=== PATIENT | female | born 1945 | race Caucasian/White ===

== ENCOUNTER 2018-01-17 10:52 | Emergency (ER) | payer MEDICARE, BC ==
[2018-01-17 11:10] VITALS: BP 123/76
--- NOTE | 2018-01-17 11:30 | UC ---
Dizzy HPI HPI Summary: Patient urgent care today with chief complaint of back pain. Patient reports that she fallen last night. Patient fact his fall 3 times in last week after starting Avelox. Once the patient's INR was 4.0 she has not had her INR rechecked patient does not have any chest pain but she does have a sensation that her heart is beating slower than usual. I now patient denies nausea vomiting chest pain shortness of breath pain in her legs does complain of some low back pain - History Of Current Complaint Chief Complaint: UCGeneralIllness Stated Complaint: BACK INJURY Time Seen by Provider: 01/17/18 11:16 Hx Obtained From: Patient ?: No Onset/Duration: Sudden Onset, Lasting Weeks - 1, Other - has had 3 falls in the past week Timing: Constant Pain Intensity: 9 Pain Scale Used: 0-10 Numeric Character: Lightheaded, Weak Aggravating Factor(s): Nothing Alleviating Factor(s): Nothing Associated Signs And Symptoms: Positive: Unsteady Gait - Allergies/Home Medications Allergies/Adverse Reactions: Allergies Allergy/AdvReac Type Severity Reaction Status Date / Time cephalexin [From Keflex] Allergy Rash Verified 01/17/18 12:18 ibuprofen Allergy upset Verified 01/17/18 12:18 stomach,nausea Penicillins Allergy Rash Verified 01/17/18 12:18 Sulfa (Sulfonamide Allergy Rash Verified 01/17/18 12:18 Antibiotics) tetracycline Allergy unk Verified 01/17/18 12:18 Home Medications: Home Medications Moxifloxacin HCl 400 mg PO DAILY 01/17/18 [History Confirmed 01/17/18] PMH/Surg Hx/FS Hx/Imm Hx Previously Healthy: No Endocrine History: Hypothyroidism Cardiovascular History: Cardiac Disease, Hypertension GI/ History: Diverticulitis Other History Of: Anticoagulant Therapy - COUMADIN - Surgical History Surgical History: Yes Surgery Procedure, Year, and Place: LEFT LUMPECTOMY 2007 - Family History Known Family History: Positive: None - Social History Occupation: Retired Lives: Alone Alcohol Use: None Substance Use Type: None Smoking Status (MU): Never Smoked Tobacco - Immunization History Most Recent Influenza Vaccination: fall 2012 Most Recent Tetanus Shot: UNSURE Most Recent Pneumonia Vaccination: 2011 Review of Systems Constitutional: Negative Skin: Negative Eyes: Negative ENT: Negative Respiratory: Negative Cardiovascular: Negative Gastrointestinal: Negative Genitourinary: Negative Motor: Negative Neurovascular: Negative Musculoskeletal: Negative Neurological: Negative Psychological: Negative Is Patient Immunocompromised?: No All Other Systems Reviewed And Are Negative: Yes Physical Exam Triage Information Reviewed: Yes Appearance: Well-Appearing, No Pain Distress, Well-Nourished Vital Signs: Initial Vital Signs Temp 97.7 F 01/17/18 11:04 Pulse 100 01/17/18 11:04 Resp 20 01/17/18 11:04 BP 123/76 01/17/18 11:04 Pulse Ox 100 01/17/18 11:04 Vital Signs Reviewed: Yes Eye Exam: Normal Eyes: Positive: Conjunctiva Clear ENT Exam: Normal ENT: Positive: Normal ENT inspection, Hearing grossly normal. Negative: Trismus , Muffled voice, Hoarse voice Neck exam: Normal Neck: Positive: Supple, Nontender Respiratory Exam: Normal Respiratory: Positive: Chest non-tender, Lungs clear, Normal breath sounds, No respiratory distress, No accessory muscle use Cardiovascular Exam: Normal Cardiovascular: Positive: RRR, No Murmur, Pulses Normal, Brisk Capillary Refill Musculoskeletal Exam: Normal Musculoskeletal: Positive: Strength Intact, ROM Intact, No Edema Neurological Exam: Normal Neurological: Positive: Alert, Muscle Tone Normal Psychological Exam: Normal Skin Exam: Normal Diagnostics - EKG Cardiac Rate: NL Cardiac Rhythm: Sinus: Normal - qt borderline prolong-- Ectopy: None Dizzy Course/Dx - Course [place] Of Treatment[place] [facility] [place] vs cardiac event and alteration in INR - Differential Dx/Diagnosis Provider Diagnoses: falling at home/ syncope/nearsyncope - Physician Notifications Discussed Patient Care With: Victor Manuel Redmond Time Discussed With Above Provider: 11:30 Discharge - Sign-Out/Discharge Documenting (check all that apply): Discharge/Admit/Transfer - Discharge Plan Condition: Stable Disposition: HOME Discharge Disposition Comment[place] [facility] [place]patient refused EMS) for further evaluation Patient Education Materials: Near Syncope (ED), Lightheadedness (ED) Referrals: Angeline Delarosa MD [Primary Care Provider] - Additional Instructions: We are discharging her from the urgent care to go directly to the emergency department for further evaluation of your recent falls - Billing Disposition and Condition Condition: STABLE Disposition: Home
== END 2018-01-17 11:45 | disposition home or self-care (01) ==
LOC: UCEAST 10:52
DX: R55 Syncope and collapse (principal); M54.9 Dorsalgia, unspecified; I48.91 Unspecified atrial fibrillation; I10 Essential (primary) hypertension; Z88.1 Allergy status to other antibiotic agents; Z88.0 Allergy status to penicillin; Z88.2 Allergy status to sulfonamides; Z88.6 Allergy status to analgesic agent; Z79.01 Long term (current) use of anticoagulants; W19.XXXA Unspecified fall, initial encounter; Y92.009 Unspecified place in unspecified non-institutional (private) residence as the place of occurrence of the external cause
CPT/HCPCS: 93005; 99212; G0463

== ENCOUNTER 2018-01-17 12:09 | Emergency (ER) | payer MEDICARE, BC ==
[2018-01-17 14:01] LABS: Hematocrit 45 % (35-47); Hemoglobin 15.3 g/dl (12.0-16.0); Mean Corpuscular HGB Conc 34 g/dl (31-36); Mean Corpuscular Hemoglobin 30 pg (27-31); Mean Corpuscular Volume 88 fL (80-97); Mean Platelet Volume 8.5 um3 (7.4-10.4); Platelet Count 596 10^3/ul (150-450); Red Blood Count 5.12 10^6/ul (4.00-5.40); Red Cell Distribution Width 15 % (10.5-15); White Blood Count 12.7 10^3/ul (3.5-10.8)
--- NOTE | 2018-01-17 14:04 | ED ---
Adult Trauma - HPI Summary HPI Summary: Patient presents with right flank/side pain status post fall 2 nights ago. She reports she gets up frequently to urinate in the night over the past 2-3 years and upon doing this, she was wearing socks which slipped on the hardwood floor. She fell directly backwards onto her bottom and admits it took her a few minutes to get up. Denies numbness, tingling, weakness, change in bowel or bladder habits, hematuria. Additionally, she does admit her balance has been off since she's been taking Avelox for diverticulitis. Denies dizziness or balance issues prior to Avelox and down since she started before she fell. She denies active dizziness at this point in time. She started this one week ago through her PCP, Eddie Gary. She admits the diverticulitis is improving however still has some symptoms such as gas. She is tolerating liquids and cooked vegetables at this point which is an improvement from where she was last week. Denies fever, chills, weakness. Back to her fall, she denies striking her head and denies headache, neck pain, upper back and shoulder pain, stiffness , chest pain, shortness of breath. Her pain has gotten slightly better when she 's taken half of an extra strength Tylenol and applied ice. Furthermore, she reports she takes Coumadin for her A. fib and is followed by Dr. Piper she is a history of ITP. Her Coumadin level 1 week ago was 4.7 and she was told to hold 2 days doses of warfarin then to restart. She has not had her INR rechecked since last checked 7 days ago. Denies visible bruising or bleeding. - History of Current Complaint Chief Complaint: EDBackInjuryPain Stated Complaint: RT SIDE BACK PAIN Time Seen by Provider: 01/17/18 12:40 Hx Obtained From: Patient, Family/Phlebotomy Lab Assistant - female partner Pain Intensity: 4 - Allergy/Home Medications Allergies/Adverse Reactions: Allergies Allergy/AdvReac Type Severity Reaction Status Date / Time cephalexin [From Keflex] Allergy Rash Verified 01/17/18 12:18 ibuprofen Allergy upset Verified 01/17/18 12:18 stomach,nausea Penicillins Allergy Rash Verified 01/17/18 12:18 Sulfa (Sulfonamide Allergy Rash Verified 01/17/18 12:18 Antibiotics) tetracycline Allergy unk Verified 01/17/18 12:18 Home Medications: Home Medications Acetaminophen [Tylenol Extra Strength] 250 mg PO BID PRN 01/17/18 [History Confirmed 01/17/18] Ascorbic Acid TAB* [Vitamin C TAB*] 1,000 mg PO BID 01/17/18 [History Confirmed 01/17/18] Carvedilol TAB* [Coreg TAB*] 12.5 mg PO BID 01/17/18 [History Confirmed 01/17/18 ] Cholecalciferol TAB* [Vitamin D TAB*] 1,000 unit PO QAM 01/17/18 [History Confirmed 01/17/18] Levothyroxine TAB* [Synthroid TAB*] 75 mcg PO EVERY OTHER DAY 01/17/18 [History Confirmed 01/17/18] Levothyroxine TAB* [Synthroid TAB*] 88 mcg PO EVERY OTHER DAY 01/17/18 [History Confirmed 01/17/18] Losartan TAB* [Cozaar TAB*] 25 mg PO DAILY@12 01/17/18 [History Confirmed ] Moxifloxacin TAB(NF) [Avelox TAB (NF)] 400 mg DAILY 01/17/18 [History Confirmed 01/17/18] Warfarin TAB(*) [Coumadin TAB(*)] 4 mg PO DAILY 01/17/18 [History Confirmed 12/30] PMH/Surg Hx/FS Hx/Imm Hx Previously Healthy: Yes Endocrine/Hematology History: Reports: Hx Anticoagulant Therapy - COUMADIN for a. 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 diverticulitis Hx Chemotherapy: No Hx Radiation Therapy: Yes - BREAST - Surgical History Surgery Procedure, Year, and Place: LEFT LUMPECTOMY 2007 Infectious Disease History: No Infectious Disease History: Denies: History Other Infectious Disease, Traveled Outside the [place] in Last 30 Days - Family History Known Family History: Positive: None - Social History Occupation: Retired Lives: With Family - partner Alcohol Use: None Hx Substance Use: No Substance Use Type: Reports: None Hx Tobacco Use: No Smoking Status (MU): Never Smoked Tobacco Review of Systems Constitutional: Negative Negative: Fever, Chills, Fatigue Eyes: Negative Negative: Photophobia, Blurred Vision, Diplopia ENT: Negative Cardiovascular: Negative Negative: Palpitations, Chest Pain Respiratory: Negative Negative: Shortness Of Breath, Cough Gastrointestinal: Other - divertivulitis - reports "I still have a bit of gas but improving" Negative: Vomiting, Diarrhea, Nausea Genitourinary: Negative Negative: burning, dysuria, discharge, frequency, flank pain, hematuria, incontinence, pain, urgency Positive: Arthralgia, Myalgia Skin: Negative Neurological: Other - intermittent balance issues Negative: Headache, Weakness, Paresthesia, Numbness, Syncope, Slurred Speech Psychological: Normal All Other Systems Reviewed And Are Negative: Yes Physical Exam Triage Information Reviewed: Yes Vital Signs On Initial Exam: Initial Vitals Temp Pulse Resp BP Pulse Ox 98.5 F 69 16 142/78 100 01/17/18 12:13 01/17/18 12:13 01/17/18 12:13 01/17/18 12:13 01/17/18 12:13 Vital Signs Reviewed: Yes Appearance: Positive: Well-Appearing, No Pain Distress, Well-Nourished Skin: Positive: Warm, Skin Color Reflects Adequate Perfusion, Dry - no erythema , no ecchymosis over Rt flank or as observed generally over her body Head/Face: Positive: Normal Head/Face Inspection - atraumatic Eyes: Positive: Normal, EOMI, ROSEMARY - no photophobia, Conjunctiva Clear ENT: Positive: Normal ENT inspection, Hearing grossly normal, Pharynx normal, TMs normal - no hemotympanum, no cerumen impaction. Negative: Nasal drainage Neck: Positive: Supple, Nontender, No Lymphadenopathy Respiratory/Lung Sounds: Positive: Clear to Auscultation, Breath Sounds Present Cardiovascular: Positive: Normal, RRR, Pulses are Symmetrical in both Upper and Lower Extremities, S1, S2 Abdomen Description: Positive: Nontender, No Organomegaly, Soft, Distended - mild Bowel Sounds: Positive: Present Musculoskeletal: Positive: Limited @ - Back pain w/ flexion and extension beyond general sitting and standing, Pain @ - Rt flank area and lower as well as lumbar spinous pp TTP Neurological: Positive: Normal, Sensory/Motor Intact, Alert, Oriented to Person Place, Time, CN Intact II-III, Reflexes Intact, Facial Symmetry, Speech Normal. Negative: Pronator Drift Present Psychiatric: Positive: Normal Diagnostics - Vital Signs Vital Signs Temp Pulse Resp BP Pulse Ox 01/17/18 12:41 98.7 F 63 16 127/70 98 01/17/18 12:13 98.5 F 69 16 142/78 100 - Laboratory Result Diagrams: 01/17/18 13:49 01/17/18 13:49 Lab Statement: Any lab studies that have been ordered have been reviewed, and results considered in the medical decision making process. Adult Trauma Course/Dx - Course Course Of Treatment: Pt presents w/ fall and Rt sided back pain since. She admits she's had intermittent balance issues since taking avelox for her diverticulitis and this seems to be the culprit. She is unfortnately allergic to many other anbx and so this is what was chosen to tx her condition. Additionally, she reports her INR was >4 almost 1 week ago and she was told to hold her coumadin for a couple of days. She denies any other potential causes of her balance issues (ie. no fever, chills, weakness, head injury, chest pain, cough, SOB, palpitations, etc). She treats her BP which has been well controlled however was elevated while here so she took her home med (losartan 25mg @ 16:05 w/ a sip of water as BP was 163/106 - improved to 160's/70's). Her scans were neg for hemorrhage, hematoma, organ injury however she was found to have a stable compression fx of L3. Since she was not having any radicular sx and is able to ambulate, toilet etc and has a partner at home, she will be d/ c'd w/ education about care for L3 fx and close f/u w/ neurosurgery. She was also told to contact Dr. Piper as soon as she returns (no contact was attempted today as she is on vacation). INR 3.16 and pt had dropped her dosage of coumadin from 5mg to 4mg. Tyler need recheck in a few days to see if she's staying in a therapeutic range (2-3). No s/sx of bleeding today or leading up to this visit. It was also observed that her platelets are continuing to increase and she may discuss this in further detail with Dr. Piper. As for her elevated WBC, this could be from her diverticulitis. She has no previous for baseline upon initial illness so this could be improving as pt admits she's feeling better re: ab pain and digestion (able to eat more foods than at onset) and she denies fever, weakness, etc. Her lactic acid and CRP are also WNL. She had some mild electrolyte deficiencies and so received IV fluids. She does not have any balance or dizziness isses while here in ED and neuro exam is normal. Discussed w/ Dr. Redmond and pt will f/u outpt as her d/c instructions state. Reviewed danger s/sx of when to return with both pt and her partner who agree w / plan. NOTE: U/A was requested from pt and nursing - both were aware of this request prior to d/c so UTI could be ruled out. This was not provided however prior to d/c. If pt's sx continue, would recommend U/A for further evaluation. - Diagnoses Provider Diagnoses: Lumbar compression fracture, Fall from standing, Elevated INR, Thrombocytosis Discharge - Sign-Out/Discharge Documenting (check all that apply): Discharge/Admit/Transfer - Discharge Plan Condition: Stable Disposition: HOME Patient Education Materials: Vertebral Compression Fracture (ED), Fall Prevention for Older Adults (ED) Referrals: Angeline Delarosa MD [Primary Care Provider] - Hebert Benz MD [Medical Doctor] - Sami Khalil MD [Medical Doctor] - Additional Instructions: The cause of your recent balance issues suspected to be from starting Avelox. You report you did not have balance issues prior to using this and you feel like your diverticulitis is improving. Also, your EKG looks normal as do your vital signs here today and you have not had any dizziness or balance issues while here - these seem to be worse at night when you are getting up abruptly to urinate. It is important that you follow-up with your PCP regarding the need to continue this medication as you may feel better with stopping it, however with a an elevated white blood cell count and still having some diverticular symptoms, it was decided that you should not stop this just yet. Your diverticular disease sounds like it is improving - continue fluids and easily digestible foods. Please call your PCP tomorrow or Saturday to verify when he can stop this medication. If balance issues or worsen persist, return to the ED. To aid in fall reductions, it is important that you transition slowly from lying and sitting to standing in an effort to reduce dizziness. It is also important that you stay hydrated. Remove all rugs from the floors and wear supportive foot wear with good refrigerator car icer while walking on potentially slippery surfaces. For night time urination, consider a bed side commode to reduce risk of slipping in the middle of the night with urinary needs. For your lumbar compression fracture, avoid bending, twisting, lifting, etc. It is important that you follow-up with Dr. Scott this week - call Saturday to schedule an appointment. At home you may continue acetaminophen and ice alternating with heat for pain relief. Also, your platelets are continuing to slowly increase. Please follow-up with Dr. Piper for close evaluation. If you have chest pain, headache, dizziness, numbness, tingling or weakness, return to the ED. NOTE: you have also mentioned chronic urinary issues at night. You have requested a urology consult - contact information included here (Yovani Benz). Additionally, a urine was collected today and will be sent for culture. If you have a resistant UTI, another antibiotic will be added as appropriate. - Billing Disposition and Condition Condition: STABLE Disposition: Home
[2018-01-17 14:06] LABS: INR 3.13 (0.77-1.02)
[2018-01-17 14:21] LABS: EGFR Non-African American 75.7 (>60)
[2018-01-17] MEDS ORDERED: Iohexol 300* (CONTRAST) 10 ML SDV IV ONE (14:24)
[2018-01-17 14:31] LABS: ABS Basophils 0.1 10^3/ul (0-0.2); ABS Eosinophils 0.3 10^3/ul (0-0.6); ABS Lymphocytes 2.2 10^3/ul (1.0-4.8); ABS Neutrophils 9.2 10^3/ul (1.5-7.7); ABS Nucleated RBC 0 10^3/ul; Eosinophil % 2.1 % (0-6); Lymphocyte % 17.1 % (25-47); Nucleated Red Blood Cells % 0.1
[2018-01-17] MEDS ORDERED: NS 0.9% 500 ML* 500 ML IV ONE (16:05)
--- NOTE | 2018-01-17 17:10 | RAD ---
INDICATION: Fall 2 days earlier COMPARISON: CT of the brain November 30, 2014 TECHNIQUE: Contiguous axial sections of the brain were obtained from the skull base to the vertex without contrast. FINDINGS: The ventricles, cisterns and sulci are within normal limits. There is a mild degree of periventricular and subcortical white matter hypoattenuation not significantly changed from the previous CT of the brain. The morgan-white matter differentiation is adequately maintained and there is no sulcal effacement. No significant focal abnormality or mass effect is present. There is no evidence for intracranial hemorrhage. Incidentally noted is the appearance of hyperostosis frontalis interna. No significant focal osseous abnormality is present. The visualized portion of the paranasal sinuses appear clear. The mastoid air cells are well aerated bilaterally. IMPRESSION: No CT evidence of acute intracranial abnormality.
--- NOTE | 2018-01-17 17:33 | RAD ---
INDICATION: Right flank and back pain since a fall 2 days earlier. INR is 4.7. COMPARISON: CT of the abdomen and pelvis November 16, 2016 TECHNIQUE: Multidetector CT images of the chest, abdomen and pelvis were obtained from the lung apices to the ischial tuberosities following the injection of 87 mL Omnipaque 300. CHEST: The lungs are clear. There are no large pleural effusions. There is no mediastinal or hilar lymphadenopathy. The heart and major vascular structures are grossly normal in appearance. There is coarse calcification at the arch of the aorta. ABDOMEN & PELVIS: There is a small hiatal hernia. The liver, spleen, pancreas and adrenal glands are grossly normal in appearance. The gallbladder is normal. Large fluid density cyst is in the right kidney. Otherwise the kidneys are normal in appearance without focal mass, calcification or signs of hydronephrosis. On the delayed phase images contrast is symmetrically and promptly excreted. Evaluation the gastrointestinal tract is limited without oral contrast.. The small and large bowel are not distended. The appendix appears normal with a small focus of gas in the lumen (sagittal image 46). There is no gross retroperitoneal or mesenteric lymphadenopathy. The pelvic viscera is normal in appearance. The abdominal aorta and iliac arteries are normal in course and diameter. Again seen is levoconvex curvature of the spine with the apex at L2/L3 similar in appearance to the previous CT examination. There is interval appearance of lucency at the L3 vertebral body (axial image 30 of [address] of the abdomen and pelvis). The fracture is depicted on the lumbar spine CT (coronal image 25 and axial image 34). There is no retropulsion of fragments. IMPRESSION: 1. There appears to be interval appearance of a nondisplaced compression fracture involving the anterior portion of the L3 vertebral body. There is no retropulsion of fragments into the thecal canal. 2. There is no retroperitoneal hematoma. 3. Additional chronic and degenerative changes as described in body the report.
[2018-01-17 19:36] VITALS: BP 158/84
== END 2018-01-17 19:34 | disposition home or self-care (01) ==
LOC: ED 12:09
DX: S32.039A Unspecified fracture of third lumbar vertebra, initial encounter for closed fracture (principal); W19.XXXA Unspecified fall, initial encounter; Y92.9 Unspecified place or not applicable; R79.1 Abnormal coagulation profile; D47.3 Essential (hemorrhagic) thrombocythemia; K57.92 Diverticulitis of intestine, part unspecified, without perforation or abscess without bleeding; I48.91 Unspecified atrial fibrillation; I10 Essential (primary) hypertension; Z79.01 Long term (current) use of anticoagulants; Z79.899 Other long term (current) drug therapy; Z85.3 Personal history of malignant neoplasm of breast; Z88.0 Allergy status to penicillin; Z88.5 Allergy status to narcotic agent; Z88.3 Allergy status to other anti-infective agents; R55 Syncope and collapse; M54.9 Dorsalgia, unspecified; Z88.1 Allergy status to other antibiotic agents; Z88.2 Allergy status to sulfonamides; Z88.6 Allergy status to analgesic agent; Y92.009 Unspecified place in unspecified non-institutional (private) residence as the place of occurrence of the external cause
CPT/HCPCS: 36415; 70450; 71260; 72131; 74177; 80053; 82550; 83605; 84443; 85025; 85610; 86850; 86900; 86901; 93005; 99283; Q9967

== ENCOUNTER 2018-12-04 21:50 | Emergency (ER) | payer MEDICARE, BC ==
[2018-12-04] MEDS ORDERED: Losartan TAB* 25 MG PO ONE (22:39)
--- NOTE | 2018-12-04 22:56 | ED ---
Hypertension - HPI Summary HPI Summary: Pt is a 73 y/o F presenting to the ED with a chief complaint of hypertension. 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 Her teacher called EMS who stated she should follow up with her PCP because her BP was low, but when she went to her PCP the same day it was normal. She was on losartan, so her doctor recommended stopping that medication. Now, her BP has gone back up, and she reports some arm numbness and mouth numbness on the L side. She denies headaches, weakness, and CP. - History of Current Complaint Chief Complaint: EDHypertension Stated Complaint: DR TOOK ME OFF MEDICATION, LEFT ARM NUMBNESS PER P Time Seen by Provider: 12/04/18 22:27 Hx Obtained From: Patient Onset/Duration: Started Days Ago, Still Present Timing: Constant, Lasting Days Aggravating Factor(s): Nothing Alleviating Factor(s): Nothing Associated Signs & Symptoms: Numbness, Weakness, Dizziness - Allergies/Home Medications Allergies/Adverse Reactions: Allergies Allergy/AdvReac Type Severity Reaction Status Date / Time cephalexin [From Keflex] Allergy Rash Verified 01/17/18 12:18 ibuprofen Allergy upset Verified 01/17/18 12:18 stomach,nausea Penicillins Allergy Rash Verified 01/17/18 12:18 Sulfa (Sulfonamide Allergy Rash Verified 01/17/18 12:18 Antibiotics) tetracycline Allergy unk Verified 01/17/18 12:18 PMH/Surg Hx/FS Hx/Imm Hx Previously Healthy: Yes Endocrine/Hematology History: Reports: Hx Anticoagulant Therapy - COUMADIN for a. 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 Negative: Headache, Weakness All Other Systems Reviewed And Are Negative: Yes Physical Exam - Summary Physical Exam Summary: Appearance: Well-appearing, Well-nourished, lying in bed comfortably, BP somewhat high Skin: Warm, dry, no obvious rash Eyes: sclera anicteric, no conjunctival pallor ENT: mucous membranes moist, pharynx appears normal Neck: Supple, nontender Respiratory: Clear to auscultation, no signs of respiratory distress Cardiovascular: Normal S1, S2. No murmurs. Normal distal pulses in tibial and radial bilaterally. Abdomen: Soft, nontender, normal active bowel sounds present Musculoskeletal: Normal, Strength/ROM Intact Neurological: A&Ox3, awake and alert, mentation is normal, speech is fluent and appropriate Psychiatric: affect is normal, does not appear anxious or depressed Triage Information Reviewed: Yes Vital Signs On Initial Exam: Initial Vitals Temp Pulse Resp BP Pulse Ox 97.6 F 75 16 203/100 97 12/04/18 21:53 12/04/18 21:53 12/04/18 21:53 12/04/18 21:53 12/04/18 21:53 Vital Signs Reviewed: Yes - Clotilde Coma Scale Best Eye Response: 4 - Spontaneous Best Motor Response: 6 - Obeys Commands Best Verbal Response: 5 - Oriented Coma Scale Total: 15 Diagnostics - Vital Signs Vital Signs Temp Pulse Resp BP Pulse Ox 12/04/18 21:53 97.6 F 75 16 203/100 97 - Laboratory Result Diagrams: 12/04/18 22:52 12/04/18 22:52 Lab Statement: Any lab studies that have been ordered have been reviewed, and results considered in the medical decision making process. - Radiology CXR Radiology Interpretation Completed By: ED Physician Summary of Radiographic Findings: No acute process. Pending official radiology report. - CT Brain CT CT Interpretation Completed By: Radiologist Summary of CT Findings: No acute intracranial findings, with age-related atrophy and chronic white matter ischemic change. ED physician has reviewed this report. - EKG 2324 Cardiac Rate: NL - 69bpm EKG Rhythm: Sinus Rhythm ST Segment: Normal Ectopy: None Summary of EKG Findings: EKG at 2324 shows NSR at 69bpm with no STEMI and no acute changes. Hypertension Course/Dx - Course Course Of Treatment: Pt is a 73 y/o F presenting to the ED with a chief complaint of hypertension. 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 Her BP was too low, and her PCP recommended coming off of the Losartan. She stopped taking it, and now her BP is elevated. She denies PICKARD, weakness, or CP. CXR shows no acute process, pending official radiology report. Brain CT shows no acute intracranial findings, with age-related atrophy and chronic white matter ischemic change. EKG at 4 shows NSR at 69bpm with no STEMI. The pt's physical exam is normal aside from noted high blood pressure. In the ED course, the pt received losartan to bring her BP down. Hematology shows RBC of 5.43, plt count of 506. Coagulation shows INR of 2.05. Chemistry shows Chloride of 99. UA is normal. The pt will be discharged with a dx of hypertension. She is stable and agreeable with this plan. - Diagnoses Provider Diagnoses: Hypertension Discharge - Sign-Out/Discharge Documenting (check all that apply): Patient Departure Patient Received Moderate/Deep Sedation with Procedure: No - Discharge Plan Condition: Good Disposition: HOME Patient Education Materials: Chronic Hypertension (ED) Referrals: Angeline Delarosa MD [Primary Care Provider] - Additional Instructions: I would recommend resuming your losartan for the time being. Our tests tonight did not show any signs that the elevated BP you had today was causing any major problems for you. - Billing Disposition and Condition Condition: GOOD Disposition: Home - Attestation Statements Document Initiated by Scribe: Yes Documenting Scribe: Nelly Nicolas Provider For Whom Rubén is Documenting (Include Credential): Jose Hill MD. Scribe Attestation: Nelly Mendoza scribed for Jose Hill MD. on 12/09/18 at 1829. Scribe Documentation Reviewed: Yes Provider Attestation: The documentation as recorded by the Nelly maharaj accurately reflects the service I personally performed and the decisions made by me, Jose Hill MD. Status of Scribe Document: Viewed
[2018-12-04 23:04] LABS: Hematocrit 47 % (35-47); Hemoglobin 15.8 g/dL (12.0-16.0); Mean Corpuscular HGB Conc 33 g/dL (31-36); Mean Corpuscular Hemoglobin 29 pg (27-31); Mean Corpuscular Volume 87 fL (80-97); Mean Platelet Volume 8.8 fL (7.4-10.4); Platelet Count 506 10^3/uL (150-450); Red Blood Count 5.43 10^6 /uL (3.70-4.87); Red Cell Distribution Width 14 % (10.5-15); White Blood Count 10.5 10^3/uL (3.5-10.8)
[2018-12-04 23:08] LABS: INR 2.05 (0.82-1.09)
[2018-12-04 23:15] LABS: Albumin 4.2 g/dL (3.2-5.2); Albumin/Globulin Ratio 1.4 (1-3); BUN/Creatinine Ratio 17.9 (8-20); Calcium 9.5 mg/dL (8.6-10.3); EGFR African American 69.6 (>60); EGFR Non-African American 57.5 (>60); Potassium 4.1 mmol/L (3.5-5.0); Total Bilirubin 0.4 mg/dL (0.2-1.0); Total Protein 7.2 g/dL (6.4-8.9)
[2018-12-04 23:30] LABS: Urine Appearance Clear; Urine Bilirubin Negative (Negative); Urine Blood Negative (Negative); Urine Color Colorless; Urine Glucose Negative (Negative); Urine Ketones Negative (Negative); Urine Nitrite Negative (Negative); Urine Protein Negative (Negative); Urine Specific Gravity 1.002 (1.010-1.030); Urine Urobilinogen Negative (Negative)
[2018-12-04 23:49] LABS: ABS Basophils 0.1 10^3/ul (0-0.2); ABS Eosinophils 0.5 10^3/ul (0-0.6); ABS Lymphocytes 2.1 10^3/ul (1.0-4.8); ABS Monocytes 0.8 10^3/ul (0-0.8); Eosinophil % 4.7 %; Lymphocyte % 19.8 %
[2018-12-05 01:48] VITALS: BP 150/88
== END 2018-12-05 01:52 | disposition home or self-care (01) ==
LOC: ED 21:50
DX: I10 Essential (primary) hypertension (principal); I48.91 Unspecified atrial fibrillation; M81.0 Age-related osteoporosis without current pathological fracture; R94.31 Abnormal electrocardiogram [ECG] [EKG]; Z88.3 Allergy status to other anti-infective agents; Z88.0 Allergy status to penicillin; Z88.2 Allergy status to sulfonamides; Z88.6 Allergy status to analgesic agent; Z79.01 Long term (current) use of anticoagulants
CPT/HCPCS: 36415; 70450; 71046; 80053; 81003; 84484; 85025; 85610; 93005; 99283; A9270-GY

== ENCOUNTER 2018-12-18 21:59 | Emergency (ER) | payer MEDICARE, BC ==
[2018-12-19] MEDS ORDERED: cloNIDine TAB* 0.1 MG PO ONE (00:10)
--- NOTE | 2018-12-19 00:24 | ED ---
Hypertension - HPI Summary HPI Summary: 73-year-old female presents with high blood pressure today. States she has been having intermittent numbness and tingling in her left arm over the past 2 weeks. It started when she stopped her blood pressure medication as advised by her primary. States that since then she's had issues her blood pressure. Denies any chest pain shortness breath. No headache. no difficulties with speech or word finding. She states she's been having numbness and tingling across body for the past month. No weakness. sometimes she has difficulty ambulate. no difficulty ambulating currently. No urinary symptoms. No vomiting or nausea. Denies any neck pain. No fevers. She took her blood pressure today and it was over 180. She took her normal dose of blood pressure medications. was seen here a week ago for same symptoms. - History of Current Complaint Chief Complaint: EDHypertension Stated Complaint: HIGH BP 186/106 PER PT Time Seen by Provider: 12/18/18 23:42 - Allergies/Home Medications Allergies/Adverse Reactions: Allergies Allergy/AdvReac Type Severity Reaction Status Date / Time cephalexin [From Keflex] Allergy Rash Verified 12/18/18 22:13 ibuprofen Allergy upset Verified 12/18/18 22:13 stomach,nausea Penicillins Allergy Rash Verified 12/18/18 22:13 Sulfa (Sulfonamide Allergy Rash Verified 12/18/18 22:13 Antibiotics) tetracycline Allergy unk Verified 12/18/18 22:13 PMH/Surg Hx/FS Hx/Imm Hx Endocrine/Hematology History: Reports: Hx Anticoagulant Therapy - COUMADIN for a. 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 Negative: Chest Pain Negative: Shortness Of Breath Positive: Paresthesia All Other Systems Reviewed And Are Negative: Yes Physical Exam Triage Information Reviewed: Yes Vital Signs On Initial Exam: Initial Vitals Temp Pulse Resp BP Pulse Ox 96.8 F 76 16 190/106 99 12/18/18 22:05 12/18/18 22:05 12/18/18 22:05 12/18/18 22:05 12/18/18 22:05 Vital Signs Reviewed: Yes Appearance: Positive: Well-Appearing Skin: Positive: Warm, Dry Head/Face: Positive: Normal Head/Face Inspection Eyes: Positive: Normal, Conjunctiva Clear ENT: Positive: Pharynx normal Neck: Positive: Other: - nontender neck, full ROM neck Respiratory/Lung Sounds: Positive: Clear to Auscultation, Breath Sounds Present Cardiovascular: Positive: Normal, RRR Abdomen Description: Positive: Nontender, Soft Bowel Sounds: Positive: Present Musculoskeletal: Positive: Normal, Strength/ROM Intact - left arm, Other - good principal scientist strength, sensation grossly intact Neurological: Positive: Sensory/Motor Intact, Alert, Oriented to Person Place, Time, CN Intact II-III Psychiatric: Positive: Normal Diagnostics - Vital Signs Vital Signs Temp Pulse Resp BP Pulse Ox 12/19/18 00:13 65 19 171/96 95 12/19/18 00:00 68 15 96 12/18/18 23:42 69 179/99 95 12/18/18 22:05 96.8 F 76 16 190/106 99 - Laboratory Result Diagrams: 12/19/18 00:36 12/19/18 00:36 Lab Statement: Any lab studies that have been ordered have been reviewed, and results considered in the medical decision making process. - Radiology chest Radiology Interpretation Completed By: ED Physician Summary of Radiographic Findings: no active disease - EKG No standard instances Cardiac Rate: NL EKG Rhythm: Sinus Rhythm EKG Comparison: No Significant Change Summary of EKG Findings: sinus rhythm, PAC, anterior infaract old Re-Evaluation - Re-Evaluation First Eval Re-Evaluation Time: 01:38 Change: Improved Comment: numbness and tingling resolved Second Eval Re-Evaluation Time: 01:54 Comment: discussed results Hypertension Course/Dx - Course Course Of Treatment: 73-year-old female presents with high blood pressure today. States she has been having intermittent numbness and tingling in her left arm over the past 2 weeks. It started when she stopped her blood pressure medication as advised by her primary. States that since then she's had issues her blood pressure. Denies any chest pain shortness breath. No headache. no difficulties with speech or word finding. She states she's been having numbness and tingling across body for the past month. No weakness. sometimes she has difficulty ambulate. no difficulty ambulating currently. No urinary symptoms. No vomiting or nausea. Denies any neck pain. No fevers. She took her blood pressure today and it was over 180. She took her normal dose of blood pressure medications. On exam lungs clear auscultation. Heart regular rate and rhythm. EKG shows sinus rhythm. Lab work without significant abnormality except for H&H little bit elevated. States has a family history of polycythemia vera. gave dose of clonidine and blood pressure was 130/80. We will have increased losartan. Told to follow up with Dr castano about blood pressure. Also with paresthesias told to follow-up with neurology. Patient understands agrees with plan. - Diagnoses Differential Diagnosis/HQI PQRI: Cerebral Bleed, Hypertension, Hypertensive Urgency, Myocardial Infarction Provider Diagnoses: Hypertension, Left arm numbness Discharge - Sign-Out/Discharge Documenting (check all that apply): Patient Departure Patient Received Moderate/Deep Sedation with Procedure: No - Discharge Plan Condition: Good Disposition: HOME Patient Education Materials: Hypertension (ED) Referrals: Angeline Delarosa MD [Primary Care Provider] - Brenda Castano MD [Medical Doctor] - Mireille Ochoa MD [Medical Doctor] - Additional Instructions: increase losartan to 50mg daily (double dose) keep a blood pressure log daily Follow up with cardiology follow up with neurology Return to ED if develop any new or worsening symptoms - Billing Disposition and Condition Condition: GOOD Disposition: Home
[2018-12-19 00:52] LABS: ABS Basophils 0.1 10^3/ul (0-0.2); ABS Eosinophils 0.4 10^3/ul (0-0.6); ABS Monocytes 0.8 10^3/ul (0-0.8); ABS Neutrophils 9.3 10^3/ul (1.5-7.7); Eosinophil % 3.1 %; Hematocrit 50 % (35-47); Hemoglobin 16.7 g/dL (12.0-16.0); Lymphocyte % 16.2 %; Mean Corpuscular HGB Conc 34 g/dL (31-36); Mean Corpuscular Hemoglobin 29 pg (27-31); Mean Corpuscular Volume 87 fL (80-97); Mean Platelet Volume 8.9 fL (7.4-10.4); Nucleated Red Blood Cells % 0.1; Platelet Count 425 10^3/uL (150-450); Red Blood Count 5.69 10^6 /uL (3.70-4.87); Red Cell Distribution Width 15 % (10-15); White Blood Count 12.6 10^3/uL (3.5-10.8)
[2018-12-19 00:57] LABS: INR 2.25 (0.82-1.09)
[2018-12-19 01:08] LABS: Albumin 4.4 g/dL (3.2-5.2); Albumin/Globulin Ratio 1.5 (1-3); BUN/Creatinine Ratio 17.9 (8-20); Calcium 10.1 mg/dL (8.6-10.3); EGFR African American 87.4 (>60); EGFR Non-African American 72.2 (>60); Potassium 4.1 mmol/L (3.5-5.0); Total Bilirubin 0.8 mg/dL (0.2-1.0); Total Protein 7.4 g/dL (6.4-8.9)
[2018-12-19 01:42] LABS: Urine Appearance Clear; Urine Bilirubin Negative (Negative); Urine Blood Negative (Negative); Urine Color Straw; Urine Glucose Negative (Negative); Urine Ketones Negative (Negative); Urine Nitrite Negative (Negative); Urine Protein Negative (Negative); Urine Specific Gravity 1.004 (1.010-1.030); Urine Urobilinogen Negative (Negative)
[2018-12-19 02:27] VITALS: BP 129/81
== END 2018-12-19 02:27 | disposition home or self-care (01) ==
LOC: ED 21:59
DX: I10 Essential (primary) hypertension (principal); R20.0 Anesthesia of skin; Z85.3 Personal history of malignant neoplasm of breast; Z88.0 Allergy status to penicillin; Z88.2 Allergy status to sulfonamides; Z79.01 Long term (current) use of anticoagulants
CPT/HCPCS: 36415; 70450; 71045; 72125; 80053; 81003; 83605; 84484; 85025; 85610; 93005; 99283; A9270-GY

== ENCOUNTER 2018-12-24 15:19 | Observation (INO) | payer MEDICARE, BC ==
[2018-12-24] MEDS ORDERED: Labetalol IV* 5 MG/ML 20 ML VIAL IV PUSH ONE ×2 (15:48→16:14)
--- NOTE | 2018-12-24 16:06 | ED ---
Neurological HPI - HPI Summary HPI Summary: Patient is a 73 y/o F presenting to ED with concerns of recent strokes. Patient reports that she had been to ED twice in the past two weeks with concerns for her elevated BP. Patient does note that she has been having intermittent left sided hand numbness, left-sided weakness, ataxia, and feeling fatigued and "uncoordinated". Patient was at [facility] today and received Head CTA and brain MRI. MRI revealed multiple recent strokes per patient report. At this time, patient denies any new symptoms. She notes that her patient had previously taken her off her BP medication, Losartan. After first visit to ED in past two weeks, she was restarted on her BP med, after the second visit, she states she had her losartan doubled. Patient has not had her Losartan today. PMHx of HTN, afib, and ITP. She is on Coumadin as well. On triage, pain is denied, nothing is noted to aggravate/alleviate Sx. Home medications and allergies are reviewed. - History of Current Complaint Chief Complaint: EDHypertension Stated Complaint: STORKE LIKE SYMPTOMS Hx Obtained From: Patient Onset/Duration: Started weeks ago - Sx for the past two weeks Timing: Intermittent Episodes Lasting: Current Severity: None Neurological Deficit Location: LUE, LLE Pain Intensity: 0 Pain Scale Used: 0-10 Numeric Character: Numbness/Tingling - left hand, Motor Weakness - left sided, Other: - ataxia, fatigue, "uncoordinated" Aggravating: Nothing Alleviating: Nothing Associated Signs and Symptoms: Positive: Unsteady Gait, Weakness - left-sided, Numbness - left hand - Allergy/Home Medications Allergies/Adverse Reactions: Allergies Allergy/AdvReac Type Severity Reaction Status Date / Time aspirin Allergy Unknown Verified 12/24/18 16:24 Reaction Details cephalexin [From Keflex] Allergy Rash Verified 12/24/18 15:25 ibuprofen Allergy upset Verified 12/24/18 15:25 stomach,nausea Penicillins Allergy Rash Verified 12/24/18 15:25 Sulfa (Sulfonamide Allergy Rash Verified 12/24/18 15:25 Antibiotics) tetracycline Allergy unk Verified 12/24/18 15:25 Home Medications: Home Medications Acetaminophen TAB* [Tylenol TAB*] 650 mg PO Q6H PRN 12/24/18 [History Confirmed 12/24/18] Lactobacillus Acidophilus [Probiotic Acidophilus] 1 tab PO DAILY 12/24/18 [ History Confirmed 12/24/18] Losartan TAB* [Cozaar TAB*] 50 mg PO QPM 12/24/18 [History Confirmed 12/24/18] PMH/Surg Hx/FS Hx/Imm Hx Endocrine/Hematology History: Reports: Hx Anticoagulant Therapy - COUMADIN for a. 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 [facility] Infectious Disease History: No Infectious Disease History: Denies: History Other Infectious Disease, Traveled Outside the [place] in Last 30 Days - Family History Known Family History: Negative: Renal Disease - Social History Alcohol Use: None Hx Substance Use: No Substance Use Type: Reports: None Hx Tobacco Use: No Smoking Status (MU): Never Smoked Tobacco Review of Systems Constitutional: Other - positive - feeling uncoordinated Positive: Fatigue Positive: Weakness - left-sided, ataxia, Numbness - left hand All Other Systems Reviewed And Are Negative: Yes Physical Exam - Summary Physical Exam Summary: VITAL SIGNS: Reviewed. GENERAL: Patient is a well-developed and nourished female who is lying comfortable in the stretcher. Patient is not in any acute respiratory distress. HEAD AND FACE: No signs of trauma. No ecchymosis, hematomas or skull depressions. No sinus tenderness. EYES: PERRLA, EOMI x 2, No injected conjunctiva, no nystagmus. EARS: Hearing grossly intact. Ear canals and tympanic membranes are within normal limits. MOUTH: Oropharynx within normal limits. NECK: Supple, trachea is midline, no adenopathy, no JVD, no carotid bruit, no c- spine tenderness, neck with full ROM. CHEST: Symmetric, no tenderness at palpation LUNGS: Clear to auscultation bilaterally. No wheezing or crackles. CVS: Regular rate and rhythm, S1 and S2 present, no murmurs or gallops appreciated. ABDOMEN: Soft, non-tender. No signs of distention. No rebound no guarding, and no masses palpated. Bowel sounds are normal. EXTREMITIES: FROM in all major joints, no edema, no cyanosis or clubbing. NEURO: Alert and oriented x 3. Speech is normal and follows commands. Left arm and left leg weakness. GCS 15, NIH 2. SKIN: Dry and warm. Triage Information Reviewed: Yes Vital Signs On Initial Exam: Initial Vitals Temp Pulse Resp BP Pulse Ox 99.4 F 81 17 211/110 99 12/24/18 15:21 12/24/18 15:21 12/24/18 15:21 12/24/18 15:21 12/24/18 15:21 Vital Signs Reviewed: Yes - Clotilde Coma Scale Best Eye Response: 4 - Spontaneous Best Motor Response: 6 - Obeys Commands Best Verbal Response: 5 - Oriented Coma Scale Total: 15 Diagnostics - Vital Signs Vital Signs Temp Pulse Resp BP Pulse Ox 12/24/18 15:21 99.4 F 81 17 211/110 99 - Laboratory Result Diagrams: 12/24/18 16:03 12/24/18 16:03 Lab Statement: Any lab studies that have been ordered have been reviewed, and results considered in the medical decision making process. - EKG 1557 Cardiac Rate: NL - rate of 75 BPM EKG Rhythm: Sinus Rhythm EKG Comparison: No Significant Change - compared to 12/19/18 EKG Summary of EKG Findings: EKG showed sinus rhythm with rate of 75 BPM, no ST elevation, similar to EKG done 12/19/18. NIH Scale - NIH Scale Level of Consciousness: Alert/Keenly Responsive Ask Patient the Month and His/Her Age: Both Correct Ask Pt to Open/Close Eyes and Agricultural Engineering Technician/Release Non-Paretic Hand: Both Correctly Best Gaze (Only Horizontal Eye Movement): Normal Visual Field Testing: No Visual Loss Facial Paresis-Pt to Smile & Close Eyes or Grimace Symmetry: Normal/Symmetrical Motor Function - Right Arm: No Drift-Holds 10 Seconds Motor Function - Left Arm: Drifts LT 10 seconds Motor Function - Right Leg: No Drift-Holds 10 Seconds Motor Function - Left Leg: Drifts LT 10 seconds Limb Ataxia-Must be out of Proportion to Weakness Present: Absent Sensory (Use Pinprick to Test Arms/Legs/Trunk/Face): Normal Best Language (Describe Picture, Name Items): No Aphasia Dysarthria (Read Several Words): Normal Extinction and Inattention: No Abnormality Total Score: 2 Course/Dx - Course Assessment/Plan: Patient is a 73 y/o F presenting to ED with concerns of recent strokes. Patient reports that she had been to ED twice in the past two weeks with concerns for her elevated BP. Patient does note that she has been having intermittent left sided hand numbness, left-sided weakness, ataxia, and feeling fatigued and "uncoordinated". Patient was at [facility] today and received Head CTA and brain MRI. MRI revealed multiple recent strokes per patient report. At this time, patient denies any new symptoms. She notes that her patient had previously taken her off her BP medication, Losartan. After first visit to ED in past two weeks, she was restarted on her BP med, after the second visit, she states she had her losartan doubled. Patient has not had her Losartan today. PMHx of HTN, afib, and ITP. She is on Coumadin as well. Past medical history significant for. Atrial fibrillation on Coumadin. Hypertension. Hypothyroidism. Blood work without any significant abnormality except for INR of 3.01, sodium 1:30, chloride 100, glucose 121, and urinalysis is negative for UTI. MRI of the brain impression: Multiple small foci of restricted diffusion consistent with a subacute nonhemorrhagic infarct tenderness or rebound hemispheres bilaterally in multiple vascular territories most consistent with embolic disease. CTA impression: no internal carotid artery stenosis. No aneurysms, vascular malformation, occlusion, or any stenosis of the visualized intracranial circulation. At this point I discussed my physical exam and findings with Dr. Canseco from a neurology who came and consulted for this patient. He recommends for the patient to be admitted to the hospital services for an echocardiogram and further workup for this patient. I discussed my physical exam and findings with Dr. Carrero from the hospital services was accepted the patient for admission. - Diagnoses Provider Diagnoses: CVA (cerebral vascular accident) - Physician Notifications Discussed Care Of Patient With: Bel Canseco Time Discussed With Above Provider: 15:46 Instructed by Provider To: Other - [id number] - Patient's case was discussed wt Dr. Canseco, Dr. Canseco will evaluate the patient, admission is recommended. 1555 - Patient's case was discussed with Dr. Carrero, Dr. Carrero accepts for admission. - Critical Care Time Critical Care Time: 30-74 min Discharge - Sign-Out/Discharge Documenting (check all that apply): Patient Departure - admit All imaging exams completed and their final reports reviewed: Yes - reviewed [facility] imaging Patient Received Moderate/Deep Sedation with Procedure: No - Discharge Plan Condition: Good Disposition: ADMITTED TO [facility] - Billing Disposition and Condition Condition: GOOD Disposition: Admitted to [facility] - Attestation Statements Document Initiated by Enriqueibe: Yes Documenting Scribe: KALEE NASSAR Provider For Whom Rubén is Documenting (Include Credential): SWATI FINCH MD Scribe Attestation: KALEE Mendoza, scribed for SWATI FINCH MD on 12/24/18 at 2151. Scribe Documentation Reviewed: Yes Provider Attestation: The documentation as recorded by the KALEE maharaj accurately reflects the service I personally performed and the decisions made by me, SWATI FINCH MD Status of Scribe Document: Viewed
[2018-12-24 16:13] LABS: ABS Basophils 0.1 10^3/ul (0-0.2); ABS Eosinophils 0.5 10^3/ul (0-0.6); ABS Lymphocytes 1.9 10^3/ul (1.0-4.8); ABS Monocytes 0.8 10^3/ul (0-0.8); ABS Neutrophils 7.2 10^3/ul (1.5-7.7); Eosinophil % 4.6 %; Hematocrit 47 % (35-47); Hemoglobin 15.9 g/dL (12.0-16.0); Mean Corpuscular HGB Conc 34 g/dL (31-36); Mean Corpuscular Hemoglobin 29 pg (27-31); Mean Corpuscular Volume 87 fL (80-97); Mean Platelet Volume 8.6 fL (7.4-10.4); Nucleated Red Blood Cells % 0.2; Platelet Count 485 10^3/uL (150-450); Red Blood Count 5.43 10^6 /uL (3.70-4.87); Red Cell Distribution Width 15 % (10-15); White Blood Count 10.5 10^3/uL (3.5-10.8)
[2018-12-24 16:19] LABS: INR 3.01 (0.82-1.09)
[2018-12-24 16:30] LABS: Albumin/Globulin Ratio 1.5 (1-3); BUN/Creatinine Ratio 22.9 (8-20); Calcium 9.2 mg/dL (8.6-10.3); EGFR Non-African American 81.8 (>60); Globulin 2.6 g/dL (2-4); Potassium 3.9 mmol/L (3.5-5.0); Total Bilirubin 0.4 mg/dL (0.2-1.0); Total Protein 6.6 g/dL (6.4-8.9)
[2018-12-24 17:25] LABS: Urine Appearance Clear; Urine Bilirubin Negative (Negative); Urine Blood Negative (Negative); Urine Color Straw; Urine Glucose Negative (Negative); Urine Ketones Negative (Negative); Urine Nitrite Negative (Negative); Urine Protein Negative (Negative); Urine Specific Gravity 1.019 (1.010-1.030); Urine Urobilinogen Negative (Negative)
[2018-12-24] MEDS ORDERED: Warfarin TAB(*) 4 MG PO SCH (18:00)
[2018-12-24] MEDS: Losartan TAB* 25 MG PO SCH (18:40)
[2018-12-24] MEDS: NS 0.9% 1000 ML** 1,000 ML IV SCH (18:40)
--- NOTE | 2018-12-24 19:02 | HP ---
CC: Dr. Delarosa; Dr. Aguila; Dr. Real; Dr. Canseco * HISTORY AND PHYSICAL: DATE OF ADMISSION: 12/24/18 TIME OF EVALUATION: 4:30 p.m. PRIMARY CARE PROVIDER: Dr. Delarosa. QUALITY TESTER: Dr. Aguila. NEUROLOGIST: Dr. Real. CONSULTING NEUROLOGIST: Dr. Canseco. CHIEF COMPLAINT: "I had a stroke." HISTORY OF PRESENT ILLNESS: Ms. Hooper is a 73-year-old lady with a past medical history of paroxysmal atrial fibrillation, BPPV, ITP, osteoporosis, CVA in 2010, hypothyroidism, autoimmune hepatitis, hypertension, who presents to the emergency room after having an MRI of the brain as an outpatient showing embolic CVA. Her symptoms go back to 11/28/18. 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 EMS was called and their evaluation revealed a blood pressure of 80/56 with a heart rate in the 60s. She declined transportation to the ER and actually went home. She was seen by her primary care provider and the decision at that time was to stop her losartan and to arrange for a Holter as an outpatient. The patient states that she was initially feeling back to her baseline, but on 12/03/18, she had a Holter monitor placed. She states it was very uncomfortable because the leads capped "poking her chest," the blood pressure monitor was also tight and she was not able to sleep well. She states that on 12/04/18, she woke up with left hand numbness that she attributed to "sleeping wrong." Her Holter showed normal sinus rhythm with episodes of SVT at all times of the day, more frequent with sleep with a heart rate of 130 beats per minute. There is no ventricular ectopy. The patient presented to the emergency room on 12/04/18 and at that time her complaint was her blood pressure was elevated and she had numbness on the left arm. She had a workup that included a CT of the brain without contrast that showed no acute intracranial findings and her blood pressure was 203/100. She was advised to resume her losartan and to follow up with her primary care provider. She was seen once again by Dr. Delarosa on 12/09/18 for a followup of this ED visit and the neurological exam was described that the patient had a left publishing editor strength of 4/5, so at that point, she was referred to Physical Therapy and to see Dr. Babcock for evaluation. She was advised to continue her losartan 25 mg. On 12/18/18, she returned to the emergency room once again with complaints of high blood pressure. She was still having numbness of her left hand and she states that around that time her legs were "not working right. " She states that it felt like her legs were not "communicating" and she started to use a cane for ambulation. On that ED visit, the patient had a repeat CT of the brain that showed no acute intracranial hemorrhage, no intracranial mass or obstructive hydrocephalus and a CT of the cervical spine that showed no acute fracture involving the cervical vertebral bodies or posterior elements, straightening of the normal cervical lordosis. She was discharged from the emergency room and referred to see Neurology as an outpatient. She was seen by Dr. Babcock on 12/15/18 and her impression was that the patient had ulnar neuropathy on the left and she had recommended nerve conduction study. She saw Dr. Real on 12/22/18 and he was concerned given her recent history and past medical history that she may have suffered another stroke with some residual symptoms on the left side. He recommended MRI of the brain, CT angiogram of the head and neck, and echocardiogram with bubble study. The patient underwent MRI and the CTA as an outpatient today and her MRI was positive for stroke, reason why she came to the emergency room. She states that her left-sided numbness is unchanged and the left leg weakness is also unchanged. She denies chest pain, palpitations, shortness of breath, nausea, vomiting, diarrhea, or urinary complaints. She did sustain a fall a couple days ago and hit her right foot and complained of some local pain. PAST MEDICAL HISTORY: 1. Hypothyroidism. 2. Hypertension. 3. Left breast CA, DCIS, ER/MN positive, status post lumpectomy and radiation. 4. Autoimmune hepatitis. 5. ITP, followed by Dr. Piper. 6. Embolic CVA in 2011. 7. Atrial fibrillation, anticoagulated with warfarin. 8. Osteoporosis. 9. Diverticulitis. 10. Hyperlipidemia. 11. Anxiety. MEDICATION LIST: 1. Acetaminophen 650 mg p.o. q.6 hours p.r.n. pain or fever. 2. Vitamin C 1000 mg p.o. b.i.d. 3. Coreg 12.5 mg p.o. b.i.d. 4. Cholecalciferol 1000 units p.o. b.i.d. 5. Probiotic 1 tablet p.o. daily. 6. Levothyroxine 75 mcg p.o. every other day alternating with 88 mcg. 7. Losartan 50 mg p.o. at bedtime. 8. Warfarin 4 mg p.o. at bedtime. ALLERGIES: To ASPIRIN, CEPHALEXIN, IBUPROFEN, PENICILLINS, SULFA, and TETRACYCLINE. FAMILY HISTORY: Father had coronary artery disease. Mother had a history of breast cancer and multiple myeloma. SOCIAL HISTORY: The patient denies alcohol, tobacco, or drug use. She is retired, exercises sporadically. Surrogate decision maker is her significant other, Felisa Ag, phone number is [phone]. REVIEW OF SYSTEMS: A 14-point review of systems was performed and all the pertinent negative and positive findings are in the HPI. PHYSICAL EXAMINATION GENERAL: The patient is a pleasant elderly lady, sitting up in the ED stretcher , in no acute distress. VITAL SIGNS: Temperature 98.4, heart rate is 71, respiratory rate is 18, oxygen saturation is 96% on room air, blood pressure is 144/88. HEENT: Pupils are equal. Moist mucous membranes. CHEST: Breath sounds present bilaterally with no added sounds. CVS: Normal S1, S2. Irregularly irregular. ABDOMEN: Soft. Bowel sounds are present. EXTREMITIES: No edema, but the patient has ecchymosis to the inner aspect of her right foot, tender to palpation. NEURO: She is alert, awake, oriented x3. She has no dysarthria. Cranial nerves II through XII are grossly intact. She has about 4/5 on the left upper extremity and left lower extremity with some pronator drift in the left arm and she also describes decreased sensation in the same limb. DIAGNOSTIC STUDIES/LAB DATA: The patient had a CBC showed a WBC of 10.5, hemoglobin 15.9, hematocrit 47, platelets of 485 with 68% neutrophils. INR is 3. Chemistry showed a sodium of 130, potassium of 3.9, chloride of 100, bicarb of 24, BUN of 16, creatinine of 0.7, glucose of 121, lactic acid 1.5, calcium 9.2. LFTs are normal. Troponin is 0. EKG showed sinus rhythm at 75 beats per minute with PACs. MRI of the brain showed multiple small foci of restricted diffusion consistent with subacute nonhemorrhagic infarct within the cerebral hemispheres bilaterally and multiple vascular territories most consistent with embolic disease. CTA head and neck showed no internal carotid artery stenosis by NASCET criteria. No aneurysm, vascular malformation, occlusion, or stenosis of the visualized intracranial circulation. ASSESSMENT AND PLAN: Ms. 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 1. Embolic cerebrovascular accident. The patient was already seen in consultation by Neurology and the plan is to have her admitted for observation and to complete her workup. We are going to check lipid profile, hemoglobin A1c , and an echocardiogram with bubble study. The patient's INR appears to be therapeutic all along and we will discuss with Neurology if there is indication for changing her anticoagulation regimen or adding antiplatelet agent, but at this point, Dr. Canseco does not want to add Plavix as the patient is allergic to ASPIRIN. He would like to have further workup performed. She will be monitored with neurological checks. 2. Hypertension. The patient will be continued on her carvedilol and losartan. She received 10 mg of labetalol IV in the emergency room and her blood pressure is better controlled at this point, so we will continue to monitor. 3. Atrial fibrillation. The patient will be continued on her usual dose of warfarin. She states that she has a cup of broccoli every night with her Coumadin and we will continue this while she is in the hospital. 4. DVT prophylaxis: The patient has a score of 4 on the DVT Prophylaxis Risk Assessment Guide and she is already anticoagulated with warfarin. 5. Code status is full. TIME SPENT: Approximately 60 minutes was spent with the patient's interview, medical records review, physical examination to complete this admission, more than half of this time was spent [id number] with the patient and coordination of care. [id number]/[facility] #: [id number] [facility]
--- NOTE | 2018-12-24 19:18 | CONS ---
NEUROLOGY CONSULTATION NOTE: DATE OF CONSULT: 12/24/18 CONSULTING PROVIDERS: Dr. Toledo and Dr. Gideon Real. REASON FOR CONSULT: Left arm numbness and weakness. HISTORY OF PRESENT ILLNESS: Mrs. Cathy Hooper is a 73-year-old female with history of paroxysmal atrial fibrillation, ITP, and hypertension who has been presenting to the ER multiple times over the last 3 weeks with symptoms of hypertension and intermittent left arm numbness and tingling sensation. 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 She developed an episode of lightheadedness. EMS was contacted. She was found to be hypotensive with systolic blood pressure in the 80s. She refused to go to the hospital at that time. Her PCP recommended to discontinue her antihypertensive agent, losartan. The patient then presented to [facility] ED on 12/04/17 with intermittent left arm numbness and elevated blood pressure. She stated that her numbness on the left arm started when she woke up on 11/29/18. When she discussed it with her primary providers, it was thought that she may have slept wrong on her left arm; however, her symptoms were fluctuating, but nearly consistent. She was discharged from the ED with a diagnosis of hypertensive urgency and was started back on her antihypertensive agents. She presented again on 12/18/18 for continuously elevated blood pressure and again, she was stabilized with antihypertensive medication and was discharged home. The patient was evaluated by Dr. Gideon Real in the outpatient neurology clinic and had an MRI brain and CTA head and neck ordered. The CTA head and neck was completed on 12/24/18. It showed no evidence of stenosis or occlusion of the internal carotid artery or large- vessel intracranial occlusion or aneurysms. However, the MRI of the brain without contrast showed multiple small foci of restricted diffusion consistent with subacute nonhemorrhagic infarct within the cerebral hemisphere bilaterally in multiple vascular territories most consistent with an embolic disease. I personally reviewed these images. The patient stated today that she still has numbness in the left hand and arm and mild weakness of the left upper extremity. She has the same symptoms she woke up with on 11/29/2018. She denied any headache, double vision, swallowing difficulty, or weakness in the lower extremity. She did trip and fall yesterday, but did not lose consciousness. She injured her left foot. She denied any head injury. She also reports compliance to Coumadin.. Please note that the patient and her significant other at bedside stated that she is allergic to ASPIRIN. NIH stroke scale is 0. PAST MEDICAL HISTORY: 1. Paroxysmal atrial fibrillation. 2. ITP who is on prednisone in the past and required possible IVIG infusion in the past. The patient is not entirely sure what infusion she had in the past. 3. Hypertension. 4. She did have a previous stroke 4-5 years ago that manifested in confusion. 5. She has thyroid disease. 6. She had colonoscopy done in the past. 7. She had a DCIS of right breast, stage I, grade 0. 8. D&C. MEDICATIONS: 1. Vitamin D tablets 1000 units p.o. b.i.d. 2. Ascorbic acid 1000 mg p.o. b.i.d. 3. Levothyroxine 75 mcg p.o. every other day. 4. Levothyroxine 88 mcg p.o. every other day. 5. Warfarin 4 mg p.o. at night. 6. Carvedilol 12.5 mg p.o. b.i.d. 7. Acetaminophen 650 mg p.o. every 6 hours p.r.n. 8. Lactobacillus 1 tablet by mouth daily. 9. Losartan 50 mg p.o. q.p.m. ALLERGIES: PENICILLIN, KEFLEX, TETRACYCLINE, SULFA, ASPIRIN, and IBUPROFEN. FAMILY HISTORY: No family history of stroke or seizures. REVIEW OF SYSTEMS: A 14-point review of systems was obtained and otherwise negative, except for what was mentioned in the HPI. PHYSICAL EXAMINATION: Vitals: Temperature of 99.4, pulse of 81, respiratory rate of 17, oxygen saturation of 99%, blood pressure of 211/110. General: Well - nourished, well-developed female, in no acute distress, alert and cooperative. Head: Normocephalic, atraumatic without any obvious abnormality. Eyes: Conjunctivae/cornea are clear. Neck is supple and symmetrical with no carotid bruits. Lungs are clear to auscultation bilaterally. Cardiovascular: Regular rate and rhythm with normal S1, S2. Extremities: Normal range of motion with no cyanosis. There is swelling and tenderness in the dorsum of the left foot due to recent trauma and injury. Skin: No skin lesions or laceration. Psych: Affect is broad and normal mood. Easy to establish rapport. Neurological Examination: Mental Status: Awake, alert, oriented to person; place; time; and general circumstances. Speech and language including expression, naming, repetition, and comprehension were assessed and found to be normal. Cranial Nerves: Normal confrontation testing bilaterally. Pupils are mid range and reactive to light. Normal consensual response. Extraocular muscles are intact. There is no ptosis. No conjugate or asymmetrical nystagmus. Sensation is intact in the forehead, cheeks, and jaw region bilaterally. There is no facial droop. There is normal facial symmetry while smiling and wrinkling of the forehead. She is able to hear throughout the history process. Symmetrical palatal elevation. There is normal strength against shoulder resistance. Tongue is symmetrical and midline with no atrophy or fasciculation. Motor (right/left): No abnormal movements or pronator drift. Normal bulk and tone throughout. No fasciculation. Neck extension is 5. Shoulder range of motion is full. Shoulder abduction is 5/5. Elbow flexion 5/4, extension 5/4. Wrist flexion 5/4, extension 5/4. Finger flexion 5/4, extension 5/4, abduction 5/4. Hip flexion 5/4, abduction 5/4. Knee flexion and extension 5/5 bilaterally. Ankle dorsiflexion 5/5, plantarflexion 5/5. Reflexes (right/left): Brachioradialis 1/2, biceps 1/2, triceps 1/2, patella 1/ 2, ankle 1/2, plantar flexors/mute. Sensation is intact to light touch throughout. There is normal vibration and proprioception at the toes. Coordination: Normal finger- to-nose and rapid alternating movement. Gait and station were not assessed due to the elevation in the patient's blood pressure. LABORATORY DATA: WBC of 10.5, hemoglobin of 15, hematocrit 47, platelet count 485. INR is 3.02. Sodium of 130, potassium 3.9, chloride of 100, carbon dioxide of 24, anion gap of 6, BUN of 16, BUN to creatinine ratio of 22.9, lactic acid 1.5. ASSESSMENT AND RECOMMENDATIONS: Mrs. Cathy Hooper is a 73-year-old female who has history of paroxysmal atrial fibrillation and hypertension who presented with a 2- week history of left arm numbness, which seems to have progressed, and mild left arm weakness over the past few days. The patient had an outpatient MRI of the brain ordered by Dr. Gideon Real that showed acute to subacute bilateral areas of restricted diffusion in the right more than the left frontal lobes consistent with an embolic stroke. 1. Acute multifocal embolic nonhemorrhagic strokes, most likely due to cardiac emboli: The patient is compliant to anticoagulation therapy and has a therapeutic INR. Unfortunately, anticoagulation therapy is not 100% protective for embolic strokes. NIH stroke scale is 0. The patient is not a candidate for IV-tPA or mechanical thrombectomy as she is outside the therapeutic window. 2. Paroxysmal atrial fibrillation, on Coumadin with therapeutic INR. 3. Left foot pain and bruising after mechanical fall. 4. Hypothyroid disease with recently elevated TSH and free T4 level on . 5. Hypertensive urgency - given that the stroke manifested several weeks ago, normotensive blood pressure parameter is recommended. Recommendations: Admit to the hospitalist service for observation. Close blood pressure monitoring with a systolic blood pressure goal between 120 and less than 140. Neuro checks every 4 hours. Please obtain a transthoracic echo with bubble study to further confirm the mechanism of the stroke. The patient has no evidence of infection to suspect septic emboli. Please continue Coumadin with INR goal between 2 and 3. The patient is allergic to ASPIRIN, but the type of allergy is unknown. Her risk of hemorrhagic transformation or extracranial hemorrhage is high if we add an antiplatelet therapy like Plavix. We will closely monitor and wait for the pending workup before adding an antiplatelet agent. Another consideration would be to have cardiology evaluate the patient for a Watchman device given that she is on anticoagulation therapy and still having embolic strokes. She has no evidence of intracranial or carotid disease. Please consult PT/OT/PILLING MACHINE OPERATOR to evaluate and treat. Stroke education was completed with the patient and her significant other at bedside, and we discussed the importance of closely monitoring her blood pressure on a daily basis, which she currently does regularly. No need for DVT prophylaxis since the patient's INR is therapeutic. I discussed these recommendations with Dr. Law and Dr. Toledo. I will continue to follow. TIME SPENT: 75 minutes of which more than 50% were spent obtaining history, examining the patient, education, counseling, and discussing the treatment plan as mentioned above. [id number]/[facility] #: [id number] [facility]
[2018-12-24] MEDS: Cholecalciferol TAB* 1000 UNITS PO SCH (20:33)
[2018-12-24] MEDS: Ascorbic Acid TAB* 500 MG PO SCH (20:33)
[2018-12-24] MEDS: Carvedilol TAB* 6.25 MG PO SCH (20:33)
[2018-12-25] MEDS: NS 0.9% 1000 ML** 1,000 ML IV SCH ×2 (04:20→16:47)
[2018-12-25] MEDS ORDERED: Levothyroxine TAB* 75 MCG TAB PO SCH (06:00)
[2018-12-25 06:01] LABS: INR 3.37 (0.82-1.09)
[2018-12-25 06:18] LABS: Calcium 8.6 mg/dL (8.6-10.3); EGFR African American 113.9 (>60); EGFR Non-African American 94.1 (>60); HDL Cholesterol 40.5 mg/dL; Potassium 3.9 mmol/L (3.5-5.0)
[2018-12-25] MEDS: Lactobacillus Acidophilus* 1 TAB PO SCH (11:17)
[2018-12-25] MEDS: Ascorbic Acid TAB* 500 MG PO SCH ×3 (11:17→20:08)
[2018-12-25] MEDS: Carvedilol TAB* 6.25 MG PO SCH ×2 (11:17→20:07)
[2018-12-25] MEDS: Cholecalciferol TAB* 1000 UNITS PO SCH ×2 (11:18→20:08)
--- NOTE | 2018-12-25 12:02 | PN ---
Subjective Date of Service: 12/25/18 Length of Stay: 1 Days Neurology is following for stroke. Interval History: The patient is resting comfortable. She is in no acute distress. She still has some pain in the right foot. She feels the left arm is still weak. She has numbness in the left hand. BP has been within a good range since admission. Review of Systems: Denied CP, SOB, or palpitations. Objective Active Medications: Acetaminophen (Tylenol Tab*) 650 mg PO Q6H PRN PRN Reason: FEVER/PAIN Ascorbic Acid (Vitamin C Tab*) 1,000 mg PO BID [facility] Last Admin: 12/25/18 11:17 Dose: 1,000 mg Carvedilol (Coreg Tab*) 12.5 mg PO BID [facility] Last Admin: 12/25/18 11:17 Dose: 12.5 mg Cholecalciferol (Vitamin D Tab*) 1,000 units PO BID [facility] Last Admin: 12/25/18 11:18 Dose: 1,000 units Sodium Chloride (Ns 0.9% 1000 Ml) 1,000 mls @ 100 mls/hr IV PER RATE [facility] Last Admin: 12/25/18 04:20 Dose: 100 mls/hr Lactobacillus Rhamnosus (Lactobacillus Acidophilus*) 1 tab PO DAILY [facility] Last Admin: 12/25/18 11:17 Dose: 1 tab Levothyroxine Sodium (Synthroid Tab*) 88 mcg PO EVERY OTHER DAY@0600 [facility] Levothyroxine Sodium (Synthroid Tab*) 75 mcg PO EVERY OTHER DAY@0600 [facility] Last Admin: 12/25/18 05:38 Dose: 75 mcg Losartan Potassium (Cozaar Tab*) 50 mg PO QPM [facility] Last Admin: 12/24/18 18:40 Dose: 50 mg Warfarin Sodium (Coumadin Tab(*)) 4 mg PO QPM [facility]; Protocol Last Admin: 12/24/18 18:40 Dose: 4 mg Vital Signs 12/24/18 12/24/18 12/24/18 15:21 15:46 15:47 Temperature 99.4 F Pulse Rate 81 75 70 Respiratory 17 Rate Blood Pressure 211/110 168/91 (mmHg) O2 Sat by Pulse 99 96 97 Oximetry 12/24/18 12/24/18 12/24/18 16:05 16:12 16:21 Temperature Pulse Rate Respiratory 15 22 24 Rate Blood Pressure 183/87 143/79 (mmHg) O2 Sat by Pulse Oximetry 12/24/18 12/24/18 12/24/18 16:36 16:51 17:14 Temperature 98.4 F Pulse Rate 71 Respiratory 32 22 18 Rate Blood Pressure 144/88 153/117 153/117 (mmHg) O2 Sat by Pulse 96 Oximetry 12/24/18 12/24/18 12/24/18 18:03 19:22 20:00 Temperature 97.2 F 98.2 F Pulse Rate 69 79 Respiratory 20 18 18 Rate Blood Pressure 173/82 153/75 (mmHg) O2 Sat by Pulse 98 96 Oximetry 12/24/18 12/25/18 12/25/18 23:45 03:48 08:03 Temperature 97.5 F 97.9 F 97.8 F Pulse Rate 63 65 67 Respiratory 16 18 20 Rate Blood Pressure 149/79 140/78 151/78 (mmHg) O2 Sat by Pulse 98 97 98 Oximetry Intake and Output Last 24 Hours 12/23/18 12/24/18 12/25/18 12/26/18 06:59 06:59 06:59 06:59 Intake Total 300 Balance 300 Weight 144 lb 9.6 oz Intake: Oral 300 Other: Estimated Void Large # Voids 1 1 Oxygen Devices in Use Now: None Neurology Exam: General: Well nourished, well developed, and in no acute distress HEENT: Normocephelic/atraumatic, sclera anicteric, mucous membranes moist Neck: Supple Chest: Clear to auscultation bilaterally Cardiovascular: Regular rate and rhythm without murmurs, rubs, gallops Abdomen: Soft, non-tender/non-distended Extremities: No clubbing, cyanosis, or edema Neurological Findings: Awake, alert, and oriented to person, place, and time. Speech: fluent without dysarthria, repetition intact Cranial Nerve: PERRL, EOM intact, VFF, no nystagmus Motor: 5/5 on the right and 4+/5 on the left, mostly to shoulder abduction. Sensation: intact to LT/PP bilaterally upper and lower extremities Deep Tendon Reflex: 2+ symmetric in the upper/lower extremities, Babinski - down going Finger to nose, rapid alternating movements intact without tremor, no dysdiadochokinesia Gait: wide gait no ataxia. Result Diagrams: 12/24/18 16:03 12/25/18 05:37 Diagnostic Imaging: - Brain MRI without contrast 12/24/2018: Multiple small foci of restricted diffusion consistent with subacute nonhemorrhagic infarct within the cerebral hemispheres bilaterally. - CTA head and neck 12/24/2018: No evidence of LVO or carotid stenosis. No evidence of intracranial aneurysms. - X-Ray of foot- no fractures Assessment/Plan 1. Acute-subacute multifocal nonhemorrhagic strokes in the setting of atrial fibrillation: - Concerning issue here is that she is therapeutic on coumadin. She has an allergy to aspirin which is unknown. - We will discuss with the patient, Dr. Law, and patient's partner to consider switching to Eliquis, which has been found to be slightly superior to warfarin in preventing stroke. The addition of antiplatelet therapy is known to increase major hemorrhage and the benefit is less well defined. - Pending TTE w/ bubble study to look for atrial or ventricular thrombus (less likely). - Started pravastatin 40 mg nightly. Discussed side effects of statin therapy which include, but are not limited to, mylagia and memory impairment. LDL goal < 70. - BP goal: normotensive 2. Elevated TSH: pending free T4. 3. Paroxysmal atrial fibrillation- on coumadin. INR 3.37
[2018-12-25 12:05] LABS: TSH (Thyroid Stimulating Horm) 14.01 mcIU/mL (0.34-5.60)
--- NOTE | 2018-12-25 14:05 | ECHO ---
*[facility]* [place] [address] Fax #: [phone] Transthoracic Echocardiogram Patient: Rufus, Height: 61 in / 154.9 Cathy yee : 1945 Weight: 139.7 lb / Study Date: 12/25/2018 63.5 kg Age: 73 BP: 140 / 78 Gender: F BMI/BSA: 26.5 kg/m^2 / HR: 72 bpm 1.62 m^2 *[employer] Analyst: * Jami Muniz RDCS RN *Referring Physician: * Sol Esqueda ; Brenda Aguila MD *Reading Physician: * David Thorne MD Indications: CVA. History: Paroxysmal Atrial fibrillation. Cerebrovascular accident. Breast cancer. Chemotherapy. Risk factors: Hypertension. Dyslipidemia. Conclusions Summary: 1. Left ventricle: The cavity size is below normal. Wall thickness is normal. Systolic function is normal. The estimated ejection fraction is 55-60%. Wall motion is normal; there are no regional wall motion abnormalities. 2. Normal cardiac chamber sizes. 3. Tricuspid valve: There is mild-moderate regurgitation. 4. Pulmonary arteries: Systolic pressure is mildly increased, estimated to be 37 mm Hg. 5. Atrial septum: No defect or patent foramen ovale is identified. 6. Since the prior echocardiogram completed 12/02/11, pertinent change is prior normal left ventricular size noted. Study data: Transthoracic echocardiogram. Procedure: Transthoracic echocardiography was performed. Image quality was fair. A bubble study was performed on Images 13 and 14. Complete 2D, spectral Doppler, and color flow Doppler. Patient status: Observation. Patient room number: 449-02. Rhythm: Normal sinus rhythm with PAC's. Findings Left ventricle: The cavity size is below normal. Wall thickness is normal. Systolic function is normal. The estimated ejection fraction is 55-60%. Wall motion is normal; there are no regional wall motion abnormalities. Left ventricular diastolic function parameters are indeterminate. Right ventricle: The cavity size is normal. Systolic function is normal. Left atrium: The atrium is normal in size. Right atrium: The atrium is normal in size. Atrial septum: No defect or patent foramen ovale is identified. Bubble study was negative. Images 13 and 14. Mitral valve: The leaflets are mildly thickened. There is mild regurgitation. Aortic valve: The valve is trileaflet. The leaflets are mildly thickened. There is no evidence of stenosis. There is trace regurgitation. Tricuspid valve: The valve is structurally normal. There is mild-moderate regurgitation. Pulmonic valve: Not well visualized. There is no evidence of stenosis. There is no regurgitation. Aorta: Aortic root: The aortic root is not dilated. Ascending aorta: The ascending aorta is not dilated. Aortic arch: The aortic arch is not dilated. Pericardium: There is no pericardial effusion. Pulmonary arteries: Not well visualized. Systolic pressure is mildly increased, estimated to be 37 mm Hg. Systemic veins: Inferior vena cava: The vessel is normal in size. The respirophasic diameter changes are in the normal range (>= 50%). Measurements Left ventricle Value Ref Aortic valve continued Value Ref SURJA, LAX (L) 3.5 cm 3.8 - 5.2 Kayleen diam/bsa, ED 1.2 cm/m^2 ----- ESD, LAX 2.3 cm 2.2 - 3.5 Peak v, S 1.2 m/sec ----- FS, LAX 35 % 27 - 45 VTI, S 32.5 cm ----- FS 35 % 27 - 45 Mean grad, S 4.0 mm Hg ----- PW, ED 0.9 cm 0.6 - 0.9 Peak grad, S 6.0 mm Hg ----- IVS/PW, ED 0.97 LVOT/AV, VTI ratio 0.67 ----- E', lat kayleen, TDI (L) 7.0 cm/sec >=10.0 E/e', lat kayleen, 15 Mitral valve Value Ref TDI Peak E 1.05 m/sec ----- E', med kayleen, TDI (L) 5.5 cm/sec >=7.0 Peak A 1.12 m/sec ----- E/e', med kayleen, 19 Decel time 190 ms --- -- TDI Peak grad, D 4.4 mm Hg ----- E', avg, TDI 6.3 cm/sec Peak E/A ratio 0.9 --- -- E/e', avg, TDI (H) 17 <=14 Pulmonic valve Value Ref LVOT Value Ref Peak v, S 0.81 m/sec ----- Peak fabi, S 0.91 m/sec Peak grad, S 3.0 mm Hg ----- VTI, S 21.9 cm Mean grad, S 2 mm Hg Tricuspid valve Value Ref TR peak v (H) 2.9 m/sec <=2.8 Ventricular septum Value Ref Peak RV-RA grad, S 34 mm Hg ----- IVS, ED 0.9 cm 0.6 - 0.9 Aortic root Value Ref Right ventricle Value Ref Root diam 2.4 cm <3.9 SURAJ, LAX 2.8 cm Root max diam, ED 2.4 cm <3.9 SURAJ minor ax, A4C 3.0 cm 1.9 - 3.5 mid Ascending aorta Value Ref Pressure, S 37 mm Hg AAo AP diam, S 2.7 cm ----- Left atrium Value Ref Aortic arch Value Ref AP dim, ES 3.30 cm 2.70 - Arch diam 2.0 cm ----- 3.80 ML dim, A4C 3.5 cm Decending aorta Value Ref SI dim, A4C 4.4 cm Miah peak fabi 0.6 m/sec ----- Vol/bsa, ES, 1-p 23 ml/m^2 11 - 40 A4C Pulmonary artery Value Ref Vol/bsa, ES, A/L 23 ml/m^2 16 - 34 Pressure, S 34.0 mm Hg ----- Right atrium Value Ref Inferior vena cava Value Ref SI dim, ES 4.2 cm 3.4 - 5.3 Diam 1.2 cm ----- ML dim, ES, A4C 3.2 cm 2.6 - 4.4 SI dim, ES, A4C 4.2 cm 3.4 - 5.3 Estimated RAP 3 mm Hg Aortic valve Value Ref Kayleen diam, ED 1.9 cm Legend: (L) and (H) jax values outside specified reference range. Prepared and electronically signed by David Thorne MD 12/25/2018 14:04
[2018-12-25 14:16] LABS: Free T4 1.02 ng/dL (0.61-1.12)
--- NOTE | 2018-12-25 15:37 | PN ---
Subjective Date of Service: 12/25/18 Interval History: Patient admitted yesterday with strokes, symptoms developed over almost a month. She has some weakness in LT arm. She walked and she felt fatigued. PT saw patient, advised outpatient PT. 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 Eliquis is a direct thrombin inhibitor and should not have the same effect. Family History: Unchanged from Admission Social History: Unchanged from Admission Past Medical History: Unchanged from Admission Objective Active Medications: Acetaminophen (Tylenol Tab*) 650 mg PO Q6H PRN PRN Reason: FEVER/PAIN Ascorbic Acid (Vitamin C Tab*) 1,000 mg PO BID [facility] Last Admin: 12/25/18 15:06 Dose: Not Given Carvedilol (Coreg Tab*) 12.5 mg PO BID [facility] Last Admin: 12/25/18 11:17 Dose: 12.5 mg Cholecalciferol (Vitamin D Tab*) 1,000 units PO BID [facility] Last Admin: 12/25/18 11:18 Dose: 1,000 units Sodium Chloride (Ns 0.9% 1000 Ml) 1,000 mls @ 100 mls/hr IV PER RATE [facility] Last Admin: 12/25/18 04:20 Dose: 100 mls/hr Lactobacillus Rhamnosus (Lactobacillus Acidophilus*) 1 tab PO DAILY [facility] Last Admin: 12/25/18 11:17 Dose: 1 tab Levothyroxine Sodium (Synthroid Tab*) 88 mcg PO EVERY OTHER DAY@0600 [facility] Levothyroxine Sodium (Synthroid Tab*) 75 mcg PO EVERY OTHER DAY@0600 [facility] Last Admin: 12/25/18 05:38 Dose: 75 mcg Losartan Potassium (Cozaar Tab*) 50 mg PO QPM [facility] Last Admin: 12/24/18 18:40 Dose: 50 mg Pharmacy Profile Note (Coumadin Daily Reminder*) 1 note FOLLOW UP 1700 [facility] Vital Signs - 8 hr 12/25/18 12/25/18 08:03 11:51 Temperature 36.6 C 36.7 C Pulse Rate 67 65 Respiratory 20 21 Rate Blood Pressure 151/78 152/78 (mmHg) O2 Sat by Pulse 98 98 Oximetry Oxygen Devices in Use Now: None Appearance: alert, no distress Eyes: No Scleral Icterus Ears/Nose/Mouth/Throat: NL Teeth, Lips, Gums Neck: NL Appearance and Movements; NL JVP Respiratory: Symmetrical Chest Expansion and Respiratory Effort, Clear to Auscultation Cardiovascular: NL Sounds; No Murmurs; No JVD, RRR Abdominal: NL Sounds; No Tenderness; No Distention Lymphatic: No Cervical Adenopathy Skin: No Rash or Ulcers Neurological: Alert and Oriented x 3 Lines/Tubes/Other Access: Clean, Dry and Intact Peripheral IV Nutrition: Taking PO's Result Diagrams: 12/24/18 16:03 12/25/18 05:37 Additional Lab and Data: Laboratory Tests 12/24/18 12/25/18 12/25/18 16:03 05:37 05:37 INR (Anticoag Therapy) 3.01 H Glucose 92 Hemoglobin A1c 5.7 H LDL Cholesterol 91 Vitamin B12 445 TSH 14.01 H Free T4 1.02 Total T3 72 L 12/25/18 05:37 INR (Anticoag Therapy) 3.37 H Glucose Hemoglobin A1c LDL Cholesterol Vitamin B12 TSH Free T4 Total T3 Diagnostic Imaging: - Brain MRI without contrast 12/24/2018: Multiple small foci of restricted diffusion consistent with subacute nonhemorrhagic infarct within the cerebral hemispheres bilaterally. -Echo: EF 65%, no concerning findings EKG Data: PACs on monitor, no a-fib EKG: NSR, w/ PACs Assess/Plan/Problems-Billing Assessment: 73 year old woman with acute-subacute multifocal nonhemorrhagic strokes, apparently due to a-fib - Patient Problems (1) Embolic stroke Current Visit: Yes Status: Acute Priority: High Code(s): I63.9 - CEREBRAL INFARCTION, UNSPECIFIED SNOMED Code(s): 229220207 Comment: -Long discussion with patient re causes of stroke. -Echo and CTA show no particular sources. Patient known to have PAF -Appears that she had stroke even while therapeutic on warfarin. -Discussed with Dr. Canseco and Dr. Piper. She will be transitioned to Eliquis BID. (2) Hypertension Current Visit: Yes Status: Acute Priority: Medium Code(s): I10 - ESSENTIAL (PRIMARY) HYPERTENSION SNOMED Code(s): 27527464 Comment: -BP not at goal, but will allow to run a little high is setting of stroke. -Would consider increase coreg or losartan as outpatient in 2-4 weeks. (3) Anticoagulant effect Current Visit: Yes Status: Acute Priority: Medium Code(s): PIP8161 - SNOMED Code(s): 92712141 Comment: -INR elevated today, will stop warfarin. -Can start eliquis when INR falls <1.6 (4) Hypothyroidism Current Visit: Yes Status: Acute Priority: Medium Code(s): E03.9 - HYPOTHYROIDISM, UNSPECIFIED SNOMED Code(s): 84947002 Comment: -TSH high, T3 low, will increase dose l-thyroxine Status and Disposition: continued observation
[2018-12-25] MEDS ORDERED: Atorvastatin* 20 MG TAB PO SCH (18:00)
[2018-12-25] MEDS: Losartan TAB* 25 MG PO SCH (18:17)
[2018-12-25] MEDS: Acetaminophen TAB* 325 MG PO PRN (22:14)
[2018-12-26] MEDS: Acetaminophen TAB* 325 MG PO PRN (02:14)
[2018-12-26] MEDS: NS 0.9% 1000 ML** 1,000 ML IV SCH (02:15)
[2018-12-26] MEDS ORDERED: Levothyroxine TAB* 88 MCG TAB PO SCH ×2 (06:00)
[2018-12-26] MEDS: Ascorbic Acid TAB* 500 MG PO SCH (08:01)
[2018-12-26] MEDS: Carvedilol TAB* 6.25 MG PO SCH (08:01)
[2018-12-26] MEDS: Lactobacillus Acidophilus* 1 TAB PO SCH (08:01)
[2018-12-26] MEDS: Cholecalciferol TAB* 1000 UNITS PO SCH (08:01)
[2018-12-26 08:04] VITALS: BP 144/72
[2018-12-26 08:07] LABS: INR 2.28 (0.82-1.09)
--- NOTE | 2018-12-26 13:15 | PN ---
Subjective Date of Service: 12/26/18 Length of Stay: 2 Days Neurology is following for stroke. Interval History: She feels well today. She decided against using Eliquis and would prefer to stick with Coumadin and a higher INR of 2.5-3.5. She denied any headache, visual disturbance, or new weakness. She still has mild left hand weakness. Review of Systems: Denied CP, SOB, or palpitations. Family History: Unchanged from Admission Social History: Unchanged from Admission Past Medical History: Unchanged from Admission Objective Active Medications: Acetaminophen (Tylenol Tab*) 650 mg PO Q6H PRN PRN Reason: FEVER/PAIN Last Admin: 12/26/18 02:14 Dose: 325 mg Ascorbic Acid (Vitamin C Tab*) 1,000 mg PO BID [facility] Last Admin: 12/26/18 08:01 Dose: 1,000 mg Atorvastatin Calcium (Lipitor*) 20 mg PO QPM [facility] Last Admin: 12/25/18 18:16 Dose: 20 mg Carvedilol (Coreg Tab*) 12.5 mg PO BID [facility] Last Admin: 12/26/18 08:01 Dose: 12.5 mg Cholecalciferol (Vitamin D Tab*) 1,000 units PO BID [facility] Last Admin: 12/26/18 08:01 Dose: 1,000 units Lactobacillus Rhamnosus (Lactobacillus Acidophilus*) 1 tab PO DAILY [facility] Last Admin: 12/26/18 08:01 Dose: 1 tab Levothyroxine Sodium (Synthroid Tab*) 88 mcg PO DAILY@0600 [facility] Last Admin: 12/26/18 05:31 Dose: 88 mcg Losartan Potassium (Cozaar Tab*) 50 mg PO QPM [facility] Last Admin: 12/25/18 18:17 Dose: 50 mg Vital Signs 12/25/18 12/25/18 12/25/18 15:34 19:25 20:00 Temperature 97.8 F 97.5 F Pulse Rate 68 76 Respiratory 20 20 20 Rate Blood Pressure 146/74 139/75 (mmHg) O2 Sat by Pulse 96 98 Oximetry 12/25/18 12/26/18 12/26/18 23:02 03:29 08:04 Temperature 97.6 F 97.5 F 97.3 F Pulse Rate 67 66 60 Respiratory 18 16 14 Rate Blood Pressure 143/77 149/74 144/72 (mmHg) O2 Sat by Pulse 96 94 98 Oximetry Intake and Output Last 24 Hours 12/24/18 12/25/18 12/26/18 12/27/18 06:59 06:59 06:59 06:59 Intake Total 300 3491 1987 Balance 300 3491 1988 Weight 144 lb 9.6 oz Intake: IV Fluids 851 1608 NS 851 1608 Oral 300 2640 380 Other: Estimated Void Medium # Bowel Movements 1 Estimated Stool Amount Medium # Voids 1 1 Oxygen Devices in Use Now: None Neurology Exam: General: General: Well nourished, well developed, and in no acute distress HEENT: Normocephelic/atraumatic, sclera anicteric, mucous membranes moist Neck: Supple Chest: Clear to auscultation bilaterally Cardiovascular: Regular rate and rhythm without murmurs, rubs, gallops Abdomen: Soft, non-tender/non-distended Extremities: No clubbing, cyanosis, or edema Neurological Findings: Awake, alert, and oriented to person, place, and time. Speech: fluent without dysarthria, repetition intact Cranial Nerve: PERRL, EOM intact, VFF, no nystagmus Motor: 5/5 on the right and 4+/5 on the left, mostly to shoulder abduction and hand nylon hot wire cutter on the left. Sensation: intact to LT/PP bilaterally upper and lower extremities Deep Tendon Reflex: 2+ symmetric in the upper/lower extremities, Babinski - down going Finger to nose, rapid alternating movements intact without tremor, no dysdiadochokinesia Gait: wide gait no ataxia. Result Diagrams: 12/24/18 16:03 12/25/18 05:37 Additional Lab and Data: Laboratory Tests 12/24/18 12/25/18 12/25/18 16:03 05:37 05:37 INR (Anticoag Therapy) 3.01 H Glucose 92 Hemoglobin A1c 5.7 H LDL Cholesterol 91 Vitamin B12 445 TSH 14.01 H Free T4 1.02 Total T3 72 L 12/25/18 05:37 INR (Anticoag Therapy) 3.37 H Glucose Hemoglobin A1c LDL Cholesterol Vitamin B12 TSH Free T4 Total T3 Diagnostic Imaging: -Echo: EF 65%, no concerning findings - Brain MRI without contrast 12/24/2018: Multiple small foci of restricted diffusion consistent with subacute nonhemorrhagic infarct within the cerebral hemispheres bilaterally. - CTA head and neck 12/24/2018: No evidence of LVO or carotid stenosis. No evidence of intracranial aneurysms. - X-Ray of foot- no fractures EKG Data: PACs on monitor, no a-fib EKG: NSR, w/ PACs Assessment/Plan Assessment/Plan 1. Acute-subacute multifocal nonhemorrhagic strokes in the setting of atrial fibrillation: - Controlling her BP, reducing the LDL, and increasing the INR on coumadin will hopefully prevent another embolic stroke. - Concerning issue here is that she is therapeutic on coumadin. She has an unknown allergy to aspirin - The patient decided to continue with coumadin but with a higher INR of 2.5- 3.5. I informed her that this is an alternative option to Eliquis and agree with the plan. She will followup with Dr. Piper. - Tolerating pravastatin 40 mg nightly. Discussed side effects of statin therapy which include, but are not limited to, mylagia and memory impairment. LDL goal < 70. - BP goal: normotensive Follow-up with me in 3-4 weeks. We will schedule an appointment.
--- NOTE | 2018-12-26 21:49 | DS ---
CC: Dr. Angeline Delarosa; Dr. Gideon Real * DISCHARGE SUMMARY: DATE OF ADMISSION: 12/24/18 DATE OF DISCHARGE: 12/26/18 PRIMARY CARE PROVIDER: Dr. Angeline Delarosa. MY ATTENDING WHILE IN THE HOSPITAL: Dr. Deo Ann.* (DICTATED BY NEMESIO PEDROZA) OUTPATIENT NEUROLOGIST: Dr. Gideon Real. PRIMARY DISCHARGE DIAGNOSIS: Cerebrovascular accident, likely cardioembolic. SECONDARY DISCHARGE DIAGNOSES: 1. Hypothyroidism. 2. Hypertension. 3. Breast cancer, status post lumpectomy and radiation. 4. Autoimmune hepatitis. 5. Immune thrombocytopenic purpura. 6. History of embolic cerebrovascular accident. 7. Atrial fibrillation. 8. Osteoporosis. 9. Diverticulitis. 10. Hyperlipidemia. 11. Anxiety. STUDIES DONE WHILE IN THE HOSPITAL: Transthoracic echocardiogram from 12/24/18 read as left ventricular chamber size below normal. Wall thickness is normal. Systolic function is normal. Estimated ejection fraction is 55% to 60%. Wall motion is normal. There are no regional wall motion abnormalities. Normal cardiac chamber sizes. Tricuspid valve toan-ug-lohanbyc regurgitation. Systolic pressure mildly increased. No PFO. No significant changes since 2011. Electrocardiogram shows normal sinus rhythm with PACs. No ST segment elevation or depression. Normal axis, QTc 408, rate is 75, low amplitude, normal R-wave progression. Compared to previous study, there are no significant changes. Foot x-ray from 12/24/18 read as no fracture of right foot is noted, hallux valgus deformity. MEDICATIONS AT DISCHARGE: 1. Vitamin D 1000 units p.o. b.i.d. 2. Vitamin C 1000 mg p.o. b.i.d. 3. Synthroid 88 mcg p.o. daily. 4. Warfarin 5 mg p.o. daily. 5. Coreg 12.5 mg p.o. b.i.d. 6. Tylenol 650 mg p.o. q.6 hours as needed. 7. Probiotic 1 tab p.o. daily. 8. Losartan 50 mg p.o. daily. 9. Lipitor 20 mg p.o. daily. Medications discontinued at discharge: 1. Synthroid 75 mcg p.o. every other day. 2. Synthroid 88 mcg p.o. every other day. 3. Warfarin 4 mg p.o. daily. HOSPITAL COURSE: This is a brief summary of the patient's presentation. For more details, please see the history and physical from Dr. Sol Law on 07/02. In brief, the patient is a 73-year-old female with past medical history significant for the above, who presented to the emergency department initially on 12/04/18 with numbness in her left arm. CT of the brain showed no acute intracranial pathology. She had an elevated blood pressure and she was treated with outpatient medications with her home losartan and carvedilol. She was evaluated for outpatient PT, but then again on 12/18/18 felt like she was having difficulty ambulating and that her legs were not communicating. The patient was therefore at that time referred to Dr. Real outpatient, who was concerned for a recurrent stroke and had an MRI of the brain, which was positive for a stroke and she was referred to the emergency department. The patient was admitted to the hospital. The patient early on the day had a CTA, which was negative for large vessel occlusion. The patient was seen in consultation by Dr. Bel Canseco, who believes that the MRI pattern was consistent with a cardioembolic source. The patient had had INRs on the low end of the therapeutic range. Around that time, she began having symptoms. In the hospital, it was initially planned for her to be transitioned to Eliquis due to presumed Coumadin failure. The patient had a hemoglobin A1c which was slightly high, elevated cholesterol of 91 and was started on a statin. Given the patient's warfarin and concern for bleeding risk with no added benefit, she was not started on any antiplatelet agents. The patient's case was discussed with her outpatient clam shucker, who recommended transition to Eliquis as this was also recommended by Neurology; however, given that her ITP was believed to be provoked by Pradaxa, refused another DOAC. It was then recommended that a higher therapeutic range for her Coumadin be tried of 2.5 to 3.5. The patient was also found to have a high TSH and her Synthroid was increased as above. The patient was seen in consultation by Physical Therapy and Occupational Therapy, who recommended outpatient PT with a neurological specialist. This was set up through visiting nurse services. The patient was also recommended to have a walker, which was set up. The patient was stable and amenable for discharge on 12/26/18. PHYSICAL EXAM ON THE DAY OF DISCHARGE: General: The patient is a 73-year-old female, who appears stated age and sitting comfortably in bed, in no acute distress. Vital Signs: At the time of evaluation, temperature 97.3, pulse rate 62, respiratory rate 14, oxygen saturation 98% on room air, blood pressure 144/72. HEENT: Head: Normocephalic, atraumatic. Sclerae anicteric. No conjunctival injection. Nasal mucosa moist. Oral mucosa moist. No pharyngeal erythema, discharge, or exudate. Neck: Supple, nontender. No lymphadenopathy. No carotid bruits auscultated. No JVD. Cardiac: Regular rate and rhythm. No clicks, murmurs, gallops, or rubs. Pulses are 2+ in the bilateral dorsalis pedis, posterior tibialis, and radial areas. Respiratory: Clear to auscultation bilaterally. No wheezes, rales, or rhonchi. Good air exchange bilaterally. Abdomen: Soft, nontender, nondistended. Bowel sounds present and normoactive in all four quadrants. No hepatosplenomegaly. No abdominal bruits auscultated. No hepatojugular reflux. Genitourinary: No suprapubic or CVA tenderness. Skin: Clean, dry, and intact. No rash. Neuro: Cranial nerves II through XII intact. Slight left hand weakness. No other focal deficits. Alert and oriented x3. Psychiatric: Pleasant and cooperative. DISCHARGE PLAN: The patient will be discharged to home. The patient will have close followup through her clam shucker who normally handles her INRs. Her goal will now be 2.5 to 3.5. The patient was previously on 4 mg of warfarin daily. This will be increased to 5 and management of this will be taken over by her outpatient clam shucker, Dr. Genesis Piper, with whom the case has been discussed. The patient has been counseled that Eliquis may be a better option; however, the patient is adamant that she would like to initially trial a higher dosage of Coumadin before transitioning to Eliquis if needed. The patient's INR was 2.28 on the day of discharge, this after having been off Coumadin for 2 days. It was not recommended the patient to be bridged with Lovenox. The patient will have close followup with Dr. Piper's office. The patient's LDL cholesterol is 91 and goal is less than 70 and she was started on Lipitor 20 mg p.o. daily. The patient has no PFO. Given the patient's Coumadin failure and relative contraindication to aspirin and DOACs, it was recommended the patient follow up with her outpatient safety council director to discuss the pros and cons of a WATCHMAN procedure, though this was not necessarily recommended at this time. The patient should a heart-healthy diet with no caffeine and engage in activity as tolerated. The patient should have continued management of her blood pressure through outpatient primary care provider. TIME SPENT: Approximately 60 minutes was spent on the discharge of this patient , 30 of which was spent [id number] with the patient obtaining history and physical and discussing treatment plan. NEMESIO PEDROZA [id number]/CPS #: [id number] MTDD
== END 2018-12-26 12:00 | disposition home or self-care (01) ==
LOC: ED 15:19 → MEDTELE 16:38
PROVIDERS: ADMIT Internal Medicine; ATTEND Internal Medicine
DX: I63.9 Cerebral infarction, unspecified (principal); E03.9 Hypothyroidism, unspecified; I10 Essential (primary) hypertension; Z85.3 Personal history of malignant neoplasm of breast; Z90.13 Acquired absence of bilateral breasts and nipples; K75.4 Autoimmune hepatitis; D69.3 Immune thrombocytopenic purpura; Z86.73 Personal history of transient ischemic attack (TIA), and cerebral infarction without residual deficits; I48.91 Unspecified atrial fibrillation; M81.0 Age-related osteoporosis without current pathological fracture; K57.92 Diverticulitis of intestine, part unspecified, without perforation or abscess without bleeding; E78.5 Hyperlipidemia, unspecified; F41.9 Anxiety disorder, unspecified; R94.02 Abnormal brain scan; G93.89 Other specified disorders of brain; Z79.01 Long term (current) use of anticoagulants; Z79.899 Other long term (current) drug therapy; Z88.0 Allergy status to penicillin; Z88.6 Allergy status to analgesic agent
CPT/HCPCS: 36415; 80048; 80053; 80061; 81003; 82607; 83036; 83605; 84439; 84443; 84479; 84484; 85025; 85610; 93005; 93306; 96361; 96365; 99284; A9270-GY; G0378; G8978-GP-CJ; G8979-GP-CI; G8987-GO-CI; G8988-GO-CH

== ENCOUNTER 2018-12-27 17:51 | Emergency (ER) | payer MEDICARE, BC ==
[2018-12-27] MEDS ORDERED: hydrALAZINE IV* 20 MG/ML VIAL IV SLOW PU ONE (18:13)
--- NOTE | 2018-12-27 18:13 | ED ---
Hypertension - HPI Summary HPI Summary: The patient is a 73 y/o F presenting to [facility] with a chief complaint of hypertension with reading of 186/96 starting an hour [employer]. She states that she was at home relaxing when she felt she should take her BP because she thought it was low. However, it was much higher than anticipated, and she had taken her medications already including Coreg, Losarten, and Labetalol. She waited an hour , and her BP increased. She additionally c/o heart palpitations and left flank pain. She denies CP, SOB, and headache. Her symptoms are currently rated 4/10 in severity. Hx of HTN, afib, thyroid disease. She was recently admitted to [facility] [place] and discharged two days ago for CVA. - History of Current Complaint Chief Complaint: EDHypertension Stated Complaint: HIGH BP PER PT Hx Obtained From: Patient Onset/Duration: Started Minutes Ago, Still Present Timing: Lasting Minutes Reported Blood Pressure Prior To Arrival: 186/96 Aggravating Factor(s): Nothing Alleviating Factor(s): Nothing Associated Signs & Symptoms: Other: - POSITIVE: heart palpitations, left flank pain; NEGATIVE: CP, headache, SOB - Allergies/Home Medications Allergies/Adverse Reactions: Allergies Allergy/AdvReac Type Severity Reaction Status Date / Time aspirin Allergy Unknown Verified 12/27/18 17:58 Reaction Details cephalexin [From Keflex] Allergy Rash Verified 12/27/18 17:58 ibuprofen Allergy upset Verified 12/27/18 17:58 stomach,nausea Penicillins Allergy Rash Verified 12/27/18 17:58 Sulfa (Sulfonamide Allergy Rash Verified 12/27/18 17:58 Antibiotics) tetracycline Allergy unk Verified 12/27/18 17:58 PMH/Surg Hx/FS Hx/Imm Hx Endocrine/Hematology History: Reports: Hx Anticoagulant Therapy - COUMADIN for a. fib, Hx Blood Disorders - ITP, Hx Thyroid Disease Denies: Hx Diabetes Cardiovascular History: Reports: Hx Hypertension, Other Cardiovascular Problems/ Disorders - HX AFIB Denies: Hx Congestive Heart Failure, Hx Hypercholesterolemia, Hx Pacemaker/ ICD History: Denies: Hx Dialysis, Hx Renal Disease Musculoskeletal History: Reports: Other Musculoskeletal History - back pain, osteoporsis Denies: Hx Rheumatoid Arthritis, Hx Osteoporosis Sensory History: Reports: Hx Contacts or Glasses Denies: Hx Hearing Aid Opthamlomology History: Reports: Hx Contacts or Glasses Psychiatric History: Denies: Hx Panic Disorder - Cancer History Cancer Type, Location and Year: 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 [facility] Infectious Disease History: No Infectious Disease History: Denies: History Other Infectious Disease, Traveled Outside the [place] in Last 30 Days - Family History Known Family History: Negative: Cardiac Disease, Hypertension, Diabetes, Renal Disease - Social History Alcohol Use: None Hx Substance Use: No Substance Use Type: Reports: None Hx Tobacco Use: No Smoking Status (MU): Never Smoked Tobacco Do You Chew or Dip Tobacco: No Have You Chewed or Dipped Tobacco in the LAST YEAR: No Have You Smoked in the Last Year: No Review of Systems Positive: Palpitations, Other - hypertension. Negative: Chest Pain Negative: Shortness Of Breath Positive: flank pain - left Negative: Headache All Other Systems Reviewed And Are Negative: Yes Physical Exam - Summary Physical Exam Summary: VITAL SIGNS: Reviewed. GENERAL: Patient is a well-developed and nourished female who is lying comfortable in the stretcher. Patient is not in any acute respiratory distress. HEAD AND FACE: No signs of trauma. No ecchymosis, hematomas or skull depressions. No sinus tenderness. EYES: PERRLA, EOMI x 2, No injected conjunctiva, no nystagmus. EARS: Hearing grossly intact. Ear canals and tympanic membranes are within normal limits. MOUTH: Oropharynx within normal limits. NECK: Supple, trachea is midline, no adenopathy, no JVD, no carotid bruit, no c- spine tenderness, neck with full ROM. CHEST: Symmetric, no tenderness at palpation LUNGS: Clear to auscultation bilaterally. No wheezing or crackles. CVS: Regular rate and rhythm, S1 and S2 present, no murmurs or gallops appreciated. ABDOMEN: Soft, non-tender. No signs of distention. No rebound no guarding, and no masses palpated. Bowel sounds are normal. EXTREMITIES: FROM in all major joints, no edema, no cyanosis or clubbing. NEURO: Alert and oriented x 3. No acute neurological deficits. Speech is normal and follows commands. SKIN: Dry and warm. Triage Information Reviewed: Yes Vital Signs On Initial Exam: Initial Vitals Temp Pulse Resp BP Pulse Ox 97.9 F 72 18 211/146 97 12/27/18 17:55 12/27/18 17:55 12/27/18 17:55 12/27/18 17:55 12/27/18 17:55 Vital Signs Reviewed: Yes Diagnostics - Vital Signs Vital Signs Temp Pulse Resp BP Pulse Ox 12/27/18 17:55 97.9 F 72 18 211/146 97 - Laboratory Result Diagrams: 12/27/18 18:23 12/27/18 18:23 Lab Statement: Any lab studies that have been ordered have been reviewed, and results considered in the medical decision making process. - EKG 1816 Cardiac Rate: NL - 64 BPM EKG Rhythm: Sinus Rhythm EKG Comparison: No Significant Change - Similar to previous EKG taken on 2018. Summary of EKG Findings: No ST elevations. Hypertension Course/Dx - Course Assessment/Plan: The patient is a 73 y/o F [place] [facility] [place] a chief complaint of hypertension with reading of 186/96 starting an hour [employer]. She states that she was at home relaxing when she felt she should take her BP because she thought it was low. However, it was much higher than anticipated, and she had taken her medications already including Coreg, Losarten, and Labetalol. She waited an hour, and her BP increased. She additionally c/o heart palpitations and left flank pain. She denies CP, SOB, and headache. Her symptoms are currently rated 4/10 in severity. Hx of HTN, afib, thyroid disease. She was recently admitted to [facility] [place] and discharged two days ago for CVA. Blood work without any significant abnormality except for WBCs of 11.7. In the ED course the patient was given hydralazine for hypertension. EKG shows a normal sinus rhythm without any ST elevation. At this point we are waiting for the rest of the blood work and improvement the blood pressure. The patient continues to be asymptomatic. The patient will be signed out to Dr. Rodríguez at shift change. - Diagnoses Provider Diagnoses: Uncontrolled hypertension Discharge - Sign-Out/Discharge Documenting (check all that apply): Sign-Out Patient Signing out patient TO: Jessenia Rodríguez - The patient is a sign-out to Dr. Jessenia Rodríguez MD, at change of shift at 1900 pending lab results, blood pressure improvement, and disposition. Patient Received Moderate/Deep Sedation with Procedure: No - Discharge Plan Condition: Stable Disposition: HOME Patient Education Materials: Hypertension (ED) Referrals: Angeline Delarosa MD [Primary Care Provider] - 2 Days Additional Instructions: RETURN TO THE EMERGENCY DEPARTMENT FOR CHANGING OR WORSENING SYMPTOMS. - Attestation Statements Document Initiated by Scribe: Yes Documenting Scribe: Lois Downey Provider For Whom Scribe is Documenting (Include Credential): Dr. Jackson Toledo MD Scribe Attestation: Lois Mendoza scribed for Dr. Jackson Toledo MD on 12/28/18 at 1800. Scribe Documentation Reviewed: Yes Provider Attestation: The documentation as recorded by the Lois maharaj accurately reflects the service I personally performed and the decisions made by me, Dr. Jackson Toledo MD Status of Scribe Document: Viewed
[2018-12-27 18:29] LABS: ABS Basophils 0.1 10^3/ul (0-0.2); ABS Eosinophils 0.6 10^3/ul (0-0.6); ABS Lymphocytes 2.4 10^3/ul (1.0-4.8); ABS Monocytes 0.8 10^3/ul (0-0.8); ABS Neutrophils 7.9 10^3/ul (1.5-7.7); Eosinophil % 4.7 %; Hematocrit 46 % (35-47); Hemoglobin 15.2 g/dL (12.0-16.0); Lymphocyte % 20.3 %; Mean Corpuscular HGB Conc 33 g/dL (31-36); Mean Corpuscular Hemoglobin 29 pg (27-31); Mean Corpuscular Volume 86 fL (80-97); Mean Platelet Volume 8.7 fL (7.4-10.4); Nucleated Red Blood Cells % 0.1; Platelet Count 473 10^3/uL (150-450); Red Blood Count 5.33 10^6 /uL (3.70-4.87); Red Cell Distribution Width 15 % (10-15); White Blood Count 11.7 10^3/uL (3.5-10.8)
[2018-12-27 18:46] LABS: Albumin 4.2 g/dL (3.2-5.2); Albumin/Globulin Ratio 1.4 (1-3); BUN/Creatinine Ratio 24.6 (8-20); Calcium 9.5 mg/dL (8.6-10.3); EGFR African American 107.8 (>60); EGFR Non-African American 89.1 (>60); Potassium 3.7 mmol/L (3.5-5.0); Total Bilirubin 0.6 mg/dL (0.2-1.0); Total Protein 7.2 g/dL (6.4-8.9)
--- NOTE | 2018-12-27 19:07 | ED ---
Progress - Progress Note Progress Note: This patient is signed out from Dr. Toledo at 1900 awaiting bloodwork and disposition. Course/Dx - Course Course Of Treatment: Patient is signed out from Dr. Toledo at 1900 awaiting bloodwork and disposition. While in the emergency room blood pressure improved. Patient will be discharged home and is recommended to increase Losartan to 50 to 100mg daily. Patient is instructed to follow up with her primary care physician. Patient is agreeable with this plan. - Diagnoses Provider Diagnoses: Uncontrolled hypertension Discharge - Sign-Out/Discharge Documenting (check all that apply): Receiving Sign-Out Receiving patient FROM: Jackson Toledo - bloodwork/disposition Patient Received Moderate/Deep Sedation with Procedure: No - Discharge Plan Condition: Stable Disposition: HOME Patient Education Materials: Hypertension (ED) Referrals: Angeline Delarosa MD [Primary Care Provider] - 2 Days Additional Instructions: RETURN TO THE EMERGENCY DEPARTMENT FOR CHANGING OR WORSENING SYMPTOMS. - Billing Disposition and Condition Condition: STABLE Disposition: Home - Attestation Statements Document Initiated by Pratimae: Yes Documenting Scribe: Tiarra Elder Provider For Whom Rubén is Documenting (Include Credential): Jessenia Rodríguez MD Scribe Attestation: Tiarra Mendoza, scribed for Jessenia Rodríguez MD on 12/27/18 at 2309. Scribe Documentation Reviewed: Yes Provider Attestation: The documentation as recorded by the Tiarra maharaj accurately reflects the service I personally performed and the decisions made by Denise leonardo MD Status of Scribe Document: Viewed
[2018-12-27 21:34] VITALS: BP 130/76
== END 2018-12-27 21:48 | disposition home or self-care (01) ==
LOC: ED 17:51
DX: I10 Essential (primary) hypertension (principal); R00.2 Palpitations; R10.84 Generalized abdominal pain; Z88.6 Allergy status to analgesic agent; R88.0 Cloudy (hemodialysis) (peritoneal) dialysis effluent; Z88.2 Allergy status to sulfonamides; Z79.01 Long term (current) use of anticoagulants
CPT/HCPCS: 36415; 80053; 83880; 84443; 84484; 85025; 93005; 96374; 99282; J0360

== ENCOUNTER → 2019-03-03 11:23 | Day surgery (SDC) | payer MEDICARE, BC ==
[~2019-03-03 11:23] MED LIST: Acetaminophen TAB* 325 MG PO ONE; Acetaminophen TAB* 325 MG PO PRN; Famotidine IV* 10 MG/ML 2 ML (20 mg) ONE; KETAMINE HCL* 50 MG/ML 10 ML VIAL ONE; Lactated Ringers 1000 ML Bag* 1,000 ML IV SCH; Lidocaine 2% PF * 5 ML VIAL ONE; Mepivacaine 1% (10 MG/ML)* 30 ML SDV ONE; Midazolam* 1 MG/ML 2 ML VIAL (2 MG) ONE; Naloxone* 0.4 MG/ML 1 ML VIAL IV PRN; Ondansetron INJ* 2 MG/ML VIAL IV PRN; Propofol* 10 MG/ML 20 ML BTL ONE; Sodium Bicarbonate 8.4% VIAL* 10 ML VIAL IV ONE; fentaNYL* 50 MCG/ML 2 ML VIAL (100 MCG VIAL) ONE
[2019-03-03 16:15] VITALS: BP 160/78
[2019-03-09 10:29] LABS: FMDS Result Summary Normal; FMDS Source LPIC
[2019-03-10 15:52] LABS: BM Chromosome Source LPIC; BM Result Summary Normal
== END | disposition home or self-care (01) ==
LOC: OR 11:23
PROVIDERS: ATTEND Internal Medicine Hematology & Oncology
DX: D47.3 Essential (hemorrhagic) thrombocythemia (principal); I48.91 Unspecified atrial fibrillation; Z86.73 Personal history of transient ischemic attack (TIA), and cerebral infarction without residual deficits; Z79.01 Long term (current) use of anticoagulants; I10 Essential (primary) hypertension; E03.9 Hypothyroidism, unspecified
CPT/HCPCS: 20225; 36415; 77012; 81206; 81207; 81208; 81479; 85097; 88184; 88185; 88187; 88188; 88189; 88237; 88264; 88271; 88275; 88305; 88311; 88313; 88341; 88342; J0670; J2250; J2704; J3010

== ENCOUNTER 2019-04-11 08:42 | Emergency (ER) | payer MEDICARE, BC ==
--- OUTSIDE RECORDS SUMMARY | 2019-04-11 08:49 | XMS REPORT | Continuity of Care Document ---
:1945 External Reference #:[id number] Author Name Eddie Gary NP (transmitted by agent of provider Kira Story) Address [address], [place] [address] Care Team Providers Name Role Phone Yamile Cabezas MD - Internal Medicine Care Team Information [facility] Genesis Wilks MD - Hematology & Care Team Information [facility] [phone] Oncology Amador Samuels MD - Gastroenterology Care Team Information [facility] Nyla Levy MD - Surgery Care Team Information [place] [facility] [phone] Jesus Cunningham MD - Orthopaedic Care Team Information [facility] Surgery Angeline Delarosa MD - Internal Care Team Information [facility] Medicine Genesis Wilks M.D. - Hematology & Care Team Information [place] [phone] Oncology Luis Lowe MD - Orthopaedic Care Team Information [facility] Surgery Problems Active Problems Provider Date Benign essential hypertension Yamile Cabezas M.D. Onset: 01/11/2012 Chronic hepatitis Yamile Cabezas M.D. Onset: 01/11/2012 Hypothyroidism Yamile Cabezas M.D. Onset: 01/11/2012 Cerebral artery occlusion Yamile Cabezas M.D. Onset: 01/11/2012 Osteoporosis Yamile Cabezas M.D. Onset: 01/11/2012 Atrial fibrillation Brenda Aguila M.D. Onset: 06/11/2012 Immune thrombocytopenic purpura Yamile Cabezas M.D. Onset: 03/17/2012 Insomnia Brenda Aguila M.D. Onset: 11/18/2013 Benign paroxysmal positional vertigo Mireille Ochoa M.D. Onset: 03/09/2015 Paroxysmal atrial fibrillation Brenda Aguila M.D. Onset: 11/22/2015 Skin sensation disturbance Gideon Real M.D. Onset: 12/22/2018 Malaise and fatigue Gideon Real M.D. Onset: 12/22/2018 Thrombocytopenic disorder Gideon Real M.D. Onset: 12/22/2018 Cardioembolic stroke Alexia Conroy M.D. Onset: 12/31/2018 Social History Type Date Description Comments Sex Unknown Tobacco Use Start: Unknown Never Smoked Cigarettes Smoking Status Reviewed: 03/23/19 Never Smoked Cigarettes ETOH Use Denies alcohol use Tobacco Use Start: Unknown Patient has never smoked Recreational Drug Use Denies Drug Use Exercise Type/Frequency Exercises sporadically Allergies, Adverse Reactions, Alerts Active Allergies Reaction Severity Comments Date Penicillins Severe Hives 01/02/2012 Keflex rash Moderate 01/02/2012 Sulfa Anaphylaxis Severe 01/02/2012 Tetracycline 07/22/2013 Fosamax [place] weak and strange 07/11/2014 Doxycycline Nausea and Vomiting, States she will Severe 11/19/2014 NEVER take agn Medications Active Medications SIG Qnty Indications Ordering Date Provider Nitrofurantoin 1 by mouth twice 14caps R35.0 Eddie Gary NP 03/23/2019 Monohyd Macro a day 100mg Capsules Atorvastatin Calcium once a day 90tabs Angeline 01/21/2019 Bharati Delarosa 10mg Tablets Carvedilol 1 tab by mouth 180tabs Angeline 12/31/2018 25mg Tablets twice a day Bharati Delarosa Coumadin 1 tablet on Mon 30tabs Alexiamiriam Conroy, 12/31/2018 5mg Tablets and Fri , 4mg M.D. dasia reynolds sat, sun as directed ( Med change 2 weeks ago 01/16/19) Losartan Potassium take 1 tablet by 90tabs Angeline 12/19/2018 50mg mouth every day Bharati Delarosa Tablets Levothyroxine Sodium take 1 tablet 60tabs Z86.73 Alexiamiriam Conroy, 2011 daily M.DShawn 88mcg Tablets Vitamin D3 1 by mouth bid Unknown 1000Unit Capsules Vitamin C Plus 1 by mouth bid Unknown 1000mg Tablets Acetaminophen 2 tablets by Unknown 325mg mouth every 6 Tablets hours as needed for pain/fever Coumadin take as Unknown 4mg Tablets prescribed Lutein 1 tab once a day Unknown 20mg Capsules History Medications Edgaruvjoselyn Delarosa M.D. 11/28/2018 - 01/28/2019 Tablets Medications Administered in Office Medication SIG Qnty Indications Ordering Provider Date Shingrix pharmacy administered Unknown 12/02/2018 Injection Immunizations CPT Code Status Date Vaccine Lot # [id number] Given 03/31/2015 Fluzone High Dose Vital Signs Date Vital Result Comment 03/23/2019 11:44am Height 61.5 inches 5'1.50" Weight 149.00 lb Heart Rate 76 /min BP Systolic 123 mmHg BP Diastolic 76 mmHg Body Temperature 97.8 F O2 % BldC Oximetry 97 % BMI (Body Mass Index) 27.7 kg/m2 03/10/2019 3:03pm Height 61.5 inches 5'1.50" Weight 138.00 lb with shoes BP Systolic Sitting 110 mmHg Lue BP Diastolic Sitting 70 mmHg Lue BP Systolic Standing 110 mmHg Lue BP Diastolic Standing 72 mmHg Lue BMI (Body Mass Index) 25.6 kg/m2 Ejection Fraction 55-60% Echo 12/25/18 Results Test Date Facility Test Result H/L Range Note Ua Routine 03/23/2019 [facility] Ua Specific [place] 1.020 Ua PH 5 Ua Color orange/yellow Ua Appera cloudy Ua WBC ++ Ua Protein 100 ++ Ua Glucose normal Ua Ketones neg Ua Bilirubin neg Ua Urobilinogen normal Ua Nitrite pos Ua Occult Blood about 250 Inr/Protime 03/18/2019 [facility] Inr 3.35 High 0.82-1.[address] [place] [address] [phone] Inr/Protime 03/12/2019 [facility] Inr 2.85 High 0.82-1.[address] [place] [address] [phone] Inr/Protime 03/09/2019 [facility] Inr 2.23 High 0.82-1.[address] [place] [address] [phone] CBC Auto Diff 03/05/2019 [facility] White Blood 8.9 Normal 3.5 -10.[address] Count 10^3/[place] [address] [phone] Red Blood Count 5.04 10^6/uL High 3.70-4.87 Hemoglobin 14.9 g/dL Normal 12.0-16.0 Hematocrit 44 % Normal 35-47 Mean Corpuscular Volume 87 fL Normal 80-97 Mean Corpuscular Hemoglobin 30 pg Normal 27-31 Mean Corpuscular HGB Conc 34 g/dL Normal 31-36 Red Cell Distribution Width 15 % Normal 10-15 Platelet Count 395 10^3/uL Normal 150-450 Mean Platelet Volume 9.1 fL Normal 7.4-10.4 Abs Neutrophils 6.3 10^3/uL Normal 1.5-7.7 Abs Lymphocytes 1.5 10^3/uL Normal 1.0-4.8 Abs Monocytes 0.6 10^3/uL Normal 0-0.8 Abs Eosinophils 0.5 10^3/uL Normal 0-0.6 Abs Basophils 0.1 10^3/uL Normal 0-0.2 Abs Nucleated RBC 0.0 10^3/uL Granulocyte % 70.3 % Lymphocyte % 16.3 % Monocyte % 7.0 % Eosinophil % 5.4 % Basophil % 1.0 % Nucleated Red Blood Cells % 0.0 Inr/Protime 03/05/2019 [facility] Inr 1.18 High 0.82-1.[address] [place] [address] [phone] Laboratory 03/03/2019 [facility] Miscellaneous See [address] [place] [address] [phone] Leukemia/Lymph 03/03/2019 [facility] Path (SEE [address] Interpretation NOTE) [place] [address] 2-8 Marker [phone] Path Interpret 9-15 Marker TNP Path Interpret > 16 Marker TNP Myelodysplastic 03/03/2019 [facility] FMDS Specimen Bone Marrow Syndrome,Fish [address] [place] [address] [phone] FMDS Disclaimer See Comment 7 FMDS Released By See Comment 8 FMDS Source [facility]IC FMDS Reason for Referral See Comment 9 FMDS Method See Comment 10 FMDS Result See Comment 11 FMDS Result Summary Normal FMDS Result Table See Comment 12 FMDS Interpretation See Comment 13 Bone Marrow 03/03/2019 [facility] BM Result Summary Normal Chromosomes [address] [place] [address] [phone] BM Chromosome Specimen Bone Marrow BM Chromosome Source [facility] BM Referral Reason See Comment 14 BM Chromosome Method See Comment 15 BM Chromo Banding Method See Comment 16 BM Cromosome Results 46,XX[20] BM Chromosome Interpretation See Comment 17 Released By See Comment 18 Inr/Protime 03/02/2019 [facility] Inr 1.27 High 0.82-1.09 19 [address] [place] [address] [phone] Inr/Protime 02/23/2019 [facility] Inr 4.50 High 0.82-1.09 20 [address] [place] [address] [phone] CBC Auto Diff 02/23/2019 [facility] White Blood 8.5 Normal 3.5 -10.8 [address] [facility] Count 10^3/uL [place], [place] [address] [phone] Red Blood Count 5.44 10^6/uL High 3.70-4.87 Hemoglobin 15.9 g/dL Normal 12.0-16.0 Hematocrit 48 % High 35-47 Mean Corpuscular Volume 88 fL Normal 80-97 Mean Corpuscular Hemoglobin 29 pg Normal 27-31 Mean Corpuscular HGB Conc 33 g/dL Normal 31-36 Red Cell Distribution Width 16 % High 10-15 Platelet Count 457 10^3/uL High 150-450 Mean Platelet Volume 8.8 fL Normal 7.4-10.4 Abs Neutrophils 5.5 10^3/uL Normal 1.5-7.7 Abs Lymphocytes 1.8 10^3/uL Normal 1.0-4.8 Abs Monocytes 0.6 10^3/uL Normal 0-0.8 Abs Eosinophils 0.5 10^3/uL Normal 0-0.6 Abs Basophils 0.1 10^3/uL Normal 0-0.2 Abs Nucleated RBC 0.0 10^3/uL Granulocyte % 64.4 % Lymphocyte % 20.8 % Monocyte % 7.6 % Eosinophil % 5.9 % Basophil % 1.3 % Nucleated Red Blood Cells % 0.1 Laboratory 02/23/2019 [facility] TSH (Thyroid 1.47 Normal 0.34 -5.60 test finding [address] Stim Horm) mcIU/[place] [address] [phone] Free T4 (Free Thyroxine) 1.59 ng/dL High 0.61-1.12 Pthi 02/23/2019 [facility] Calcium (PTH 9.4 mg/dL Normal 8.6- 10.[address] Intact) [place] [address] [phone] PTH Intact 41.0 pg/mL Normal 12-88 Laboratory test 02/23/2019 [facility] Vitamin D 42.4 ng/mL Normal 20-[address] Total 25(Oh) [place] [address] [phone] Basic Metabolic 02/23/2019 [facility] Sodium 137 mmol/L Normal 135-[address] [place] [address] [phone] Potassium 4.0 mmol/L Normal 3.5-5.0 Chloride 104 mmol/L Normal 101-111 Co2 Carbon Dioxide 28 mmol/L Normal 22-32 Anion Gap 5 mmol/L Normal 2-11 Glucose 86 mg/dL Normal 70-100 Blood Urea Nitrogen 10 mg/dL Normal 6-24 Creatinine 0.79 mg/dL Normal 0.51-0.95 BUN/Creatinine Ratio 12.7 Normal 8-20 Calcium 9.3 mg/dL Normal 8.6-10.3 Egfr Non- 71.1 >60 Egfr 86.1 >60 22 CBC Auto 02/16/2019 [facility] White Blood 8.7 10^3/uL Normal 3.5-10.[address] [place] [address] [phone] Red Blood Count 5.37 10^6/uL High 3.70-4.87 Hemoglobin 15.9 g/dL Normal 12.0-16.0 Hematocrit 47 % Normal 35-47 Mean Corpuscular Volume 88 fL Normal 80-97 Mean Corpuscular Hemoglobin 30 pg Normal 27-31 Mean Corpuscular HGB Conc 34 g/dL Normal 31-36 Red Cell Distribution Width 15 % Normal 10-15 Platelet Count 454 10^3/uL High 150-450 Mean Platelet Volume 8.9 fL Normal 7.4-10.4 Abs Neutrophils 6.0 10^3/uL Normal 1.5-7.7 Abs Lymphocytes 1.8 10^3/uL Normal 1.0-4.8 Abs Monocytes 0.6 10^3/uL Normal 0-0.8 Abs Eosinophils 0.3 10^3/uL Normal 0-0.6 Abs Basophils 0.1 10^3/uL Normal 0-0.2 Abs Nucleated RBC 0.0 10^3/uL Granulocyte % 68.3 % Lymphocyte % 20.5 % Monocyte % 6.4 % Eosinophil % 3.8 % Basophil % 1.0 % Nucleated Red Blood Cells % 0.1 Inr/Protime 02/16/2019 [facility] Inr 4.22 High 0.82-1.[address] [place], [place] [address] [phone] Ua Routine 02/10/2019 [facility] Ua Specific 1.020 [place] Ua PH 5 Ua Color yellow Ua Appera clear Ua WBC NEG Ua Protein NEG Ua Glucose NEG Ua Ketones NEG Ua Bilirubin NEG Ua Urobilinogen NEG Ua Nitrite NEG Ua Occult Blood NEG Urine Culture And 02/10/2019 [facility] Urine SEE RESULT 24 , [address] Culture BELOW [place], [place] [address] [phone] Inr/Protime 02/05/2019 [facility] Inr 3.44 High 0.[address] -1.0 [place] [address] [phone] CBC Auto Diff 01/29/2019 [facility] White Blood 9.0 Normal 3.5 - [address] Count 10^3/uL 10.8 [place] [address] [phone] Red Blood Count 5.09 10^6/uL High 3.70-4.87 Hemoglobin 15.1 g/dL Normal 12.0-16.0 Hematocrit 45 % Normal 35-47 Mean Corpuscular Volume 88 fL Normal 80-97 Mean Corpuscular Hemoglobin 30 pg Normal 27-31 Mean Corpuscular HGB Conc 34 g/dL Normal 31-36 Red Cell Distribution Width 16 % High 10-15 Platelet Count 454 10^3/uL High 150-450 Mean Platelet Volume 8.8 fL Normal 7.4-10.4 Abs Neutrophils 6.2 10^3/uL Normal 1.5-7.7 Abs Lymphocytes 1.7 10^3/uL Normal 1.0-4.8 Abs Monocytes 0.6 10^3/uL Normal 0-0.8 Abs Eosinophils 0.4 10^3/uL Normal 0-0.6 Abs Basophils 0.1 10^3/uL Normal 0-0.2 Abs Nucleated RBC 0.0 10^3/uL Granulocyte % 68.6 % Lymphocyte % 19.3 % Monocyte % 6.9 % Eosinophil % 4.1 % Basophil % 1.1 % Nucleated Red Blood Cells % 0.1 Inr/Protime 01/29/2019 [facility] Inr 3.71 High 0.82-1.[address] [place] [address] [phone] Inr/Protime 01/16/2019 [facility] Inr 2.09 High 0.82-1.[address] [place] [address] [phone] CBC Auto Diff 01/16/2019 [facility] White Blood 9.9 Normal 3.5 -10.[address] Count 10^3/[place] [address] [phone] Red Blood Count 5.26 10^6/uL High 3.70-4.87 Hemoglobin 15.3 g/dL Normal 12.0-16.0 Hematocrit 46 % Normal 35-47 Mean Corpuscular Volume 88 fL Normal 80-97 Mean Corpuscular Hemoglobin 29 pg Normal 27-31 Mean Corpuscular HGB Conc 33 g/dL Normal 31-36 Red Cell Distribution Width 15 % Normal 10-15 Platelet Count 444 10^3/uL Normal 150-450 Mean Platelet Volume 8.8 fL Normal 7.4-10.4 Abs Neutrophils 7.3 10^3/uL Normal 1.5-7.7 Abs Lymphocytes 1.5 10^3/uL Normal 1.0-4.8 Abs Monocytes 0.7 10^3/uL Normal 0-0.8 Abs Eosinophils 0.4 10^3/uL Normal 0-0.6 Abs Basophils 0.1 10^3/uL Normal 0-0.2 Abs Nucleated RBC 0.0 10^3/uL Granulocyte % 73.3 % Lymphocyte % 15.3 % Monocyte % 6.5 % Eosinophil % 3.7 % Basophil % 1.2 % Nucleated Red Blood Cells % 0.1 Myeloprolif 01/07/2019 [facility] MPNR Result see interpretati 29 Neoplasm With RFX <SEE NOTE> [place] [address] [phone] MPNR Final Diagnosis See Comment 30 Lipid Profile 01/06/2019 [facility] Triglycerides 69 mg/dL 31 (Trig/Chol/HDL) [place] [address] [phone] Cholesterol 111 mg/dL 32 HDL Cholesterol 44.7 mg/dL 33 LDL Cholesterol 53 mg/dL 34 Laboratory 01/06/2019 [facility] TSH (Thyroid 2.93 Normal 0.34 -5.60 test finding Stim Horm) mcIU/mL [place] [address] [phone] T3 Free 2.90 pg/mL Normal 2.5-3.9 Free T4 (Free Thyroxine) 1.66 ng/dL High 0.61-1.12 Glucose 98 mg/dL Normal 70-100 Hemoglobin A1c (Glyco HGB) 5.6 % Normal 4.0-5.6 35 Inr/Protime 01/06/2019 [facility] Inr 4.84 High 0.82-1.09 36 [place] [address] [phone] CBC Auto Diff 01/06/2019 [facility] White Blood 9.2 Normal 3.5 -10.8 Count 10^3/uL [place] [address] [phone] Red Blood Count 5.31 10^6/uL High 3.70-4.87 Hemoglobin 15.5 g/dL Normal 12.0-16.0 Hematocrit 47 % Normal 35-47 Mean Corpuscular Volume 88 fL Normal 80-97 Mean Corpuscular Hemoglobin 29 pg Normal 27-31 Mean Corpuscular HGB Conc 33 g/dL Normal 31-36 Red Cell Distribution Width 15 % Normal 10-15 Platelet Count 501 10^3/uL High 150-450 Mean Platelet Volume 8.5 fL Normal 7.4-10.4 Abs Neutrophils 6.6 10^3/uL Normal 1.5-7.7 Abs Lymphocytes 1.6 10^3/uL Normal 1.0-4.8 Abs Monocytes 0.6 10^3/uL Normal 0-0.8 Abs Eosinophils 0.3 10^3/uL Normal 0-0.6 Abs Basophils 0.1 10^3/uL Normal 0-0.2 Abs Nucleated RBC 0.0 10^3/uL Granulocyte % 71.5 % Lymphocyte % 17.2 % Monocyte % 6.2 % Eosinophil % 3.8 % Basophil % 1.3 % Nucleated Red Blood Cells % 0.1 Inr/Protime 12/29/2018 [facility] Inr 2.55 High 0.82-1.[address] [place] [address] [phone] Laboratory test 12/27/2018 [facility] Troponin- 0.00 ng/mL < 0.04 [address] I (TnI) [place] [address] [phone] TSH (Thyroid Stim Horm) 15.00 mcIU/mL High 0.34-5.60 Comp Metabolic Panel 12/27/2018 [facility] Sodium 131 mmol/L Low 135-[address] [place] [address] [phone] Potassium 3.7 mmol/L Normal 3.5-5.0 Chloride 99 mmol/L Low 101-111 Co2 Carbon Dioxide 23 mmol/L Normal 22-32 Anion Gap 9 mmol/L Normal 2-11 Glucose 96 mg/dL Normal 70-100 Blood Urea Nitrogen 16 mg/dL Normal 6-24 Creatinine 0.65 mg/dL Normal 0.51-0.95 BUN/Creatinine Ratio 24.6 High 8-20 Calcium 9.5 mg/dL Normal 8.6-10.3 Total Protein 7.2 g/dL Normal 6.4-8.9 Albumin 4.2 g/dL Normal 3.2-5.2 Globulin 3.0 g/dL Normal 2-4 Albumin/Globulin Ratio 1.4 Normal 1-3 Total Bilirubin 0.60 mg/dL Normal 0.2-1.0 Alkaline Phosphatase 59 U/L Normal 34-104 Alt 15 U/L Normal 7-52 Ast 24 U/L Normal 13-39 Egfr Non- 89.1 >60 Egfr 107.8 >60 39 Laboratory test 12/27/2018 [facility] B-Type 50 pg/mL <=[address] Natriuretic [place] [address] Peptide BNP [phone] CBC Auto Diff 12/27/2018 [facility] White Blood 11.7 High 3.5- 10.[address] Count 10^3/uL [place] [address] [phone] Red Blood Count 5.33 10^6/uL High 3.70-4.87 Hemoglobin 15.2 g/dL Normal 12.0-16.0 Hematocrit 46 % Normal 35-47 Mean Corpuscular Volume 86 fL Normal 80-97 Mean Corpuscular Hemoglobin 29 pg Normal 27-31 Mean Corpuscular HGB Conc 33 g/dL Normal 31-36 Red Cell Distribution Width 15 % Normal 10-15 Platelet Count 473 10^3/uL High 150-450 Mean Platelet Volume 8.7 fL Normal 7.4-10.4 Abs Neutrophils 7.9 10^3/uL High 1.5-7.7 Abs Lymphocytes 2.4 10^3/uL Normal 1.0-4.8 Abs Monocytes 0.8 10^3/uL Normal 0-0.8 Abs Eosinophils 0.6 10^3/uL Normal 0-0.6 Abs Basophils 0.1 10^3/uL Normal 0-0.2 Abs Nucleated RBC 0.0 10^3/uL Granulocyte % 67.4 % Lymphocyte % 20.3 % Monocyte % 6.5 % Eosinophil % 4.7 % Basophil % 1.1 % Nucleated Red Blood Cells % 0.1 Laboratory 12/26/2018 N2N/CCD Import International Ratio 2.28 High 0.82- 1.09 Studies (Anticoag Ther) Laboratory 12/25/2018 N2N/CCD Import Hemoglobin A1c 5.7 % High 4.0-5.6 Studies Laboratory 12/25/2018 N2N/CCD Import Anion Gap 7 mmol/L 2-11 Studies Hemoglobin A1c 5.7 % High 4.0-5.6 Laboratory Studies 12/25/2018 N2N/CCD Import BUN/Creatinine Ratio 21.0 High 8-20 Anion Gap 7 mmol/L 2-11 Hemoglobin A1c 5.7 % High 4.0-5.6 Laboratory Studies 12/25/2018 N2N/CCD Import Blood Urea Nitrogen 13 mg/dL 6-24 BUN/Creatinine Ratio 21.0 High 8-20 Anion Gap 7 mmol/L 2-11 Hemoglobin A1c 5.7 % High 4.0-5.6 Laboratory Studies 12/25/2018 N2N/Featurespace Import Calcium Level 8.6 mg/dL 8.6 -10.3 Blood Urea Nitrogen 13 mg/dL 6-24 BUN/Creatinine Ratio 21.0 High 8-20 Anion Gap 7 mmol/L 2-11 Hemoglobin A1c 5.7 % High 4.0-5.6 Laboratory Studies 12/25/2018 N2N/[employer] Import Carbon Dioxide Level 23 mmol/ L 22-32 Calcium Level 8.6 mg/dL 8.6-10.3 Blood Urea Nitrogen 13 mg/dL 6-24 BUN/Creatinine Ratio 21.0 High 8-20 Anion Gap 7 mmol/L 2-11 Hemoglobin A1c 5.7 % High 4.0-5.6 Laboratory Studies 12/25/2018 N2N/[employer] Import Chloride Level 108 mmol/L 101-111 Carbon Dioxide Level 23 mmol/L 22-32 Calcium Level 8.6 mg/dL 8.6-10.3 Blood Urea Nitrogen 13 mg/dL 6-24 BUN/Creatinine Ratio 21.0 High 8-20 Anion Gap 7 mmol/L 2-11 Hemoglobin A1c 5.7 % High 4.0-5.6 Laboratory Studies 12/25/2018 N2N/[employer] Import Cholesterol Level 147 mg/dL Chloride Level 108 mmol/L 101-111 Carbon Dioxide Level 23 mmol/L 22-32 Calcium Level 8.6 mg/dL 8.6-10.3 Blood Urea Nitrogen 13 mg/dL 6-24 BUN/Creatinine Ratio 21.0 High 8-20 Anion Gap 7 mmol/L 2-11 Hemoglobin A1c 5.7 % High 4.0-5.6 Laboratory Studies 12/25/2018 N2N/[employer] Import Creatinine 0.62 mg/dL 0.51- 0.95 Cholesterol Level 147 mg/dL Chloride Level 108 mmol/L 101-111 Carbon Dioxide Level 23 mmol/L 22-32 Calcium Level 8.6 mg/dL 8.6-10.3 Blood Urea Nitrogen 13 mg/dL 6-24 BUN/Creatinine Ratio 21.0 High 8-20 Anion Gap 7 mmol/L 2-11 Hemoglobin A1c 5.7 % High 4.0-5.6 Laboratory Studies 12/25/2018 N2N/Featurespace Import Free Thyroxine 1.02 ng/dL 0.61-1.12 Vitamin B12 Level 445 pg/mL 180-914 Triglycerides Level 78 mg/dL Thyroid Stimulating Hormone (TSH) 14.01 mcIU/mL High 0.34-5.60 Sodium Level 138 mmol/L 135-145 Potassium Level 3.9 mmol/L 3.5-5.0 LDL Cholesterol 91 mg/dL HDL Cholesterol 40.5 mg/dL Glucose Level 92 mg/dL 70-100 Estimated GFR (Non- 94.1 Estimated GFR () 113.9 Creatinine 0.62 mg/dL 0.51-0.95 Cholesterol Level 147 mg/dL Chloride Level 108 mmol/L 101-111 Carbon Dioxide Level 23 mmol/L 22-32 Calcium Level 8.6 mg/dL 8.6-10.3 Blood Urea Nitrogen 13 mg/dL 6-24 BUN/Creatinine Ratio 21.0 High 8-20 Anion Gap 7 mmol/L 2-11 Hemoglobin A1c 5.7 % High 4.0-5.6 Laboratory 12/25/2018 N2N/CCD Import Total Triiodothyronine 72 ng/dL Low 87-178 Studies Free Thyroxine 1.02 ng/dL 0.61-1.12 Vitamin B12 Level 445 pg/mL 180-914 Triglycerides Level 78 mg/dL Thyroid Stimulating Hormone (TSH) 14.01 mcIU/mL High 0.34-5.60 Sodium Level 138 mmol/L 135-145 Potassium Level 3.9 mmol/L 3.5-5.0 LDL Cholesterol 91 mg/dL HDL Cholesterol 40.5 mg/dL Glucose Level 92 mg/dL 70-100 Estimated GFR (Non- 94.1 Estimated GFR () 113.9 Creatinine 0.62 mg/dL 0.51-0.95 Cholesterol Level 147 mg/dL Chloride Level 108 mmol/L 101-111 Carbon Dioxide Level 23 mmol/L 22-32 Calcium Level 8.6 mg/dL 8.6-10.3 Blood Urea Nitrogen 13 mg/dL 6-24 BUN/Creatinine Ratio 21.0 High 8-20 Anion Gap 7 mmol/L 2-11 Hemoglobin A1c 5.7 % High 4.0-5.6 Laboratory Studies 12/25/2018 N2N/CCD Import Vitamin B12 Level 445 pg/mL 180-914 Triglycerides Level 78 mg/dL Thyroid Stimulating Hormone (TSH) 14.01 mcIU/mL High 0.34-5.60 Sodium Level 138 mmol/L 135-145 Potassium Level 3.9 mmol/L 3.5-5.0 LDL Cholesterol 91 mg/dL HDL Cholesterol 40.5 mg/dL Glucose Level 92 mg/dL 70-100 Estimated GFR (Non- 94.1 Estimated GFR () 113.9 Creatinine 0.62 mg/dL 0.51-0.95 Cholesterol Level 147 mg/dL Chloride Level 108 mmol/L 101-111 Carbon Dioxide Level 23 mmol/L 22-32 Calcium Level 8.6 mg/dL 8.6-10.3 Blood Urea Nitrogen 13 mg/dL 6-24 BUN/Creatinine Ratio 21.0 High 8-20 Anion Gap 7 mmol/L 2-11 Hemoglobin A1c 5.7 % High 4.0-5.6 Laboratory Studies 12/25/2018 N2N/CCD Import Triglycerides Level 78 mg/dL Thyroid Stimulating Hormone (TSH) 14.01 mcIU/mL High 0.34-5.60 Sodium Level 138 mmol/L 135-145 Potassium Level 3.9 mmol/L 3.5-5.0 LDL Cholesterol 91 mg/dL HDL Cholesterol 40.5 mg/dL Glucose Level 92 mg/dL 70-100 Estimated GFR (Non- 94.1 Estimated GFR () 113.9 Creatinine 0.62 mg/dL 0.51-0.95 Cholesterol Level 147 mg/dL Chloride Level 108 mmol/L 101-111 Carbon Dioxide Level 23 mmol/L 22-32 Calcium Level 8.6 mg/dL 8.6-10.3 Blood Urea Nitrogen 13 mg/dL 6-24 BUN/Creatinine Ratio 21.0 High 8-20 Anion Gap 7 mmol/L 2-11 Hemoglobin A1c 5.7 % High 4.0-5.6 Laboratory 12/25/2018 N2N/CCD Import Thyroid 14.01 High 0.34-5.60 Studies Stimulating mcIU/mL Hormone (TSH) Sodium Level 138 mmol/L 135-145 Potassium Level 3.9 mmol/L 3.5-5.0 LDL Cholesterol 91 mg/dL HDL Cholesterol 40.5 mg/dL Glucose Level 92 mg/dL 70-100 Estimated GFR (Non- 94.1 Estimated GFR () 113.9 Creatinine 0.62 mg/dL 0.51-0.95 Cholesterol Level 147 mg/dL Chloride Level 108 mmol/L 101-111 Carbon Dioxide Level 23 mmol/L 22-32 Calcium Level 8.6 mg/dL 8.6-10.3 Blood Urea Nitrogen 13 mg/dL 6-24 BUN/Creatinine Ratio 21.0 High 8-20 Anion Gap 7 mmol/L 2-11 Hemoglobin A1c 5.7 % High 4.0-5.6 Laboratory Studies 12/25/2018 N2N/CCD Import Sodium Level 138 mmol/L 135 -145 Potassium Level 3.9 mmol/L 3.5-5.0 LDL Cholesterol 91 mg/dL HDL Cholesterol 40.5 mg/dL Glucose Level 92 mg/dL 70-100 Estimated GFR (Non- 94.1 Estimated GFR () 113.9 Creatinine 0.62 mg/dL 0.51-0.95 Cholesterol Level 147 mg/dL Chloride Level 108 mmol/L 101-111 Carbon Dioxide Level 23 mmol/L 22-32 Calcium Level 8.6 mg/dL 8.6-10.3 Blood Urea Nitrogen 13 mg/dL 6-24 BUN/Creatinine Ratio 21.0 High 8-20 Anion Gap 7 mmol/L 2-11 Hemoglobin A1c 5.7 % High 4.0-5.6 Laboratory Studies 12/25/2018 N2N/CCD Import Potassium Level 3.9 mmol/L 3.5-5.0 LDL Cholesterol 91 mg/dL HDL Cholesterol 40.5 mg/dL Glucose Level 92 mg/dL 70-100 Estimated GFR (Non- 94.1 Estimated GFR () 113.9 Creatinine 0.62 mg/dL 0.51-0.95 Cholesterol Level 147 mg/dL Chloride Level 108 mmol/L 101-111 Carbon Dioxide Level 23 mmol/L 22-32 Calcium Level 8.6 mg/dL 8.6-10.3 Blood Urea Nitrogen 13 mg/dL 6-24 BUN/Creatinine Ratio 21.0 High 8-20 Anion Gap 7 mmol/L 2-11 Hemoglobin A1c 5.7 % High 4.0-5.6 Laboratory Studies 12/25/2018 N2N/CCD Import LDL Cholesterol 91 mg/dL HDL Cholesterol 40.5 mg/dL Glucose Level 92 mg/dL 70-100 Estimated GFR (Non- 94.1 Estimated GFR () 113.9 Creatinine 0.62 mg/dL 0.51-0.95 Cholesterol Level 147 mg/dL Chloride Level 108 mmol/L 101-111 Carbon Dioxide Level 23 mmol/L 22-32 Calcium Level 8.6 mg/dL 8.6-10.3 Blood Urea Nitrogen 13 mg/dL 6-24 BUN/Creatinine Ratio 21.0 High 8-20 Anion Gap 7 mmol/L 2-11 Hemoglobin A1c 5.7 % High 4.0-5.6 Laboratory Studies 12/25/2018 N2N/CCD Import HDL Cholesterol 40.5 mg/dL Glucose Level 92 mg/dL 70-100 Estimated GFR (Non- 94.1 Estimated GFR () 113.9 Creatinine 0.62 mg/dL 0.51-0.95 Cholesterol Level 147 mg/dL Chloride Level 108 mmol/L 101-111 Carbon Dioxide Level 23 mmol/L 22-32 Calcium Level 8.6 mg/dL 8.6-10.3 Blood Urea Nitrogen 13 mg/dL 6-24 BUN/Creatinine Ratio 21.0 High 8-20 Anion Gap 7 mmol/L 2-11 Hemoglobin A1c 5.7 % High 4.0-5.6 Laboratory Studies 12/25/2018 N2N/CCD Import Glucose Level 92 mg/dL 70- 100 Estimated GFR (Non- 94.1 Estimated GFR () 113.9 Creatinine 0.62 mg/dL 0.51-0.95 Cholesterol Level 147 mg/dL Chloride Level 108 mmol/L 101-111 Carbon Dioxide Level 23 mmol/L 22-32 Calcium Level 8.6 mg/dL 8.6-10.3 Blood Urea Nitrogen 13 mg/dL 6-24 BUN/Creatinine Ratio 21.0 High 8-20 Anion Gap 7 mmol/L 2-11 Hemoglobin A1c 5.7 % High 4.0-5.6 Laboratory Studies 12/25/2018 N2N/CCD Import Estimated GFR (Non- 94.1 Cambodian Estimated GFR () 113.9 Creatinine 0.62 mg/dL 0.51-0.95 Cholesterol Level 147 mg/dL Chloride Level 108 mmol/L 101-111 Carbon Dioxide Level 23 mmol/L 22-32 Calcium Level 8.6 mg/dL 8.6-10.3 Blood Urea Nitrogen 13 mg/dL 6-24 BUN/Creatinine Ratio 21.0 High 8-20 Anion Gap 7 mmol/L 2-11 Hemoglobin A1c 5.7 % High 4.0-5.6 Laboratory Studies 12/25/2018 N2N/CCD Import Estimated GFR ( 113.9 Cambodian) Creatinine 0.62 mg/dL 0.51-0.95 Cholesterol Level 147 mg/dL Chloride Level 108 mmol/L 101-111 Carbon Dioxide Level 23 mmol/L 22-32 Calcium Level 8.6 mg/dL 8.6-10.3 Blood Urea Nitrogen 13 mg/dL 6-24 BUN/Creatinine Ratio 21.0 High 8-20 Anion Gap 7 mmol/L 2-11 Hemoglobin A1c 5.7 % High 4.0-5.6 Laboratory Studies 12/24/2018 N2N/CCD Import Lymphocytes (%) (Auto) 18.0 % Hemoglobin 15.9 g/dL 12.0-16.0 Hematocrit 47 % 35-47 Eosinophils (%) (Auto) 4.6 % Basophils (%) (Auto) 1.4 % Absolute Neutrophils (auto) 7.2 10^3/ul 1.5-7.7 Absolute Monocytes (auto) 0.8 10^3/ul 0-0.8 Absolute Lymphocytes (auto) 1.9 10^3/ul 1.0-4.8 Absolute Eosinophils (auto) 0.5 10^3/ul 0-0.6 Absolute Basophils (auto) 0.1 10^3/ul 0-0.2 Laboratory Studies 12/24/2018 N2N/CCD Import Eosinophils (%) (Auto) 4.6 % Basophils (%) (Auto) 1.4 % Absolute Neutrophils (auto) 7.2 10^3/ul 1.5-7.7 Absolute Monocytes (auto) 0.8 10^3/ul 0-0.8 Absolute Lymphocytes (auto) 1.9 10^3/ul 1.0-4.8 Absolute Eosinophils (auto) 0.5 10^3/ul 0-0.6 Absolute Basophils (auto) 0.1 10^3/ul 0-0.2 Laboratory Studies 12/24/2018 N2N/CCD Import Basophils (%) (Auto) 1.4 % Absolute Neutrophils (auto) 7.2 10^3/ul 1.5-7.7 Absolute Monocytes (auto) 0.8 10^3/ul 0-0.8 Absolute Lymphocytes (auto) 1.9 10^3/ul 1.0-4.8 Absolute Eosinophils (auto) 0.5 10^3/ul 0-0.6 Absolute Basophils (auto) 0.1 10^3/ul 0-0.2 Laboratory Studies 12/24/2018 N2N/CCD Import Absolute 7.2 10^3/ul 1.5- 7.7 Neutrophils (auto) Absolute Monocytes (auto) 0.8 10^3/ul 0-0.8 Absolute Lymphocytes (auto) 1.9 10^3/ul 1.0-4.8 Absolute Eosinophils (auto) 0.5 10^3/ul 0-0.6 Absolute Basophils (auto) 0.1 10^3/ul 0-0.2 Laboratory Studies 12/24/2018 N2N/CCD Import Absolute Monocytes 0.8 10^3/ ul 0-0.8 (auto) Absolute Lymphocytes (auto) 1.9 10^3/ul 1.0-4.8 Absolute Eosinophils (auto) 0.5 10^3/ul 0-0.6 Absolute Basophils (auto) 0.1 10^3/ul 0-0.2 Laboratory Studies 12/24/2018 N2N/CCD Import Absolute 1.9 10^3/ul 1.0- 4.8 Lymphocytes (auto) Absolute Eosinophils (auto) 0.5 10^3/ul 0-0.6 Absolute Basophils (auto) 0.1 10^3/ul 0-0.2 Laboratory Studies 12/24/2018 N2N/CCD Import Absolute 0.5 10^3/ul 0-0.6 Eosinophils (auto) Absolute Basophils (auto) 0.1 10^3/ul 0-0.2 Laboratory Studies 12/24/2018 N2N/CCD Import Absolute Basophils 0.1 10^3/ ul 0-0.2 (auto) Laboratory Studies 12/24/2018 N2N/CCD Import Mean Corpuscular 34 g/dL 31 -36 Hemoglobin Concent Mean Corpuscular Hemoglobin 29 pg 27-31 Lymphocytes (%) (Auto) 18.0 % Hemoglobin 15.9 g/dL 12.0-16.0 Hematocrit 47 % 35-47 Eosinophils (%) (Auto) 4.6 % Basophils (%) (Auto) 1.4 % Absolute Neutrophils (auto) 7.2 10^3/ul 1.5-7.7 Absolute Monocytes (auto) 0.8 10^3/ul 0-0.8 Absolute Lymphocytes (auto) 1.9 10^3/ul 1.0-4.8 Absolute Eosinophils (auto) 0.5 10^3/ul 0-0.6 Absolute Basophils (auto) 0.1 10^3/ul 0-0.2 Laboratory Studies 12/24/2018 N2N/CCD Import Monocytes (%) (Auto) 7.3 % Mean Platelet Volume 8.6 fL 7.4-10.4 Mean Corpuscular Volume 87 fL 80-97 Mean Corpuscular Hemoglobin Concent 34 g/dL 31-36 Mean Corpuscular Hemoglobin 29 pg 27-31 Lymphocytes (%) (Auto) 18.0 % Hemoglobin 15.9 g/dL 12.0-16.0 Hematocrit 47 % 35-47 Eosinophils (%) (Auto) 4.6 % Basophils (%) (Auto) 1.4 % Absolute Neutrophils (auto) 7.2 10^3/ul 1.5-7.7 Absolute Monocytes (auto) 0.8 10^3/ul 0-0.8 Absolute Lymphocytes (auto) 1.9 10^3/ul 1.0-4.8 Absolute Eosinophils (auto) 0.5 10^3/ul 0-0.6 Absolute Basophils (auto) 0.1 10^3/ul 0-0.2 Laboratory Studies 12/24/2018 N2N/CCD Import Neutrophils (%) (Auto) 68.7 % Monocytes (%) (Auto) 7.3 % Mean Platelet Volume 8.6 fL 7.4-10.4 Mean Corpuscular Volume 87 fL 80-97 Mean Corpuscular Hemoglobin Concent 34 g/dL 31-36 Mean Corpuscular Hemoglobin 29 pg 27-31 Lymphocytes (%) (Auto) 18.0 % Hemoglobin 15.9 g/dL 12.0-16.0 Hematocrit 47 % 35-47 Eosinophils (%) (Auto) 4.6 % Basophils (%) (Auto) 1.4 % Absolute Neutrophils (auto) 7.2 10^3/ul 1.5-7.7 Absolute Monocytes (auto) 0.8 10^3/ul 0-0.8 Absolute Lymphocytes (auto) 1.9 10^3/ul 1.0-4.8 Absolute Eosinophils (auto) 0.5 10^3/ul 0-0.6 Absolute Basophils (auto) 0.1 10^3/ul 0-0.2 Laboratory Studies 12/24/2018 N2N/CCD Import Nucleated RBC Absolute 0.0 10^ 3/ul Count (auto) Neutrophils (%) (Auto) 68.7 % Monocytes (%) (Auto) 7.3 % Mean Platelet Volume 8.6 fL 7.4-10.4 Mean Corpuscular Volume 87 fL 80-97 Mean Corpuscular Hemoglobin Concent 34 g/dL 31-36 Mean Corpuscular Hemoglobin 29 pg 27-31 Lymphocytes (%) (Auto) 18.0 % Hemoglobin 15.9 g/dL 12.0-16.0 Hematocrit 47 % 35-47 Eosinophils (%) (Auto) 4.6 % Basophils (%) (Auto) 1.4 % Absolute Neutrophils (auto) 7.2 10^3/ul 1.5-7.7 Absolute Monocytes (auto) 0.8 10^3/ul 0-0.8 Absolute Lymphocytes (auto) 1.9 10^3/ul 1.0-4.8 Absolute Eosinophils (auto) 0.5 10^3/ul 0-0.6 Absolute Basophils (auto) 0.1 10^3/ul 0-0.2 Laboratory Studies 12/24/2018 N2N/CCD Import Lactic Acid Level 1.5 mmol/L 0.5-2.0 White Blood Count 10.5 10^3/uL 3.5-10.8 Red Cell Distribution Width 15 % 10-15 Red Blood Count 5.43 10^6/uL High 3.70-4.87 Platelet Count 485 10^3/uL High 150-450 Nucleated Red Blood Cells % 0.2 Nucleated RBC Absolute Count (auto) 0.0 10^3/ul Neutrophils (%) (Auto) 68.7 % Monocytes (%) (Auto) 7.3 % Mean Platelet Volume 8.6 fL 7.4-10.4 Mean Corpuscular Volume 87 fL 80-97 Mean Corpuscular Hemoglobin Concent 34 g/dL 31-36 Mean Corpuscular Hemoglobin 29 pg 27-31 Lymphocytes (%) (Auto) 18.0 % Hemoglobin 15.9 g/dL 12.0-16.0 Hematocrit 47 % 35-47 Eosinophils (%) (Auto) 4.6 % Basophils (%) (Auto) 1.4 % Absolute Neutrophils (auto) 7.2 10^3/ul 1.5-7.7 Absolute Monocytes (auto) 0.8 10^3/ul 0-0.8 Absolute Lymphocytes (auto) 1.9 10^3/ul 1.0-4.8 Absolute Eosinophils (auto) 0.5 10^3/ul 0-0.6 Absolute Basophils (auto) 0.1 10^3/ul 0-0.2 Urinalysis Profile 12/24/2018 [facility] Urine Color Straw [address] [place] [address] [phone] Urine Appearance Clear Urine Specific [place] 1.019 Normal 1.010-1.030 Urine pH 7.0 Normal 5-9 Urine Urobilinogen Negative Negative Urine Ketones Negative Negative Urine Protein Negative Negative Urine Leukocytes Negative Negative Urine Blood Negative Negative Urine Nitrite Negative Negative Urine Bilirubin Negative Negative Urine Glucose Negative Negative Laboratory test 12/24/2018 [facility] Troponin-I 0.00 ng/mL < 0.[address] (TnI) [place] [address] [phone] Comp Metabolic 12/24/2018 [facility] Sodium 130 mmol/L Low 135 -[address] [place] [address] [phone] Potassium 3.9 mmol/L Normal 3.5-5.0 Chloride 100 mmol/L Low 101-111 Co2 Carbon Dioxide 24 mmol/L Normal 22-32 Anion Gap 6 mmol/L Normal 2-11 Glucose 121 mg/dL High 70-100 Blood Urea Nitrogen 16 mg/dL Normal 6-24 Creatinine 0.70 mg/dL Normal 0.51-0.95 BUN/Creatinine Ratio 22.9 High 8-20 Calcium 9.2 mg/dL Normal 8.6-10.3 Total Protein 6.6 g/dL Normal 6.4-8.9 Albumin 4.0 g/dL Normal 3.2-5.2 Globulin 2.6 g/dL Normal 2-4 Albumin/Globulin Ratio 1.5 Normal 1-3 Total Bilirubin 0.40 mg/dL Normal 0.2-1.0 Alkaline Phosphatase 65 U/L Normal 34-104 Alt 11 U/L Normal 7-52 Ast 20 U/L Normal 13-39 Egfr Non- 81.8 >60 Egfr 99.0 >60 41 Laboratory test 12/24/2018 [facility] Lactic 1.5 mmol/L Normal 0.5-2.0 [address] [place] [address] [phone] Inr/Protime 12/24/2018 [facility] Inr 3.01 High 0.82-1.[address] [place] [address] [phone] CBC Auto Diff 12/24/2018 [facility] White 10.5 Normal 3.5- 10.[address] Blood 10^3/[place] [address] Count [phone] Red Blood Count 5.43 10^6/uL High 3.70-4.87 Hemoglobin 15.9 g/dL Normal 12.0-16.0 Hematocrit 47 % Normal 35-47 Mean Corpuscular Volume 87 fL Normal 80-97 Mean Corpuscular Hemoglobin 29 pg Normal 27-31 Mean Corpuscular HGB Conc 34 g/dL Normal 31-36 Red Cell Distribution Width 15 % Normal 10-15 Platelet Count 485 10^3/uL High 150-450 Mean Platelet Volume 8.6 fL Normal 7.4-10.4 Abs Neutrophils 7.2 10^3/uL Normal 1.5-7.7 Abs Lymphocytes 1.9 10^3/uL Normal 1.0-4.8 Abs Monocytes 0.8 10^3/uL Normal 0-0.8 Abs Eosinophils 0.5 10^3/uL Normal 0-0.6 Abs Basophils 0.1 10^3/uL Normal 0-0.2 Abs Nucleated RBC 0.0 10^3/uL Granulocyte % 68.7 % Lymphocyte % 18.0 % Monocyte % 7.3 % Eosinophil % 4.6 % Basophil % 1.4 % Nucleated Red Blood Cells % 0.2 Laboratory Studies 12/24/2018 N2N/CCD Import Urine Specific 1.019 1.010- 1.030 [place] Laboratory Studies 12/24/2018 N2N/CCD Import Urine pH 7.0 5-9 Urine Specific [place] 1.019 1.010-1.030 Laboratory test 12/23/2018 [facility] TSH (Thyroid 14.83 High 0.34-5.[address] Stim Horm) mcIU/mL [place], [place] [id number] [phone] Free T4 (Free Thyroxine) 1.21 ng/dL High 0.61-1.12 Comp Metabolic Panel 12/23/2018 [facility] Sodium 134 mmol/L Low 135-[address] [place] [address] [phone] Potassium 4.9 mmol/L Normal 3.5-5.0 Chloride 100 mmol/L Low 101-111 Co2 Carbon Dioxide 27 mmol/L Normal 22-32 Anion Gap 7 mmol/L Normal 2-11 Glucose 86 mg/dL Normal 70-100 Blood Urea Nitrogen 17 mg/dL Normal 6-24 Creatinine 0.85 mg/dL Normal 0.51-0.95 BUN/Creatinine Ratio 20.0 Normal 8-20 Calcium 9.7 mg/dL Normal 8.6-10.3 Total Protein 6.9 g/dL Normal 6.4-8.9 Albumin 4.3 g/dL Normal 3.2-5.2 Globulin 2.6 g/dL Normal 2-4 Albumin/Globulin Ratio 1.7 Normal 1-3 Total Bilirubin 0.80 mg/dL Normal 0.2-1.0 Alkaline Phosphatase 65 U/L Normal 34-104 Alt 11 U/L Normal 7-52 Ast 20 U/L Normal 13-39 Egfr Non- 65.4 >60 Egfr 79.1 >60 44 CBC Auto 12/23/2018 [facility] White Blood 9.7 10^3/uL Normal 3.5-10.[address] [place] [address] [phone] Red Blood Count 5.73 10^6/uL High 3.70-4.87 Hemoglobin 16.7 g/dL High 12.0-16.0 Hematocrit 50 % High 35-47 Mean Corpuscular Volume 88 fL Normal 80-97 Mean Corpuscular Hemoglobin 29 pg Normal 27-31 Mean Corpuscular HGB Conc 33 g/dL Normal 31-36 Red Cell Distribution Width 15 % Normal 10-15 Platelet Count 476 10^3/uL High 150-450 Mean Platelet Volume 9.5 fL Normal 7.4-10.4 Abs Neutrophils 6.5 10^3/uL Normal 1.5-7.7 Abs Lymphocytes 1.9 10^3/uL Normal 1.0-4.8 Abs Monocytes 0.6 10^3/uL Normal 0-0.8 Abs Eosinophils 0.4 10^3/uL Normal 0-0.6 Abs Basophils 0.2 10^3/uL Normal 0-0.2 Abs Nucleated RBC 0.0 10^3/uL Granulocyte % 67.2 % Lymphocyte % 19.2 % Monocyte % 6.7 % Eosinophil % 4.5 % Basophil % 2.4 % Nucleated Red Blood Cells % 0.1 Vitamin B12 12/23/2018 [facility] Vitamin B12 554 pg/mL Normal 180-914 45 And Folate [address] [place] [address] [phone] Folic Acid (Folate) 16.45 ng/mL >3.99 Lipid Profile 12/23/2018 [facility] Triglycerides 83 mg/dL 46 (Trig/Chol/HDL) [place] [address] [phone] Cholesterol 190 mg/dL 47 HDL Cholesterol 52.1 mg/dL 48 LDL Cholesterol 121 mg/dL 49 Laboratory 12/23/2018 [facility] Homocysteine 17 mcmol/L Abnormal 50 test finding [address] [place] [address] [phone] Nuclear AB 12/23/2018 [facility] Nuclear Ab (Giovana) Positive Abnormal 51 (Giovana) By Ifa 101 by Ifa, IgG 1:160 [place] [address] [phone] Giovana Titer: 1:160 Giovana Pattern: Homogeneous 52 Inr/Protime 12/23/2018 [facility] Inr 2.55 High 0.82-1.09 [address] [place] [address] [phone] Urinalysis Profile 12/19/2018 [facility] Urine Color Straw [address] [place] [address] [phone] Urine Appearance Clear Urine Specific [place] 1.004 Low 1.010-1.030 Urine pH 8.0 Normal 5-9 Urine Urobilinogen Negative Negative Urine Ketones Negative Negative Urine Protein Negative Negative Urine Leukocytes Negative Negative Urine Blood Negative Negative * * Abnormal Negative 54 Urine Nitrite Negative Negative Urine Bilirubin Negative Negative Urine Glucose Negative Negative Laboratory test 12/19/2018 [facility] Troponin-I 0.00 ng/mL < 0.04 55 finding 101 (TnI) [place] [address] [phone] Comp Metabolic 12/19/2018 [facility] Sodium 133 mmol/L Low 135 -145 Panel [address] [place] [address] [phone] Potassium 4.1 mmol/L Normal 3.5-5.0 Chloride 98 mmol/L Low 101-111 Co2 Carbon Dioxide 26 mmol/L Normal 22-32 Anion Gap 9 mmol/L Normal 2-11 Glucose 105 mg/dL High 70-100 Blood Urea Nitrogen 14 mg/dL Normal 6-24 Creatinine 0.78 mg/dL Normal 0.51-0.95 BUN/Creatinine Ratio 17.9 Normal 8-20 Calcium 10.1 mg/dL Normal 8.6-10.3 Total Protein 7.4 g/dL Normal 6.4-8.9 Albumin 4.4 g/dL Normal 3.2-5.2 Globulin 3.0 g/dL Normal 2-4 Albumin/Globulin Ratio 1.5 Normal 1-3 Total Bilirubin 0.80 mg/dL Normal 0.2-1.0 Alkaline Phosphatase 69 U/L Normal 34-104 Alt 12 U/L Normal 7-52 Ast 22 U/L Normal 13-39 Egfr Non- 72.2 >60 Egfr 87.4 >60 56 Laboratory test 12/19/2018 [facility] Lactic 0.5 mmol/L Normal 0.5-2.0 [address] [place] [address] [phone] Inr/Protime 12/19/2018 [facility] Inr 2.25 High 0.82-1.[address] [place] [address] [phone] CBC Auto Diff 12/19/2018 [facility] White 12.6 High 3.5-10.[address] Blood 10^3/[place] [address] Count [phone] Red Blood Count 5.69 10^6/uL High 3.70-4.87 Hemoglobin 16.7 g/dL High 12.0-16.0 Hematocrit 50 % High 35-47 Mean Corpuscular Volume 87 fL Normal 80-97 Mean Corpuscular Hemoglobin 29 pg Normal 27-31 Mean Corpuscular HGB Conc 34 g/dL Normal 31-36 Red Cell Distribution Width 15 % Normal 10-15 Platelet Count 425 10^3/uL Normal 150-450 Mean Platelet Volume 8.9 fL Normal 7.4-10.4 Abs Neutrophils 9.3 10^3/uL High 1.5-7.7 Abs Lymphocytes 2.0 10^3/uL Normal 1.0-4.8 Abs Monocytes 0.8 10^3/uL Normal 0-0.8 Abs Eosinophils 0.4 10^3/uL Normal 0-0.6 Abs Basophils 0.1 10^3/uL Normal 0-0.2 Abs Nucleated RBC 0.0 10^3/uL Granulocyte % 73.8 % Lymphocyte % 16.2 % Monocyte % 6.1 % Eosinophil % 3.1 % Basophil % 0.8 % Nucleated Red Blood Cells % 0.1 CBC Auto 12/17/2018 [facility] White Blood 10.4 10^3/uL Normal 3.5-10.[address] [place] [address] [phone] Red Blood Count 5.54 10^6/uL High 3.70-4.87 Hemoglobin 16.1 g/dL High 12.0-16.0 Hematocrit 48 % High 35-47 Mean Corpuscular Volume 87 fL Normal 80-97 Mean Corpuscular Hemoglobin 29 pg Normal 27-31 Mean Corpuscular HGB Conc 33 g/dL Normal 31-36 Red Cell Distribution Width 15 % Normal 10.5-15 Platelet Count 466 10^3/uL High 150-450 Mean Platelet Volume 8.5 fL Normal 7.4-10.4 Abs Neutrophils 7.3 10^3/uL Normal 1.5-7.7 Abs Lymphocytes 2.1 10^3/uL Normal 1.0-4.8 Abs Monocytes 0.6 10^3/uL Normal 0-0.8 Abs Eosinophils 0.4 10^3/uL Normal 0-0.6 Abs Basophils 0.0 10^3/uL Normal 0-0.2 Abs Nucleated RBC 0.0 10^3/uL Granulocyte % 69.6 % Lymphocyte % 20.3 % Monocyte % 5.6 % Eosinophil % 4.1 % Basophil % 0.4 % Nucleated Red Blood Cells % 0.1 Inr/Protime 12/17/2018 [facility] Inr 2.52 High 0.82-1.[address] [place] [address] [phone] Urinalysis 12/04/2018 [facility] Urine Colorless Profile [address] [place] [address] [phone] Urine Appearance Clear Urine Specific [place] 1.002 Low 1.010-1.030 Urine pH 8.0 Normal 5-9 Urine Urobilinogen Negative Negative Urine Ketones Negative Negative Urine Protein Negative Negative Urine Leukocytes Negative Negative Urine Blood Negative Negative Urine Nitrite Negative Negative Urine Bilirubin Negative Negative Urine Glucose Negative Negative Inr/Protime 12/04/2018 [facility] Inr 2.05 High 0.82-1.[address] [place] [address] [phone] CBC Auto Diff 12/04/2018 [facility] White Blood 10.5 Normal 3.5-10.[address] Count 10^3/[place] [address] [phone] Red Blood Count 5.43 10^6/uL High 3.70-4.87 Hemoglobin 15.8 g/dL Normal 12.0-16.0 Hematocrit 47 % Normal 35-47 Mean Corpuscular Volume 87 fL Normal 80-97 Mean Corpuscular Hemoglobin 29 pg Normal 27-31 Mean Corpuscular HGB Conc 33 g/dL Normal 31-36 Red Cell Distribution Width 14 % Normal 10.5-15 Platelet Count 506 10^3/uL High 150-450 Mean Platelet Volume 8.8 fL Normal 7.4-10.4 Abs Neutrophils 7.0 10^3/uL Normal 1.5-7.7 Abs Lymphocytes 2.1 10^3/uL Normal 1.0-4.8 Abs Monocytes 0.8 10^3/uL Normal 0-0.8 Abs Eosinophils 0.5 10^3/uL Normal 0-0.6 Abs Basophils 0.1 10^3/uL Normal 0-0.2 Abs Nucleated RBC 0.0 10^3/uL Granulocyte % 67.0 % Lymphocyte % 19.8 % Monocyte % 7.4 % Eosinophil % 4.7 % Basophil % 1.1 % Nucleated Red Blood Cells % 0.0 CBC Auto 11/17/2018 [facility] White Blood 10.4 10^3/uL Normal 3.5-10.[address] [place] [address] [phone] Red Blood Count 5.25 10^6/uL High 3.70-4.87 Hemoglobin 15.3 g/dL Normal 12.0-16.0 Hematocrit 46 % Normal 35-47 Mean Corpuscular Volume 87 fL Normal 80-97 Mean Corpuscular Hemoglobin 29 pg Normal 27-31 Mean Corpuscular HGB Conc 33 g/dL Normal 31-36 Red Cell Distribution Width 15 % Normal 10.5-15 Platelet Count 450 10^3/uL Normal 150-450 Mean Platelet Volume 8.6 fL Normal 7.4-10.4 Abs Neutrophils 6.8 10^3/uL Normal 1.5-7.7 Abs Lymphocytes 2.4 10^3/uL Normal 1.0-4.8 Abs Monocytes 0.6 10^3/uL Normal 0-0.8 Abs Eosinophils 0.5 10^3/uL Normal 0-0.6 Abs Basophils 0.1 10^3/uL Normal 0-0.2 Abs Nucleated RBC 0.0 10^3/uL Granulocyte % 65.6 % Lymphocyte % 23.2 % Monocyte % 5.9 % Eosinophil % 4.4 % Basophil % 0.9 % Nucleated Red Blood Cells % 0.1 Inr/Protime 11/17/2018 [facility] Inr 2.32 High 0.82-1.[address] [place] [address] [phone] CBC Auto Diff 10/21/2018 [facility] White Blood 9.9 Normal 3.5 -10.[address] Count 10^3/uL [place], [place] [address] [phone] Red Blood Count 5.43 10^6/uL High 3.70-4.87 Hemoglobin 15.7 g/dL Normal 12.0-16.0 Hematocrit 48 % High 33-41 Mean Corpuscular Volume 89 fL Normal 80-97 Mean Corpuscular Hemoglobin 29 pg Normal 27-31 Mean Corpuscular HGB Conc 33 g/dL Normal 31-36 Red Cell Distribution Width 15 % Normal 10.5-15 Platelet Count 477 10^3/uL High 150-450 Mean Platelet Volume 9.0 fL Normal 7.4-10.4 Abs Neutrophils 6.3 10^3/uL Normal 1.5-7.7 Abs Lymphocytes 2.3 10^3/uL Normal 1.0-4.8 Abs Monocytes 0.6 10^3/uL Normal 0-0.8 Abs Eosinophils 0.5 10^3/uL Normal 0-0.6 Abs Basophils 0.1 10^3/uL Normal 0-0.2 Abs Nucleated RBC 0 10^3/uL Granulocyte % 63.1 % Lymphocyte % 23.7 % Monocyte % 6.5 % Eosinophil % 5.3 % Basophil % 1.4 % Nucleated Red Blood Cells % 0 Inr/Protime 10/21/2018 [facility] Inr 2.66 High 0.77-1.[address] [place] [address] [phone] 1 Standard intensity warfarin therapeutic range: 2.0-3.0 High intensity warfarin therapeutic range: 2.5-3.5 2 Standard intensity warfarin therapeutic range: 2.0-3.0 High intensity warfarin therapeutic range: 2.5-3.5 3 Standard intensity warfarin therapeutic range: 2.0-3.0 High intensity warfarin therapeutic range: 2.5-3.5 4 Standard intensity warfarin therapeutic range: 2.0-3.0 High intensity warfarin therapeutic range: 2.5-3.5 5 Test Result Flag Unit RefValue BCR/ABL1 Reflex, Qual/Quant BCR/ABL1 Reflex Result TNP BCR/ABL1 Reflex, Qual/Quant was cancelled on 03/10/2019 at 15:37; Notification to cancel testing received from the referring facility. Test Performed by: [address] [address] CORRECTED REPORT --- Corrected on 03/10/19 1642 --- Ref Lab Test previously reported as: See Comment Test Result Flag Unit RefValue BCR/ABL1 Reflex, Qual/Quant Specimen Type Bone marrow BCR/ABL1 Reflex Result see interpretation Interpretation See Comment Bone marrow, BCR/ABL1 mRNA analysis, qualitative: Negative. No BCR/ABL1 mRNA transcripts were detected. Method summary - BCR/ABL1 qualitative: The presence or absence of BCR/ABL mRNA transcripts was evaluated using a qualitative, reverse pit operator PCR-based assay. The assay detects nearly all published and theoretical BCR/ABL1 fusion forms. The detection sensitivity limit for this assay is 0.1%. Please contact the lab at [phone] with questions or if additional testing is required. See [facility] Spark CRM Test Catalog for additional method details. Signing Pathologist: Gregorio Mercado M.D. ADDITIONAL INFORMATION This test was developed and its performance characteristics determined by [facility] in a manner consistent with CLIA requirements. This test has not been cleared or approved by the U.S. Food and Drug Administration. Test Performed by: [place] [address] 6 FINAL DIAGNOSIS: Specimen Source: Bone marrow Flow cytometry immunophenotypic analysis: No evidence of an immunophenotypically abnormal cell population. Interpretative data: Blasts: less than 1% of gated events Lymphocytes: 31% of gated events B-cells: 15% of lymphs; kappa:lambda within normal limits T-cells/NK cells: No aberrant population detected. Markers tested: CD3, CD10, CD16, CD19, CD34, CD45, kappa surface light chains, lambda surface light chains, 7-AAD. Quality Assessment: Acceptable Viability: Acceptable Viable lymphocytes (7-AAD): 99% Specimen received within validated guidelines. A Lewis-Giemsa stained slide prepared from the flow cytometry specimen was examined for quality purposes. Electronically signed by: Debi Vasquez MD 03/05/19 1223 Technical component performed by: [facility] [place] [address] [employer] Program Coordinator: Raúl Faustin II, MD, PhD. 7 Applicable to Analyte Specific Reagent (ASR) and Laboratory Developed Tests (LDT). This test was developed and its performance characteristics determined by [facility] in a manner consistent with CLIA requirements. It has not been cleared or approved by the U.S. Food and Drug Administration. This FISH test does not rule out other chromosome abnormalities. 8 RESULT: Nhan Casarez, Ph.D. Test Performed by: [place] [address] 9 RESULT: D47.3 Essential (hemorrhagic) thrombocythemia 10 Locus and probes [Strategy;#Nuclei;Class] 3q21(RPN1),3q26.2(MECOM) [DFISH;500;LDT] 5p15.2(P6T926),5q31(EGR1) [COPY#;200;ASR] 7CEN(D7Z1),7q31(T6B602) [COPY#;200;ASR] 8CEN(D8Z2),8q24.1(MYC) [COPY#;200;ASR] 11q23(5'MLL[KMT2A],3'MLL[KMT2A]) [BAP;200;ASR] 17p13(TP53),17CEN(D17Z1) [COPY#;200;ASR] 20q12(N06W220),20qter [COPY#;200;ASR] Probe strategies include: DFISH=dual color, double fusion; BAP=break-apart probe; COPY#=region gain and loss. 11 RESULT: Interphase FISH is normal for all loci studied. 12 Abnormality Name Result Abn% Cutoff% inv(3) RPN1/MECOM fusion Normal <0.6 -5q31(X8H927l4,EGR1x1) Normal <9.5 -5(Q0B521,EGR1)x1 Normal <3.5 -7q31(D7Z1x2,D5V726y2) Normal <4.5 -7(D7Z1,P9L825)x1 Normal <3.5 +8(D8Z2,MYC)x3 Normal <2.5 11q23(MLL sep) Normal <4.0 -17p13.1(TP53x1,Y04O0n3) Normal <9.5 -17(TP53,D17Z1)x1 Normal <5.5 -20q12(I76U097f9,13dgguf8) Normal <9.5 13 This result is within normal limits for the [facility] FISH panel. Additional cytogenetic studies are reported separately. 14 RESULT: D47.3 Essential (hemorrhagic) thrombocythemia 15 RESULT: Culture without mitogens 16 Band Resolution: <400 Stain Name Cells Analyzed Cells Karyograms Counted Prepared GTL 20 0 2 Total 20 0 2 [place] to Stain Name: GTL=G-banding; QFQ=Q-banding; DAPI=DAPI-staining; CBL=C-banding; AGNOR=Silver-staining; NON=Non-banded The sum of Cells Analyzed and Cells Counted equals the total cells examined. 17 No clonal abnormality was apparent. Additional cytogenetic studies are reported separately. 18 RESULT: Nhan Casarez, Ph.D. Test Performed by: [address] [address] 19 Standard intensity warfarin therapeutic range: 2.0-3.0 High intensity warfarin therapeutic range: 2.5-3.5 20 Standard intensity warfarin therapeutic range: 2.0-3.0 High intensity warfarin therapeutic range: 2.5-3.5 21 Total 25-Hydroxyvitamin D2 and D3 (25-OH-VitD) <10 ng/mL (severe deficiency) 10-19 ng/mL (mild to moderate deficiency) 20-50 ng/mL (optimum levels) 51-80 ng/mL (increased risk of hypercalciuria) >80 ng/mL (toxicity possible) 22 Because ethnic data is not always readily available, this report includes an eGFR for both -Americans and non- Americans. The National Kidney Disease Education Program (NKDEP) does not endorse the use of the MDRD equation for patients that are not between the ages of 18 and 70, are , have extremes of body size, muscle mass, or nutritional status, or are non- or non-. According to the National Kidney Foundation, irrespective of diagnosis, the stage of the disease is based on the level of kidney function: Stage Description GFR(mL/min/1.73 m(2)) 1 Kidney damage with normal or decreased GFR 90 2 Kidney damage with mild decrease in GFR 60-89 3 Moderate decrease in GFR 30-59 4 Severe decrease in GFR 15-29 5 Kidney failure <15 (or dialysis) 23 Standard intensity warfarin therapeutic range: 2.0-3.0 High intensity warfarin therapeutic range: 2.5-3.5 24 [id number] 25 SEE RESULT BELOW Name: CYRUS PORTER : [address]: Angeline Delarosa MD Acct: [id number] Unit: [id number] AGE: 73 Location: [facility] Re02/10/19 SEX: F Status: REG REF SPEC: [id number] JASON: 02/10/19-[address]: Angeline Delarosa MD REQ: [id number] RECD: 02/10/19 STATUS: COMP _ SOURCE: URINE SPDES: ORDERED: Urine Culture COMMENTS: [id number] QUERIES: Urine Source: Random Procedure Result Reported Site Urine Culture Final 02/11/19- 1604 ML No Growth (<1,000 CFU/mL) * ML - Main Lab . END OF REPORT DEPARTMENT OF PATHOLOGY, [address] [place] [address] Nhan Rockwell M.D. Director [facility] # [id number] 26 Standard intensity warfarin therapeutic range: 2.0-3.0 High intensity warfarin therapeutic range: 2.5-3.5 27 Standard intensity warfarin therapeutic range: 2.0-3.0 High intensity warfarin therapeutic range: 2.5-3.5 28 Standard intensity warfarin therapeutic range: 2.0-3.0 High intensity warfarin therapeutic range: 2.5-3.5 29 see interpretation 30 Peripheral blood, JAK2 V617F mutation analysis: Positive. JAK2 V617F mutated DNA was detected and measured at 7% of total JAK2 DNA. JAK2 V617F mutation is found with high frequency in Adrian chromosome-negative myeloproliferative neoplasms (>95% in polycythemia vera and approximately 50-60% in primary myelofibrosis and essential thrombocythemia). It can also occur in other myeloid neoplasms, such as refractory anemia with ring sideroblasts associated with marked thrombocytosis (RARS-T) and rarely in myelodysplastic syndrome, chronic myelomonocytic leukemia, atypical chronic myeloid leukemia and acute myeloid leukemia. Clinicopathologic correlation is recommended for a definitive diagnosis. The precision of JAK2 mutation percentage measurement is such that values 2 times higher or lower than the reported value are considered equivalent. No further testing for CALR or MPL mutation was performed as it is not indicated per MPNR test algorithm. See test catalogue for additional information: http://[email or web address]-catalog/Overview/53889. Note: Starting from 07/26/2015, the calculation and reporting value of [id number]/total JAK2% is changed to more accurately reflect the true [id number] allele burden. Higher values are generally expected and for levels below 80% (currently reported with new calculation), 1-5 fold increase from the prior calculation is expected. The testing method is not changed, however the limit of analytic sensitivity is changed to 0.06%. Please contact the [facility] at [phone] if you have questions or concerns. Method summary - JAK2 V617F analysis: Quantitative, allele-specific polymerase chain reaction (PCR) assay was performed using extracted genomic DNA to evaluate for the point mutation causing JAK2 V617F. The analytic sensitivity of this assay has been determined at 0.06% (see [facility] Interpretive Handbook for method details). Signing Pathologist: Gregorio Mercado M.D. ADDITIONAL INFORMATION This test was developed and its performance characteristics determined by [facility] in a manner consistent with CLIA requirements. This test has not been cleared or approved by the U.S. Food and Drug Administration. Test Performed by: [facility] - [address] [address] 31 Desirable: <150 Borderline High: 150-199 High: 200-499 Very High: >500 32 Desirable: <200 Borderline High: 200-239 High: >239 33 Low: <40 Desirable: 40-60 High: >60 34 Desirable: <100 Near Optimal: 100-129 Borderline High: 130-159 High: 160-189 Very High: >189 35 Therapeutic target for the treatment of diabetes mellitus patients is <7% HBA1C, and in selective patients <6.0%. Please refer to [place] [employer] Association diabetic care guidelines for further information. 36 Standard intensity warfarin therapeutic range: 2.0-3.0 High intensity warfarin therapeutic range: 2.5-3.5 37 Standard intensity warfarin therapeutic range: 2.0-3.0 High intensity warfarin therapeutic range: 2.5-3.5 38 Troponin-I testing on Plasma Separator Tubes (PST) has a known false positive rate of 0.20-0.40%. All positive troponins reflex immediately to secondary confirmatory testing. Using the [employer] DxI 800 Access Immunoassay systems, the 99th percentile upper reference limit was demonstrated to be < 0.03 ng/mL. 39 Because ethnic data is not always readily available, this report includes an eGFR for both -Americans and non- Americans. The National Kidney Disease Education Program (NKDEP) does not endorse the use of the MDRD equation for patients that are not between the ages of 18 and 70, are , have extremes of body size, muscle mass, or nutritional status, or are non- or non-. According to the National Kidney Foundation, irrespective of diagnosis, the stage of the disease is based on the level of kidney function: Stage Description GFR(mL/min/1.73 m(2)) 1 Kidney damage with normal or decreased GFR 90 2 Kidney damage with mild decrease in GFR 60-89 3 Moderate decrease in GFR 30-59 4 Severe decrease in GFR 15-29 5 Kidney failure <15 (or dialysis) 40 Troponin-I testing on Plasma Separator Tubes (PST) has a known false positive rate of 0.20-0.40%. All positive troponins reflex immediately to secondary confirmatory testing. Using the [employer] DxI 800 Access Immunoassay systems, the 99th percentile upper reference limit was demonstrated to be < 0.03 ng/mL. 41 Because ethnic data is not always readily available, this report includes an eGFR for both -Americans and non- Americans. The National Kidney Disease Education Program (NKDEP) does not endorse the use of the MDRD equation for patients that are not between the ages of 18 and 70, are , have extremes of body size, muscle mass, or nutritional status, or are non- or non-. According to the National Kidney Foundation, irrespective of diagnosis, the stage of the disease is based on the level of kidney function: Stage Description GFR(mL/min/1.73 m(2)) 1 Kidney damage with normal or decreased GFR 90 2 Kidney damage with mild decrease in GFR 60-89 3 Moderate decrease in GFR 30-59 4 Severe decrease in GFR 15-29 5 Kidney failure <15 (or dialysis) 42 [facility] Severe Sepsis and Septic Shock Management Bundle Measure requires all lactic acids initially measuring >2.0 mmol/L be repeated. 43 Standard intensity warfarin therapeutic range: 2.0-3.0 High intensity warfarin therapeutic range: 2.5-3.5 44 Because ethnic data is not always readily available, this report includes an eGFR for both -Americans and non- Americans. The National Kidney Disease Education Program (NKDEP) does not endorse the use of the MDRD equation for patients that are not between the ages of 18 and 70, are , have extremes of body size, muscle mass, or nutritional status, or are non- or non-. According to the National Kidney Foundation, irrespective of diagnosis, the stage of the disease is based on the level of kidney function: Stage Description GFR(mL/min/1.73 m(2)) 1 Kidney damage with normal or decreased GFR 90 2 Kidney damage with mild decrease in GFR 60-89 3 Moderate decrease in GFR 30-59 4 Severe decrease in GFR 15-29 5 Kidney failure <15 (or dialysis) 45 Normal Range 180 to 914 Indeterminate Range 145 to 180 Deficient Range <145 46 Desirable: <150 Borderline High: 150-199 High: 200-499 Very High: >500 47 Desirable: <200 Borderline High: 200-239 High: >239 48 Low: <40 Desirable: 40-60 High: >60 49 Desirable: <100 Near Optimal: 100-129 Borderline High: 130-159 High: 160-189 Very High: >189 50 The homocysteine concentration is elevated in this sample. Increased homocysteine has been associated with an increased risk of cardiovascular disease, cerebrovascular disease, peripheral arterial disease and thrombosis. Vitamin deficiencies (B6, B12 and folic acid) may also cause an increased homocysteine concentration. Inborn errors of methionine metabolism are a potential, but less likely, possibility for hyperhomocysteinemia. Consider plasma or serum methylmalonic acid analysis to rule out vitamin B12 deficiency. REFERENCE VALUE <=13 (Fasting) ADDITIONAL INFORMATION This test was developed and its performance characteristics determined by [facility] in a manner consistent with CLIA requirements. This test has not been cleared or approved by the U.S. Food and Drug Administration. Test Performed by: [facility] - [address] [address] 51 REFERENCE VALUE <1:80 (Negative) 52 Test Performed by: [facility] - [facility] [address] [place] [address] 53 Standard intensity warfarin therapeutic range: 2.0-3.0 High intensity warfarin therapeutic range: 2.5-3.5 54 *Ascorbic acid is present which may interfere with detection of blood. 55 Troponin-I testing on Plasma Separator Tubes (PST) has a known false positive rate of 0.20-0.40%. All positive troponins reflex immediately to secondary confirmatory testing. Using the [employer] 800 Access Immunoassay systems, the 99th percentile upper reference limit was demonstrated to be < 0.03 ng/mL. 56 Because ethnic data is not always readily available, this report includes an eGFR for both -Americans and non- Americans. The National Kidney Disease Education Program (NKDEP) does not endorse the use of the MDRD equation for patients that are not between the ages of 18 and 70, are , have extremes of body size, muscle mass, or nutritional status, or are non- or non-. According to the National Kidney Foundation, irrespective of diagnosis, the stage of the disease is based on the level of kidney function: Stage Description GFR(mL/min/1.73 m(2)) 1 Kidney damage with normal or decreased GFR 90 2 Kidney damage with mild decrease in GFR 60-89 3 Moderate decrease in GFR 30-59 4 Severe decrease in GFR 15-29 5 Kidney failure <15 (or dialysis) 57 [facility] Severe Sepsis and Septic Shock Management Bundle Measure requires all lactic acids initially measuring >2.0 mmol/L be repeated. 58 Standard intensity warfarin therapeutic range: 2.0-3.0 High intensity warfarin therapeutic range: 2.5-3.5 59 Standard intensity warfarin therapeutic range: 2.0-3.0 High intensity warfarin therapeutic range: 2.5-3.5 60 Standard intensity warfarin therapeutic range: 2.0-3.0 High intensity warfarin therapeutic range: 2.5-3.5 61 Standard intensity warfarin therapeutic range: 2.0-3.0 High intensity warfarin therapeutic range: 2.5-3.5 Procedures Date Code Description Status 01/29/2019 74489 EKG Tracing & Interpretation Completed 01/27/2019 [id number] Mammogram Completed 12/25/2018 61455 ECHO Transthorasic Realtime 2D W Doppler & Color Flow Completed Hosp 12/03/2018 78821 ECG Monitor/Recording W/Visual Superimposition Completed Scanning 11/28/2018 18573 EKG Tracing & Interpretation Completed 02/04/2018 [id number] Bone Mineral Density Test Completed 11/11/2017 [id number] Mammogram Completed 10/31/2016 [id number] Mammogram Completed 10/31/2015 [id number] Bone Mineral Density Test Completed 10/31/2015 [id number] Mammogram Completed 08/11/2015 [id number] Colonoscopy Completed 10/21/2014 [id number] Mammogram Completed 04/13/2014 [id number] Mammogram Completed 09/30/2013 [id number] Mammogram Completed 08/25/2013 [id number] Mammogram Completed 11/28/2012 [id number] Bone Mineral Density Test Completed 06/13/2012 [id number] Mammogram Completed 11/28/2010 [id number] Bone Mineral Density Test Completed Medical Devices Description No Information Available Encounters Type Date Location Provider Dx Diagnosis Office Visit 03/10/2019 [facility] Cathybethel Levy, I48.0 Paroxysmal atrial 3:00p Of [facility] N.P. 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 unspecified Office Visit 02/05/2019 9:00a [place] [facility] Parisnasreen Edge, M81.0 Age- related Endocrinology of osteoporosis w/o [facility] current pathological fracture E03.9 Hypothyroidism, unspecified Z86.73 Prsnl hx of TIA (TIA), and cereb infrc w/o resid deficits I48.0 Paroxysmal atrial fibrillation Office Visit 01/29/2019 3:20p [facility] Brenda Aguila, Z86.73 Prsnl hx of TIA Of [employer] [employer] M.DShawn (TIA), and cereb infrc w/o resid deficits I10 Essential (primary) hypertension I48.0 Paroxysmal atrial fibrillation E78.5 Hyperlipidemia, unspecified Office Visit 01/01/2019 1:00p [place] [facility] Gideon Real, Z86.73 Prsnl hx of Services Of [facility] M.Naomy TIA (TIA), and cereb infrc w/o resid deficits I48.0 Paroxysmal atrial fibrillation I10 Essential (primary) hypertension E03.9 Hypothyroidism, unspecified Z79.01 care home (current) use of anticoagulants Office Visit 12/31/2018 9:50a [facility] Internal Alexia I63.9 Cerebral [facility] M.[facility]. 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 I10 Essential (primary) hypertension I48.91 Unspecified atrial fibrillation Z79.01 buttermaker continuous churn (current) use of anticoagulants Office Visit 12/26/2018 10:38a [place] Mariann Olsen I63.9 Cerebral Assoc,NEMESIO Wilkes infarction, Hospitalists unspecified E03.9 Hypothyroidism, unspecified I10 Essential (primary) hypertension Z85.3 Personal history of malignant neoplasm of breast I48.91 Unspecified atrial fibrillation Office Visit 12/25/2018 Neurohospitalist Bel Canseco 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 skin Services Of [facility] M62.81 Muscle weakness (generalized) I10 Essential (primary) hypertension I48.0 Paroxysmal atrial fibrillation R53.82 Chronic fatigue, unspecified D69.6 Thrombocytopenia, unspecified Z86.73 Prsnl hx of TIA (TIA), and cereb infrc w/o resid deficits Office Visit 12/15/2018 Orthopedic Celia G56.22 Lesion of ulnar 9:30a Services Of Bharati Babcock nerve, left upper [facility] limb Office Visit 12/09/2018 [facility] Internal Eddie Gary NP I10 Essential 10:40a Medicine - [facility] (primary) hypertension S16.1xxA Strain of muscle, fascia and tendon at neck level, init R20.2 Paresthesia of skin M25.549 Pain in joints of unspecified hand Office Visit 11/28/2018 5:00p [facility] Internal Angeline Delarosa R55 Syncope and [facility] M.DShawn collapse Assessments Date Code Description Provider 03/23/2019 R35.0 Frequency of micturition Eddie Gary NP 03/10/2019 I48.0 Paroxysmal atrial fibrillation Cathy Levy, N.P. 03/10/2019 I10 Essential (primary) hypertension Cathy Levy, N.P. 03/10/2019 E78.5 Hyperlipidemia, unspecified Cathy Levy, N.P. 03/10/2019 Z79.01 care home (current) use of Cathy Analia. Cam, N.P. anticoagulants 03/10/2019 I47.1 Supraventricular tachycardia Cathy Levy, N.P. 03/09/2019 R19.7 Diarrhea, unspecified Eddie Abdirahman, FRETTED INSTRUMENT INSPECTOR 02/10/2019 Z00.00 Encounter for general adult medical Angeline Delarosa M.D. examination without abnormal findings 02/10/2019 E03.9 Hypothyroidism, unspecified Angeline Delarosa M.D. 02/10/2019 M79.671 Pain in right foot Angeline Delarosa M.D. 02/10/2019 R30.0 Dysuria Angeline Delarosa M.D. 02/05/2019 M81.0 Age-related osteoporosis without Wellington Edge MD current pathological fractu 02/05/2019 E03.9 Hypothyroidism, unspecified Wellington Edge MD 02/05/2019 Z86.73 Personal history of transient Wellington Edge MD ischemic attack (TIA), and cer 02/05/2019 I48.0 Paroxysmal atrial fibrillation Wellington Edge MD 01/29/2019 Z86.73 Personal history of transient Brenda Aguila M.D. ischemic attack (TIA), and cer 01/29/2019 I10 Essential (primary) hypertension Brenda Aguila M.D. 01/29/2019 I48.0 Paroxysmal atrial fibrillation Brenda Aguila M.D. 01/29/2019 E78.5 Hyperlipidemia, unspecified Brenda Aguila M.D. 01/01/2019 Z86.73 Personal history of transient Gideon Real M.D. ischemic attack (TIA), and cer 01/01/2019 I48.0 infarction without residual Gideon Real M.D. deficits 01/01/2019 I10 Essential (primary) hypertension Gideon Real M.D. 01/01/2019 E03.9 Hypothyroidism, unspecified Gideon Real M.D. 01/01/2019 Z79.01 care home (current) use of Gideon Real M.D. anticoagulants 12/31/2018 I63.9 Cerebral infarction, unspecified Alexia Conroy M.D. 12/31/2018 I48.0 Paroxysmal atrial fibrillation Alexia Conroy M.D. 12/31/2018 I10 Essential (primary) hypertension Alexia Conroy M.D. 12/31/2018 E03.9 Hypothyroidism, unspecified Alexia Conroy M.D. 12/31/2018 R73.01 Impaired fasting glucose Alexia Conroy M.D. 12/26/2018 I63.40 Cerebral infarction due to embolism Bel Canseco MD of unspecified cerebral artery 12/26/2018 I63.9 Cerebral infarction, unspecified NEMESIO Cavazos 12/26/2018 I10 Essential (primary) hypertension Bel Canseco MD 12/26/2018 E03.9 Hypothyroidism, unspecified NEMESIO Cavazos 12/26/2018 I48.91 Unspecified atrial fibrillation Bel Canseco MD 12/26/2018 I10 Essential (primary) hypertension NEMESIO Cavazos 12/26/2018 Z79.01 care home (current) use of Bel Canseco MD anticoagulants 12/26/2018 Z85.3 Personal history of malignant NEMESIO Cavazos neoplasm of breast 12/26/2018 I48.91 Unspecified atrial fibrillation NEMESIO Cavazos 12/25/2018 I63.40 Cerebral infarction due to embolism Bel Canseco MD of unspecified cerebral artery 12/25/2018 I63.9 Cerebral infarction, unspecified Fitz Sevilla M.D., [facility] 12/25/2018 I10 Essential (primary) hypertension Bel Canseco MD 12/25/2018 I63.9 Cerebral infarction, unspecified David Thorne M.D., [facility] 12/25/2018 I48.91 Unspecified atrial fibrillation Bel Canseco MD 12/25/2018 I10 Essential (primary) hypertension [facility].,[facility] 12/25/2018 Z79.01 buttermaker continuous churn (current) use of Bel Canseco MD anticoagulants 12/25/2018 E03.9 Hypothyroidism, unspecified Fitz Sevilla M.D.,[facility] 12/24/2018 I63.40 Cerebral infarction due to embolism Bel Canseco MD of unspecified cerebral artery 12/24/2018 I63.9 Cerebral infarction, unspecified Sol Carrero M.D. 12/24/2018 I16.0 Hypertensive urgency Bel Canseco MD 12/24/2018 I10 Essential (primary) hypertension Sol Carrero M.D. 12/24/2018 I48.91 Unspecified atrial fibrillation Bel Canseco MD 12/24/2018 I48.91 Unspecified atrial fibrillation Sol Carrero M.D. 12/24/2018 Z79.01 care home (current) use of Bel Canseco MD anticoagulants 12/22/2018 R20.2 Paresthesia of skin Gideon Real M.D. 12/22/2018 M62.81 Muscle weakness (generalized) Gideon Real M.D. 12/22/2018 I10 Essential (primary) hypertension Gideon Real M.D. 12/22/2018 I48.0 Paroxysmal atrial fibrillation Gideon Real M.D. 12/22/2018 R53.82 Chronic fatigue, unspecified Gideon Real M.D. 12/22/2018 D69.6 Thrombocytopenia, unspecified Gideon Real M.D. 12/22/2018 Z86.73 Prsnl hx of TIA (TIA), and cereb Gideon Real M.D. infrc w/o resid deficits 12/15/2018 G56.22 Lesion of ulnar nerve, left upper Celia Babcock M.D. limb 12/09/2018 I10 Essential (primary) hypertension Eddie Gary NP 12/09/2018 S16.1xxA Strain of muscle, fascia and tendon Eddie Gary NP at neck level, initial e 12/09/2018 R20.2 Paresthesia of skin Eddie Gary NP 12/09/2018 M25.549 Pain in joints of unspecified hand Eddie Gary NP 12/04/2018 R55 Syncope and collapse Im Nurse Holter Monitor 12/03/2018 R55 Syncope and collapse Im Nurse Holter Monitor 11/28/2018 R55 Syncope and collapse Angeline Delarosa M.D. Plan of Treatment Future Appointment(s):06/15/2019 1:00 pm - Luis Lowe MD at [facility]05/27/2019 1:20 pm - Wellington Edge MD at [place] [facility]02/12/2020 1:20 pm - Angeline Delarosa M.D. at [facility] Internal Medicine - [facility]08/13/2019 1:00 pm - Angeline Delarosa M.D. at [facility] Internal Medicine - [facility]04/03/2019 2:00 pm - Francisco Benitez N.P. at [place] [facility]rolog[facility]03/23/2019 - Eddie Gary, NPR35.0 Frequency of micturitionNew Medication:Nitrofurantoin Monohyd Macro 100 mg - 1 by mouth twice a dayComments:Your urinalysis indicated that you most likely have a UTI. I am treating you empirically and will send your urine out for culture. If we need to change antibiotics I will notify you. Try to avoid bladder irritants: coffee, tea, cola, spicy food, alcohol.Please let me know if your symptoms worsen or persist. Functional Status Description No Information Available Mental Status Description No Information Available Referrals Refer to Reason for Referral Status Appt Date Luis Lowe MD Scheduled 02/25/2019 [address] [place], [place] [address] [phone] Brenda Aguila MD E[facility] Closed [address] [place] [address] [phone] Celia Babcock M.D. Scheduled 12/26/2018 [address] [facility] [place] [address] [phone]
--- OUTSIDE RECORDS SUMMARY | 2019-04-11 08:49 | XMS REPORT | Continuity of Care Document ---
:1945 External Reference #:[id number] Author Name Amador Russell M.D. Address [address] [facility] [address] [place] [address] Care Team Providers Name Role Phone Debi Delarosa MD Care Team Information Crystal Machining Coordinator [phone] Problems Active Problems Provider Date Conjunctival hemorrhage Amador Russell M.D. Onset: 12/19/2016 Migraine without aura, not refractory Amador Russell M.D. Onset: 03/08/2016 Tear film insufficiency Mauri Reed O.D. Onset: 09/26/2015 Pinguecula Amador Russell M.D. Onset: 01/20/2015 Conjunctival cyst Mauri Reed O.D. Onset: 11/12/2014 Nuclear senile cataract Amador Russell M.D. Onset: 03/04/2014 Social History Type Date Description Comments Sex Unknown ETOH Use Denies alcohol use Tobacco Use Start: Unknown Patient has never smoked Smoking Status Reviewed: 03/26/19 Patient has never smoked Allergies, Adverse Reactions, Alerts Active Allergies Reaction Severity Comments Date Keflex 03/04/2014 Tetracycline 03/04/2014 Sulfa Antibiotics 03/04/2014 Penicillin 03/04/2014 Doxycycline 03/04/2014 Medications Active Medications SIG Qnty Indications Ordering Provider Date Warfarin Sodium Unknown 4mg Tablets Carvedilol Unknown 12.5mg Tablets Levothyroxine Sodium Unknown 88mcg Tablets Losartan Potassium Unknown 50mg Tablets Lutein 40mg Unknown Capsules Immunizations Description No Information Available Vital Signs Date Vital Result Comment 03/26/2019 10:48am Intraocular Pressure Right Eye 11 mmHg Intraocular Pressure Left Eye 11 mmHg 12/19/2016 1:44pm Intraocular Pressure Right Eye 11 mmHg Intraocular Pressure Left Eye 11 mmHg Results Description No Information Available Procedures Date Code Description Status 03/26/2019 32317 Refraction Completed 03/26/2019 04362 Eye Exam Est Comprehensive Completed Medical Devices Description No Information Available Encounters Description No Information Available Assessments Date Code Description Provider 03/26/2019 H11.153 [place], bilateral Amador Russell M.D. 03/26/2019 H25.13 Age-related nuclear cataract, bilateral Amador Russell M.D. 03/26/2019 H52.4 Presbyopia Amador Russell M.D. Plan of Treatment 03/26/2019 - Amador Russell M.D.H11.153 Pinguecuvirginia, [id number] Age- related nuclear cataract, [id number] PresbyopiaFollow up:1 yr Functional Status Description No Information Available Mental Status Description No Information Available Referrals Description No Information Available
--- OUTSIDE RECORDS SUMMARY | 2019-04-11 08:49 | XMS REPORT | Continuity of Care Document ---
:1945 External Reference #:[id number] Author Name Cathy Levy N.P. (transmitted by agent of provider Joyce Lyn) Address [address] [place] [address] Care Team Providers Name Role Phone Yamile Cabezas MD - Internal Medicine Care Team Information Clother In Genesis Wilks MD - Hematology & Care Team Information Clother In [phone] Oncology Amador Samuels MD - Gastroenterology Care Team Information Clother In [phone] Nyla Levy MD - Surgery Care Team Information Clother In [phone] Jesus Cunningham MD - Orthopaedic Care Team Information Clother In [phone] Surgery Angeline Delarosa MD - Internal Care Team Information Clother In Medicine Genesis Wilks M.D. - Hematology & Care Team Information Clother In Oncology Luis Lowe MD - Orthopaedic Care Team Information Clother In Surgery Problems Active Problems Provider Date Benign [...] Unknown Never Smoked Cigarettes Smoking Status Reviewed: 03/10/19 Never Smoked Cigarettes ETOH Use Denies alcohol use Tobacco Use Start: Unknown Patient has never smoked Recreational Drug Use Denies Drug Use Exercise Type/Frequency Exercises sporadically Allergies, Adverse Reactions, Alerts Active Allergies Reaction Severity Comments Date Penicillins Severe Hives 01/02/2012 Keflex rash Moderate 01/02/2012 Sulfa Anaphylaxis Severe 01/02/2012 Tetracycline 07/22/2013 Fosamax [place] weak and strange 07/11/2014 Doxycycline Nausea and Vomiting, States she will Severe 11/19/2014 NEVER take agn Medications Active Medications SIG Qnty Indications Ordering Date Provider Atorvastatin Calcium once a day 90tabs Angeline 01/21/2019 Bharati Delarosa 10mg Tablets Carvedilol 1 tab by mouth 180tabs Angeline 12/31/2018 25mg Tablets twice a day Bharati Delarosa Coumadin 1 tablet on Mon 30tabs Alexiamiriam Conroy, 12/31/2018 5mg Tablets and Fri , 4mg MShawnDdasia johnson sat, sun as directed ( Med change 2 weeks ago 01/16/19) Losartan Potassium take 1 tablet by 90tabs Angeline 12/19/2018 50mg mouth every day Bharati Delarosa Tablets Levothyroxine Sodium take 1 tablet 60tabs Z86.73 Alexia Conroy, 2012 daily M.D. 88mcg Tablets Vitamin D3 1 by mouth bid Unknown 1000Unit Capsules Vitamin C Plus 1 by mouth bid Unknown 1000mg Tablets Acetaminophen 2 tablets by Unknown 325mg mouth every 6 Tablets hours as needed for pain/fever Coumadin take as Unknown 4mg Tablets prescribed Lutein 1 tab once a day Unknown 20mg Capsules History Medications Mu Delarosa M.D. 11/28/2018 - 01/28/2019 Tablets Medications Administered in Office Medication SIG Qnty Indications Ordering Provider Date Shingrix pharmacy administered Unknown 12/02/2018 Injection Immunizations CPT Code Status Date Vaccine Lot # [id number] Given 03/31/2015 Fluzone High Dose Vital Signs Date Vital Result Comment 03/10/2019 3:03pm Height 61.5 inches 5'1.50" Weight 138.00 lb with shoes BP Systolic Sitting 110 mmHg Lue BP Diastolic Sitting 70 mmHg Lue BP Systolic Standing 110 mmHg Lue BP Diastolic Standing 72 mmHg Lue BMI (Body Mass Index) 25.6 kg/m2 Ejection Fraction 55-60% Echo 12/25/18 03/09/2019 3:49pm Height 61.5 inches 5'1.50" Weight 137.38 lb Heart Rate 71 /min BP Systolic 110 mmHg BP Diastolic 70 mmHg Body Temperature 98.1 F O2 % BldC Oximetry 94 % BMI (Body Mass Index) 25.5 kg/m2 Results Test Date Facility Test Result H/L Range Note Inr/Protime 03/09/2019 [facility] Inr 2.23 High 0.82-1.[address] [place] [address] [phone] CBC Auto 03/05/2019 [facility] White Blood 8.9 10^3/uL Normal 3.5-10.[address] [place] [address] [phone] Red Blood Count 5.04 10^6/uL High 3.70-4.87 [...] Red Blood Cells % 0.0 Inr/Protime 03/05/2019 [facility] Inr 1.18 High 0.82-1.[address] [place] [address] [phone] Laboratory 03/03/2019 [facility] Miscellaneous See 3 test finding [address] [place] [address] [phone] Leukemia/Lymph 03/03/2019 [facility] Path (SEE 4 maranda Flow 101 Interpretation NOTE) [place] [address] 2-8 Marker [phone] Path Interpret 9-15 Marker TNP Path Interpret > 16 Marker TNP Myelodysplastic 03/03/2019 [facility] FMDS Specimen Bone Marrow Syndrome,Fish [address] [place] [address] [phone] FMDS Disclaimer See Comment 5 FMDS Released By See Comment 6 FMDS Source [facility] FMDS Reason for Referral See Comment 7 FMDS Method See Comment 8 FMDS Result See Comment 9 FMDS Result Summary Normal FMDS Result Table See Comment 10 FMDS Interpretation See Comment 11 Bone Marrow 03/03/2019 [facility] BM Result Summary Normal Chromosomes [address] [place] [address] [phone] BM Chromosome Specimen Bone Marrow BM Chromosome Source [facility] BM Referral Reason See Comment 12 BM Chromosome Method See Comment 13 BM Chromo Banding Method See Comment 14 BM Cromosome Results 46,XX[20] BM Chromosome Interpretation See Comment 15 Released By See Comment 16 Inr/Protime 03/02/2019 [facility] Inr 1.27 High 0.82-1.09 17 [address] [place] [address] [phone] Inr/Protime 02/23/2019 [facility] Inr 4.50 High 0.82-1.[address] [place] [address] [phone] CBC Auto Diff 02/23/2019 [facility] White Blood 8.5 Normal 3.5 -10.[address] Count 10^3/[place] [address] [phone] Red Blood Count 5.44 10^6/uL High 3.70-4.87 [...] Red Blood Cells % 0.1 Laboratory 02/23/2019 [facility] TSH (Thyroid 1.47 Normal 0.34 -5.60 test finding [address] Stim Horm) mcIU/mL [place], [place] [phone] Free T4 (Free Thyroxine) 1.59 ng/dL High 0.61-1.12 Pthi 02/23/2019 [facility] Calcium (PTH 9.4 mg/dL Normal 8.6- 10.[address] Intact) [place] [address] [phone] PTH Intact 41.0 pg/mL Normal 12-88 Laboratory test 02/23/2019 [facility] Vitamin D 42.4 ng/mL Normal 20-50 [address] Total 25(Oh) [place] [address] [phone] Basic Metabolic 02/23/2019 [facility] Sodium 137 mmol/L Normal 135-[address] [place] [address] [phone] Potassium 4.0 mmol/L Normal 3.5-5.0 Chloride 104 mmol/L Normal 101-111 Co2 Carbon Dioxide 28 mmol/L Normal 22-32 Anion Gap 5 mmol/L Normal 2-11 Glucose 86 mg/dL Normal 70-100 Blood Urea Nitrogen 10 mg/dL Normal 6-24 Creatinine 0.79 mg/dL Normal 0.51-0.95 BUN/Creatinine Ratio 12.7 Normal 8-20 Calcium 9.3 mg/dL Normal 8.6-10.3 Egfr Non- 71.1 >60 Egfr 86.1 >60 20 CBC Auto 02/16/2019 [facility] White Blood 8.7 10^3/uL Normal 3.5-10.[address] [place] [address] [phone] Red Blood Count 5.37 10^6/uL High 3.70-4.87 [...] Red Blood Cells % 0.1 Inr/Protime 02/16/2019 [facility] Inr 4.22 High 0.82-1.[address] [place] [address] [phone] Ua Routine 02/10/2019 [employer] [facility] House Ua Specific 1.020 [place] Ua PH 5 Ua Color yellow Ua Appera clear Ua WBC NEG Ua Protein NEG Ua Glucose NEG Ua Ketones NEG Ua Bilirubin NEG Ua Urobilinogen NEG Ua Nitrite NEG Ua Occult Blood NEG Urine Culture And 02/10/2019 [facility] Urine SEE RESULT 22 , [address] [place] [address] [phone] Inr/Protime 02/05/2019 [facility] Inr 3.44 High 0.[address] -1.0 [place] [address] [phone] Inr/Protime 01/29/2019 [facility] Inr 3.71 High 0.[address] -1.0 [place] [address] [phone] CBC Auto Diff 01/29/2019 [facility] White Blood 9.0 Normal 3.5 - [address] Count 10^3/uL 10.8 [place] [address] [phone] Red Blood Count 5.09 10^6/uL High 3.70-4.87 [...] Nucleated Red Blood Cells % 0.1 Inr/Protime 01/16/2019 [facility] Inr 2.09 High 0.82-1.[address] [place] [address] [phone] CBC Auto Diff 01/16/2019 [facility] White Blood 9.9 Normal 3.5 -10.[address] Count 10^3/uL [place] [address] [phone] Red Blood Count 5.26 10^6/uL High 3.70-4.87 [...] Red Blood Cells % 0.1 Myeloprolif 01/07/2019 [facility] MPNR Result see interpretati 27 Neoplasm With RFX [address] <SEE NOTE> [place] [address] [phone] MPNR Final Diagnosis See Comment 28 Lipid Profile 01/06/2019 [facility] Triglycerides 69 mg/dL 29 (Trig/Chol/HDL) [address] [place] [address] [phone] Cholesterol 111 mg/dL 30 HDL Cholesterol 44.7 mg/dL 31 LDL Cholesterol 53 mg/dL 32 CBC Auto 01/06/2019 [facility] White Blood 9.2 10^3/uL Normal 3.5-10.[address] [place] [address] [phone] Red Blood Count 5.31 10^6/uL High 3.70-4.87 [...] Nucleated Red Blood Cells % 0.1 Inr/Protime 01/06/2019 [facility] Inr 4.84 High 0.82-1.[address] [place] [address] [phone] Laboratory test 01/06/2019 [facility] TSH 2.93 Normal 0.34- 5.60 finding (Thyroid mcIU/[place] [address] Stim [phone] Horm) T3 Free 2.90 pg/mL Normal 2.5-3.9 Free T4 (Free Thyroxine) 1.66 ng/dL High 0.61-1.12 Glucose 98 mg/dL Normal 70-100 Hemoglobin A1c (Glyco HGB) 5.6 % Normal 4.0-5.6 34 Inr/Protime 12/29/2018 [facility] Inr 2.55 High 0.82-1.[address] [place] [address] [phone] CBC Auto Diff 12/27/2018 [facility] White Blood 11.7 High 3.5- 10.[address] Count 10^3/[place] [address] [phone] Red Blood Count 5.33 10^6/uL High 3.70-4.87 [...] Nucleated Red Blood Cells % 0.1 Laboratory test 12/27/2018 [facility] B-Type 50 pg/mL <=[address] [place] [address] Peptide BNP [phone] Comp Metabolic 12/27/2018 [facility] Sodium 131 mmol/L Low 135 -[address] [place] [address] [phone] Potassium 3.7 mmol/L Normal 3.5-5.0 Chloride 99 [...] Egfr Non- 89.1 >60 Egfr 107.8 >60 36 Laboratory test 12/27/2018 [facility] Troponin-I (TnI) 0.00 ng/ mL <0.04 [address] [place] [address] [phone] TSH (Thyroid Stim Horm) 15.00 mcIU/mL High 0.34-5.60 Laboratory 12/26/2018 N2N/[facility] Import International Ratio 2.28 High 0.82- 1.09 Studies (Anticoag Ther) Laboratory 12/25/2018 [facility] Import Creatinine 0.62 0.51-0.95 Studies mg/dL Cholesterol Level 147 mg/dL Chloride Level 108 mmol/L 101-111 Carbon Dioxide Level 23 mmol/L 22-32 Calcium Level 8.6 mg/dL 8.6-10.3 Blood Urea Nitrogen 13 mg/dL 6-24 BUN/Creatinine Ratio 21.0 High 8-20 Anion Gap 7 mmol/L 2-11 Hemoglobin A1c 5.7 % High 4.0-5.6 Laboratory Studies 12/25/2018 [facility]2N[facility] Import Cholesterol Level 147 mg/dL Chloride Level 108 mmol/L 101-111 Carbon Dioxide Level 23 mmol/L 22-32 Calcium Level 8.6 mg/dL 8.6-10.3 Blood Urea Nitrogen 13 mg/dL 6-24 BUN/Creatinine Ratio 21.0 High 8-20 Anion Gap 7 mmol/L 2-11 Hemoglobin A1c 5.7 % High 4.0-5.6 Laboratory Studies 12/25/2018 N2N[facility] Import Chloride Level 108 mmol/L 101-111 Carbon Dioxide Level 23 mmol/L 22-32 Calcium Level 8.6 mg/dL 8.6-10.3 Blood Urea Nitrogen 13 mg/dL 6-24 BUN/Creatinine Ratio 21.0 High 8-20 Anion Gap 7 mmol/L 2-11 Hemoglobin A1c 5.7 % High 4.0-5.6 Laboratory Studies 12/25/2018 N2N/[facility]D Import Carbon Dioxide Level 23 mmol/ L 22-32 Calcium Level 8.6 mg/dL 8.6-10.3 Blood Urea Nitrogen 13 mg/dL 6-24 BUN/Creatinine Ratio 21.0 High 8-20 Anion Gap 7 mmol/L 2-11 Hemoglobin A1c 5.7 % High 4.0-5.6 Laboratory Studies 12/25/2018 N2N/[facility] Import Calcium Level 8.6 mg/dL 8.6 -10.3 [...] High 4.0-5.6 Laboratory Studies 12/25/2018 N2N/[facility] Import Anion Gap 7 mmol/L 2-11 Hemoglobin A1c 5.7 % High 4.0-5.6 Laboratory 12/25/2018 N2N/[facility]D Import Hemoglobin A1c 5.7 % High 4.0-5.6 Studies Laboratory 12/25/2018 N2N/[facility] Import Total Triiodothyronine 72 [...] High 4.0-5.6 Laboratory Studies 12/25/2018 N2N/[facility]D Import Free Thyroxine 1.02 ng/dL 0.61-1.12 Vitamin [...] 5.7 % High 4.0-5.6 Laboratory Studies 12/25/2018 [facility] Import Potassium Level 3.9 mmol/L 3.5-5.0 LDL [...] 5.7 % High 4.0-5.6 Laboratory Studies 12/25/2018 [facility] Import LDL Cholesterol 91 mg/dL HDL Cholesterol [...] 5.7 % High 4.0-5.6 Laboratory Studies 12/25/2018 [facility] Import Glucose Level 92 mg/dL 70- 100 [...] 5.7 % High 4.0-5.6 Laboratory Studies 12/25/2018 [employer] Import Estimated GFR (Non- 94.1 [place] Estimated GFR () 113.9 Creatinine 0.62 mg/dL 0.51-0.95 Cholesterol Level 147 mg/dL Chloride Level 108 mmol/L 101-111 Carbon Dioxide Level 23 mmol/L 22-32 Calcium Level 8.6 mg/dL 8.6-10.3 Blood Urea Nitrogen 13 mg/dL 6-24 BUN/Creatinine Ratio 21.0 High 8-20 Anion Gap 7 mmol/L 2-11 Hemoglobin A1c 5.7 % High 4.0-5.6 Laboratory Studies 12/25/2018 [facility] Import Estimated GFR ( 113.9 [place]) Creatinine 0.62 mg/dL 0.51-0.95 Cholesterol Level 147 mg/dL Chloride Level 108 mmol/L 101-111 Carbon Dioxide Level 23 mmol/L 22-32 Calcium Level 8.6 mg/dL 8.6-10.3 Blood Urea Nitrogen 13 mg/dL 6-24 BUN/Creatinine Ratio 21.0 High 8-20 Anion Gap 7 mmol/L 2-11 Hemoglobin A1c 5.7 % High 4.0-5.6 Laboratory Studies 12/24/2018 [employer] Import Lymphocytes (%) (Auto) 18.0 % Hemoglobin [...] (auto) 0.1 10^3/ul 0-0.2 Urinalysis Profile 12/24/2018 [facility] Urine Color Straw [address] [place] [address] [phone] Urine Appearance Clear Urine Specific [place] 1.019 Normal 1.010-1.030 Urine pH 7.0 Normal 5-9 Urine Urobilinogen Negative Negative Urine Ketones Negative Negative Urine Protein Negative Negative Urine Leukocytes Negative Negative Urine Blood Negative Negative Urine Nitrite Negative Negative Urine Bilirubin Negative Negative Urine Glucose Negative Negative Laboratory test 12/24/2018 [facility] Troponin-I 0.00 ng/mL < 0.[address] (TnI) [place] [address] [phone] Comp Metabolic 12/24/2018 [facility] Sodium 130 mmol/L Low 135 -145 Panel [address] [place] [address] [phone] Potassium 3.9 mmol/L Normal 3.5-5.0 Chloride 100 [...] Egfr Non- 81.8 >60 Egfr 99.0 >60 39 Laboratory test 12/24/2018 [facility] Lactic 1.5 mmol/L Normal 0.5-2.0 40 finding [address] [facility] [place] [address] [phone] Inr/Protime 12/24/2018 [facility] Inr 3.01 High 0.82-1.09 41 [address] [place] [address] [phone] CBC Auto Diff 12/24/2018 [facility] White 10.5 Normal 3.5- 10.8 [address] [facility] Blood 10^3/[place] [address] Count [phone] Red Blood Count 5.43 10^6/uL High 3.70-4.87 [...] N2N/CCD Import Urine Specific 1.019 1.010- 1.030 [place] Laboratory Studies 12/24/2018 N2N/[facility]D Import Urine pH 7.0 5-9 Urine Specific [place] 1.019 1.010-1.030 Laboratory test 12/23/2018 [facility] TSH (Thyroid 14.83 High 0.34-5.[address] Stim Horm) mcIU/mL [place], [place] [address] [phone] Free T4 (Free Thyroxine) 1.21 ng/dL High 0.61-1.12 Comp Metabolic Panel 12/23/2018 [facility] Sodium 134 mmol/L Low 135-[address] [place], [place] [address] [phone] Potassium 4.9 mmol/L Normal 3.5-5.0 Chloride 100 [...] Egfr Non- 65.4 >60 Egfr 79.1 >60 42 CBC Auto 12/23/2018 [facility] White Blood 9.7 10^3/uL Normal 3.5-10.[address] [place] [address] [phone] Red Blood Count 5.73 10^6/uL High 3.70-4.87 [...] Blood Cells % 0.1 Vitamin B12 12/23/2018 [facility] Vitamin B12 554 pg/mL Normal 180-914 43 [address] Folate [address] [place] [address] [phone] Folic Acid (Folate) 16.45 ng/mL >3.99 Inr/Protime 12/23/2018 [facility] Inr 2.55 High 0.82-1.[address] [place], [place] [address] [phone] Nuclear AB 12/23/2018 [facility] Nuclear Ab Positive Abnormal 45 (Giovana) By Ifa [address] (Giovana) by 1:160 [place] [address] Ifa, IgG [phone] Giovana Titer: 1:160 Giovana Pattern: Homogeneous 46 Laboratory test 12/23/2018 [facility] Homocysteine 17 mcmol/L Abnormal [address] [place] [address] [phone] Lipid Profile 12/23/2018 [facility] Triglycerides 83 mg/dL 48 (Trig/Chol/HDL) [address] [place] [address] [phone] Cholesterol 190 mg/dL 49 HDL Cholesterol 52.1 mg/dL 50 LDL Cholesterol 121 mg/dL 51 CBC Auto 12/19/2018 [facility] White Blood 12.6 10^3/uL High 3.5-10.8 Diff [address] [place] [address] [phone] Red Blood Count 5.69 10^6/uL High 3.70-4.87 [...] Nucleated Red Blood Cells % 0.1 Inr/Protime 12/19/2018 [facility] Inr 2.25 High 0.82-1.[address] [place] [address] [phone] Laboratory test 12/19/2018 [facility] Lactic Acid 0.5 Normal 0.5-2.0 53 finding 101 mmol/[place] [address] [phone] Comp Metabolic 12/19/2018 [facility] Sodium 133 Low 135-[address] mmol/[place] [address] [phone] Potassium 4.1 mmol/L Normal 3.5-5.0 Chloride 98 [...] Egfr Non- 72.2 >60 Egfr 87.4 >60 54 Laboratory test 12/19/2018 [facility] Troponin-I (TnI) 0.00 ng/ mL <0.[address] [place] [address] [phone] Urinalysis 12/19/2018 [facility] Urine Color Straw Profile [address] [place] [address] [phone] Urine Appearance Clear Urine Specific [place] 1.004 Low 1.010-1.030 Urine pH 8.0 Normal 5-9 Urine Urobilinogen Negative Negative Urine Ketones Negative Negative Urine Protein Negative Negative Urine Leukocytes Negative Negative Urine Blood Negative Negative * * Abnormal Negative 56 Urine Nitrite Negative Negative Urine Bilirubin Negative Negative Urine Glucose Negative Negative CBC Auto 12/17/2018 [facility] White Blood 10.4 10^3/uL Normal 3.5-10.[address] [place] [address] [phone] Red Blood Count 5.54 10^6/uL High 3.70-4.87 [...] Red Blood Cells % 0.1 Inr/Protime 12/17/2018 [facility] Inr 2.52 High 0.82-1.[address] [place] [address] [phone] CBC Auto Diff 12/04/2018 [facility] White Blood 10.5 Normal 3.5-10.[address] Count 10^3/[place] [address] [phone] Red Blood Count 5.43 10^6/uL High 3.70-4.87 [...] Nucleated Red Blood Cells % 0.0 Inr/Protime 12/04/2018 [facility] Inr 2.05 High 0.82-1.[address] [place] [address] [phone] Urinalysis 12/04/2018 [facility] Urine Colorless Profile [address] [place] [address] [phone] Urine Appearance Clear Urine Specific [place] 1.002 Low 1.010-1.030 Urine pH 8.0 Normal 5-9 Urine Urobilinogen Negative Negative Urine Ketones Negative Negative Urine Protein Negative Negative Urine Leukocytes Negative Negative Urine Blood Negative Negative Urine Nitrite Negative Negative Urine Bilirubin Negative Negative Urine Glucose Negative Negative Inr/Protime 11/17/2018 [facility] Inr 2.32 High 0.82-1.[address] [place] [address] [phone] CBC Auto Diff 11/17/2018 [facility] White Blood 10.4 Normal 3.5-10.[address] Count 10^3/[place] [address] [phone] Red Blood Count 5.25 10^6/uL High 3.70-4.87 [...] Red Blood Cells % 0.1 CBC Auto 10/21/2018 [facility] White Blood 9.9 10^3/uL Normal 3.5-10.[address] [place] [address] [phone] Red Blood Count 5.43 10^6/uL High 3.70-4.87 [...] Red Blood Cells % 0 Inr/Protime 10/21/2018 [facility] Inr 2.66 High 0.77-1.[address] [place] [address] [phone] CBC Auto Diff 09/16/2018 [facility] White Blood 9.7 Normal 3.5 -10.[address] Count 10^3/[place] [address] [phone] Red Blood Count 5.18 10^6/uL Normal 4.00-5.40 Hemoglobin 15.2 g/dL Normal 12.0-16.0 Hematocrit 46 % Normal 35-47 Mean Corpuscular Volume 88 fL Normal 80-97 Mean Corpuscular Hemoglobin 29 pg Normal 27-31 Mean Corpuscular HGB Conc 33 g/dL Normal 31-36 Red Cell Distribution Width 15 % Normal 10.5-15 Platelet Count 421 10^3/uL Normal 150-450 Mean Platelet Volume 8.8 fL Normal 7.4-10.4 Abs Neutrophils 6.4 10^3/uL Normal 1.5-7.7 Abs Lymphocytes 2.1 10^3/uL Normal 1.0-4.8 Abs Monocytes 0.6 10^3/uL Normal 0-0.8 Abs Eosinophils 0.5 10^3/uL Normal 0-0.6 Abs Basophils 0 10^3/uL Normal 0-0.2 Abs Nucleated RBC 0 10^3/uL Granulocyte % 66.0 % Lymphocyte % 21.8 % Monocyte % 6.6 % Eosinophil % 5.3 % Basophil % 0.3 % Nucleated Red Blood Cells % 0 Inr/Protime 09/16/2018 [facility] Inr 2.06 High 0.77-1.[address] [place], [place] [address] [phone] Standard intensity warfarin therapeutic range: 2.0-3.0 High intensity warfarin therapeutic range: 2.5-3.5 2 Standard intensity warfarin therapeutic range: 2.0-3.0 High intensity warfarin therapeutic range: 2.5-3.5 3 Test Result Flag Unit RefValue BCR/ABL1 Reflex, Qual/Quant BCR/ABL1 Reflex Result TNP BCR/ABL1 Reflex, Qual/Quant was cancelled on 03/10/2019 at 15:37; Notification to cancel testing received from the referring facility. Test Performed by: [facility] - [address] [address] CORRECTED REPORT --- Corrected on 03/10/191641 --- Ref Lab Test previously reported as: See Comment Test Result Flag Unit RefValue BCR/ABL1 Reflex, Qual/Quant Specimen Type Bone marrow BCR/ABL1 Reflex Result see interpretation Interpretation See Comment Bone marrow, BCR/ABL1 mRNA analysis, qualitative: Negative. No BCR/ABL1 mRNA transcripts were detected. Method summary - BCR/ABL1 qualitative: The presence or absence of BCR/ABL mRNA transcripts was evaluated using a qualitative, reverse armature tester PCR-based assay. The assay detects nearly all published and theoretical BCR/ABL1 fusion forms. The detection sensitivity limit for this assay is 0.1%. Please contact the lab at [phone] with questions or if additional testing is required. See [facility] [employer] Test Catalog for additional method details. Signing Pathologist: Gregorio Mercado M.D. ADDITIONAL INFORMATION This test was developed and its performance characteristics determined by [facility] in a manner consistent with CLIA requirements. This test has not been cleared or approved by the U.S. Food and Drug Administration. Test Performed by: [place] [address] 4 FINAL DIAGNOSIS: Specimen Source: Bone marrow Flow [...] MD 03/05/19 1223 Technical component performed by: [facility] [place] [address] Multiple Spindle Router Operator: Raúl Faustin II, MD, PhD. 5 Applicable to Analyte Specific Reagent (ASR) and Laboratory Developed Tests (LDT). This test was developed and its performance characteristics determined by [facility] in a manner consistent with CLIA requirements. It has not been cleared or approved by the U.S. Food and Drug Administration. This FISH test does not rule out other chromosome abnormalities. 6 RESULT: Nhan Casarez, Ph.D. Test Performed by: [facility] - [address] [address] 7 RESULT: D47.3 Essential (hemorrhagic) thrombocythemia 8 Locus and probes [Strategy;#Nuclei;Class] 3q21(RPN1),3q26.2(MECOM) [DFISH;500;LDT] 5p15.2(P7T407),5q31(EGR1) [COPY#;200;ASR] 7CEN(D7Z1),7q31(G6A862) [COPY#;200;ASR] 8CEN(D8Z2),8q24.1(MYC) [COPY#;200;ASR] 11q23(5'MLL[KMT2A],3'MLL[KMT2A]) [BAP;200;ASR] 17p13(TP53),17CEN(D17Z1) [COPY#;200;ASR] 20q12(Q99D494),20qter [COPY#;200;ASR] Probe strategies include: DFISH=dual color, double fusion; BAP=break-apart probe; COPY#=region gain and loss. 9 RESULT: Interphase FISH is normal for all loci studied. 10 Abnormality Name Result Abn% Cutoff% inv(3) RPN1/MECOM fusion Normal <0.6 -5q31(D9S259q2,EGR1x1) Normal <9.5 -5(L8P531,EGR1)x1 Normal <3.5 -7q31(D7Z1x2,M6U586r5) Normal <4.5 -7(D7Z1,J5T288)x1 Normal <3.5 +8(D8Z2,MYC)x3 Normal <2.5 11q23(MLL sep) Normal <4.0 -17p13.1(TP53x1,X63Q7y9) Normal <9.5 -17(TP53,D17Z1)x1 Normal <5.5 -20q12(U11P150c0,91rlomh4) Normal <9.5 11 This result is within normal limits for the MDS FISH panel. Additional cytogenetic studies are reported separately. 12 RESULT: D47.3 Essential (hemorrhagic) thrombocythemia 13 RESULT: Culture without mitogens 14 Band Resolution: <400 Stain Name Cells Analyzed Cells Karyograms Counted Prepared GTL 20 0 2 Total 20 0 2 [place] to Stain Name: GTL=G-banding; QFQ=Q-banding; DAPI=DAPI-staining; CBL=C-banding; AGNOR=Silver-staining; NON=Non-banded The sum of Cells Analyzed and Cells Counted equals the total cells examined. 15 No clonal abnormality was apparent. Additional cytogenetic studies are reported separately. 16 RESULT: Nhan Casarez, Ph.D. Test Performed by: [address] [id number] 17 Standard intensity warfarin therapeutic range: 2.0-3.0 High intensity warfarin therapeutic range: 2.5-3.5 18 Standard intensity warfarin therapeutic range: 2.0-3.0 High intensity warfarin therapeutic range: 2.5-3.5 19 Total 25-Hydroxyvitamin D2 and D3 (25-OH-VitD) <10 ng/mL (severe deficiency) 10-19 ng/mL (mild to moderate deficiency) 20-50 ng/mL (optimum levels) 51-80 ng/mL (increased risk of hypercalciuria) >80 ng/mL (toxicity possible) 20 Because ethnic data is not always readily [...] 15-29 5 Kidney failure <15 (or dialysis) 21 Standard intensity warfarin therapeutic range: 2.0-3.0 High intensity warfarin therapeutic range: 2.5-3.5 22 [id number] SEE RESULT BELOW Name: CYRUS PORTER : [address]: Angeline Delarosa MD Acct: [id number] Unit: [id number] AGE: 73 Location: [facility] Re02/10/19 SEX: F Status: REG REF SPEC: [id number] JASON: 02/10/19-[address] [facility] [address]: Angeline Delarosa MD REQ: [id number] RECD: 02/10/19 STATUS: COMP _ SOURCE: URINE SPDESC: ORDERED: Urine Culture COMMENTS: [id number] QUERIES: Urine Source: Random Procedure Result Reported Site Urine Culture Final 02/11/19- 1604 ML No Growth (<1,000 CFU/mL) * ML - Main Lab . END OF REPORT DEPARTMENT OF PATHOLOGY, [address] [place] [address] Nhan Rockwell M.D. Director [facility] # [id number] 24 Standard intensity warfarin therapeutic range: 2.0-3.0 High intensity warfarin therapeutic range: 2.5-3.5 25 Standard intensity warfarin therapeutic range: 2.0-3.0 High intensity warfarin therapeutic range: 2.5-3.5 26 Standard intensity warfarin therapeutic range: 2.0-3.0 High intensity warfarin therapeutic range: 2.5-3.5 27 see interpretation 28 Peripheral blood, JAK2 V617F mutation analysis: Positive. JAK2 V617F mutated DNA was detected and measured at 7% of total JAK2 DNA. JAK2 V617F mutation is found with high frequency in [place] chromosome-negative myeloproliferative neoplasms (>95% in polycythemia vera [...] algorithm. See test catalogue for additional information: [email or web address]. Note: Starting from 07/26/2015, the calculation and reporting value of [id number]/total JAK2% is changed to more accurately reflect the true [id number] allele burden. Higher values are generally expected and for levels below 80% (currently reported with new calculation), 1-5 fold increase from the prior calculation is expected. The testing method is not changed, however the limit of analytic sensitivity is changed to 0.06%. Please contact the [facility] at [phone] if you have questions or concerns. Method summary - JAK2 V617F analysis: Quantitative, allele-specific polymerase chain reaction (PCR) assay was performed using extracted genomic DNA to evaluate for the point mutation causing JAK2 V617F. The analytic sensitivity of this assay has been determined at 0.06% (see [facility] Interpretive Handbook for method details). Signing Pathologist: Gregorio Mercado M.D. ADDITIONAL INFORMATION This test was developed and its performance characteristics determined by [facility] in a manner consistent with CLIA requirements. This test has not been cleared or approved by the U.S. Food and Drug Administration. Test Performed by: [address] [address] 29 Desirable: <150 Borderline High: 150-199 High: 200-499 Very High: >500 30 Desirable: <200 Borderline High: 200-239 High: >239 31 Low: <40 Desirable: 40-60 High: >60 32 Desirable: <100 Near Optimal: 100-129 Borderline High: 130-159 High: 160-189 Very High: >189 33 Standard intensity warfarin therapeutic range: 2.0-3.0 High intensity warfarin therapeutic range: 2.5-3.5 34 Therapeutic target for the treatment of diabetes mellitus patients is <7% HBA1C, and in selective patients <6.0%. Please refer to [place] [employer] diabetic care guidelines for further information. 35 Standard intensity warfarin therapeutic range: 2.0-3.0 High intensity warfarin therapeutic range: 2.5-3.5 36 Because ethnic data is not always readily [...] 15-29 5 Kidney failure <15 (or dialysis) 37 Troponin-I testing on Plasma Separator Tubes (PST) has a known false positive rate of 0.20-0.40%. All positive troponins reflex immediately to secondary confirmatory testing. Using the [employer] DxI 800 Access Immunoassay systems, the 99th percentile upper reference limit was demonstrated to be < 0.03 ng/mL. 38 Troponin-I testing on Plasma Separator Tubes (PST) has a known false positive rate of 0.20-0.40%. All positive troponins reflex immediately to secondary confirmatory testing. Using the [employer] DxI 800 Access Immunoassay systems, the 99th [...] 5 Kidney failure <15 (or dialysis) 40 [facility] Severe Sepsis and Septic Shock Management Bundle Measure requires all lactic acids initially measuring >2.0 mmol/L be repeated. 41 Standard intensity warfarin therapeutic range: 2.0-3.0 High intensity warfarin therapeutic range: 2.5-3.5 42 Because ethnic data is not always readily [...] 15-29 5 Kidney failure <15 (or dialysis) 43 Normal Range 180 to 914 Indeterminate Range 145 to 180 Deficient Range <145 44 Standard intensity warfarin therapeutic range: 2.0-3.0 High intensity warfarin therapeutic range: 2.5-3.5 45 REFERENCE VALUE <1:80 (Negative) 46 Test Performed by: [facility] [address] [place] [address] 47 The homocysteine concentration is elevated in this [...] developed and its performance characteristics determined by [facility] in a manner consistent with CLIA requirements. This test has not been cleared or approved by the U.S. Food and Drug Administration. Test Performed by: [facility] [address] [place] [address] 48 Desirable: <150 Borderline High: 150-199 High: 200-499 Very High: >500 49 Desirable: <200 Borderline High: 200-239 High: >239 50 Low: <40 Desirable: 40-60 High: >60 51 Desirable: <100 Near Optimal: 100-129 Borderline High: 130-159 High: 160-189 Very High: >189 52 Standard intensity warfarin therapeutic range: 2.0-3.0 High intensity warfarin therapeutic range: 2.5-3.5 53 [facility] Severe Sepsis and Septic Shock Management Bundle Measure requires all lactic acids initially measuring >2.0 mmol/L be repeated. 54 Because ethnic data is not always readily [...] 15-29 5 Kidney failure <15 (or dialysis) 55 Troponin-I testing on Plasma Separator Tubes (PST) has a known false positive rate of 0.20-0.40%. All positive troponins reflex immediately to secondary confirmatory testing. Using the [employer] DxI 800 Access Immunoassay systems, the 99th percentile upper reference limit was demonstrated to be < 0.03 ng/mL. 56 *Ascorbic acid is present which may interfere with detection of blood. 57 Standard intensity warfarin therapeutic range: 2.0-3.0 High intensity warfarin therapeutic range: 2.5-3.5 58 Standard intensity warfarin therapeutic range: 2.0-3.0 High intensity warfarin therapeutic range: 2.5-3.5 59 Standard intensity warfarin therapeutic range: 2.0-3.0 High intensity warfarin therapeutic range: 2.5-3.5 Procedures Date Code Description Status 01/29/2019 37620 EKG Tracing & Interpretation Completed 01/27/2019 [id number] Mammogram Completed 12/25/2018 70443 ECHO Transthorasic Realtime 2D W Doppler & Color Flow Completed Hosp 12/03/2018 67315 ECG Monitor/Recording W/Visual Superimposition Completed Scanning 11/28/2018 30005 EKG Tracing & Interpretation Completed 02/04/2018 [id number] Bone Mineral Density Test Completed 11/11/2017 [id number] Mammogram Completed 10/31/2016 [id number] Mammogram Completed 10/31/2015 [id number] Bone Mineral Density Test Completed 10/31/2015 [id number] Mammogram Completed 08/11/2015 [id number] Colonoscopy Completed 10/21/2014 [id number] Mammogram Completed 04/13/2014 [id number] Mammogram Completed 09/30/2013 [id number] Mammogram Completed 08/25/2013 [id number] Mammogram Completed 11/28/2012 [id number] Bone Mineral Density Test Completed 06/13/2012 [id number] Mammogram Completed 11/28/2010 [id number] Bone Mineral Density Test Completed Medical Devices Description No Information Available Encounters Type Date Location Provider Dx Diagnosis Office Visit 02/05/2019 [place] [facility] Wellington Edge MD 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 fracture E03.9 Hypothyroidism, unspecified Z86.73 Prsnl hx of TIA (TIA), and cereb infrc w/o resid deficits I48.0 Paroxysmal atrial fibrillation Office Visit 01/29/2019 3:20p [place] [facility] Brenda Aguila Z86.73 Prsnl hx of TIA [facility] MDayanna (TIA), and cereb infrc w/o resid deficits I10 Essential (primary) hypertension I48.0 Paroxysmal atrial fibrillation E78.5 Hyperlipidemia, unspecified Office Visit 01/01/2019 1:00p [place] [facility] Gideon Real Z86.73 Prsnl hx of Services [facility] MDayanna TIA (TIA), and cereb infrc w/o resid deficits I48.0 Paroxysmal atrial fibrillation I10 Essential (primary) hypertension E03.9 Hypothyroidism, unspecified Z79.01 nursing home (current) use of anticoagulants Office Visit 12/31/2018 9:50a [facility] Internal Alexia I63.9 Cerebral Medicine - Maggie Conroy M.D. 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 I10 Essential (primary) hypertension I48.91 Unspecified atrial fibrillation Z79.01 nursing home (current) use of anticoagulants Office Visit 12/26/2018 10:38a [place] Mariann Olsen I63.9 Cerebral Assoc,NEMESIO Wilkes infarction, Hospitalists unspecified E03.9 Hypothyroidism, unspecified I10 Essential (primary) hypertension Z85.3 Personal history of malignant neoplasm of breast I48.91 Unspecified atrial fibrillation Office Visit 12/25/2018 Neurohospitalist Bel Canseco, I63.40 Cerebral 7:00a Clinic MD infarction due to embolism of unsp cerebral artery I10 Essential (primary) hypertension I48.91 Unspecified atrial fibrillation Z79.01 nursing home (current) use of anticoagulants Office Visit 12/24/2018 10:37a [facility] Sol I63.9 Cerebral Assoc,dixie Carrero M.D. infarction, Hospitalists unspecified I10 Essential (primary) hypertension I48.91 Unspecified atrial fibrillation Office Visit 12/24/2018 Neurohospitalist Bel Canseco I63.40 Cerebral 7:00a Clinic MD infarction due to embolism of unsp cerebral artery I16.0 Hypertensive urgency I48.91 Unspecified atrial fibrillation Z79.01 superintendent terminal (current) use of anticoagulants Office Visit 12/22/2018 [place] Gideon Real, R20.2 Paresthesia of 9:30a Neurologic M.D. 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 limb Office Visit 12/09/2018 [facility] Internal Eddie Gary NP I10 Essential 10:40a Medicine - Ccmob (primary) hypertension S16.1xxA Strain of muscle, fascia and tendon at neck level, init R20.2 Paresthesia of skin M25.549 Pain in joints of unspecified hand Office Visit 11/28/2018 5:00p [facility] Internal Angeline Delarosa, R55 Syncope and Medicine - Ccmob M.D. collapse Assessments Date Code Description Provider 03/10/2019 I48.0 Paroxysmal atrial fibrillation Cathy Levy, N.P. 03/10/2019 I10 Essential (primary) hypertension Cathy Levy N.P. 03/10/2019 E78.5 Hyperlipidemia, unspecified Cathy Levy, N.P. 03/10/2019 Z79.01 superintendent terminal (current) use of Cathy Analia. Cam, N.P. anticoagulants 03/09/2019 R19.7 Diarrhea, unspecified Eddie Abdirahman, STAFF EDUCATOR 02/10/2019 Z00.00 Encounter for general adult Angeline Delarosa M.D. medical examination without abnormal findings 02/10/2019 E03.9 Hypothyroidism, [...] Hypothyroidism, unspecified Gideon Real M.D. 01/01/2019 Z79.01 nursing home (current) use of Gideon Real M.D. anticoagulants 12/31/2018 I63.9 Cerebral infarction, unspecified Alexia Conory M.D. 12/31/2018 I48.0 Paroxysmal atrial fibrillation Alexia Conroy M.D. 12/31/2018 I10 Essential (primary) hypertension Alexia Conroy M.D. 12/31/2018 E03.9 Hypothyroidism, unspecified Alexia Conroy M.D. 12/31/2018 R73.01 Impaired fasting glucose Alexia Conroy M.D. 12/26/2018 I63.40 Cerebral infarction due to Bel Canseco MD embolism of unspecified cerebral artery 12/26/2018 I63.9 Cerebral infarction, unspecified NEMESIO Cavazos 12/26/2018 I10 Essential (primary) hypertension Bel Canseco MD 12/26/2018 E03.9 Hypothyroidism, unspecified NEMESIO Cavazos 12/26/2018 I48.91 Unspecified atrial fibrillation Bel Canseco MD 12/26/2018 I10 Essential (primary) hypertension NEMESIO Cavazos 12/26/2018 Z79.01 nursing home (current) use of Bel Canseco MD anticoagulants 12/26/2018 Z85.3 Personal history of malignant NEMESIO Cavazos neoplasm of breast 12/26/2018 I48.91 Unspecified atrial fibrillation NEMESIO Cavazos 12/25/2018 I63.40 Cerebral infarction due to Bel Canseco MD embolism of unspecified cerebral artery 12/25/2018 I63.9 Cerebral infarction, unspecified Fitz Sevilla M.D., [facility] 12/25/2018 I10 Essential (primary) hypertension Bel Canseco MD 12/25/2018 I63.9 Cerebral infarction, unspecified David Thorne M.D., [facility] 12/25/2018 I48.91 Unspecified atrial fibrillation Bel Canseco MD 12/25/2018 I10 Essential (primary) hypertension Fitz Sevilla M.D.,[facility] 12/25/2018 Z79.01 nursing home (current) use of Bel Canseco MD anticoagulants 12/25/2018 E03.9 Hypothyroidism, unspecified Fitz Sevilla M.D.,[facility] 12/24/2018 I63.40 Cerebral infarction due to Bel Canseco MD embolism of unspecified cerebral artery 12/24/2018 I63.9 Cerebral infarction, unspecified Sol Carrero M.D. 12/24/2018 I16.0 Hypertensive urgency Bel Canseco MD 12/24/2018 I10 Essential (primary) hypertension Sol Carrero M.D. 12/24/2018 I48.91 Unspecified atrial fibrillation Bel Canseco MD 12/24/2018 I48.91 Unspecified atrial fibrillation Sol Carrero M.D. 12/24/2018 Z79.01 nursing home (current) use of Bel Canseco MD [...] 12/09/2018 S16.1xxA Strain of muscle, fascia and Eddie Gary NP tendon at neck level, initial e 12/09/2018 R20.2 Paresthesia of skin Eddie Gary NP 12/09/2018 M25.549 Pain in joints of unspecified hand Eddie Gary NP 12/04/2018 R55 Syncope and collapse Im Nurse Holter Monitor 12/03/2018 R55 Syncope and collapse Im Nurse Holter Monitor 11/28/2018 R55 Syncope and collapse Angeline Delarosa M.D. Plan of Treatment Future Appointment(s):03/25/2019 9:20 am - Wellington Edge MD at [place] [facility]03/25/2019 1:00 pm - Luis Lowe MD at [facility]05/27/2019 1:20 pm - Wellington Edge MD at [place] [facility]02/12/2020 1:20 pm - Angeline Delarosa M.D. at [facility] Internal Medicine - [facility]08/13/2019 1:00 pm - Angeline Delarosa M.D. at [facility] Internal Medicine - [facility]04/03/2019 2:00 pm - Francisco Benitez N.P. at [place] Neurologic [facility]03/10/2019 - Cathy Levy N.P.I48.0 Paroxysmal atrial fibrillationRecommendations:If you have further fast heart rhythms we could consider event monitor There are stronger medicinesthat an suppress SVT/ aflutter that we can consider.I10 Essential (primary) mafvlbqdaajgW36.5 Hyperlipidemia, kdbmxejlynsV30.01 nursing home (current) use of anticoagulantsFollow up:OV LS 4-6moRecommendations:When you followup with Dr Wilks let us know if we can help transition to [facility]. Functional Status Description No Information Available Mental Status Description No Information Available Referrals Refer to Reason for Referral Status Appt Date Luis Lowe MD Scheduled 02/25/2019 [address] [place], [place] [id number] [phone] Brenda Aguila MD ECHO Closed [address] [place], [place] [id number] [phone] Celia Babcock M.D. Scheduled 12/26/2018 16 [facility] [place], [place] [id number] [phone]
--- OUTSIDE RECORDS SUMMARY | 2019-04-11 08:50 | XMS REPORT | Continuity of Care Document ---
:1945 External Reference #:[id number] Author Name Eddie Gary NP (transmitted by agent of provider Elida Pollack) Address [address] [facility], [place] [address] Care Team Providers Name Role Phone Yamile Cabezas MD - Internal Medicine Care Team Information Head Screen Worker [phone] Genesis Wilks MD - Hematology & Care Team Information Head Screen Worker Oncology Amador Samuels MD - Gastroenterology Care Team Information Head Screen Worker Nyla Levy MD - Surgery Care Team Information Head Screen Worker Jesus Cunningham MD - Orthopaedic Care Team Information Head Screen Worker [phone] Surgery Angeline Delarosa MD - Internal Care Team Information Head Screen Worker [phone] Medicine Genesis Wilks M.D. - Hematology & Care Team Information Head Screen Worker Oncology Luis Lowe MD - Orthopaedic Care Team Information Head Screen Worker [phone] Surgery Problems Active Problems Provider Date Benign [...] Unknown Never Smoked Cigarettes Smoking Status Reviewed: 03/09/19 Never Smoked Cigarettes ETOH Use Denies alcohol use Tobacco Use Start: Unknown Patient has never smoked Recreational Drug Use Denies Drug Use Exercise Type/Frequency Exercises sporadically Allergies, Adverse Reactions, Alerts Active Allergies Reaction Severity Comments Date Penicillins Severe Hives 01/02/2012 Keflex rash Moderate 01/02/2012 Sulfa Anaphylaxis Severe 01/02/2012 Tetracycline 07/22/2013 Fosamax [place] weak and strange 07/11/2014 Doxycycline Nausea and Vomiting, States she will Severe 11/19/2014 NEVER take agn Medications Active Medications SIG Qnty Indications Ordering Date Provider Atorvastatin Calcium once a day 90tabs Angeline 01/21/2019 Bharati Delarosa 10mg Tablets Carvedilol 1 tab by mouth 180tabs Angeline 12/31/2018 25mg Tablets twice a day Bharati Delarosa Coumadin 1 tablet on Mon 30tabs Alexia Conroy, 12/31/2018 5mg Tablets and Fri , [...] take as Unknown 4mg Tablets prescribed Lutein Unknown 20mg Capsules History Medications Mu Delarosa M.D. 11/28/2018 - 01/28/2019 Tablets Medications Administered in Office Medication SIG Qnty Indications Ordering Provider Date Shingrix pharmacy administered Unknown 12/02/2018 Injection Immunizations CPT Code Status Date Vaccine Lot # [id number] Given 03/31/2015 Fluzone High Dose Vital Signs Date Vital Result Comment 03/09/2019 3:49pm Height 61.5 inches 5'1.50" Weight 137.38 lb Heart Rate 71 /min BP Systolic 110 mmHg BP Diastolic 70 mmHg Body Temperature 98.1 F O2 % BldC Oximetry 94 % BMI (Body Mass Index) 25.5 kg/m2 02/10/2019 1:16pm Height 61.5 inches 5'1.50" Weight 140.00 lb Heart Rate 72 /min BP Systolic 117 mmHg BP Diastolic 79 mmHg O2 % BldC Oximetry 98 % BMI (Body Mass Index) 26.0 kg/m2 Results Test Date Facility Test Result H/L Range Note Inr/Protime 03/09/2019 [facility] Inr 2.23 High 0.82-1.[address] [place] [address] [phone] CBC Auto 03/05/2019 [facility] White Blood 8.9 10^3/uL Normal 3.5-10.[address] [place] [address] [phone] Red Blood Count 5.04 10^6/uL High 3.70-4.87 [...] Red Blood Cells % 0.0 Inr/Protime 03/05/2019 [facility] Inr 1.18 High 0.82-1.[address] [place] [address] [phone] Laboratory 03/03/2019 [facility] Miscellaneous See [address] [place] [address] [phone] Inr/Protime 03/02/2019 [facility] Inr 1.27 High 0.82-1.[address] [place] [address] [phone] Basic 02/23/2019 [facility] Sodium 137 Normal 135-[address] mmol/[place] [address] [phone] Potassium 4.0 mmol/L Normal 3.5-5.0 Chloride 104 mmol/L Normal 101-111 Co2 Carbon Dioxide 28 mmol/L Normal 22-32 Anion Gap 5 mmol/L Normal 2-11 Glucose 86 mg/dL Normal 70-100 Blood Urea Nitrogen 10 mg/dL Normal 6-24 Creatinine 0.79 mg/dL Normal 0.51-0.95 BUN/Creatinine Ratio 12.7 Normal 8-20 Calcium 9.3 mg/dL Normal 8.6-10.3 Egfr Non- 71.1 >60 Egfr 86.1 >60 5 Laboratory test 02/23/2019 [facility] Vitamin D 42.4 ng/mL Normal 20-[address] Total 25(Oh) [place] [address] [phone] Pthi 02/23/2019 [facility] Calcium (PTH 9.4 mg/dL Normal 8.6- 10.[address] Intact) [place] [address] [phone] PTH Intact 41.0 pg/mL Normal 12-88 Laboratory 02/23/2019 [facility] TSH (Thyroid 1.47 Normal 0.34 -5.60 test finding [address] Stim Horm) mcIU/[place] [address] [phone] Free T4 (Free Thyroxine) 1.59 ng/dL High 0.61-1.12 CBC Auto 02/23/2019 [facility] White Blood 8.5 10^3/uL Normal 3.5-10.[address] [place] [address] [phone] Red Blood Count 5.44 10^6/uL High 3.70-4.87 [...] Nucleated Red Blood Cells % 0.1 Inr/Protime 02/23/2019 [facility] Inr 4.50 High 0.82-1.[address] [place] [address] [phone] Inr/Protime 02/16/2019 [facility] Inr 4.22 High 0.82-1.[address] [place] [address] [phone] CBC Auto Diff 02/16/2019 [facility] White Blood 8.7 Normal 3.5 -10.[address] Count 10^3/[place] [address] [phone] Red Blood Count 5.37 10^6/uL High 3.70-4.87 [...] % Nucleated Red Blood Cells % 0.1 Ua Routine 02/10/2019 [facility] Ua Specific [place] 1.020 Ua PH 5 Ua Color yellow Ua Appera clear Ua WBC NEG Ua Protein NEG Ua Glucose NEG Ua Ketones NEG Ua Bilirubin NEG Ua Urobilinogen NEG Ua Nitrite NEG Ua Occult Blood NEG Urine Culture And 02/10/2019 [facility] Urine SEE RESULT 9 , [address] Culture BELOW [place], [place] [id number] [phone] Inr/Protime 02/05/2019 [facility] Inr 3.44 High 0.[address] -1.0 [place] [address] [phone] Inr/Protime 01/29/2019 [facility] Inr 3.71 High 0.[address] -1.0 [place] [address] [phone] CBC Auto Diff 01/29/2019 [facility] White Blood 9.0 Normal 3.5 - [address] Count 10^3/uL 10.8 [place] [address] [phone] Red Blood Count 5.09 10^6/uL High 3.70-4.87 [...] Red Blood Cells % 0.1 Inr/Protime 01/16/2019 [facility] Inr 2.09 High 0.82-1.[address] [place] [address] [phone] CBC Auto Diff 01/16/2019 [facility] White Blood 9.9 Normal 3.5 -10.[address] Count 10^3/uL [place], [place] [address] [phone] Red Blood Count 5.26 10^6/uL High 3.70-4.87 [...] Red Blood Cells % 0.1 Myeloprolif 01/07/2019 [facility] MPNR Result see interpretati 14 Neoplasm With RFX [address] <SEE NOTE> [place] [address] [phone] MPNR Final Diagnosis See Comment 15 CBC Auto 01/06/2019 [facility] White Blood 9.2 10^3/uL Normal 3.5-10.[address] [place] [address] [phone] Red Blood Count 5.31 10^6/uL High 3.70-4.87 [...] Red Blood Cells % 0.1 Inr/Protime 01/06/2019 [facility] Inr 4.84 High 0.82-1.[address] [place] [address] [phone] Laboratory test 01/06/2019 [facility] TSH 2.93 Normal 0.34- 5.[address] (Thyroid mcIU/[place] [address] Stim [phone] Horm) T3 Free 2.90 pg/mL Normal 2.5-3.9 Free T4 (Free Thyroxine) 1.66 ng/dL High 0.61-1.12 Glucose 98 mg/dL Normal 70-100 Hemoglobin A1c (Glyco HGB) 5.6 % Normal 4.0-5.6 17 Lipid Profile 01/06/2019 [facility] Triglycerides 69 mg/dL 18 (Trig/Chol/HDL) [address] [place] [address] [phone] Cholesterol 111 mg/dL 19 HDL Cholesterol 44.7 mg/dL 20 LDL Cholesterol 53 mg/dL 21 Inr/Protime 12/29/2018 [facility] Inr 2.55 High 0.82-1.[address] [place] [address] [phone] CBC Auto Diff 12/27/2018 [facility] White Blood 11.7 High 3.5- 10.[address] Count 10^3/uL [place], [place] [address] [phone] Red Blood Count 5.33 10^6/uL High 3.70-4.87 [...] Blood Cells % 0.1 Laboratory test 12/27/2018 [facility] B-Type 50 pg/mL <=[address] [place] [address] Peptide BNP [phone] Comp Metabolic 12/27/2018 [facility] Sodium 131 mmol/L Low 135 -[address] [place] [address] [phone] Potassium 3.7 mmol/L Normal 3.5-5.0 Chloride 99 [...] Egfr Non- 89.1 >60 Egfr 107.8 >60 23 Laboratory test 12/27/2018 [facility] Troponin-I (TnI) 0.00 ng/ mL <0.04 [address] [place] [address] [phone] TSH (Thyroid Stim Horm) 15.00 mcIU/mL High [...] 5.7 % High 4.0-5.6 Laboratory Studies 12/25/2018 [facility] Triglycerides Level 78 mg/dL Thyroid Stimulating [...] A1c 5.7 % High 4.0-5.6 Laboratory 12/25/2018 [facility] Thyroid 14.01 High 0.34-5.60 Studies Stimulating [...] 12/25/2018 [facility] Estimated GFR (Non- 94.1 [place] Estimated GFR () 113.9 Creatinine 0.62 mg/dL 0.51-0.95 Cholesterol Level 147 mg/dL Chloride Level 108 mmol/L 101-111 Carbon Dioxide Level 23 mmol/L 22-32 Calcium Level 8.6 mg/dL 8.6-10.3 Blood Urea Nitrogen 13 mg/dL 6-24 BUN/Creatinine Ratio 21.0 High 8-20 Anion Gap 7 mmol/L 2-11 Hemoglobin A1c 5.7 % High 4.0-5.6 Laboratory Studies 12/25/2018 [facility] Estimated GFR ( 113.9 [place]) Creatinine 0.62 mg/dL 0.51-0.95 Cholesterol Level 147 mg/dL Chloride Level 108 mmol/L 101-111 Carbon Dioxide Level 23 mmol/L 22-32 Calcium Level 8.6 mg/dL 8.6-10.3 Blood Urea Nitrogen 13 mg/dL 6-24 BUN/Creatinine Ratio 21.0 High 8-20 Anion Gap 7 mmol/L 2-11 Hemoglobin A1c 5.7 % High 4.0-5.6 Laboratory Studies 12/24/2018 [facility] Lymphocytes (%) (Auto) 18.0 % Hemoglobin 15.9 g/dL 12.0-16.0 Hematocrit 47 % 35-47 Eosinophils (%) (Auto) 4.6 % Basophils (%) (Auto) 1.4 % Absolute Neutrophils (auto) 7.2 10^3/ul 1.5-7.7 Absolute Monocytes (auto) 0.8 10^3/ul 0-0.8 Absolute Lymphocytes (auto) 1.9 10^3/ul 1.0-4.8 Absolute Eosinophils (auto) 0.5 10^3/ul 0-0.6 Absolute Basophils (auto) 0.1 10^3/ul 0-0.2 Laboratory Studies 12/24/2018 [facility] Eosinophils (%) (Auto) 4.6 % Basophils (%) (Auto) 1.4 % Absolute Neutrophils (auto) 7.2 10^3/ul 1.5-7.7 Absolute Monocytes (auto) 0.8 10^3/ul 0-0.8 Absolute Lymphocytes (auto) 1.9 10^3/ul 1.0-4.8 Absolute Eosinophils (auto) 0.5 10^3/ul 0-0.6 Absolute Basophils (auto) 0.1 10^3/ul 0-0.2 Laboratory Studies 12/24/2018 [facility] Basophils (%) (Auto) 1.4 % Absolute [...] (auto) 0.1 10^3/ul 0-0.2 Urinalysis Profile 12/24/2018 [facility] Urine Color Straw [address] [place] [address] [phone] Urine Appearance Clear Urine Specific [place] 1.019 Normal 1.010-1.030 Urine pH 7.0 Normal 5-9 Urine Urobilinogen Negative Negative Urine Ketones Negative Negative Urine Protein Negative Negative Urine Leukocytes Negative Negative Urine Blood Negative Negative Urine Nitrite Negative Negative Urine Bilirubin Negative Negative Urine Glucose Negative Negative Laboratory test 12/24/2018 [facility] Troponin-I 0.00 ng/mL < 0.04 [address] (TnI) [place] [address] [phone] Comp Metabolic 12/24/2018 [facility] Sodium 130 mmol/L Low 135 -[address] [place] [address] [phone] Potassium 3.9 mmol/L Normal 3.5-5.0 Chloride 100 [...] Egfr Non- 81.8 >60 Egfr 99.0 >60 26 Laboratory test 12/24/2018 [facility] Lactic 1.5 mmol/L Normal 0.5-2.0 [address] Acid [place], [place] [address] [phone] Inr/Protime 12/24/2018 [facility] Inr 3.01 High 0.82-1.[address] [place], [place] [address] [phone] CBC Auto Diff 12/24/2018 [facility] White 10.5 Normal 3.5- 10.[address] Blood 10^3/[place] [address] Count [phone] Red Blood Count 5.43 10^6/uL High 3.70-4.87 [...] N2N/CCD Import Urine Specific 1.019 1.010- 1.030 [place] Laboratory Studies 12/24/2018 [facility] Urine pH 7.0 5-9 Urine Specific [place] 1.019 1.010-1.030 Laboratory test 12/23/2018 [facility] TSH (Thyroid 14.83 High 0.34-5.[address] Stim Horm) mcIU/mL [place], [place] [address]73 [phone] Free T4 (Free Thyroxine) 1.21 ng/dL High 0.61-1.12 Comp Metabolic Panel 12/23/2018 [facility] Sodium 134 mmol/L Low 135-[address] [place] [address] [phone] Potassium 4.9 mmol/L Normal 3.5-5.0 Chloride 100 [...] Egfr Non- 65.4 >60 Egfr 79.1 >60 29 CBC Auto 12/23/2018 [facility] White Blood 9.7 10^3/uL Normal 3.5-10.[address] [place] [address] [phone] Red Blood Count 5.73 10^6/uL High 3.70-4.87 [...] Blood Cells % 0.1 Vitamin B12 12/23/2018 [facility] Vitamin B12 554 pg/mL Normal 180-914 [address] [place] [address] [phone] Folic Acid (Folate) 16.45 ng/mL >3.99 Lipid Profile 12/23/2018 [facility] Triglycerides 83 mg/dL 31 (Trig/Chol/HDL) [address] [place] [address] [phone] Cholesterol 190 mg/dL 32 HDL Cholesterol 52.1 mg/dL 33 LDL Cholesterol 121 mg/dL 34 Laboratory 12/23/2018 [facility] Homocysteine 17 mcmol/L Abnormal 35 test finding [address] [place] [address] [phone] Nuclear AB 12/23/2018 [facility] Nuclear Ab (Giovana) Positive Abnormal 36 (Giovana) By Ifa 101 by Ifa, IgG 1:160 [place] [address] [phone] Giovana Titer: 1:160 Giovana Pattern: Homogeneous 37 Inr/Protime 12/23/2018 [facility] Inr 2.55 High 0.82-1.09 38 [address] [place] [address] [phone] Urinalysis Profile 12/19/2018 [facility] Urine Color Straw [address] [place] [address] [phone] Urine Appearance Clear Urine Specific [place] 1.004 Low 1.010-1.030 Urine pH 8.0 Normal 5-9 Urine Urobilinogen Negative Negative Urine Ketones Negative Negative Urine Protein Negative Negative Urine Leukocytes Negative Negative Urine Blood Negative Negative * * Abnormal Negative 39 Urine Nitrite Negative Negative Urine Bilirubin Negative Negative Urine Glucose Negative Negative Laboratory test 12/19/2018 [facility] Troponin-I 0.00 <0.04 40 finding [address] [facility] (TnI) ng/[place] [address] [phone] CBC Auto Diff 12/19/2018 [facility] White Blood 12.6 High 3.5- 10.[address] Count 10^3/uL [place], [place] [address] [phone] Red Blood Count 5.69 10^6/uL High 3.70-4.87 [...] Red Blood Cells % 0.1 Inr/Protime 12/19/2018 [facility] Inr 2.25 High 0.82-1.[address] [place] [address] [phone] Laboratory test 12/19/2018 [facility] Lactic Acid 0.5 Normal 0.5-2.0 [address] mmol/[place] [address] [phone] Comp Metabolic 12/19/2018 [facility] Sodium 133 Low 135-[address] mmol/[place] [address] [phone] Potassium 4.1 mmol/L Normal 3.5-5.0 Chloride 98 [...] Egfr Non- 72.2 >60 Egfr 87.4 >60 43 CBC Auto 12/17/2018 [facility] White Blood 10.4 10^3/uL Normal 3.5-10.[address] [place] [address] [phone] Red Blood Count 5.54 10^6/uL High 3.70-4.87 [...] Red Blood Cells % 0.1 Inr/Protime 12/17/2018 [facility] Inr 2.52 High 0.82-1.[address] [place] [address] [phone] Urinalysis 12/04/2018 [facility] Urine Colorless Profile [address] [place] [address] [phone] Urine Appearance Clear Urine Specific [place] 1.002 Low 1.010-1.030 Urine pH 8.0 Normal 5-9 Urine Urobilinogen Negative Negative Urine Ketones Negative Negative Urine Protein Negative Negative Urine Leukocytes Negative Negative Urine Blood Negative Negative Urine Nitrite Negative Negative Urine Bilirubin Negative Negative Urine Glucose Negative Negative Inr/Protime 12/04/2018 [facility] Inr 2.05 High 0.82-1.[address] [place] [address] [phone] CBC Auto Diff 12/04/2018 [facility] White Blood 10.5 Normal 3.5-10.[address] Count 10^3/[place] [address] [phone] Red Blood Count 5.43 10^6/uL High 3.70-4.87 [...] Nucleated Red Blood Cells % 0.0 Inr/Protime 11/17/2018 [facility] Inr 2.32 High 0.82-1.[address] [place] [address] [phone] CBC Auto Diff 11/17/2018 [facility] White Blood 10.4 Normal 3.5-10.[address] Count 10^3/uL [place], [place] [address] [phone] Red Blood Count 5.25 10^6/uL High 3.70-4.87 [...] Nucleated Red Blood Cells % 0.1 Inr/Protime 10/21/2018 [facility] Inr 2.66 High 0.77-1.[address] [place] [address] [phone] CBC Auto Diff 10/21/2018 [facility] White Blood 9.9 Normal 3.5 -10.[address] Count 10^3/[place] [address] [phone] Red Blood Count 5.43 10^6/uL High 3.70-4.87 [...] Red Blood Cells % 0 Inr/Protime 09/16/2018 [facility] Inr 2.06 High 0.77-1.[address] [place] [address] [phone] CBC Auto Diff 09/16/2018 [facility] White Blood 9.7 Normal 3.5 -10.[address] Count 10^3/[place] [address] [phone] Red Blood Count 5.18 10^6/uL Normal 4.00-5.40 [...] % Nucleated Red Blood Cells % 0 1 Standard intensity warfarin therapeutic range: 2.0-3.0 [...] transcripts was evaluated using a qualitative, reverse chemical etching processor PCR-based assay. The assay detects nearly all published and theoretical BCR/ABL1 fusion forms. The detection sensitivity limit for this assay is 0.1%. Please contact the lab at [phone] with questions or if additional testing is required. See [facility] [employer] Mobile Test Catalog for additional method details. Signing Pathologist: Gregorio Mercado M.D. ADDITIONAL INFORMATION This test was developed and its performance characteristics determined by [facility] in a manner consistent with CLIA requirements. This test has not been cleared or approved by the U.S. Food and Drug Administration. Test Performed by: [address] [address] 4 Standard intensity warfarin therapeutic range: 2.0-3.0 High intensity warfarin therapeutic range: 2.5-3.5 5 Because ethnic data is not always readily [...] 15-29 5 Kidney failure <15 (or dialysis) 6 Total 25-Hydroxyvitamin D2 and D3 (25-OH-VitD) <10 ng/mL (severe deficiency) 10-19 ng/mL (mild to moderate deficiency) 20-50 ng/mL (optimum levels) 51-80 ng/mL (increased risk of hypercalciuria) >80 ng/mL (toxicity possible) 7 Standard intensity warfarin therapeutic range: 2.0-3.0 High intensity warfarin therapeutic range: 2.5-3.5 8 Standard intensity warfarin therapeutic range: 2.0-3.0 High intensity warfarin therapeutic range: 2.5-3.5 9 [id number] SEE RESULT BELOW Name: CYRUS PORTER : [address]: Angeline Delarosa MD Acct: [id number] Unit: [id number] AGE: 73 Location: [facility] Re02/10/19 SEX: F Status: REG REF SPEC: [id number] JASON: 02/10/19-[address]: Angeline Delarosa MD REQ: [id number] RECD: 02/10/19 STATUS: COMP _ SOURCE: URINE SPDESC: ORDERED: Urine Culture COMMENTS: [id number] QUERIES: Urine Source: Random Procedure Result Reported Site Urine Culture Final 02/11/19- 1604 ML No Growth (<1,000 CFU/mL) * ML - Main Lab . END OF REPORT DEPARTMENT OF PATHOLOGY, [address] [place] [address] Nhan Rockwell M.D. Director 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 JAK2 V617F mutated DNA was detected and measured at 7% of total JAK2 DNA. JAK2 V617F mutation is found with high frequency in Kaufman chromosome-negative myeloproliferative neoplasms (>95% in polycythemia vera [...] algorithm. See test catalogue for additional information: http://[email or web address].eBillme/test-catalog/Overview/59672. Note: Starting from 07/26/2015, the calculation and reporting value of [id number]/total JAK2% is changed to more accurately reflect the true [id number] allele burden. Higher values are generally expected and for levels below 80% (currently reported with new calculation), 1-5 fold increase from the prior calculation is expected. The testing method is not changed, however the limit of analytic sensitivity is changed to 0.06%. Please contact the [facility] at [phone] if you have questions or concerns. Method summary - JAK2 V617F analysis: Quantitative, allele-specific polymerase chain reaction (PCR) assay was performed using extracted genomic DNA to evaluate for the point mutation causing JAK2 V617F. The analytic sensitivity of this assay has been determined at 0.06% (see [facility] Interpretive Handbook for method details). Signing Pathologist: Gregorio Mercado M.D. ADDITIONAL INFORMATION This test was developed and its performance characteristics determined by [facility] in a manner consistent with CLIA requirements. This test has not been cleared or approved by the U.S. Food and Drug Administration. Test Performed by: [facility] - [address] [address] 16 Standard intensity warfarin therapeutic range: 2.0-3.0 High intensity warfarin therapeutic range: 2.5-3.5 17 Therapeutic target for the treatment of diabetes mellitus patients is <7% HBA1C, and in selective patients <6.0%. Please refer to [place] [employer] diabetic care guidelines for further information. 18 Desirable: <150 Borderline High: 150-199 High: 200-499 Very High: >500 19 Desirable: <200 Borderline High: 200-239 High: >239 20 Low: <40 Desirable: 40-60 High: >60 21 Desirable: <100 Near Optimal: 100-129 Borderline High: 130-159 High: 160-189 Very High: >189 22 Standard intensity warfarin therapeutic range: 2.0-3.0 High intensity warfarin therapeutic range: 2.5-3.5 23 Because ethnic data is not always readily [...] 15-29 5 Kidney failure <15 (or dialysis) 24 Troponin-I testing on Plasma Separator Tubes (PST) has a known false positive rate of 0.20-0.40%. All positive troponins reflex immediately to secondary confirmatory testing. Using the [employer] DxI 800 Access Immunoassay systems, the 99th percentile upper reference limit was demonstrated to be < 0.03 ng/mL. 25 Troponin-I testing on Plasma Separator Tubes (PST) has a known false positive rate of 0.20-0.40%. All positive troponins reflex immediately to secondary confirmatory testing. Using the [employer] DxI 800 Access Immunoassay systems, the 99th percentile upper reference limit was demonstrated to be < 0.03 ng/mL. 26 Because ethnic data is not always readily [...] 15-29 5 Kidney failure <15 (or dialysis) 27 [facility] Severe Sepsis and Septic Shock Management Bundle Measure requires all lactic acids initially measuring >2.0 mmol/L be repeated. 28 Standard intensity warfarin therapeutic range: 2.0-3.0 High intensity warfarin therapeutic range: 2.5-3.5 29 Because ethnic data is not always readily [...] 15-29 5 Kidney failure <15 (or dialysis) 30 Normal Range 180 to 914 Indeterminate Range 145 to 180 Deficient Range <145 31 Desirable: <150 Borderline High: 150-199 High: 200-499 Very High: >500 32 Desirable: <200 Borderline High: 200-239 High: >239 33 Low: <40 Desirable: 40-60 High: >60 34 Desirable: <100 Near Optimal: 100-129 Borderline High: 130-159 High: 160-189 Very High: >189 35 The homocysteine concentration is elevated in this [...] developed and its performance characteristics determined by [facility] in a manner consistent with CLIA requirements. This test has not been cleared or approved by the U.S. Food and Drug Administration. Test Performed by: [facility] - [facility] [address] [place] [address] 36 REFERENCE VALUE <1:80 (Negative) 37 Test Performed by: [facility] - [facility] [address] [place] [address] 38 Standard intensity warfarin therapeutic range: 2.0-3.0 High intensity warfarin therapeutic range: 2.5-3.5 39 *Ascorbic acid is present which may interfere with detection of blood. 40 Troponin-I testing on Plasma Separator Tubes (PST) has a known false positive rate of 0.20-0.40%. All positive troponins reflex immediately to secondary confirmatory testing. Using the [employer] DxI 800 Access Immunoassay systems, the 99th percentile upper reference limit was demonstrated to be < 0.03 ng/mL. 41 Standard intensity warfarin therapeutic range: 2.0-3.0 High intensity warfarin therapeutic range: 2.5-3.5 42 [facility] Severe Sepsis and Septic Shock Management Bundle Measure requires all lactic acids initially measuring >2.0 mmol/L be repeated. 43 Because ethnic data is not always readily [...] 15-29 5 Kidney failure <15 (or dialysis) 44 Standard intensity warfarin therapeutic range: 2.0-3.0 High intensity warfarin therapeutic range: 2.5-3.5 45 Standard intensity warfarin therapeutic range: 2.0-3.0 High intensity warfarin therapeutic range: 2.5-3.5 46 Standard intensity warfarin therapeutic range: 2.0-3.0 High intensity warfarin therapeutic range: 2.5-3.5 Procedures Date Code Description Status 01/29/2019 49684 EKG Tracing & Interpretation Completed 01/27/2019 [id number] Mammogram Completed 12/25/2018 07365 ECHO Transthorasic Realtime 2D W Doppler & Color Flow Completed Hosp 12/03/2018 01330 ECG Monitor/Recording W/Visual Superimposition Completed Scanning 11/28/2018 96861 EKG Tracing & Interpretation Completed 02/04/2018 [id number] Bone Mineral Density Test Completed 11/11/2017 [id number] Mammogram Completed 10/31/2016 [id number] Mammogram Completed 10/31/2015 [id number] Bone Mineral Density Test Completed 10/31/2015 [id number] Mammogram Completed 08/11/2015 [id number] Colonoscopy Completed 10/21/2014 [id number] Mammogram Completed 04/13/2014 [id number] Mammogram Completed 09/30/2013 [id number] Mammogram Completed 08/25/2013 [id number] Mammogram Completed 11/28/2012 [id number] Bone Mineral Density Test Completed 06/13/2012 [id number] Mammogram Completed 11/28/2010 [id number] Bone Mineral Density Test Completed Medical Devices Description No Information Available Encounters Type Date Location Provider Dx Diagnosis Office Visit 02/05/2019 [facility] Wellington Edge MD 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 (TIA), and cereb infrc w/o resid deficits I10 Essential (primary) hypertension I48.0 Paroxysmal atrial fibrillation E78.5 Hyperlipidemia, unspecified Office Visit 01/01/2019 1:00p [facility] Gideon Real, Z86.73 Prsnl hx of Services Of [facility] M.D. TIA (TIA), and cereb infrc w/o resid deficits I48.0 Paroxysmal atrial fibrillation I10 Essential (primary) hypertension E03.9 Hypothyroidism, unspecified Z79.01 nursing home (current) use of anticoagulants Office Visit 12/31/2018 9:50a [facility] Internal Alexia I63.9 Cerebral Medicine - Maggie Conroy M.D. 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 Office Visit 12/26/2018 10:38a [facility] Raúl I63.9 Cerebral Assoc,NEMESIO Wilkes infarction, Hospitalists unspecified E03.9 Hypothyroidism, unspecified I10 Essential (primary) hypertension Z85.3 Personal history of malignant neoplasm of breast I48.91 Unspecified atrial fibrillation Office Visit 12/25/2018 Neurohospitalist Bel Canseco 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 limb Office Visit 12/09/2018 [facility] Internal Eddie Gary NP I10 Essential 10:40a Medicine - Ccmob (primary) hypertension S16.1xxA Strain of muscle, fascia and tendon at neck level, init R20.2 Paresthesia of skin M25.549 Pain in joints of unspecified hand Office Visit 11/28/2018 5:00p [facility] Internal Angeline Delarosa R55 Syncope and Medicine - Ccmob M.Naomy collapse Assessments Date Code Description Provider 03/09/2019 R19.7 Diarrhea, unspecified Eddie Gary NP 02/10/2019 Z00.00 Encounter for general adult Angeline [...] Essential (primary) hypertension NEMESIO Cavazos 12/26/2018 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 Bel Canseco MD anticoagulants 12/26/2018 Z85.3 Personal history of malignant NEMESIO Cavazos neoplasm of breast 12/26/2018 I48.91 Unspecified atrial fibrillation NEMESIO Cavazos 12/25/2018 I63.40 Cerebral infarction due to Bel Canseco MD embolism of unspecified cerebral artery 12/25/2018 I63.9 Cerebral infarction, unspecified Fitz Sevilla M.D., [facility] 12/25/2018 I10 Essential (primary) hypertension Bel Canseco MD 12/25/2018 I63.9 Cerebral infarction, unspecified David Esau Thorne M.D., [facility] 12/25/2018 I48.91 Unspecified atrial fibrillation Bel Canseco MD 12/25/2018 I10 Essential (primary) hypertension Fitz Sevilla M.D.,[facility] 12/25/2018 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 12/24/2018 I16.0 Hypertensive urgency Bel Canseco MD 12/24/2018 I10 Essential (primary) hypertension Sol Carrero M.D. 12/24/2018 I48.91 Unspecified atrial fibrillation Bel Canseco MD 12/24/2018 I48.91 Unspecified atrial fibrillation Sol Carrero M.D. 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 at [facility] Internal Medicine - [facility]08/13/2019 1:00 pm - Angeline Delarosa M.D. at [facility] Internal Medicine - [facility]04/03/2019 2:00 pm - Francisco Benitez N.P. at [place] [facility]03/09/2019 - Eddie Gary, NPR19.7 Diarrhea, unspecifiedNew Labs:C Difficile PCR, Ordered: 03/09/19Stool Culture, Ordered: O&P Ova & Parasites Screen, Ordered: 03/09/19Comments:I have ordered some stool test based on the duration of your symptoms. I recommend trying the probiotic again, with lunch or dinner.Consider adding a fiber supplement, not only for the diarrhea but also for the history of diverticulitis. Metamucil or Citrucel are good options. Make sure you drink plenty of fluids to stay hydrated. Functional Status Description No Information Available Mental Status Description No Information Available Referrals Refer to Dr Reason for Referral Status Appt Date Luis Lowe MD Scheduled 02/25/2019 [address] [place] [address] [phone] Brenda Aguila MD ECHO Closed [address] [place], [place] [id number] [phone] Celia Babcock M.D. Scheduled 12/26/2018 [address] [place], [place] [id number] [phone]
[2019-04-11 08:54] VITALS: BP 138/86
--- NOTE | 2019-04-11 09:26 | UC ---
Complaint Female HPI - HPI Summary HPI Summary: Patient is a 74-year-old female, history of atrial fibrillation, ITP intermission, here with urinary symptoms. Patient had a UTI on 03/23/19 and was treated with Macrobid for 5 days. Patient's symptoms went away until last night. Patient developed urinary frequency and urgency. Patient's had no fever , nausea, vomiting, flank pain, abdominal pain, vaginal bleeding, vaginal discharge. Medications reviewed - History Of Current Complaint Chief Complaint: UCGU Stated Complaint: URINARY Time Seen by Provider: 04/11/19 08:59 Hx Obtained From: Patient Pain Intensity: 5 - Allergies/Home Medications Allergies/Adverse Reactions: Allergies Allergy/AdvReac Type Severity Reaction Status Date / Time Sulfa (Sulfonamide Allergy Intermediate Difficulty Verified 04/11/19 08:55 Antibiotics) Breathing lidocaine Allergy Mild See Comment Verified 04/11/19 08:55 aspirin Allergy Unknown Verified 04/11/19 08:55 Reaction Details cephalexin [From Keflex] Allergy Rash Verified 04/11/19 08:55 Penicillins Allergy Rash Verified 04/11/19 08:55 tetracycline Allergy Rash Verified 04/11/19 08:55 ibuprofen AdvReac upset Verified 04/11/19 08:55 stomach,nausea PMH/Surg Hx/FS Hx/Imm Hx Previously Healthy: No Cardiovascular History: Atrial Fibrillation Other History Of: Anticoagulant Therapy - COUMADIN for a. fib - Surgical History Surgical History: Yes Surgery Procedure, Year, and Place: LEFT LUMPECTOMY 2007. D&C - Family History Known Family History: Positive: Non-Contributory Negative: Cardiac Disease, Hypertension, Diabetes, Renal Disease - Social History Alcohol Use: None Substance Use Type: None Smoking Status (MU): Never Smoked Tobacco Have You Smoked in the Last Year: No - Immunization History Most Recent Influenza Vaccination: fall 2012 Most Recent Tetanus Shot: UNSURE Most Recent Pneumonia Vaccination: 2011 Review of Systems All Other Systems Reviewed And Are Negative: Yes Constitutional: Negative: Fever ENT: Negative: Sore Throat, Nasal Discharge, Sinus Congestion Respiratory: Negative: Cough Cardiovascular: Negative: Chest Pain Gastrointestinal: Negative: Abdominal Pain, Vomiting, Diarrhea Genitourinary: Positive: Frequency, Urgency. Negative: Dysuria, Hematuria Physical Exam - Summary Physical Exam Summary: Vital Signs Reviewed: Yes A+Ox3, no distress Eyes: Conjunctiva Clear, PERRL. EOM intact and full ENT: Hearing grossly normal TM x 2 clear, moist, uvula midline, no exudate, no erythema Neck: Positive: Supple Respiratory: Positive: No respiratory distress, No accessory muscle use + CTA throughout no w/r Cardiovascular: RRR nl s1, s2 no m/r CBT <2 sec abd soft + BS nt/nd no guarding, no distension. No CVA tenderness Musculoskeletal Exam: PRATT x 4 without difficulty Strength Intact, ROM Intact Neurological: Positive: Alert, + sensation throughout Psychological: Positive: Normal Response To Family Skin: no rash, no ecchymosis Vital Signs: Initial Vital Signs Temp 98 F 04/11/19 08:51 Pulse 75 04/11/19 08:51 Resp 15 04/11/19 08:51 BP 138/86 04/11/19 08:51 Pulse Ox 100 04/11/19 08:51 Complaint Female Dx - Course Course Of Treatment: Patient is here with symptoms consistent with cystitis. Patient has a benign exam and is overall well-appearing. Patient does not have pyelonephritis clinically. Patient has a UA which shows probable urine infection. Patient's urine was sent for culture. Patient was started on Macrobid. Patient was instructed to follow-up with Dr. Delarosa's office to make sure she cleared her infection. - Differential Dx/Diagnosis Provider Diagnosis: Cystitis Discharge ED - Sign-Out/Discharge Documenting (check all that apply): Patient Departure All imaging exams completed and their final reports reviewed: No Studies - Discharge Plan Condition: Stable Disposition: HOME Prescriptions: Nitrofurantoin Macrocrystals* [Macrodantin 100 mg*] 100 mg PO BID 5 Days #10 cap Patient Education Materials: Urinary Tract Infection in Women (ED) Referrals: Angeline Delarosa MD [Primary Care Provider] - Additional Instructions: Please follow up in Dr. Delarosa's office in 1 week to make sure you clear your urine infection Please take your medications as prescribed Please go to the emergency department if you have worsening fever, abdominal pain, vomiting, pain on your back or sides - Billing Disposition and Condition Condition: STABLE Disposition: Home
--- NOTE | 2019-04-13 09:40 | UC ---
- Progress Note Progress Note: Ms. Hooper's final urine culture was negative for any growth of any clinically significant organisms. I recommended contacting the patient to stop her antibiotics and follow up with PCP for hematuria and dysuria. Course/Dx - Diagnoses Provider Diagnoses: Cystitis Discharge ED - Sign-Out/Discharge Documenting (check all that apply): Patient Departure All imaging exams completed and their final reports reviewed: No Studies - Discharge Plan Condition: Stable Disposition: HOME Prescriptions: Nitrofurantoin Macrocrystals* [Macrodantin 100 mg*] 100 mg PO BID 5 Days #10 cap Patient Education Materials: Urinary Tract Infection in Women (ED) Referrals: Angeline Delarosa MD [Primary Care Provider] - Additional Instructions: Please follow up in Dr. Delarosa's office in 1 week to make sure you clear your urine infection Please take your medications as prescribed Please go to the emergency department if you have worsening fever, abdominal pain, vomiting, pain on your back or sides - Billing Disposition and Condition Condition: STABLE Disposition: Home
== END 2019-04-11 09:28 | disposition home or self-care (01) ==
LOC: UCEAST 08:42
DX: N30.00 Acute cystitis without hematuria (principal); I48.91 Unspecified atrial fibrillation; Z79.01 Long term (current) use of anticoagulants; Z88.6 Allergy status to analgesic agent; Z88.4 Allergy status to anesthetic agent; Z88.1 Allergy status to other antibiotic agents; Z88.0 Allergy status to penicillin; Z88.2 Allergy status to sulfonamides
CPT/HCPCS: 81003; 87086; 99212; G0463

== ENCOUNTER 2019-04-23 13:36 | Emergency (ER) | payer MEDICARE, BC ==
--- NOTE | 2019-04-23 13:48 | UC ---
Headache HPI - HPI Summary HPI Summary: 74 yo female presents with headache. She tells me that for the past 10 days she has had a headache the varies in location from her frontal head to parietal, to occipital. Described as a dull ache. Has been taking tylenol with no relief. She saw her hematology provider 2 days ago for this and tells me that she was given a medication that was "contraindicated" for her and, thus, did not take this. She has a hx of CVA, a fib, and polycythemia vera. About 1 week ago she switched from warfarin to eliquis, but her headache was present before this switch. On 03/23 she had UTI symptoms and had a positive UA and urine culture and was treated with macrobid, she states her symptoms resolved, but returned a few days later. She returned to on 04/11 and was prescribed more macrobid, but urine culture was negative this time. She completed the macrobid and her urinary symptoms resolved. Today she tells me that she is noticing she is getting up in the middle of the night to urinate more the last 2-3 weeks than usual, but has no pain. She denies fever, chills, weakness, numbness/tingling, change of smell or taste , neck pain, cold symptoms, cough, SOB, chest pain, abdominal pain, n/v/d/c, dysuria. She does not recall any tick bites recently and does not live in a wooded environment. No recent head trauma or falls. She is eating and drinking well. - History Of Current Complaint Stated Complaint: HEADACHE Time Seen by Provider: 04/23/19 13:47 Hx Obtained From: Patient Onset/Duration: Sudden Onset Pain Intensity: 6 Pain Scale Used: 0-10 Numeric - Allergies/Home Medications Allergies/Adverse Reactions: Allergies Allergy/AdvReac Type Severity Reaction Status Date / Time Sulfa (Sulfonamide Allergy Intermediate Difficulty Verified 04/23/19 13:51 Antibiotics) Breathing lidocaine Allergy Mild See Comment Verified 04/23/19 13:51 aspirin Allergy Unknown Verified 04/23/19 13:51 Reaction Details cephalexin [From Keflex] Allergy Rash Verified 04/23/19 13:51 Penicillins Allergy Rash Verified 04/23/19 13:51 tetracycline Allergy Rash Verified 04/23/19 13:51 ibuprofen AdvReac upset Verified 04/23/19 13:51 stomach,nausea Home Medications: Home Medications Apixaban* [Eliquis*] 1 tab PO BID 04/23/19 [History Confirmed 04/23/19] PMH/Surg Hx/FS Hx/Imm Hx - Additional Past Medical History Additional PMH: polycythemia vera Endocrine History: Dyslipidemia Cardiovascular History: Hypertension Neurological History: CVA Other History Of: Anticoagulant Therapy - COUMADIN for a. fib - Surgical History Surgical History: Yes Surgery Procedure, Year, and Place: LEFT LUMPECTOMY 2007. D&C - Family History Known Family History: Positive: Non-Contributory Negative: Cardiac Disease, Hypertension, Diabetes, Renal Disease - Social History Occupation: Retired Lives: Alone Alcohol Use: None Substance Use Type: None Smoking Status (MU): Never Smoked Tobacco Have You Smoked in the Last Year: No - Immunization History Most Recent Influenza Vaccination: fall 2012 Most Recent Tetanus Shot: UNSURE Most Recent Pneumonia Vaccination: 2011 Review of Systems All Other Systems Reviewed And Are Negative: No Constitutional: Positive: Negative Skin: Positive: Negative Eyes: Positive: Negative ENT: Positive: Negative Respiratory: Positive: Negative Cardiovascular: Positive: Negative Gastrointestinal: Positive: Negative Genitourinary: Positive: Negative Motor: Positive: Negative Neurovascular: Positive: Negative Musculoskeletal: Positive: Negative Neurological: Positive: Headache Psychological: Positive: Negative Physical Exam - Summary Physical Exam Summary: GENERAL: NAD. WDWN. No pain distress. SKIN: No rashes, sores, ulcers, masses, lesions. HEENT: Head: AT/NC. No raccoon eyes or battles sign. Eyes: PERRLA. EOM intact. Conjunctiva clear without inflammation or discharge. Ears: Hearing grossly normal. TMs intact, no bulging, erythema, or edema. No hemotympanum Nose: Nasal mucosa pink and moist. NTTP maxillary and frontal sinus. Throat: Posterior oropharynx without exudates, erythema, or tonsillar enlargement. Uvula midline. NECK: Supple. Nontender. FROM CHEST: CTAB. No r/r/w. No accessory muscle use. Breathing comfortably and in no distress. CV: RRR. Pulses intact. Brisk cap refill. ABDOMEN: Soft. NTTP. Bowel sounds present MSK: FROM in B/L UEs and LEs with symmetric strength. NEURO: A&Ox3. 3 word recall, remote, recent memory, ability to follow 2-step directions, and attention intact. CN: II: Peripheral wadsworth intact. Vision normal. III, IV, : EOMI. No nystagmus. PERRLA. V: Sensations intact and symmetric. Opens mouth and clenches teeth. VII: No facial asymmetry. Forehead wrinkles. Grins, shuts eyes, frowns, puffs cheeks. VIII: Hearing intact to finger rub. IX, X: Swallows and coughs. Uvula midline. XI: Shrugs shoulders. Turns head against resistance. XII: No tongue deviation Uynzxf-im-qtsa are intact. Gait with normal base. Romberg: maintains balance, no pronator drift. Normal speech. No facial drooping. PSYCH: Age appropriate behavior. Triage Information Reviewed: Yes Vital Signs: Vital Signs: Temp Pulse Resp BP Pulse Ox 98.1 F 76 18 138/76 99 04/23/19 13:55 04/23/19 13:55 04/23/19 13:55 04/23/19 13:55 04/23/19 13:55 Laboratory Tests 04/23/19 14:46 POC Urine Color Yellow POC Urine Clarity Clear POC Urine pH 7.0 POC Ur Specif Luana 1.010 POC Urine Protein Negative POC Ur Glucose (UA) Negative POC Urine Ketones Negative POC Urine Blood Negative POC Urine Nitrite Negative POC Urine Bilirubin Negative POC Urine Urobilinogen 0.2 POC U Leukocyte Esteras Negative Vital Signs Reviewed: Yes Diagnostics - Radiology Brain CT Radiology Interpretation Completed By: Radiologist Summary of Radiographic Findings: IMPRESSION: No intracranial mass or hemorrhage is noted. Chronic ischemic White matter change is noted. Overall no changes noted since previous exam of December 19, 2018. - EKG Cardiac Rate: NL Cardiac Rhythm: Sinus: Normal EKG Comparison: Other Summary of EKG Findings: NSR 64bpm old anterior infarct. No STEMI as read by Dr. Anthony Headache Course/Dx - Course Course Of Treatment: CT and EKG as above. UA negative. Orthostatics - laying 150/90 sitting 130/80 standing 135/80 POC glucose 83. Her exam is WNL without focal neuro defect. Discussed case with Dr. Real of Neurology and he recommends a trail of Fioricet q8h prn headache and f/u in their office early next week. If symptoms worsen or if she develops new symptoms to go to the ED. Will draw for CBC, CMP, TSH, and lyme today. Discussed with pt and she is agreeable to the plan. - Differential Dx/Diagnosis Provider Diagnosis: Headache - Physician Notifications Discussed Patient Care With: John Real - Discussed case with Neurology. Recommends trying Fioricet 1 q8hr prn headache and f/u in their office next week. If symptoms worsen to go to ED Discharge ED - Sign-Out/Discharge Documenting (check all that apply): Patient Departure All imaging exams completed and their final reports reviewed: Yes - Discharge Plan Condition: Stable Disposition: HOME Prescriptions: Butalb/Acetamin/Caff TAB* [Fioricet TAB*] 1 tab PO Q8H PRN #9 tab MDD 3 PRN Reason: Headache Patient Education Materials: General Headache (ED) Referrals: Angeline Delarosa MD [Primary Care Provider] - Additional Instructions: If you develop a fever, shortness of breath, chest pain, new or worsening symptoms - please call your PCP or go to the ED immediately. 1) Please call your neurologist to schedule an appointment for early next week for a recheck of your headache 2) If your headache worsens - please go to the ER - Billing Disposition and Condition Condition: STABLE Disposition: Home
[2019-04-23 14:55] VITALS: BP 135/80
[2019-04-23 21:21] LABS: ABS Basophils 0.1 10^3/ul (0-0.2); ABS Eosinophils 0.5 10^3/ul (0-0.6); ABS Lymphocytes 1.8 10^3/ul (1.0-4.8); ABS Monocytes 0.6 10^3/ul (0-0.8); ABS Neutrophils 7.6 10^3/ul (1.5-7.7); Eosinophil % 4.5 %; Hematocrit 49 % (35-47); Hemoglobin 16.4 g/dL (12.0-16.0); Lymphocyte % 16.8 %; Mean Corpuscular HGB Conc 34 g/dL (31-36); Mean Corpuscular Hemoglobin 30 pg (27-31); Mean Corpuscular Volume 89 fL (80-97); Mean Platelet Volume 9.6 fL (7.4-10.4); Nucleated Red Blood Cells % 0.1; Platelet Count 449 10^3/uL (150-450); Red Blood Count 5.47 10^6 /uL (3.70-4.87); Red Cell Distribution Width 15 % (10-15); White Blood Count 10.5 10^3/uL (3.5-10.8)
[2019-04-23 21:31] LABS: Albumin 4.3 g/dL (3.2-5.2); Calcium 9.4 mg/dL (8.6-10.3); Total Bilirubin 0.9 mg/dL (0.2-1.0)
[2019-04-23 21:37] LABS: Albumin/Globulin Ratio 1.7 (1-3); BUN/Creatinine Ratio 16.9 (8-20); EGFR African American 97.1 (>60); EGFR Non-African American 80.3 (>60); Globulin 2.5 g/dL (2-4); Total Protein 6.8 g/dL (6.4-8.9)
[2019-04-23 21:45] LABS: TSH (Thyroid Stimulating Horm) 1.01 mcIU/mL (0.34-5.60)
--- NOTE | 2019-04-24 07:31 | UC ---
- Progress Note Progress Note: PLS CALL PT. HGB/HCT ARE ELEVATED BUT THIS IS C/W HER DIAGNOSIS OF POLYCYTHEMIA VERA. 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 NOTE THAT ELEVATED RBCs CAN CONTRIBUTE TO HEADACHE. SODIUM SLIGHTLY LOW. F/U PCP. Course/Dx - Diagnoses Provider Diagnoses: Headache Discharge ED - Sign-Out/Discharge Documenting (check all that apply): Post-Discharge Follow Up All imaging exams completed and their final reports reviewed: Yes - Discharge Plan Condition: Stable Disposition: HOME Prescriptions: Butalb/Acetamin/Caff TAB* [Fioricet TAB*] 1 tab PO Q8H PRN #9 tab MDD 3 PRN Reason: Headache Patient Education Materials: General Headache (ED) Referrals: Angeline Delarosa MD [Primary Care Provider] - Additional Instructions: If you develop a fever, shortness of breath, chest pain, new or worsening symptoms - please call your PCP or go to the ED immediately. 1) Please call your neurologist to schedule an appointment for early next week for a recheck of your headache 2) If your headache worsens - please go to the ER - Billing Disposition and Condition Condition: STABLE Disposition: Home
--- NOTE | 2019-04-24 17:38 | UC ---
- Progress Note Progress Note: neg Lyme no change rodneyj Course/Dx - Diagnoses Provider Diagnoses: Headache Discharge ED - Sign-Out/Discharge Documenting (check all that apply): Post-Discharge Follow Up All imaging exams completed and their final reports reviewed: Yes - Discharge Plan Condition: Stable Disposition: HOME Prescriptions: Butalb/Acetamin/Caff TAB* [Fioricet TAB*] 1 tab PO Q8H PRN #9 tab MDD 3 PRN Reason: Headache Patient Education Materials: General Headache (ED) Referrals: Angeline Delarosa MD [Primary Care Provider] - Additional Instructions: If you develop a fever, shortness of breath, chest pain, new or worsening symptoms - please call your PCP or go to the ED immediately. 1) Please call your neurologist to schedule an appointment for early next week for a recheck of your headache 2) If your headache worsens - please go to the ER - Billing Disposition and Condition Condition: STABLE Disposition: Home
== END 2019-04-23 15:54 | disposition home or self-care (01) ==
LOC: UCEAST 13:36
DX: R51 Headache (principal); I48.91 Unspecified atrial fibrillation; I10 Essential (primary) hypertension; D45 Polycythemia vera; G93.89 Other specified disorders of brain; Z88.2 Allergy status to sulfonamides; Z88.4 Allergy status to anesthetic agent; Z88.8 Allergy status to other drugs, medicaments and biological substances; Z88.1 Allergy status to other antibiotic agents; Z88.0 Allergy status to penicillin; Z79.01 Long term (current) use of anticoagulants; Z86.73 Personal history of transient ischemic attack (TIA), and cerebral infarction without residual deficits
CPT/HCPCS: 36415; 70450; 80053; 81003; 84443; 85025; 86618; 93005; 99212; G0463

== ENCOUNTER 2019-07-05 18:16 | Emergency (ER) | payer MEDICARE, BC ==
--- OUTSIDE RECORDS SUMMARY | 2019-07-05 18:33 | XMS REPORT | Continuity of Care Document ---
:1945 External Reference #:[id number] Author Name Wellington Edge MD (transmitted by agent of provider Silvina Sewell) Address [address] [place] [id number] Care Team Providers Name Role Phone Yamile Cabezas MD - Internal Medicine Care Team Information Color Receiver Genesis Wilks MD - Hematology & Care Team Information Color Receiver [phone] Oncology Amador Samuels MD - Gastroenterology Care Team Information Color Receiver Nyla Levy MD - Surgery Care Team Information Color Receiver [phone] Jesus Cunningham MD - Orthopaedic Care Team Information Color Receiver [phone] Surgery Angeline Delarosa MD - Internal Care Team Information Color Receiver [phone] Medicine Genesis Wilks M.D. - Hematology & Care Team Information Color Receiver Oncology Luis Lowe MD - Orthopaedic Care Team Information Color Receiver Surgery Problems Active Problems Provider Date Benign [...] Unknown Never Smoked Cigarettes Smoking Status Reviewed: 05/27/19 Never Smoked Cigarettes ETOH Use Denies alcohol use Tobacco Use Start: Unknown Patient has never smoked Recreational Drug Use Denies Drug Use Exercise Type/Frequency Exercises sporadically Allergies, Adverse Reactions, Alerts Active Allergies Reaction Severity Comments Date Penicillins Severe Hives 01/02/2012 Keflex rash Moderate 01/02/2012 Sulfa Anaphylaxis Severe 01/02/2012 Tetracycline 07/22/2013 Fosamax [place] weak and strange 07/11/2014 Doxycycline Nausea and Vomiting, States she will Severe 11/19/2014 NEVER take agn Medications Active Medications SIG Qnty Indications Ordering Date Provider Zoledronic Acid 5mg once yearly. 100ml M81.0 Wellington Edge MD 05/27/2019 infuse over at 5mg/100ML Solution least 15 minutes. flush iv line with 10 milliliters ns flush following infusion. Atorvastatin Calcium once a day 90tabs Angeline 01/21/2019 Bharati Delarosa 10mg Tablets Carvedilol 1 tab by mouth 180tabs Angeline 12/31/2018 25mg twice a day Bharati Delarosa Tablets Losartan Potassium take 1 tablet by 90tabs Angeline 12/19/2018 mouth every day Bharati Delarosa 50mg Tablets Levothyroxine Sodium take 1 tablet 60tabs Z86.73 Alexia Conroy, 2011 daily M.DShawn 88mcg Tablets Vitamin D3 1 by mouth bid Unknown 1000Unit Capsules Vitamin C Plus 1 by mouth in Unknown 1000mg morning and 500mg Tablets in the evening Acetaminophen 2 tablets by mouth Unknown 325mg every 6 hours as Tablets needed for pain/fever Lutein 1 tab once a day Unknown 20mg Capsules Eliquis Take 1 Tablet By Unknown 5mg Tablets Mouth Two Times Daily Butalbital/Acetamino Take 1 Tablet By Unknown phen/Caffeine Mouth Every 8 Hours as Needed 50-325-40mg Tablets For Headache - Maximum Daily Dose Of 3 Per Day Hydrea 1 capsule every Unknown 500mg Capsules other day History Medications Nitrofurantoin Monohyd 1 by mouth twice 14caps R35.0 Eddie Gary NP 2018 - Macro a day 03/30/2019 100mg Capsules Coumadin 1 tablet on Sat 30ta Alexia Conroy 12/31/2018 - 5mg Tablets and Fri , 4mg M.D. 04/16/2019 dasia reynolds, sun as directed ( Med change 2 weeks ago 01/16/19) Mu Delarosa 11/28/2018 - Tablets M.D. 01/28/2019 Medications Administered in Office Medication SIG Qnty Indications Ordering Provider Date [facility] pharmacy administered Unknown 05/25/2019 Injection [facility] pharmacy administered Unknown 12/02/2018 Injection Immunizations CPT Code Status Date Vaccine Lot # [id number] Given 03/31/2015 Fluzone High Dose Vital Signs Date Vital Result Comment 05/27/2019 1:01pm Height 61.5 inches 5'1.50" Weight 142.00 lb w/ shoes Heart Rate 77 /min BP Systolic Sitting 147 mmHg BP Diastolic Sitting 88 mmHg BMI (Body Mass Index) 26.4 kg/m2 04/30/2019 9:06am Height 61.5 inches 5'1.50" Weight 140.00 lb Heart Rate 61 /min BP Systolic 136 mmHg BP Diastolic 82 mmHg BMI (Body Mass Index) 26.0 kg/m2 Results Test Acquired Date Facility Test Result H/L Range Note Liver Function 05/22/2019 [facility] Total Protein 7.0 g/dL Normal 6.4-8.9 Panel [address] [place] [address] [phone] Albumin 4.2 g/dL Normal 3.2-5.2 Globulin 2.8 g/dL Normal 2-4 Albumin/Globulin Ratio 1.5 Normal 1-3 Total Bilirubin 0.70 mg/dL Normal 0.2-1.0 Direct Bilirubin 0.10 mg/dL Normal 0.03-0.18 Indirect Bilirubin 0.6 mg/dL Normal 0.3-1.0 Alkaline Phosphatase 62 U/L Normal 34-104 Alt 14 U/L Normal 7-52 Ast 24 U/L Normal 13-39 CBC Auto 05/19/2019 [facility] White Blood 9.7 10^3/uL Normal 3.5-10.[address] [place] [address] [phone] Red Blood Count 5.06 10^6/uL High 3.70-4.87 Hemoglobin 15.1 g/dL Normal 12.0-16.0 Hematocrit 45 % Normal 35-47 Mean Corpuscular Volume 90 fL Normal 80-97 Mean Corpuscular Hemoglobin 30 pg Normal 27-31 Mean Corpuscular HGB Conc 33 g/dL Normal 31-36 Red Cell Distribution Width 15 % Normal 10-15 Platelet Count 476 10^3/uL High 150-450 Mean Platelet Volume 8.5 fL Normal 7.4-10.4 Abs Neutrophils 6.6 10^3/uL Normal 1.5-7.7 Abs Lymphocytes 1.9 10^3/uL Normal 1.0-4.8 Abs Monocytes 0.6 10^3/uL Normal 0-0.8 Abs Eosinophils 0.5 10^3/uL Normal 0-0.6 Abs Basophils 0.1 10^3/uL Normal 0-0.2 Abs Nucleated RBC 0.0 10^3/uL Granulocyte % 68.2 % Lymphocyte % 19.2 % Monocyte % 6.5 % Eosinophil % 4.7 % Basophil % 1.4 % Nucleated Red Blood Cells % 0.2 Tick-Borne Panel 04/27/2019 [facility] Babesia Negative Negative PCR Blood [address] [place] [address] [phone] Babesia ducani Negative Negative Babesia divergens/Mo-1 Negative Negative 1 Anaplasma phagocytophilum Negative Negative Ehrlichia chaffeensis Negative Negative Ehrlichia ewingii/canis Negative Negative Ehrlichia muris eauclairensis Negative Negative 2 B. miyamotoi PCR, B Negative Negative 3 Laboratory test 04/27/2019 [facility] C Reactive 2.47 mg/L Normal <8.[address] [place] [address] [phone] Erythrocyte Sed Rate 0 mm/Hr Normal 0-29 CBC Auto 04/23/2019 [facility] White Blood 10.5 10^3/uL Normal 3.5-10.[address] [place] [address] [phone] Red Blood Count 5.47 10^6/uL High 3.70-4.87 Hemoglobin 16.4 g/dL High 12.0-16.0 Hematocrit 49 % High 35-47 Mean Corpuscular Volume 89 fL Normal 80-97 Mean Corpuscular Hemoglobin 30 pg Normal 27-31 Mean Corpuscular HGB Conc 34 g/dL Normal 31-36 Red Cell Distribution Width 15 % Normal 10-15 Platelet Count 449 10^3/uL Normal 150-450 Mean Platelet Volume 9.6 fL Normal 7.4-10.4 Abs Neutrophils 7.6 10^3/uL Normal 1.5-7.7 Abs Lymphocytes 1.8 10^3/uL Normal 1.0-4.8 Abs Monocytes 0.6 10^3/uL Normal 0-0.8 Abs Eosinophils 0.5 10^3/uL Normal 0-0.6 Abs Basophils 0.1 10^3/uL Normal 0-0.2 Abs Nucleated RBC 0.0 10^3/uL Granulocyte % 71.7 % Lymphocyte % 16.8 % Monocyte % 6.0 % Eosinophil % 4.5 % Basophil % 1.0 % Nucleated Red Blood Cells % 0.1 Comp Metabolic Panel 04/23/2019 [facility] Sodium 131 mmol/L Low 135-[address] [place] [address] [phone] Potassium 5.0 mmol/L Normal 3.5-5.0 Chloride 97 mmol/L Low 101-111 Co2 Carbon Dioxide 28 mmol/L Normal 22-32 Anion Gap 6 mmol/L Normal 2-11 Calcium 9.4 mg/dL Normal 8.6-10.3 Albumin 4.3 g/dL Normal 3.2-5.2 Total Bilirubin 0.90 mg/dL Normal 0.2-1.0 Glucose 77 mg/dL Normal 70-100 Blood Urea Nitrogen 12 mg/dL Normal 6-24 Creatinine 0.71 mg/dL Normal 0.51-0.95 BUN/Creatinine Ratio 16.9 Normal 8-20 Total Protein 6.8 g/dL Normal 6.4-8.9 Globulin 2.5 g/dL Normal 2-4 Albumin/Globulin Ratio 1.7 Normal 1-3 Alkaline Phosphatase 71 U/L Normal 34-104 Alt 16 U/L Normal 7-52 Ast 23 U/L Normal 13-39 Egfr Non- 80.3 >60 Egfr 97.1 >60 4 Laboratory 04/23/2019 [facility] TSH (Thyroid 1.01 Normal 0.34 -5.60 test finding [address] Stim Horm) mcIU/[place] [address] [phone] Lyme Screen W/ Reflex To WB Negative Negative Laboratory test 04/23/2019 [facility] Point of 83 mg/dL Normal 70-100 [address] [place] [address] [phone] Poc Urinalysis 04/23/2019 [facility] Poc Glucose, Negative Negative [address] [place] [address] [phone] Poc Bilirubin, Urine Negative Negative Poc Ketone, Urine Negative Negative Poc Specific [place], Urine 1.010 Normal 1.010-1.030 Poc Blood, Urine Negative Negative Poc pH, Urine 7.0 Normal 5-9 Poc Protein, Urine Negative Negative Poc Urobilinogen, Urine 0.2 Negative Poc Nitrite, Urine Negative Negative Poc Leukocytes, Urine Negative Negative Poc Color, Urine Yellow Poc Clarity, Urine Clear 6 CBC Auto 04/15/2019 [facility] White Blood 10.0 10^3/uL Normal 3.5-10.[address] [place] [address] [phone] Red Blood Count 5.26 10^6/uL High 3.70-4.87 Hemoglobin 15.6 g/dL Normal 12.0-16.0 Hematocrit 46 % Normal 35-47 Mean Corpuscular Volume 88 fL Normal 80-97 Mean Corpuscular Hemoglobin 30 pg Normal 27-31 Mean Corpuscular HGB Conc 34 g/dL Normal 31-36 Red Cell Distribution Width 15 % Normal 10-15 Platelet Count 406 10^3/uL Normal 150-450 Mean Platelet Volume 8.9 fL Normal 7.4-10.4 Abs Neutrophils 6.2 10^3/uL Normal 1.5-7.7 Abs Lymphocytes 1.9 10^3/uL Normal 1.0-4.8 Abs Monocytes 0.8 10^3/uL Normal 0-0.8 Abs Eosinophils 0.9 10^3/uL High 0-0.6 Abs Basophils 0.1 10^3/uL Normal 0-0.2 Abs Nucleated RBC 0.0 10^3/uL Granulocyte % 62.6 % Lymphocyte % 18.9 % Monocyte % 8.1 % Eosinophil % 9.3 % Basophil % 1.1 % Nucleated Red Blood Cells % 0.1 Inr/Protime 04/15/2019 [facility] Inr 1.90 High 0.82-1.[address] [place] [address] [phone] CBC Auto Diff 04/13/2019 [facility] White Blood 10.3 Normal 3.5-10.[address] Count 10^3/[place] [address] [phone] Red Blood Count 5.12 10^6/uL High 3.70-4.87 Hemoglobin 14.9 g/dL Normal 12.0-16.0 Hematocrit 45 % Normal 35-47 Mean Corpuscular Volume 88 fL Normal 80-97 Mean Corpuscular Hemoglobin 29 pg Normal 27-31 Mean Corpuscular HGB Conc 33 g/dL Normal 31-36 Red Cell Distribution Width 15 % Normal 10-15 Platelet Count 363 10^3/uL Normal 150-450 Mean Platelet Volume 8.7 fL Normal 7.4-10.4 Abs Neutrophils 6.7 10^3/uL Normal 1.5-7.7 Abs Lymphocytes 1.7 10^3/uL Normal 1.0-4.8 Abs Monocytes 0.7 10^3/uL Normal 0-0.8 Abs Eosinophils 1.1 10^3/uL High 0-0.6 Abs Basophils 0.0 10^3/uL Normal 0-0.2 Abs Nucleated RBC 0.0 10^3/uL Granulocyte % 65.2 % Lymphocyte % 16.9 % Monocyte % 7.1 % Eosinophil % 10.5 % Basophil % 0.3 % Nucleated Red Blood Cells % 0.1 Inr/Protime 04/13/2019 [facility] Inr 4.62 High 0.82-1.[address] [place] [address] [phone] Urine Culture 04/11/2019 [facility] Urine SEE RESULT 9, [address] [place] [address] [phone] Poc Urinalysis 04/11/2019 [facility] Poc Negative Negative [address] Glucose, [place] [address] Urine [phone] Poc Bilirubin, Urine Negative Negative Poc Ketone, Urine Negative Negative Poc Specific [place], Urine 1.020 Normal 1.010-1.030 Poc Blood, Urine 3+ Abnormal Negative Poc pH, Urine 7.0 Normal 5-9 Poc Protein, Urine 2+ Abnormal Negative Poc Urobilinogen, Urine 0.2 Negative Poc Nitrite, Urine Negative Negative Poc Leukocytes, Urine 3+ Abnormal Negative Poc Color, Urine Yellow Poc Clarity, Urine Cloudy 11 CBC Auto 03/30/2019 [facility] White Blood 10.3 10^3/uL Normal 3.5-10.[address] [place] [address] [phone] Red Blood Count 5.17 10^6/uL High 3.70-4.87 Hemoglobin 15.4 g/dL Normal 12.0-16.0 Hematocrit 46 % Normal 35-47 Mean Corpuscular Volume 88 fL Normal 80-97 Mean Corpuscular Hemoglobin 30 pg Normal 27-31 Mean Corpuscular HGB Conc 34 g/dL Normal 31-36 Red Cell Distribution Width 15 % Normal 10-15 Platelet Count 410 10^3/uL Normal 150-450 Mean Platelet Volume 8.8 fL Normal 7.4-10.4 Abs Neutrophils 7.3 10^3/uL Normal 1.5-7.7 Abs Lymphocytes 1.5 10^3/uL Normal 1.0-4.8 Abs Monocytes 0.6 10^3/uL Normal 0-0.8 Abs Eosinophils 0.7 10^3/uL High 0-0.6 Abs Basophils 0.1 10^3/uL Normal 0-0.2 Abs Nucleated RBC 0.0 10^3/uL Granulocyte % 71.1 % Lymphocyte % 15.0 % Monocyte % 5.8 % Eosinophil % 7.1 % Basophil % 1.0 % Nucleated Red Blood Cells % 0.1 Inr/Protime 03/30/2019 [facility] Inr 2.32 High 0.82-1.[address] [place] [address] [phone] Urine Culture And 03/23/2019 [facility] Urine SEE [address] [place] [address] BELOW [phone] Ua Routine 03/23/2019 [facility] Ua Specific 1.020 [place] Ua PH 5 Ua Color orange/yellow Ua Appera cloudy Ua WBC ++ Ua Protein 100 ++ Ua Glucose normal Ua Ketones neg Ua Bilirubin neg Ua Urobilinogen normal Ua Nitrite pos Ua Occult Blood about 250 Inr/Protime 03/18/2019 [facility] Inr 3.35 High 0.82-1.[address] [place] [address] [phone] Inr/Protime 03/12/2019 [facility] Inr 2.85 High 0.82-1.[address] [place], [place] [address]447 [phone] Inr/Protime 03/09/2019 [facility] Inr 2.23 High 0.82-1.[address] [place], [place] [address] [phone] CBC Auto Diff 03/05/2019 [facility] White Blood 8.9 Normal 3.5 -10.[address] Count 10^3/uL [place], [place] [address] [phone] Red Blood Count 5.04 10^6/uL High 3.70-4.87 [...] Red Blood Cells % 0.0 Inr/Protime 03/05/2019 [facility] Inr 1.18 High 0.82-1.[address] [place] [address] [phone] Laboratory 03/03/2019 [facility] Miscellaneous See 18 test finding 101 [place] [address] [phone] Leukemia/Lymph 03/03/2019 [facility] Path (SEE 19 maranda Flow 101 Interpretation NOTE) [place] [address] 2-8 Marker [phone] Path Interpret 9-15 Marker TNP Path Interpret > 16 Marker TNP Myelodysplastic 03/03/2019 [facility] FMDS Specimen Bone Marrow Syndrome,Fish [address] [place], [place] [address] [phone] FMDS Disclaimer See Comment 20 FMDS Released By See Comment 21 FMDS Source LPIC FMDS Reason for Referral See Comment 22 FMDS Method See Comment 23 FMDS Result See Comment 24 FMDS Result Summary Normal FMDS Result Table See Comment 25 FMDS Interpretation See Comment 26 Bone Marrow 03/03/2019 [facility] BM Result Summary Normal Chromosomes [address] [place] [address] [phone] BM Chromosome Specimen Bone Marrow BM Chromosome Source LPIC BM Referral Reason See Comment 27 BM Chromosome Method See Comment 28 BM Chromo Banding Method See Comment 29 BM Cromosome Results 46,XX[20] BM Chromosome Interpretation See Comment 30 Released By See Comment 31 Inr/Protime 03/02/2019 [facility] Inr 1.27 High 0.82-1.[address] [place], [place] [address] [phone] Inr/Protime 02/23/2019 [facility] Inr 4.50 High 0.82-1.[address] [place] [address] [phone] CBC Auto Diff 02/23/2019 [facility] White Blood 8.5 Normal 3.5 -10.[address] Count 10^3/[place] [address] [phone] Red Blood Count 5.44 10^6/uL High 3.70-4.87 [...] Red Blood Cells % 0.1 Laboratory 02/23/2019 [facility] TSH (Thyroid 1.47 Normal 0.34 -5.[address] Stim Horm) mcIU/[place] [address] [phone] Free T4 (Free Thyroxine) 1.59 ng/dL High 0.61-1.12 Pthi 02/23/2019 [facility] Calcium (PTH 9.4 mg/dL Normal 8.6- 10.3 DRIVE Intact) [place] [address] [phone] PTH Intact 41.0 pg/mL Normal 12-88 Laboratory test 02/23/2019 [facility] Vitamin D 42.4 ng/mL Normal 20-[address] Total 25(Oh) [place], [place] [address] [phone] Basic Metabolic 02/23/2019 [facility] Sodium 137 mmol/L Normal 135-[address] [place] [address] [phone] Potassium 4.0 mmol/L Normal 3.5-5.0 Chloride 104 mmol/L Normal 101-111 Co2 Carbon Dioxide 28 mmol/L Normal 22-32 Anion Gap 5 mmol/L Normal 2-11 Glucose 86 mg/dL Normal 70-100 Blood Urea Nitrogen 10 mg/dL Normal 6-24 Creatinine 0.79 mg/dL Normal 0.51-0.95 BUN/Creatinine Ratio 12.7 Normal 8-20 Calcium 9.3 mg/dL Normal 8.6-10.3 Egfr Non- 71.1 >60 Egfr 86.1 >60 35 CBC Auto 02/16/2019 [facility] White Blood 8.7 10^3/uL Normal 3.5-10.[address] [place] [address] [phone] Red Blood Count 5.37 10^6/uL High 3.70-4.87 [...] Red Blood Cells % 0.1 Inr/Protime 02/16/2019 [facility] Inr 4.22 High 0.82-1.[address] [place] [address] [phone] Ua Routine 02/10/2019 [facility] Ua Specific 1.020 [place] Ua PH 5 Ua Color yellow Ua Appera clear Ua WBC NEG Ua Protein NEG Ua Glucose NEG Ua Ketones NEG Ua Bilirubin NEG Ua Urobilinogen NEG Ua Nitrite NEG Ua Occult Blood NEG Urine Culture And 02/10/2019 [facility] Urine SEE RESULT 37 , [address] [place] [place] [address] [phone] Inr/Protime 02/05/2019 [facility] Inr 3.44 High 0.[address] -1.0 [place] [address] 9 [phone] CBC Auto Diff 01/29/2019 [facility] White Blood 9.0 Normal 3.5 - [address] Count 10^3/uL 10.8 [place] [address] [phone] Red Blood Count 5.09 10^6/uL High 3.70-4.87 [...] Red Blood Cells % 0.1 Inr/Protime 01/29/2019 [facility] Inr 3.71 High 0.82-1.[address] [place] [address] [phone] CBC Auto Diff 01/16/2019 [facility] White Blood 9.9 Normal 3.5 -10.[address] Count 10^3/uL [place], [place] [address] [phone] Red Blood Count 5.26 10^6/uL High 3.70-4.87 [...] Red Blood Cells % 0.1 Inr/Protime 01/16/2019 [facility] Inr 2.09 High 0.82-1.09 41 [address] [place] [address] [phone] Myeloprolif 01/07/2019 [facility] MPNR see 42 Neoplasm [place] [address] <SEE NOTE> [phone] MPNR Final Diagnosis See Comment 43 Lipid Profile 01/06/2019 [facility] Triglycerides 69 mg/dL 44 (Trig/Chol/HDL) [address] [place] [address] [phone] Cholesterol 111 mg/dL 45 HDL Cholesterol 44.7 mg/dL 46 LDL Cholesterol 53 mg/dL 47 Laboratory 01/06/2019 [facility] TSH (Thyroid 2.93 Normal 0.34 -5.[address] Stim Horm) mcIU/[place] [address] [phone] T3 Free 2.90 pg/mL Normal 2.5-3.9 Free T4 (Free Thyroxine) 1.66 ng/dL High 0.61-1.12 Glucose 98 mg/dL Normal 70-100 Hemoglobin A1c (Glyco HGB) 5.6 % Normal 4.0-5.6 48 Inr/Protime 01/06/2019 [facility] Inr 4.84 High 0.82-1.[address] [place] [address] [phone] CBC Auto Diff 01/06/2019 [facility] White Blood 9.2 Normal 3.5 -10.8 101 Count 10^3/[place] [address] [phone] Red Blood Count 5.31 10^6/uL High 3.70-4.87 [...] Red Blood Cells % 0.1 Inr/Protime 12/29/2018 [facility] Inr 2.55 High 0.82-1.[address] [place] [address] [phone] Laboratory test 12/27/2018 [facility] Troponin- 0.00 ng/mL < 0.04 51 finding 101 I (TnI) [place] [address] [phone] TSH (Thyroid Stim Horm) 15.00 mcIU/mL High 0.34-5.60 Comp Metabolic Panel 12/27/2018 [facility] Sodium 131 mmol/L Low 135-145 [address] [place] [address] [phone] Potassium 3.7 mmol/L Normal 3.5-5.0 Chloride 99 [...] Egfr Non- 89.1 >60 Egfr 107.8 >60 52 Laboratory test 12/27/2018 [facility] B-Type 50 pg/mL <=[address] [place] [address] Peptide BNP [phone] CBC Auto Diff 12/27/2018 [facility] White Blood 11.7 High 3.5- 10.[address] Count 10^3/uL [place], [place] [address] [phone] Red Blood Count 5.33 10^6/uL High 3.70-4.87 [...] 5.7 % High 4.0-5.6 Laboratory Studies 12/25/2018 N2N/[employer] Import Vitamin B12 Level 445 pg/mL 180-914 [...] 12/25/2018 N2N/CCD Import Estimated GFR (Non- 94.1 Kyrgyz Estimated GFR () 113.9 Creatinine 0.62 mg/dL 0.51-0.95 Cholesterol Level 147 mg/dL Chloride Level 108 mmol/L 101-111 Carbon Dioxide Level 23 mmol/L 22-32 Calcium Level 8.6 mg/dL 8.6-10.3 Blood Urea Nitrogen 13 mg/dL 6-24 BUN/Creatinine Ratio 21.0 High 8-20 Anion Gap 7 mmol/L 2-11 Hemoglobin A1c 5.7 % High 4.0-5.6 Laboratory Studies 12/25/2018 [facility]2N/[employer] Import Estimated GFR ( 113.9 [place]yrgyz) Creatinine 0.62 mg/dL 0.51-0.95 Cholesterol Level 147 mg/dL Chloride Level 108 mmol/L 101-111 Carbon Dioxide Level 23 mmol/L 22-32 Calcium Level 8.6 mg/dL 8.6-10.3 Blood Urea Nitrogen 13 mg/dL 6-24 BUN/Creatinine Ratio 21.0 High 8-20 Anion Gap 7 mmol/L 2-11 Hemoglobin A1c 5.7 % High 4.0-5.6 Laboratory Studies 12/25/2018 N2N/[employer] Import Creatinine 0.62 mg/dL 0.51- 0.95 Cholesterol Level 147 mg/dL Chloride Level 108 mmol/L 101-111 Carbon Dioxide Level 23 mmol/L 22-32 Calcium Level 8.6 mg/dL 8.6-10.3 Blood Urea Nitrogen 13 mg/dL 6-24 BUN/Creatinine Ratio 21.0 High 8-20 Anion Gap 7 mmol/L 2-11 Hemoglobin A1c 5.7 % High 4.0-5.6 Laboratory Studies 12/24/2018 [facility]2N[facility] Import Eosinophils (%) (Auto) 4.6 % Basophils (%) (Auto) 1.4 % Absolute Neutrophils (auto) 7.2 10^3/ul 1.5-7.7 Absolute Monocytes (auto) 0.8 10^3/ul 0-0.8 Absolute Lymphocytes (auto) 1.9 10^3/ul 1.0-4.8 Absolute Eosinophils (auto) 0.5 10^3/ul 0-0.6 Absolute Basophils (auto) 0.1 10^3/ul 0-0.2 Laboratory Studies 12/24/2018 [facility]2N[facility] Import Basophils (%) (Auto) 1.4 % Absolute [...] 0-0.2 Laboratory Studies 12/24/2018 N2N/CCD Import Absolute 0.1 10^3/ul 0-0.2 Basophils (auto) Comp Metabolic 12/24/2018 [facility] Sodium 130 mmol/L Low 135 -[address] [place] [address] [phone] Potassium 3.9 mmol/L Normal 3.5-5.0 Chloride 100 [...] Egfr Non- 81.8 >60 Egfr 99.0 >60 53 Laboratory test 12/24/2018 [facility] Lactic 1.5 mmol/L Normal 0.5-2.0 [address] [place] [address] [phone] Inr/Protime 12/24/2018 [facility] Inr 3.01 High 0.82-1.[address] [place] [address] [phone] CBC Auto Diff 12/24/2018 [facility] White 10.5 Normal 3.5- 10.[address] Blood 10^3/[place] [address] Count [phone] Red Blood Count 5.43 10^6/uL High 3.70-4.87 [...] N2N/CCD Import Urine Specific 1.019 1.010- 1.030 [place] Laboratory Studies 12/24/2018 N2N/CCD Import Urine pH 7.0 5-9 Urine Specific [place] 1.019 1.010-1.030 Laboratory test 12/24/2018 [facility] Troponin-I (TnI) 0.00 ng/ mL <0.04 56 finding [address] [place] [address] [phone] Urinalysis 12/24/2018 [facility] Urine Color Straw Profile [address] [place] [address] [phone] Urine Appearance Clear Urine Specific [place] 1.019 Normal 1.010-1.030 Urine pH 7.0 Normal 5-9 Urine Urobilinogen Negative Negative Urine Ketones Negative Negative Urine Protein Negative Negative Urine Leukocytes Negative Negative Urine Blood Negative Negative Urine Nitrite Negative Negative Urine Bilirubin Negative Negative Urine Glucose Negative Negative Laboratory Studies 12/24/2018 N2N/CCD Import Lactic Acid [...] 10^3/ul 0-0.2 Laboratory Studies 12/24/2018 N2N/CCD Import Mean Corpuscular [...] 10^3/ul 0-0.2 Laboratory Studies 12/24/2018 N2N/CCD Import Lymphocytes (%) (Auto) 18.0 % Hemoglobin 15.9 g/dL 12.0-16.0 Hematocrit 47 % 35-47 Eosinophils (%) (Auto) 4.6 % Basophils (%) (Auto) 1.4 % Absolute Neutrophils (auto) 7.2 10^3/ul 1.5-7.7 Absolute Monocytes (auto) 0.8 10^3/ul 0-0.8 Absolute Lymphocytes (auto) 1.9 10^3/ul 1.0-4.8 Absolute Eosinophils (auto) 0.5 10^3/ul 0-0.6 Absolute Basophils (auto) 0.1 10^3/ul 0-0.2 Inr/Protime 12/23/2018 [facility] Inr 2.55 High 0.82-1.[address] [place] [address] [phone] Nuclear AB 12/23/2018 [facility] Nuclear Ab Positive Abnormal 58 (Giovana) By Ifa 101 (Giovana) by 1:[address] [place] [address] Ifa, IgG [phone] Giovana Titer: 1:160 Giovana Pattern: Homogeneous 59 Laboratory test 12/23/2018 [facility] Homocysteine 17 mcmol/L Abnormal [address] [place] [address] [phone] Lipid Profile 12/23/2018 [facility] Triglycerides 83 mg/dL 61 (Trig/Chol/HDL) [address] [place] [address] [phone] Cholesterol 190 mg/dL 62 HDL Cholesterol 52.1 mg/dL 63 LDL Cholesterol 121 mg/dL 64 Vitamin B12 12/23/2018 [facility] Vitamin B12 554 pg/mL Normal 180-914 65 And Folate [address] [place] [address] [phone] Folic Acid (Folate) 16.45 ng/mL >3.99 CBC Auto 12/23/2018 [facility] White Blood 9.7 10^3/uL Normal 3.5-10.[address] [place] [address] [phone] Red Blood Count 5.73 10^6/uL High 3.70-4.87 [...] % Nucleated Red Blood Cells % 0.1 Comp Metabolic Panel 12/23/2018 [facility] Sodium 134 mmol/L Low 135-[address] [place] [address] [phone] Potassium 4.9 mmol/L Normal 3.5-5.0 Chloride 100 [...] Egfr Non- 65.4 >60 Egfr 79.1 >60 66 Laboratory test 12/23/2018 [facility] TSH (Thyroid 14.83 High 0.34-5.[address] Stim Horm) mcIU/[place] [address] [phone] Free T4 (Free Thyroxine) 1.21 ng/dL High 0.61-1.12 Urinalysis Profile 12/19/2018 [facility] Urine Color [place] [address] [place] [address] [phone] Urine Appearance Clear Urine Specific [place] 1.004 Low 1.010-1.030 Urine pH 8.0 Normal 5-9 Urine Urobilinogen Negative Negative Urine Ketones Negative Negative Urine Protein Negative Negative Urine Leukocytes Negative Negative Urine Blood Negative Negative * * Abnormal Negative 67 Urine Nitrite Negative Negative Urine Bilirubin Negative Negative Urine Glucose Negative Negative Laboratory test 12/19/2018 [facility] Troponin-I 0.00 ng/mL < 0.[address] (TnI) [place] [address] [phone] Comp Metabolic 12/19/2018 [facility] Sodium 133 mmol/L Low 135 -145 Panel [address] [place] [address] [phone] Potassium 4.1 mmol/L Normal 3.5-5.0 Chloride 98 [...] Egfr Non- 72.2 >60 Egfr 87.4 >60 69 Laboratory test 12/19/2018 [facility] Lactic 0.5 mmol/L Normal 0.5-2.[address] [place] [address] [phone] Inr/Protime 12/19/2018 [facility] Inr 2.25 High 0.82-1.[address] [place] [address] [phone] CBC Auto Diff 12/19/2018 [facility] White 12.6 High 3.5-10.[address] Blood 10^3/[place] [address] Count [phone] Red Blood Count 5.69 10^6/uL High 3.70-4.87 [...] Blood Cells % 0.1 CBC Auto 12/17/2018 [facility] White Blood 10.4 10^3/uL Normal 3.5-10.[address] [place] [address] [phone] Red Blood Count 5.54 10^6/uL High 3.70-4.87 [...] Red Blood Cells % 0.1 Inr/Protime 12/17/2018 [facility] Inr 2.52 High 0.82-1.[address] [place] [address] [phone] Urinalysis 12/04/2018 [facility] Urine Colorless Profile [address] [place] [address] [phone] Urine Appearance Clear Urine Specific [place] 1.002 Low 1.010-1.030 Urine pH 8.0 Normal 5-9 Urine Urobilinogen Negative Negative Urine Ketones Negative Negative Urine Protein Negative Negative Urine Leukocytes Negative Negative Urine Blood Negative Negative Urine Nitrite Negative Negative Urine Bilirubin Negative Negative Urine Glucose Negative Negative Inr/Protime 12/04/2018 [facility] Inr 2.05 High 0.82-1.09 73 [address] [place] [address] [phone] CBC Auto Diff 12/04/2018 [facility] White Blood 10.5 Normal 3.5-10.[address] Count 10^3/[place] [address] [phone] Red Blood Count 5.43 10^6/uL High 3.70-4.87 [...] % Nucleated Red Blood Cells % 0.0 1 ADDITIONAL INFORMATION This test was developed and its performance characteristics determined by [facility] in a manner consistent with CLIA requirements. This test has not been cleared or approved by the U.S. Food and Drug Administration. 2 ADDITIONAL INFORMATION This test was developed and its performance characteristics determined by [facility] in a manner consistent with CLIA requirements. This test has not been cleared or approved by the U.S. Food and Drug Administration. 3 ADDITIONAL INFORMATION This test was developed and its performance characteristics determined by [facility] in a manner consistent with CLIA requirements. This test has not been cleared or approved by the U.S. Food and Drug Administration. Test Performed by: [facility] - [address] [address] Food Order Delivery Runner: Raúl Faustin M.D. Ph.D.; CLIA# [id number] 4 Because ethnic data is not always readily [...] 15-29 5 Kidney failure <15 (or dialysis) 5 Tree Pruner: [id number] 6 Tree Pruner: [id number] 7 Standard intensity warfarin therapeutic range: 2.0-3.0 High intensity warfarin therapeutic range: 2.5-3.5 8 Standard intensity warfarin therapeutic range: 2.0-3.0 High intensity warfarin therapeutic range: 2.5-3.5 9 [id number] SEE RESULT BELOW Name: CRYUS PORTER : [address]: Hank Bishop MD Acct: [id number] Unit: [id number] AGE: 74 Location: [facility] Re04/11/19 SEX: F Status: DEP ER SPEC: [id number] JASON: 04/11/19 [facility]: Hank Bishop MD REQ: [id number] RECD: 04/11/19 STATUS: TESSA GANT DR: Angeline Gary BLOCK CUTTER _ SOURCE: URINE SPDESC: ORDERED: Urine Culture COMMENTS: [id number] Procedure Result Reported Site Urine Culture Final 04/13/19- 08 ML No growth of clinically significant organisms * ML - Main Lab . END OF REPORT DEPARTMENT OF PATHOLOGY, [address] [place] [address] Nhan Rockwell M.D. Director [facility] # [id number] 11 Tree Pruner: [id number] Standard intensity warfarin therapeutic range: 2.0-3.0 High intensity warfarin therapeutic range: 2.5-3.5 13 SEE RESULT BELOW Name: CYRUS PORTER : [address]: Eddie Gary NP Acct: [id number] Unit: [id number] AGE: 74 Location: [facility] Re03/23/19 SEX: F Status: REG REF SPEC: [id number] JASON: 03/23/19-[address]: Eddie Gary NP REQ: [id number] RECD: 03/23/19 STATUS: COMP _ SOURCE: URINE SPDESC: ORDERED: Urine Culture Urine Source: Random Procedure Result Reported Site Urine Culture Final 03/25/19- 0741 ML Organism 1 ESCHERICHIA COLI [place] Count >100,000 (Many) CFU/ML 1. ESCHERICHIA COLI M.I.C. RX --------- ------ Ampicillin <=2 S Cefazolin <=4 S Cefepime <=1 S Ceftriaxone <=1 S Ciprofloxacin <=0.25 S Gentamicin <=1 S Levofloxacin <=0.12 S Meropenem <=0.25 S Nitrofurantoin <=16 S Tetracycline <=1 S Pipercillin/Tazobactam <=4 S Trimethoprim/Sulfamethoxazole <=20 S Amoxicillin/Clavulanic Acid <=2 S Aztreonam <=1 S Contact the Microbiology Department for any additional antibiotic reporting. * ML - Main Lab . END OF REPORT DEPARTMENT OF PATHOLOGY, [address] [place] [address] Nhan Rockwell M.D. Director [facility] # [id number] 14 Standard intensity warfarin therapeutic range: 2.0-3.0 High intensity warfarin therapeutic range: 2.5-3.5 15 Standard intensity warfarin therapeutic range: 2.0-3.0 High intensity warfarin therapeutic range: 2.5-3.5 16 Standard intensity warfarin therapeutic range: 2.0-3.0 High intensity warfarin therapeutic range: 2.5-3.5 17 Standard intensity warfarin therapeutic range: 2.0-3.0 High intensity warfarin therapeutic range: 2.5-3.5 18 Test Result Flag Unit RefValue BCR/ABL1 Reflex, Qual/Quant BCR/ABL1 Reflex Result TNP BCR/ABL1 Reflex, Qual/Quant was cancelled on 03/10/2019 at 15:37; Notification to cancel testing received from the referring facility. Test Performed by: [facility] - [address] [address] CORRECTED REPORT --- Corrected on 03/10/191641 --- [...] transcripts was evaluated using a qualitative, reverse relay shop supervisor PCR-based assay. The assay detects nearly all published and theoretical BCR/ABL1 fusion forms. The detection sensitivity limit for this assay is 0.1%. Please contact the lab at [phone] with questions or if additional testing is required. See [facility] [employer] Test Catalog for additional method details. Signing Pathologist: Gregorio Mercado M.D. ADDITIONAL INFORMATION This test was developed and its performance characteristics determined by [facility] in a manner consistent with CLIA requirements. This test has not been cleared or approved by the U.S. Food and Drug Administration. Test Performed by: [place] [address] 19 FINAL DIAGNOSIS: Specimen Source: Bone marrow Flow [...] MD 03/05/19 1223 Technical component performed by: [place] [address] Appeals Officer: Raúl Faustin II, MD, PhD. 20 Applicable to Analyte Specific Reagent (ASR) and Laboratory Developed Tests (LDT). This test was developed and its performance characteristics determined by [facility] in a manner consistent with CLIA requirements. It has not been cleared or approved by the U.S. Food and Drug Administration. This FISH test does not rule out other chromosome abnormalities. 21 RESULT: Nhan Casarez, Ph.D. Test Performed by: [address] [address] 22 RESULT: D47.3 Essential (hemorrhagic) thrombocythemia 23 Locus and probes [Strategy;#Nuclei;Class] 3q21(RPN1),3q26.2(MECOM) [DFISH;500;LDT] 5p15.2(R8L011),5q31(EGR1) [COPY#;200;ASR] 7CEN(D7Z1),7q31(X8V579) [COPY#;200;ASR] 8CEN(D8Z2),8q24.1(MYC) [COPY#;200;ASR] 11q23(5'MLL[KMT2A],3'MLL[KMT2A]) [BAP;200;ASR] 17p13(TP53),17CEN(D17Z1) [COPY#;200;ASR] 20q12(H90I274),20qter [COPY#;200;ASR] Probe strategies include: DFISH=dual color, double fusion; BAP=break-apart probe; COPY#=region gain and loss. 24 RESULT: Interphase FISH is normal for all loci studied. 25 Abnormality Name Result Abn% Cutoff% inv(3) RPN1/MECOM fusion Normal <0.6 -5q31(P0H792v0,EGR1x1) Normal <9.5 -5(Q7F304,EGR1)x1 Normal <3.5 -7q31(D7Z1x2,H4V022v0) Normal <4.5 -7(D7Z1,F7Q016)x1 Normal <3.5 +8(D8Z2,MYC)x3 Normal <2.5 11q23(MLL sep) Normal <4.0 -17p13.1(TP53x1,F86Z5a9) Normal <9.5 -17(TP53,D17Z1)x1 Normal <5.5 -20q12(E71G856v5,75szwnp2) Normal <9.5 26 This result is within normal limits for the MDS FISH panel. Additional cytogenetic studies are reported separately. 27 RESULT: D47.3 Essential (hemorrhagic) thrombocythemia 28 RESULT: Culture without mitogens 29 Band Resolution: <400 Stain Name Cells Analyzed Cells Karyograms Counted Prepared GTL 20 0 2 Total 20 0 2 [place] to Stain Name: GTL=G-banding; QFQ=Q-banding; DAPI=DAPI-staining; CBL=C-banding; AGNOR=Silver-staining; NON=Non-banded The sum of Cells Analyzed and Cells Counted equals the total cells examined. 30 No clonal abnormality was apparent. Additional cytogenetic studies are reported separately. 31 RESULT: Nhan Casarez, Ph.D. Test Performed by: [address] [address] 32 Standard intensity warfarin therapeutic range: 2.0-3.0 High intensity warfarin therapeutic range: 2.5-3.5 33 Standard intensity warfarin therapeutic range: 2.0-3.0 High intensity warfarin therapeutic range: 2.5-3.5 34 Total 25-Hydroxyvitamin D2 and D3 (25-OH-VitD) <10 ng/mL (severe deficiency) 10-19 ng/mL (mild to moderate deficiency) 20-50 ng/mL (optimum levels) 51-80 ng/mL (increased risk of hypercalciuria) >80 ng/mL (toxicity possible) 35 Because ethnic data is not always readily [...] 15-29 5 Kidney failure <15 (or dialysis) 36 Standard intensity warfarin therapeutic range: 2.0-3.0 High intensity warfarin therapeutic range: 2.5-3.5 37 [id number] 38 SEE RESULT BELOW Name: CYRUS PORTER : [address]: Angeline Delarosa MD Acct: [id number] Unit: [id number] AGE: 73 Location: [facility] Re02/10/19 SEX: F Status: REG REF SPEC: [id number] JASON: 02/10/19-1412 [facility] DR: Angeline Delarosa MD REQ: [id number] RECD: 02/10/19 STATUS: COMP _ SOURCE: URINE SPDESC: ORDERED: Urine Culture COMMENTS: [id number] QUERIES: Urine Source: Random Procedure Result Reported Site Urine Culture Final 02/11/19- 1604 ML No Growth (<1,000 CFU/mL) * ML - Main Lab . END OF REPORT DEPARTMENT OF PATHOLOGY, [address] [place] [address] Nhan Rockwell M.D. Director [facility] # [id number] 39 Standard intensity warfarin therapeutic range: 2.0-3.0 High intensity warfarin therapeutic range: 2.5-3.5 40 Standard intensity warfarin therapeutic range: 2.0-3.0 High intensity warfarin therapeutic range: 2.5-3.5 41 Standard intensity warfarin therapeutic range: 2.0-3.0 High intensity warfarin therapeutic range: 2.5-3.5 42 see interpretation 43 Peripheral blood, JAK2 V617F mutation analysis: Positive. JAK2 V617F mutated DNA was detected and measured at 7% of total JAK2 DNA. JAK2 V617F mutation is found with high frequency in Jay chromosome-negative myeloproliferative neoplasms (>95% in polycythemia vera [...] algorithm. See test catalogue for additional information: [email or web address]. Note: Starting from 07/26/2015, the calculation and reporting value of VRQ4W017S/total JAK2% is changed to more accurately reflect the true EJP1L191O allele burden. Higher values are generally expected and for levels below 80% (currently reported with new calculation), 1-5 fold increase from the prior calculation is expected. The testing method is not changed, however the limit of analytic sensitivity is changed to 0.06%. Please contact the Molecular Hematopathology Laboratory at [phone] if you have questions or concerns. Method summary - JAK2 V617F analysis: Quantitative, allele-specific polymerase chain reaction (PCR) assay was performed using extracted genomic DNA to evaluate for the point mutation causing JAK2 V617F. The analytic sensitivity of this assay has been determined at 0.06% (see [facility] Interpretive Handbook for method details). Signing Pathologist: Gregorio Mercado M.D. ADDITIONAL INFORMATION This test was developed and its performance characteristics determined by [facility] in a manner consistent with CLIA requirements. This test has not been cleared or approved by the U.S. Food and Drug Administration. Test Performed by: [facility] - [address] [address] 44 Desirable: <150 Borderline High: 150-199 High: 200-499 Very High: >500 45 Desirable: <200 Borderline High: 200-239 High: >239 46 Low: <40 Desirable: 40-60 High: >60 47 Desirable: <100 Near Optimal: 100-129 Borderline High: 130-159 High: 160-189 Very High: >189 48 Therapeutic target for the treatment of diabetes mellitus patients is <7% HBA1C, and in selective patients <6.0%. Please refer to [place] [employer] diabetic care guidelines for further information. 49 Standard intensity warfarin therapeutic range: 2.0-3.0 High intensity warfarin therapeutic range: 2.5-3.5 50 Standard intensity warfarin therapeutic range: 2.0-3.0 High intensity warfarin therapeutic range: 2.5-3.5 51 Troponin-I testing on Plasma Separator Tubes (PST) has a known false positive rate of 0.20-0.40%. All positive troponins reflex immediately to secondary confirmatory testing. Using the [address] Dx[employer] 800 Access Immunoassay systems, the 99th percentile upper reference limit was demonstrated to be < 0.03 ng/mL. 52 Because ethnic data is not always readily [...] 15-29 5 Kidney failure <15 (or dialysis) 53 Because ethnic data is not always readily [...] 15-29 5 Kidney failure <15 (or dialysis) 54 [facility] Severe Sepsis and Septic Shock Management Bundle Measure requires all lactic acids initially measuring >2.0 mmol/L be repeated. 55 Standard intensity warfarin therapeutic range: 2.0-3.0 High intensity warfarin therapeutic range: 2.5-3.5 56 Troponin-I testing on Plasma Separator Tubes (PST) has a known false positive rate of 0.20-0.40%. All positive troponins reflex immediately to secondary confirmatory testing. Using the [address] DxI 800 Access Immunoassay systems, the 99th percentile upper reference limit was demonstrated to be < 0.03 ng/mL. 57 Standard intensity warfarin therapeutic range: 2.0-3.0 High intensity warfarin therapeutic range: 2.5-3.5 58 REFERENCE VALUE <1:80 (Negative) 59 Test Performed by: [facility] [address] [place] [address] 60 The homocysteine concentration is elevated in this [...] developed and its performance characteristics determined by [facility] in a manner consistent with CLIA requirements. This test has not been cleared or approved by the U.S. Food and Drug Administration. Test Performed by: [facility] - [address] [address] 61 Desirable: <150 Borderline High: 150-199 High: 200-499 Very High: >500 62 Desirable: <200 Borderline High: 200-239 High: >239 63 Low: <40 Desirable: 40-60 High: >60 64 Desirable: <100 Near Optimal: 100-129 Borderline High: 130-159 High: 160-189 Very High: >189 65 Normal Range 180 to 914 Indeterminate Range 145 to 180 Deficient Range <145 66 Because ethnic data is not always readily [...] 15-29 5 Kidney failure <15 (or dialysis) 67 *Ascorbic acid is present which may interfere with detection of blood. 68 Troponin-I testing on Plasma Separator Tubes (PST) has a known false positive rate of 0.20-0.40%. All positive troponins reflex immediately to secondary confirmatory testing. Using the [employer] 800 Access Immunoassay systems, the 99th percentile upper reference limit was demonstrated to be < 0.03 ng/mL. 69 Because ethnic data is not always readily [...] 15-29 5 Kidney failure <15 (or dialysis) 70 [place] Severe Sepsis and Septic Shock Management Bundle Measure requires all lactic acids initially measuring >2.0 mmol/L be repeated. 71 Standard intensity warfarin therapeutic range: 2.0-3.0 High intensity warfarin therapeutic range: 2.5-3.5 72 Standard intensity warfarin therapeutic range: 2.0-3.0 High intensity warfarin therapeutic range: 2.5-3.5 73 Standard intensity warfarin therapeutic range: 2.0-3.0 High intensity warfarin therapeutic range: 2.5-3.5 Procedures Date Code Description Status 01/29/2019 12894 EKG Tracing & Interpretation Completed 01/27/2019 [id number] Mammogram Completed 12/25/2018 18121 ECHO Transthorasic Realtime 2D W Doppler & Color Flow Completed Hosp 12/03/2018 67963 ECG Monitor/Recording W/Visual Superimposition Completed Scanning 11/28/2018 50003 EKG Tracing & Interpretation Completed 02/04/2018 [id number] Bone Mineral Density Test Completed 11/11/2017 [id number] Mammogram Completed 10/31/2016 15554751 Mammogram Completed 10/31/2015 [id number] Bone Mineral Density Test Completed 10/31/2015 [id number] Mammogram Completed 08/11/2015 12355701 Colonoscopy Completed 10/21/2014 [id number] Mammogram Completed 04/13/2014 [id number] Mammogram Completed 09/30/2013 73583941 Mammogram Completed 08/25/2013 10285032 Mammogram Completed 11/28/2012 678012509 Bone Mineral Density Test Completed 06/13/2012 [id number] Mammogram Completed 11/28/2010 [id number] Bone Mineral Density Test Completed Medical Devices Description No Information Available Encounters Type Date Location Provider Dx Diagnosis Office Visit 05/27/2019 Jen Reza and Wellington Edge MD M81.0 Age- related 1:20p [facility] osteoporosis w/o current pathological fracture E03.9 Hypothyroidism, unspecified Office Visit 04/30/2019 9:00a [facility] Francisco Benitez, R51 Headache [facility] N.P. I63.9 Cerebral infarction, unspecified I48.0 Paroxysmal atrial fibrillation I10 Essential (primary) hypertension Z86.73 Prsnl hx of TIA (TIA), and cereb infrc w/o resid deficits Office Visit 04/27/2019 11:40a [facility] Internal Eddie Gary, R51 Headache Medicine - [facility] BLOCK CUTTER Office Visit 04/17/2019 10:40a [facility] Internal Eddie Gary, N39.0 Urinary tract Medicine - [facility] BLOCK CUTTER infection, site not specified Office Visit 04/03/2019 2:00p [facility] Francisco I63.9 C[facility] Benitez, infarction, N.P. unspecified I48.0 Paroxysmal atrial fibrillation I10 Essential (primary) hypertension Z79.01 residential (current) use of anticoagulants Z86.73 Prsnl hx of TIA (TIA), and cereb infrc w/o resid deficits Office Visit 03/23/2019 11:40a [facility] Internal Eddie Gary, R35.0 Frequency of Medicine - [facility] BLOCK CUTTER micturition R30.9 Painful micturition, unspecified Office Visit 03/10/2019 3:00p [facility] Cathy S. I48.0 Paroxysmal atrial [facility] Foster, N.P. 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 (TIA), and cereb infrc w/o resid deficits I10 Essential (primary) hypertension I48.0 Paroxysmal atrial fibrillation E78.5 Hyperlipidemia, unspecified Office Visit 01/01/2019 1:00p [facility] Galoer , Z86.73 Prsnl hx of Services [facility] M.D. 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 infarction, unspecified I48.0 Paroxysmal atrial fibrillation I10 Essential (primary) hypertension E03.9 Hypothyroidism, unspecified R73.01 Impaired fasting glucose Office Visit 12/26/2018 10:38a [facility] Raúl I63.9 C[facility] Assoc,NEMESIO [place] infarction, Hospitalists unspecified E03.9 Hypothyroidism, unspecified I10 Essential (primary) hypertension Z85.3 Personal history of malignant neoplasm of breast I48.91 Unspecified atrial fibrillation Office Visit 12/26/2018 Neuro[facility] Bel Canseco I63.40 Cerebral 7:00a Clinic MD infarction due to embolism of unsp cerebral artery I10 Essential (primary) hypertension I48.91 Unspecified atrial fibrillation Z79.01 terminal operator (current) use of anticoagulants Office Visit 12/25/2018 Neurohospitalist Bel Canseco I63.40 Cerebral 7: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 Sol I63.9 Cerebral Assoc,dixie Carrero M.D. 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 skin Services [facility] M62.81 Muscle weakness (generalized) I10 Essential (primary) hypertension I48.0 Paroxysmal atrial fibrillation R53.82 Chronic fatigue, unspecified D69.6 Thrombocytopenia, unspecified Z86.73 Prsnl hx of TIA (TIA), and cereb infrc w/o resid deficits Office Visit 12/15/2018 Jen Yang G56.22 Lesion of ulnar 9:30a [facility] at [facility] nerve, left upper [place] limb Office Visit 12/09/2018 [facility] Internal Eddie Gary NP I10 Essential 10:40a Medicine - [facility] (primary) hypertension S16.1xxA Strain of muscle, fascia and tendon at neck level, init R20.2 Paresthesia of skin M25.549 Pain in joints of unspecified hand Office Visit 11/28/2018 5:00p [facility] Internal Angeline Delarosa, R55 Syncope and Medicine - [facility] M.Naomy collapse Assessments Date Code Description Provider 05/27/2019 M81.0 Age-related osteoporosis without Wellington Edge MD current pathological fracture 05/27/2019 E03.9 Hypothyroidism, unspecified Wellington Edge MD 04/30/2019 R51 Headache Francisco Benitez, N.P. 04/30/2019 I63.9 Cerebral infarction, unspecified Francisco Benitez, N.P. 04/30/2019 I48.0 Paroxysmal atrial fibrillation Francisco Benitez, N.P. 04/30/2019 I10 Essential (primary) hypertension Francisco Benitez, N.P. 04/30/2019 Z86.73 Personal history of transient Francisco Benitez, N.P. ischemic attack (TIA), and cerebral infarction without residual deficits 04/27/2019 R51 Headache Eddie Gary NP 04/17/2019 N39.0 Urinary tract infection, site not Eddie Gary NP specified 04/03/2019 I63.9 Cerebral infarction, unspecified Franciscoron Benitez, N.P. 04/03/2019 I48.0 Paroxysmal atrial fibrillation Franciscoron Benitez, N.P. 04/03/2019 I10 Essential (primary) hypertension Francisco Benitez, N.P. 04/03/2019 Z79.01 residential (current) use of Francisco Benitez, N.P. anticoagulants 04/03/2019 Z86.73 Personal history of transient Francisco Benitez, N.P. ischemic attack (TIA), and cerebral infarction without residual deficits 03/23/2019 R35.0 Frequency of micturition Eddie Gary NP 03/23/2019 R30.9 Painful micturition, unspecified Eddie Gary NP 03/10/2019 I48.0 Paroxysmal atrial fibrillation Cathy S. Foster, N.P. 03/10/2019 I10 Essential (primary) hypertension Cathy S. Foster, N.P. 03/10/2019 E78.5 Hyperlipidemia, unspecified Cathy S. Foster, N.P. 03/10/2019 Z79.01 residential (current) use of Cathy S. Foster, N.P. anticoagulants 03/10/2019 I47.1 Supraventricular tachycardia Cathy S. Foster, N.P. 03/09/2019 R19.7 Diarrhea, unspecified Eddie Gary NP 02/10/2019 Z00.00 Encounter for general adult medical [...] 01/29/2019 Z86.73 Personal history of transient Brenda Augila M.D. ischemic attack (TIA), and cer 01/29/2019 [...] Hypothyroidism, unspecified Gideon Real M.D. 01/01/2019 Z79.01 residential (current) use of Gideon Real M.D. anticoagulants [...] Essential (primary) hypertension NEMESIO Cavazos 12/26/2018 Z79.01 residential (current) use of Bel Canseco MD anticoagulants 12/26/2018 Z85.3 Personal history of malignant NEMESIO Cavazos neoplasm of breast 12/26/2018 I48.91 Unspecified atrial fibrillation NEMESIO Cavazos 12/25/2018 I63.40 Cerebral infarction due to embolism Bel Canseco MD of unspecified cerebral artery 12/25/2018 I63.9 Cerebral infarction, unspecified Fitz Sevilla M.D., [facility] 12/25/2018 I10 Essential (primary) hypertension Bel Canseco MD 12/25/2018 I63.9 Cerebral infarction, unspecified David Esau Thorne M.D., [facility] 12/25/2018 I48.91 Unspecified atrial fibrillation Bel Canseco MD 12/25/2018 I10 Essential (primary) hypertension Fitz Sevilla M.D.,[facility] 12/25/2018 Z79.01 residential (current) use of Bel Canseco MD anticoagulants 12/25/2018 E03.9 Hypothyroidism, unspecified Fitz Sevilla M.D.,[facility] 12/24/2018 I63.40 Cerebral infarction due to embolism Bel Canseco MD of unspecified cerebral artery 12/24/2018 I63.9 Cerebral infarction, unspecified Sol Carrero M.D. 12/24/2018 I16.0 Hypertensive urgency Bel Canseco MD 12/24/2018 I10 Essential (primary) hypertension Sol Carrero M.D. 12/24/2018 I48.91 Unspecified atrial fibrillation Bel Canseco MD 12/24/2018 I48.91 Unspecified atrial fibrillation Sol Carrero M.D. 12/24/2018 Z79.01 residential (current) use of Bel Canseco MD anticoagulants 12/22/2018 R20.2 Paresthesia of skin Gideon Real M.D. 12/22/2018 M62.81 Muscle weakness (generalized) Gideon Real M.D. 12/22/2018 I10 Essential (primary) hypertension Gideon Real M.D. 12/22/2018 I48.0 Paroxysmal atrial fibrillation Gideon Real M.D. 12/22/2018 R53.82 Chronic fatigue, unspecified Gideon Real M.D. 12/22/2018 D69.6 Thrombocytopenia, unspecified Gideon Real M.D. 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 Plan of Treatment Future Appointment(s):06/26/2019 1:00 pm - Francisco Benitez N.P. at [facility]06/15/2019 1:00 pm - Luis Lowe MD at [facility] at [id number]/12/2020 1:20 pm - Angeline Delarosa M.D. at [facility] - [facility]08/13/2019 1:00 pm - Angeline Delarosa M.D. at [facility]05/27/2019 - [place] MDM81.0 Age-related osteoporosis without current pathological fractureNew Medication:Zoledronic Acid 5 mg/100ML - 5mg once yearly. infuse over at least 15 minutes. flush iv line with 10milliliters ns flush following infusion.Instructions:1. Proceed with IV Reclast infusion. 2. Discuss option of raloxifene with Dr. Wilks. 3. Return in 1year. 4. Repeat bone density test in 2 years.E03.9 Hypothyroidism, unspecified Functional Status Description No Information Available Mental Status Description No Information Available Referrals Refer to Dr Reason for Referral Status Appt Date [facility] Closed [address] [place] [address] [phone] [facility] Neuro-Ophthalmology opthalmologic migraines Closed [address] [place] [address] [phone] Luis Lowe MD Scheduled 02/25/2019 [address] [place] [address] [phone] Brenda Aguila MD ECHO Closed [address] [place] [address] [phone] Celia Babcock M.D. Scheduled 12/26/2018 [address] [facility] [place] [address] [phone]
--- OUTSIDE RECORDS SUMMARY | 2019-07-05 18:33 | XMS REPORT | Continuity of Care Document ---
:1945 External Reference #:[id number] Author Name Luis Lowe MD (transmitted by agent of provider Vero Christian) Address [address] [place] [address] Care Team Providers Name Role Phone Yamile Cabezas MD - Internal Medicine Care Team Information Trust Mail Clerk [phone] Genesis Wilks MD - Hematology & Care Team Information Trust Mail Clerk Oncology Amador Samuels MD - Gastroenterology Care Team Information Trust Mail Clerk Nyla Levy MD - Surgery Care Team Information Trust Mail Clerk [phone] Jesus Cunningham MD - Orthopaedic Care Team Information Trust Mail Clerk Surgery Angeline Delarosa MD - Internal Care Team Information Trust Mail Clerk Medicine Genesis Wilks M.D. - Hematology & Care Team Information Trust Mail Clerk Oncology Luis Lowe MD - Orthopaedic Care Team Information Trust Mail Clerk [phone] Surgery Problems Active Problems Provider Date Benign [...] Cardioembolic stroke Alexia Conroy M.D. Onset: 12/31/2018 Swelling of first metatarsal joint of hallux Luis Lowe MD Onset: 2018 of right foot Acquired hallux rigidus Luis Lowe MD Onset: 06/23/2019 Social History Type Date Description Comments Sex Unknown Tobacco Use Start: Unknown Never Smoked Cigarettes Smoking Status Reviewed: 06/23/19 Never Smoked Cigarettes ETOH Use Denies alcohol use Tobacco Use Start: Unknown Patient has never smoked Recreational Drug Use Denies Drug Use Exercise Type/Frequency Exercises sporadically Allergies, Adverse Reactions, Alerts Active Allergies Reaction Severity Comments Date Penicillins Severe Hives 01/02/2012 Keflex rash Moderate 01/02/2012 Sulfa Anaphylaxis Severe 01/02/2012 Tetracycline 07/22/2013 Fosamax [place] weak and strange 07/11/2014 Doxycycline Nausea and [...] take 1 tablet 60tabs Z86.73 Alexia Conroy, 06/29/ 2012 daily M.D. 88mcg Tablets Vitamin D3 1 [...] 03/30/2019 100mg Capsules Coumadin 1 tablet on Mon 30tabs Alexia Marycarmen, 12/31/2018 - 5mg Tablets and Fri , 4mg M.D. 04/16/2019 dasia reynolds sun as directed ( Med change 2 weeks ago 01/16/19) Medications Administered in Office Medication SIG Qnty Indications Ordering Provider Date [facility] pharmacy administered Unknown 05/25/2019 Injection [facility] pharmacy administered Unknown 12/02/2018 Injection Immunizations CPT Code Status Date Vaccine Lot # [id number] Given 03/31/2015 Fluzone High Dose Vital Signs Date Vital Result Comment 06/23/2019 11:20am Height 61.5 inches 5'1.50" Weight 145.00 lb Heart Rate 70 /min BP Systolic Sitting 138 mmHg BP Diastolic Sitting 88 mmHg Respiratory Rate 14 /min Pain Level 3 O2 % BldC Oximetry 97 % BMI (Body Mass Index) 27.0 kg/m2 05/27/2019 1:01pm Height 61.5 inches 5'1.50" Weight 142.00 lb w/ shoes Heart Rate 77 /min BP Systolic Sitting 147 mmHg BP Diastolic Sitting 88 mmHg BMI (Body Mass Index) 26.4 kg/m2 Results Test Acquired Date Facility Test Result H/L Range Note CBC Auto 06/18/2019 [facility] White Blood 7.5 10^3/uL Normal 3.5-10.[address] [place] [address] [phone] Red Blood Count 5.10 10^6/uL High 3.70-4.87 Hemoglobin 15.2 g/dL Normal 12.0-16.0 Hematocrit 46 % Normal 35-47 Mean Corpuscular Volume 89 fL Normal 80-97 Mean Corpuscular Hemoglobin 30 pg Normal 27-31 Mean Corpuscular HGB Conc 33 g/dL Normal 31-36 Red Cell Distribution Width 16 % High 10-15 Platelet Count 380 10^3/uL Normal 150-450 Mean Platelet Volume 8.6 fL Normal 7.4-10.4 Abs Neutrophils 5.0 10^3/uL Normal 1.5-7.7 Abs Lymphocytes 1.6 10^3/uL Normal 1.0-4.8 Abs Monocytes 0.5 10^3/uL Normal 0-0.8 Abs Eosinophils 0.3 10^3/uL Normal 0-0.6 Abs Basophils 0.1 10^3/uL Normal 0-0.2 Abs Nucleated RBC 0.0 10^3/uL Granulocyte % 67.4 % Lymphocyte % 21.5 % Monocyte % 6.5 % Eosinophil % 3.8 % Basophil % 0.8 % Nucleated Red Blood Cells % 0.0 Inr/Protime 06/18/2019 [facility] Inr 1.62 High 0.82-1.[address] [place] [address] [phone] CBC Auto Diff 06/04/2019 [facility] White Blood 11.3 High 3.5- 10.[address] Count 10^3/[place] [address] [phone] Red Blood Count 5.11 10^6/uL High 3.70-4.87 Hemoglobin 15.3 g/dL Normal 12.0-16.0 Hematocrit 46 % Normal 35-47 Mean Corpuscular Volume 89 fL Normal 80-97 Mean Corpuscular Hemoglobin 30 pg Normal 27-31 Mean Corpuscular HGB Conc 34 g/dL Normal 31-36 Red Cell Distribution Width 15 % Normal 10-15 Platelet Count 420 10^3/uL Normal 150-450 Mean Platelet Volume 8.9 fL Normal 7.4-10.4 Abs Neutrophils 7.9 10^3/uL High 1.5-7.7 Abs Lymphocytes 2.1 10^3/uL Normal 1.0-4.8 Abs Monocytes 0.7 10^3/uL Normal 0-0.8 Abs Eosinophils 0.4 10^3/uL Normal 0-0.6 Abs Basophils 0.1 10^3/uL Normal 0-0.2 Abs Nucleated RBC 0.0 10^3/uL Granulocyte % 70.0 % Lymphocyte % 18.4 % Monocyte % 6.4 % Eosinophil % 3.9 % Basophil % 1.3 % Nucleated Red Blood Cells % 0.0 Liver Function 05/22/2019 [facility] Total Protein 7.0 g/dL Normal 6.4-8.[address] [place] [address] [phone] Albumin 4.2 g/dL Normal 3.2-5.2 Globulin 2.8 g/dL Normal 2-4 Albumin/Globulin Ratio 1.5 Normal 1-3 Total Bilirubin 0.70 mg/dL Normal 0.2-1.0 Direct Bilirubin 0.10 mg/dL Normal 0.03-0.18 Indirect Bilirubin 0.6 mg/dL Normal 0.3-1.0 Alkaline Phosphatase 62 U/L Normal 34-104 Alt 14 U/L Normal 7-52 Ast 24 U/L Normal 13-39 CBC Auto 05/19/2019 [facility] White Blood 9.7 10^3/uL Normal 3.5-10.[address] [place] [address] [phone] Red Blood Count 5.06 10^6/uL High 3.70-4.87 [...] Nucleated Red Blood Cells % 0.2 Laboratory test 04/27/2019 [facility] C Reactive 2.47 mg/L Normal <8.[address] [place] [address] [phone] Erythrocyte Sed Rate 0 mm/Hr Normal 0-29 Tick-Borne Panel 04/27/2019 [facility] Babesia Negative Negative PCR Blood [address] [place] [address] [phone] Babesia ducani Negative Negative Babesia divergens/Mo-1 Negative Negative 2 Anaplasma phagocytophilum Negative Negative Ehrlichia chaffeensis Negative Negative Ehrlichia ewingii/canis Negative Negative Ehrlichia muris eauclairensis Negative Negative 3 B. miyamotoi PCR, B Negative Negative 4 CBC Auto 04/23/2019 [facility] White Blood 10.5 10^3/uL Normal 3.5-10.[address] [place] [address] [phone] Red Blood Count 5.47 10^6/uL High 3.70-4.87 [...] % Nucleated Red Blood Cells % 0.1 Poc Urinalysis 04/23/2019 [facility] Poc Glucose, Negative Negative [address] [place] [address] [phone] Poc Bilirubin, Urine Negative Negative Poc Ketone, Urine Negative Negative Poc Specific Hasty, Urine 1.010 Normal 1.010-1.030 Poc Blood, Urine Negative Negative Poc pH, Urine 7.0 Normal 5-9 Poc Protein, Urine Negative Negative Poc Urobilinogen, Urine 0.2 Negative Poc Nitrite, Urine Negative Negative Poc Leukocytes, Urine Negative Negative Poc Color, Urine Yellow Poc Clarity, Urine Clear 5 Comp Metabolic Panel 04/23/2019 [facility] Sodium 131 mmol/L Low 135-[address] [place] [address] [phone] Potassium 5.0 mmol/L Normal 3.5-5.0 Chloride 97 [...] Egfr Non- 80.3 >60 Egfr 97.1 >60 6 Laboratory 04/23/2019 [facility] TSH (Thyroid 1.01 Normal 0.34 -5.60 test finding [address] Stim Horm) mcIU/[place] [address] [phone] Lyme Screen W/ Reflex To WB Negative Negative Laboratory test 04/23/2019 [facility] Point of 83 mg/dL Normal 70-100 [address] Care Glucose [place], [place] [id number] [phone] CBC Auto Diff 04/15/2019 [facility] White Blood 10.0 Normal 3.5-10.[address] Count 10^3/[place] [address] [phone] Red Blood Count 5.26 10^6/uL High 3.70-4.87 [...] Red Blood Cells % 0.1 Inr/Protime 04/15/2019 [facility] Inr 1.90 High 0.82-1.[address] [place] [address] [phone] CBC Auto Diff 04/13/2019 [facility] White Blood 10.3 Normal 3.5-10.[address] Count 10^3/[place] [address] [phone] Red Blood Count 5.12 10^6/uL High 3.70-4.87 [...] Red Blood Cells % 0.1 Inr/Protime 04/13/2019 [facility] Inr 4.62 High 0.82-1.[address] [place], [place] [address] [phone] Urine Culture 04/11/2019 [facility] Urine SEE RESULT 10, And [address] Culture BELOW 11 Sensitivities [place], [place] [address] [phone] Poc Urinalysis 04/11/2019 [facility] Poc Negative Negative [address] Glucose, [place] [address] Urine [phone] Poc Bilirubin, Urine Negative Negative Poc Ketone, Urine Negative Negative Poc Specific Hasty, Urine 1.020 Normal 1.010-1.030 Poc Blood, Urine 3+ Abnormal Negative Poc pH, Urine 7.0 Normal 5-9 Poc Protein, Urine 2+ Abnormal Negative Poc Urobilinogen, Urine 0.2 Negative Poc Nitrite, Urine Negative Negative Poc Leukocytes, Urine 3+ Abnormal Negative Poc Color, Urine Yellow Poc Clarity, Urine Cloudy 12 Inr/Protime 03/30/2019 [facility] Inr 2.32 High 0.82-1.[address] [place] [address] [phone] CBC Auto Diff 03/30/2019 [facility] White Blood 10.3 Normal 3.5-10.[address] Count 10^3/[place] [address] [phone] Red Blood Count 5.17 10^6/uL High 3.70-4.87 [...] % Nucleated Red Blood Cells % 0.1 Urine Culture And 03/23/2019 [facility] Urine Culture SEE RESULT [address] [place] [address] [phone] Ua Routine 03/23/2019 Forging Dies Final Finisher In House Ua Specific 1.020 Hasty Ua PH 5 Ua Color orange/yellow Ua Appera cloudy Ua WBC ++ Ua Protein 100 ++ Ua Glucose normal Ua Ketones neg Ua Bilirubin neg Ua Urobilinogen normal Ua Nitrite pos Ua Occult Blood about 250 Inr/Protime 03/18/2019 [facility] Inr 3.35 High 0.82-1.[address] [place] [address] [phone] Inr/Protime 03/12/2019 [facility] Inr 2.85 High 0.82-1.[address] [place] [address] [phone] Inr/Protime 03/09/2019 [facility] Inr 2.23 High 0.82-1.[address] [place] [address] [phone] Inr/Protime 03/05/2019 [facility] Inr 1.18 High 0.82-1.[address] [place] [address] [phone] CBC Auto Diff 03/05/2019 [facility] White Blood 8.9 Normal 3.5 -10.[address] Count 10^3/[place] [address] [phone] Red Blood Count 5.04 10^6/uL High 3.70-4.87 [...] % Nucleated Red Blood Cells % 0.0 Leukemia/Lymphoma Flow 03/03/2019 [facility] Path (SEE [address] Interpretation 2-8 NOTE) [place] [address] Marker [phone] Path Interpret 9-15 Marker TNP Path Interpret > 16 Marker TNP Laboratory test 03/03/2019 [facility] Miscellaneous Test See Comment 20 finding [address] [place], [place] [address] [phone] Bone Marrow 03/03/2019 [facility] BM Result Summary Normal Chromosomes [address] [place] [address] [phone] BM Chromosome Specimen Bone Marrow BM Chromosome Source LPIC BM Referral Reason See Comment 21 BM Chromosome Method See Comment 22 BM Chromo Banding Method See Comment 23 BM Cromosome Results 46,XX[20] BM Chromosome Interpretation See Comment 24 Released By See Comment 25 Myelodysplastic 03/03/2019 [facility] FMDS Specimen Bone Marrow Syndrome,[address] [place] [address] [phone] FMDS Disclaimer See Comment 26 FMDS Released By See Comment 27 FMDS Source LPIC FMDS Reason for Referral See Comment 28 FMDS Method See Comment 29 FMDS Result See Comment 30 FMDS Result Summary Normal FMDS Result Table See Comment 31 FMDS Interpretation See Comment 32 Inr/Protime 03/02/2019 [facility] Inr 1.27 High 0.82-1.[address] [place] [address] [phone] Pthi 02/23/2019 [facility] Calcium (PTH 9.4 mg/dL Normal 8.6- 10.[address] Intact) [place] [address] [phone] PTH Intact 41.0 pg/mL Normal 12-88 Laboratory 02/23/2019 [facility] TSH (Thyroid 1.47 Normal 0.34 -5.60 test finding [address] Stim Horm) mcIU/[place] [address] [phone] Free T4 (Free Thyroxine) 1.59 ng/dL High 0.61-1.12 CBC Auto 02/23/2019 [facility] White Blood 8.5 10^3/uL Normal 3.5-10.[address] [place] [address] [phone] Red Blood Count 5.44 10^6/uL High 3.70-4.87 [...] Red Blood Cells % 0.1 Inr/Protime 02/23/2019 [facility] Inr 4.50 High 0.82-1.[address] [place] [address] [phone] Basic Metabolic 02/23/2019 [facility] Sodium 137 mmol/L Normal 135-[address] [place] [address] [phone] Potassium 4.0 mmol/L Normal 3.5-5.0 Chloride 104 mmol/L Normal 101-111 Co2 Carbon Dioxide 28 mmol/L Normal 22-32 Anion Gap 5 mmol/L Normal 2-11 Glucose 86 mg/dL Normal 70-100 Blood Urea Nitrogen 10 mg/dL Normal 6-24 Creatinine 0.79 mg/dL Normal 0.51-0.95 BUN/Creatinine Ratio 12.7 Normal 8-20 Calcium 9.3 mg/dL Normal 8.6-10.3 Egfr Non- 71.1 >60 Egfr 86.1 >60 35 Laboratory test 02/23/2019 [facility] Vitamin D 42.4 Normal 20 -50 [address] Total 25(Oh) ng/[place] [address] [phone] CBC Auto Diff 02/16/2019 [facility] White Blood 8.7 Normal 3.5 -10.[address] Count 10^3/[place] [address] [phone] Red Blood Count 5.37 10^6/uL High 3.70-4.87 [...] Red Blood Cells % 0.1 Inr/Protime 02/16/2019 [facility] Inr 4.22 High 0.82-1.[address] [place] [address] [phone] Ua Routine 02/10/2019 Forging Dies Final Finisher In House Ua Specific 1.020 Hasty Ua PH 5 Ua Color yellow Ua Appera clear Ua WBC NEG Ua Protein NEG Ua Glucose NEG Ua Ketones NEG Ua Bilirubin NEG Ua Urobilinogen NEG Ua Nitrite NEG Ua Occult Blood NEG Urine Culture And 02/10/2019 [facility] Urine SEE RESULT 38 , [address] [place] [address] [phone] Inr/Protime 02/05/2019 [facility] Inr 3.44 High 0.[address] -1.0 [place] [address] [phone] Inr/Protime 01/29/2019 [facility] Inr 3.71 High 0.[address] -1.0 [place] [address] [phone] CBC Auto Diff 01/29/2019 [facility] White Blood 9.0 Normal 3.5 - [address] Count 10^3/uL 10.8 [place] [address] [phone] Red Blood Count 5.09 10^6/uL High 3.70-4.87 [...] Red Blood Cells % 0.1 Inr/Protime 01/16/2019 [facility] Inr 2.09 High 0.82-1.[address] [place] [address] [phone] CBC Auto Diff 01/16/2019 [facility] White Blood 9.9 Normal 3.5 -10.[address] Count 10^3/[place] [address] [phone] Red Blood Count 5.26 10^6/uL High 3.70-4.87 [...] Red Blood Cells % 0.1 Myeloprolif 01/07/2019 [facility] MPNR Result see interpretati 43 Neoplasm With RFX [address] <SEE NOTE> [place] [address] [phone] MPNR Final Diagnosis See Comment 44 Lipid Profile 01/06/2019 [facility] Triglycerides 69 mg/dL 45 (Trig/Chol/HDL) [place] [address] [phone] Cholesterol 111 mg/dL 46 HDL Cholesterol 44.7 mg/dL 47 LDL Cholesterol 53 mg/dL 48 Laboratory 01/06/2019 [facility] TSH (Thyroid 2.93 Normal 0.34 -5.60 test finding Stim Horm) mcIU/[place] [address] [phone] T3 Free 2.90 pg/mL Normal 2.5-3.9 Free T4 (Free Thyroxine) 1.66 ng/dL High 0.61-1.12 Glucose 98 mg/dL Normal 70-100 Hemoglobin A1c (Glyco HGB) 5.6 % Normal 4.0-5.6 49 Inr/Protime 01/06/2019 [facility] Inr 4.84 High 0.82-1.09 50 [place] [address] [phone] CBC Auto Diff 01/06/2019 [facility] White Blood 9.2 Normal 3.5 -10.8 Count 10^3/[place] [address] [phone] Red Blood Count 5.31 10^6/uL High 3.70-4.87 [...] Red Blood Cells % 0.1 Inr/Protime 12/29/2018 [facility] Inr 2.55 High 0.82-1.[address] [place] [address] [phone] CBC Auto Diff 12/27/2018 [facility] White Blood 11.7 High 3.5- 10.[address] Count 10^3/uL [place], [place] [address] [phone] Red Blood Count 5.33 10^6/uL High 3.70-4.87 [...] Blood Cells % 0.1 Laboratory test 12/27/2018 [facility] B-Type 50 pg/mL <=[address] [place] [address] Peptide BNP [phone] Comp Metabolic 12/27/2018 [facility] Sodium 131 mmol/L Low 135 -[address] [place] [address] [phone] Potassium 3.7 mmol/L Normal 3.5-5.0 Chloride 99 [...] Egfr 107.8 >60 52 Laboratory test 12/27/2018 [facility] Troponin-I (TnI) 0.00 ng/ mL <0.04 [address] [place] [address] [phone] TSH (Thyroid Stim Horm) 15.00 mcIU/mL High [...] 5.7 % High 4.0-5.6 Laboratory Studies 12/25/2018 N2N/Project Bionic Import Free Thyroxine 1.02 ng/dL 0.61-1.12 Vitamin [...] High 4.0-5.6 Laboratory Studies 12/25/2018 N2N/CCD Import Creatinine 0.62 mg/dL 0.51- 0.95 Cholesterol Level 147 mg/dL Chloride Level 108 mmol/L 101-111 Carbon Dioxide Level 23 mmol/L 22-32 Calcium Level 8.6 mg/dL 8.6-10.3 Blood Urea Nitrogen 13 mg/dL 6-24 BUN/Creatinine Ratio 21.0 High 8-20 Anion Gap 7 mmol/L 2-11 Hemoglobin A1c 5.7 % High 4.0-5.6 Laboratory Studies 12/25/2018 N2N/CCD Import Estimated GFR ( 113.9 Citizen Of [place]) Creatinine 0.62 mg/dL 0.51-0.95 Cholesterol Level 147 mg/dL Chloride Level 108 mmol/L 101-111 Carbon Dioxide Level 23 mmol/L 22-32 Calcium Level 8.6 mg/dL 8.6-10.3 Blood Urea Nitrogen 13 mg/dL 6-24 BUN/Creatinine Ratio 21.0 High 8-20 Anion Gap 7 mmol/L 2-11 Hemoglobin A1c 5.7 % High 4.0-5.6 Laboratory Studies 12/25/2018 N2N/CCD Import Estimated GFR (Non- 94.1 Citizen [place] Estimated GFR () 113.9 Creatinine 0.62 mg/dL [...] 5.7 % High 4.0-5.6 Laboratory Studies 12/25/2018 N[facility] Import Potassium Level 3.9 mmol/L 3.5-5.0 LDL [...] 5.7 % High 4.0-5.6 Laboratory Studies 12/25/2018 [facility] Import LDL Cholesterol 91 mg/dL HDL Cholesterol [...] 5.7 % High 4.0-5.6 Laboratory Studies 12/25/2018 N[facility] Import HDL Cholesterol 40.5 mg/dL Glucose Level [...] High 4.0-5.6 Laboratory Studies 12/24/2018 N2N/CCD Import Urine pH 7.0 5-9 Urine Specific Hasty 1.019 1.010-1.030 Laboratory Studies 12/24/2018 N2N/CCD Import Absolute Basophils 0.1 10^3/ ul 0-0.2 (auto) Laboratory Studies 12/24/2018 N2N/CCD Import Absolute 0.5 [...] Absolute Basophils (auto) 0.1 10^3/ul 0-0.2 Laboratory 12/24/2018 N2N/CCD Import Urine Specific 1.019 1.010-1.030 Studies Hasty CBC Auto Diff 12/24/2018 [facility] White Blood 10.5 Normal 3.5-10.[address] Count 10^3/[place] [address] [phone] Red Blood Count 5.43 10^6/uL High 3.70-4.87 [...] % Nucleated Red Blood Cells % 0.2 Inr/Protime 12/24/2018 [facility] Inr 3.01 High 0.82-1.[address] [place] [address] [phone] Laboratory test 12/24/2018 [facility] Lactic Acid 1.5 Normal 0.5-2.0 [address] mmol/[place] [address] [phone] Comp Metabolic 12/24/2018 [facility] Sodium 130 Low 135-[address] mmol/[place] [address] [phone] Potassium 3.9 mmol/L Normal 3.5-5.0 Chloride 100 [...] Egfr Non- 81.8 >60 Egfr 99.0 >60 56 Laboratory test 12/24/2018 [facility] Troponin-I (TnI) 0.00 ng/ mL <0.[address] [place] [address] [phone] Urinalysis 12/24/2018 [facility] Urine Color Straw Profile [address] [place] [address] [phone] Urine Appearance Clear Urine Specific Hasty 1.019 Normal 1.010-1.030 Urine pH 7.0 Normal [...] Basophils (auto) 0.1 10^3/ul 0-0.2 Inr/Protime 12/23/2018 [facility] Inr 2.55 High 0.82-1.[address] [place] [address] [phone] Nuclear AB 12/23/2018 [facility] Nuclear Ab Positive Abnormal 59 (Giovana) By Ifa [address] (Gioavna) by 1:160 [place] [address] Ifa, IgG [phone] Giovana Titer: 1:160 Giovana Pattern: Homogeneous 60 Laboratory test 12/23/2018 [facility] Homocysteine 17 mcmol/L Abnormal [address] [place] [address] [phone] Lipid Profile 12/23/2018 [facility] Triglycerides 83 mg/dL 62 (Trig/Chol/HDL) [address] [place], [place] [address] [phone] Cholesterol 190 mg/dL 63 HDL Cholesterol 52.1 mg/dL 64 LDL Cholesterol 121 mg/dL 65 Vitamin B12 12/23/2018 [facility] Vitamin B12 554 pg/mL Normal 180-914 [address] [place] [address] [phone] Folic Acid (Folate) 16.45 ng/mL >3.99 CBC Auto 12/23/2018 [facility] White Blood 9.7 10^3/uL Normal 3.5-10.[address] [place] [address] [phone] Red Blood Count 5.73 10^6/uL High 3.70-4.87 [...] Cells % 0.1 Comp Metabolic Panel 12/23/2018 [facility] Sodium 134 mmol/L Low 135-[address] [place] [address] [phone] Potassium 4.9 mmol/L Normal 3.5-5.0 Chloride 100 [...] Egfr Non- 65.4 >60 Egfr 79.1 >60 67 Laboratory test 12/23/2018 [facility] TSH (Thyroid 14.83 High 0.34-5.[address] Stim Horm) mcIU/[place] [address] [phone] Free T4 (Free Thyroxine) 1.21 ng/dL High 0.61-1.12 1 Standard intensity warfarin therapeutic range: 2.0-3.0 High intensity warfarin therapeutic range: 2.5-3.5 2 ADDITIONAL INFORMATION This test was developed and its performance characteristics determined by [facility] in a manner consistent with CLIA requirements. This test has not been cleared or approved by the U.S. Food and Drug Administration. 3 ADDITIONAL INFORMATION This test was developed and its performance characteristics determined by [facility] in a manner consistent with CLIA requirements. This test has not been cleared or approved by the U.S. Food and Drug Administration. 4 ADDITIONAL INFORMATION This test was developed and its performance characteristics determined by [facility] in a manner consistent with CLIA requirements. This test has not been cleared or approved by the U.S. Food and Drug Administration. Test Performed by: [address] [address] Cloth Cutting Machine Operator: Raúl Faustin M.D. Ph.D.; [facility]# [id number] 5 [place]: [id number] 6 Because ethnic data is not always readily [...] 15-29 5 Kidney failure <15 (or dialysis) 7 [place]: [id number] 8 Standard intensity warfarin therapeutic range: 2.0-3.0 High intensity warfarin therapeutic range: 2.5-3.5 9 Standard intensity warfarin therapeutic range: 2.0-3.0 High intensity warfarin therapeutic range: 2.5-3.5 10 [id number] SEE RESULT BELOW Name: CYRUS PORTER : [address]: Hank Bishop MD Acct: [id number] Unit: [id number] AGE: 74 Location: [facility] Re04/11/19 SEX: F Status: DEP ER SPEC: [id number] JASON: 04/11/19-[address] [facility] [address]: Hank Bishop MD REQ: [id number] RECD: 04/11/19 STATUS: TESSA GANT DR: Angeline Gary DIRECTOR [facility] _ SOURCE: URINE SPDESC: ORDERED: Urine Culture COMMENTS: [id number] Procedure Result Reported Site Urine Culture Final 04/13/19- 0825 ML No growth of clinically significant organisms * ML - Main Lab . END OF REPORT DEPARTMENT OF PATHOLOGY, [address] [place] [address] Nhan Rockwell M.D. Director [facility] # [id number] 12 [place]: [id number] Standard intensity warfarin therapeutic range: 2.0-3.0 High intensity warfarin therapeutic range: 2.5-3.5 14 SEE RESULT BELOW Name: CYRUS PORTER : [address]: Eddie Gary NP Acct: [id number] Unit: [id number] AGE: 74 Location: [facility] Re03/23/19 SEX: F Status: REG REF SPEC: [id number] JASON: 03/23/19-[address] [facility] [address]: Eddie Gary NP REQ: [id number] RECD: 03/23/19 STATUS: COMP _ SOURCE: URINE SPDESC: ORDERED: Urine Culture Urine Source: Random Procedure Result Reported Site Urine Culture Final 03/25/19- 0741 ML Organism 1 ESCHERICHIA COLI [place] Count >100,000 (Many) CFU/ML 1. ESCHERICHIA COLI [...] . END OF REPORT DEPARTMENT OF PATHOLOGY, [address] [place] [address] Nhan Rockwell M.D. Director [facility] # [id number] 15 Standard intensity warfarin therapeutic range: 2.0-3.0 High intensity warfarin therapeutic range: 2.5-3.5 16 Standard intensity warfarin therapeutic range: 2.0-3.0 High intensity warfarin therapeutic range: 2.5-3.5 17 Standard intensity warfarin therapeutic range: 2.0-3.0 High intensity warfarin therapeutic range: 2.5-3.5 18 Standard intensity warfarin therapeutic range: 2.0-3.0 High intensity warfarin therapeutic range: 2.5-3.5 19 FINAL DIAGNOSIS: Specimen Source: Bone marrow [...] MD 03/05/19 1223 Technical component performed by: [facility] - [address] [address] Travel Professional: Raúl Faustin II, MD, PhD. 20 Test Result Flag Unit RefValue BCR/ABL1 Reflex, Qual/Quant BCR/ABL1 Reflex Result TNP BCR/ABL1 Reflex, Qual/Quant was cancelled on 03/10/2019 at 15:37; Notification to cancel testing received from the referring facility. Test Performed by: [facility] - [address] [address] CORRECTED REPORT --- Corrected on 03/10/19 1642 [...] transcripts was evaluated using a qualitative, reverse automated logistics specialist PCR-based assay. The assay detects nearly all published and theoretical BCR/ABL1 fusion forms. The detection sensitivity limit for this assay is 0.1%. Please contact the lab at [phone] with questions or if additional testing is required. See [facility] Test Catalog for additional method details. Signing Pathologist: Gregorio Mercado M.D. ADDITIONAL INFORMATION This test was developed and its performance characteristics determined by [facility] in a manner consistent with CLIA requirements. This test has not been cleared or approved by the U.S. Food and Drug Administration. 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 24 No clonal abnormality was apparent. Additional cytogenetic studies are reported separately. 25 RESULT: Nhan Casarez, Ph.D. Test Performed by: [address] [address] 26 Applicable to Analyte Specific Reagent (ASR) and Laboratory Developed Tests (LDT). This test was developed and its performance characteristics determined by [facility] in a manner consistent with CLIA requirements. It has not been cleared or approved by the U.S. Food and Drug Administration. This FISH test does not rule out other chromosome abnormalities. 27 RESULT: Nhan Casarez, Ph.D. Test Performed by: [address] [address] 28 RESULT: D47.3 Essential (hemorrhagic) thrombocythemia 29 Locus and probes [Strategy;#Nuclei;Class] 3q21(RPN1),3q26.2(MECOM) [DFISH;500;LDT] 5p15.2(K0E539),5q31(EGR1) [COPY#;200;ASR] 7CEN(D7Z1),7q31(O4U668) [COPY#;200;ASR] 8CEN(D8Z2),8q24.1(MYC) [COPY#;200;ASR] 11q23(5'MLL[KMT2A],3'MLL[KMT2A]) [BAP;200;ASR] 17p13(TP53),17CEN(D17Z1) [COPY#;200;ASR] 20q12(Y28H284),20qter [COPY#;200;ASR] Probe strategies include: DFISH=dual color, double fusion; BAP=break-apart probe; COPY#=region gain and loss. 30 RESULT: Interphase FISH is normal for all loci studied. 31 Abnormality Name Result Abn% Cutoff% inv(3) RPN1/MECOM fusion Normal <0.6 -5q31(K5Y118t0,EGR1x1) Normal <9.5 -5(O9R251,EGR1)x1 Normal <3.5 -7q31(D7Z1x2,Q4I233u3) Normal <4.5 -7(D7Z1,U6R953)x1 Normal <3.5 +8(D8Z2,MYC)x3 Normal <2.5 11q23(MLL sep) Normal <4.0 -17p13.1(TP53x1,B36P2z3) Normal <9.5 -17(TP53,D17Z1)x1 Normal <5.5 -20q12(J29N544h7,58tbfap1) Normal <9.5 32 This result is within normal limits for the MDS FISH panel. Additional cytogenetic studies are reported separately. 33 Standard intensity warfarin therapeutic range: 2.0-3.0 High intensity warfarin therapeutic range: 2.5-3.5 34 Standard intensity warfarin therapeutic range: 2.0-3.0 High intensity warfarin therapeutic range: 2.5-3.5 35 Because ethnic data is not always [...] 5 Kidney failure <15 (or dialysis) 36 Total 25-Hydroxyvitamin D2 and D3 (25-OH-VitD) <10 ng/mL (severe deficiency) 10-19 ng/mL (mild to moderate deficiency) 20-50 ng/mL (optimum levels) 51-80 ng/mL (increased risk of hypercalciuria) >80 ng/mL (toxicity possible) 37 Standard intensity warfarin therapeutic range: 2.0-3.0 High intensity warfarin therapeutic range: 2.5-3.5 38 [id number] SEE RESULT BELOW Name: CYRUS PORTER : [address]: Angeline Delarosa MD Acct: [id number] Unit: [id number] AGE: 73 Location: [facility] Re02/10/19 SEX: F Status: REG REF SPEC: [id number] JASON: 02/10/19-[address]: Angeline Delarosa MD REQ: [id number] RECD: 02/10/19 STATUS: COMP _ SOURCE: URINE SPDESC: ORDERED: Urine Culture COMMENTS: [id number] QUERIES: Urine Source: Random Procedure Result Reported Site Urine Culture Final 02/11/19- 1604 ML No Growth (<1,000 CFU/mL) * - Main Lab . END OF REPORT DEPARTMENT OF PATHOLOGY, [address] [place] [address] Nhan Rockwell M.D. Director [facility] # [id number] 40 Standard intensity warfarin therapeutic range: 2.0-3.0 High intensity warfarin therapeutic range: 2.5-3.5 41 Standard intensity warfarin therapeutic range: 2.0-3.0 High intensity warfarin therapeutic range: 2.5-3.5 42 Standard intensity warfarin therapeutic range: 2.0-3.0 High intensity warfarin therapeutic range: 2.5-3.5 43 see interpretation 44 Peripheral blood, JAK2 V617F mutation analysis: Positive. JAK2 V617F mutated DNA was detected and measured at 7% of total JAK2 DNA. JAK2 V617F mutation is found with high frequency in [place] chromosome-negative myeloproliferative neoplasms (>95% in polycythemia vera [...] algorithm. See test catalogue for additional information: [email or web address]-[email or web address]. Note: Starting from 07/26/2015, the calculation and reporting value of [id number]/total JAK2% is changed to more accurately reflect the true [id number] allele burden. Higher values are generally expected and for levels below 80% (currently reported with new calculation), 1-5 fold increase from the prior calculation is expected. The testing method is not changed, however the limit of analytic sensitivity is changed to 0.06%. Please contact the [facility] H[facility] Laboratory at [phone] if you have questions or concerns. Method summary - JAK2 V617F analysis: Quantitative, allele-specific polymerase chain reaction (PCR) assay was performed using extracted genomic DNA to evaluate for the point mutation causing JAK2 V617F. The analytic sensitivity of this assay has been determined at 0.06% (see [facility] Interpretive Handbook for method details). Signing Pathologist: Gregorio Mercado M.D. ADDITIONAL INFORMATION This test was developed and its performance characteristics determined by [facility] in a manner consistent with CLIA requirements. This test has not been cleared or approved by the U.S. Food and Drug Administration. Test Performed by: [address] [address] 45 Desirable: <150 Borderline High: 150-199 High: 200-499 Very High: >500 46 Desirable: <200 Borderline High: 200-239 High: >239 47 Low: <40 Desirable: 40-60 High: >60 48 Desirable: <100 Near Optimal: 100-129 Borderline High: 130-159 High: 160-189 Very High: >189 49 Therapeutic target for the treatment of diabetes mellitus patients is <7% HBA1C, and in selective patients <6.0%. Please refer to [place] Diabetes Association diabetic care guidelines for further information. 50 Standard intensity warfarin therapeutic range: 2.0-3.0 High intensity warfarin therapeutic range: 2.5-3.5 51 Standard intensity warfarin therapeutic range: 2.0-3.0 High intensity warfarin therapeutic range: 2.5-3.5 52 Because ethnic data is not always [...] 5 Kidney failure <15 (or dialysis) 53 Troponin-I testing on Plasma Separator Tubes (PST) has a known false positive rate of 0.20-0.40%. All positive troponins reflex immediately to secondary confirmatory testing. Using the [employer] DxI 800 Access Immunoassay systems, the 99th percentile upper reference limit was demonstrated to be < 0.03 ng/mL. 54 Standard intensity warfarin therapeutic range: 2.0-3.0 High intensity warfarin therapeutic range: 2.5-3.5 55 [facility] Severe Sepsis and Septic Shock Management Bundle Measure requires all lactic acids initially measuring >2.0 mmol/L be repeated. 56 Because ethnic data is not always [...] 5 Kidney failure <15 (or dialysis) 57 Troponin-I testing on Plasma Separator Tubes (PST) has a known false positive rate of 0.20-0.40%. All positive troponins reflex immediately to secondary confirmatory testing. Using the [employer] DxI 800 Access Immunoassay systems, the 99th percentile upper reference limit was demonstrated to be < 0.03 ng/mL. 58 Standard intensity warfarin therapeutic range: 2.0-3.0 High intensity warfarin therapeutic range: 2.5-3.5 59 REFERENCE VALUE <1:80 (Negative) 60 Test Performed by: [facility] - [facility] [address] [place] [address] 61 The homocysteine concentration is elevated in this [...] developed and its performance characteristics determined by [facility] in a manner consistent with CLIA requirements. This test has not been cleared or approved by the U.S. Food and Drug Administration. Test Performed by: [facility] - [facility] [address] [place] [address] 62 Desirable: <150 Borderline High: 150-199 High: 200-499 Very High: >500 63 Desirable: <200 Borderline High: 200-239 High: >239 64 Low: <40 Desirable: 40-60 High: >60 65 Desirable: <100 Near Optimal: 100-129 Borderline High: 130-159 High: 160-189 Very High: >189 66 Normal Range 180 to 914 Indeterminate Range 145 to 180 Deficient Range <145 67 Because ethnic data is not always readily [...] 15-29 5 Kidney failure <15 (or dialysis) Procedures Date Code Description Status 01/29/2019 76210 EKG Tracing & Interpretation Completed 01/27/2019 [id number] Mammogram Completed 12/25/2018 45290 ECHO Transthorasic Realtime 2D W Doppler & Color Flow Completed Hosp 02/04/2018 [id number] Bone Mineral Density Test Completed 11/11/2017 [id number] Mammogram Completed 10/31/2016 [id number] Mammogram Completed 10/31/2015 [id number] Bone Mineral Density Test Completed 10/31/2015 [id number] Mammogram Completed 08/11/2015 [id number] Colonoscopy Completed 10/21/2014 [id number] Mammogram Completed 04/13/2014 [id number] Mammogram Completed 09/30/2013 [id number] Mammogram Completed 08/25/2013 [id number] Mammogram Completed 11/28/2012 [id number] Bone Mineral Density Test Completed 06/13/2012 [id number] Mammogram Completed 11/28/2010 [id number] Bone Mineral Density Test Completed Medical Devices Description No Information Available Encounters Type Date Location Provider Dx Diagnosis Office Visit 05/27/2019 [place] [facility] and Wellington Edge MD M81.0 Age- related 1:20p Endocrinology of [facility] osteoporosis w/o current pathological fracture E03.9 Hypothyroidism, unspecified Office Visit 04/30/2019 9:00a [place] [facility] Francisco Emmanuel, R51 Headache Services Of [facility] N.P. I63.9 Cerebral infarction, unspecified I48.0 Paroxysmal atrial fibrillation I10 Essential (primary) hypertension Z86.73 Prsnl hx of TIA (TIA), and cereb infrc w/o resid deficits Office Visit 04/27/2019 11:40a [facility] Internal Eddie Gary, R51 [facility] Office Visit 04/17/2019 10:40a [facility] Internal Eddie Gary, N39.0 Urinary tract Medicine - [facility] [employer] [employer] [facility] infection, site not specified Office Visit 04/03/2019 2:00p [place] Neu[facility] Francisco I63.9 Cerebral Services Of [facility], N.P. unspecified I48.0 Paroxysmal atrial fibrillation I10 Essential (primary) hypertension Z79.01 prison (current) use of anticoagulants Z86.73 Prsnl hx of TIA (TIA), and cereb infrc w/o resid deficits Office Visit 03/23/2019 11:40a [facility] Internal Eddie Gary, R35.0 [facility] micturition R30.9 Painful micturition, unspecified Office Visit 03/10/2019 3:00p [facility] Cathy S. I48.0 Paroxysmal atrial Of [facility] Foster, N.P. 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 I47.1 Supraventricular tachycardia Office Visit 03/09/2019 3:40p [facility] Internal Eddie Gary, R19.7 Diarrhea, [facility] unspecified Office Visit 02/05/2019 9:00a [place] [facility] and Wellington Edge, M81.0 Age- related Endocrinology of osteoporosis w/o [facility] current pathological fracture E03.9 Hypothyroidism, unspecified Z86.73 Prsnl hx of TIA (TIA), and cereb infrc w/o resid deficits I48.0 Paroxysmal atrial fibrillation Office Visit 01/29/2019 3:20p [facility] Brenda Aguila, Z86.73 Prsnl hx of 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.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 (TIA), and cereb infrc w/o resid deficits I10 Essential (primary) hypertension I48.0 Paroxysmal atrial fibrillation E78.5 Hyperlipidemia, unspecified Office Visit 01/01/2019 1:00p [place] [facility] Gideon Real Z86.73 Prsnl hx of Services Of [employer] 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 I10 Essential (primary) hypertension I48.91 Unspecified atrial fibrillation Z79.01 prison (current) use of anticoagulants Office Visit 12/26/2018 10:38a [facility] Raúl I63.9 Cerebral Assoc,NEMESIO Wilkes infarction, Hospitalists unspecified E03.9 Hypothyroidism, unspecified I10 Essential (primary) hypertension Z85.3 Personal history of malignant neoplasm of breast I48.91 Unspecified atrial fibrillation Office Visit 12/25/2018 Neurohospitalist Bel Canseco I63.40 Cerebral 7:00a Clinic MD infarction due to embolism of unsp cerebral artery I10 Essential (primary) hypertension I48.91 Unspecified atrial fibrillation 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 04/30/2019 I63.9 Cerebral infarction, unspecified Francisco Emmanuel, N.P. 04/30/2019 I48.0 Paroxysmal atrial fibrillation Francisco Benitez, N.P. 04/30/2019 I10 Essential (primary) hypertension Francisco eBnitez, N.P. 04/30/2019 Z86.73 Personal history of transient Francisco Emmanuel, N.P. ischemic attack (TIA), and cerebral infarction without residual deficits 04/27/2019 R51 Headache Eddie Abdirahman, [employer] 04/17/2019 N39.0 Urinary tract infection, site not Eddie Abdirahman, [employer] specified 04/03/2019 I63.9 Cerebral infarction, unspecified Francisco Benitez, N.P. 04/03/2019 I48.0 Paroxysmal atrial fibrillation Francisco Benitez, N.P. 04/03/2019 I10 Essential (primary) hypertension Francisco Benitez, N.P. 04/03/2019 Z79.01 prison (current) use of Francisco Benitez, N.P. anticoagulants 04/03/2019 Z86.73 Personal history of transient Francisco Benitez, N.P. ischemic attack (TIA), and cerebral infarction without residual deficits 03/23/2019 R35.0 Frequency of micturition Eddie Gary, [employer] 03/23/2019 R30.9 Painful micturition, unspecified Eddie Gary, [employer] 03/10/2019 I48.0 Paroxysmal atrial fibrillation Cathy S. Foster, N.P. 03/10/2019 I10 Essential (primary) hypertension Cathy S. Foster, N.P. 03/10/2019 E78.5 Hyperlipidemia, unspecified Cathy S. Foster, N.P. 03/10/2019 Z79.01 ferry terminal agent (current) use of Cathy S. Foster, N.P. anticoagulants 03/10/2019 I47.1 Supraventricular tachycardia Cathy S. [place], N.P. 03/09/2019 R19.7 Diarrhea, unspecified Eddiechioma Gary, [employer] 02/10/2019 Z00.00 Encounter for general adult medical [...] Hypothyroidism, unspecified Gideon Real M.D. 01/01/2019 Z79.01 ferry terminal agent (current) use of Gideon Real M.D. anticoagulants [...] Essential (primary) hypertension NEMESIO Cavazos 12/26/2018 Z79.01 ferry terminal agent (current) use of Bel Canseco MD anticoagulants 12/26/2018 Z85.3 Personal history of malignant NEMESIO Cavazos neoplasm of breast 12/26/2018 I48.91 Unspecified atrial fibrillation NEMESIO Cavazos 12/25/2018 I63.40 Cerebral infarction due to embolism Bel Canseco MD of unspecified cerebral artery 12/25/2018 I63.9 Cerebral infarction, unspecified Fitz Sevilla M.D., [facility] 12/25/2018 I10 Essential (primary) hypertension Bel Canseco MD 12/25/2018 I63.9 Cerebral infarction, unspecified David Esau Thorne M.D., [facility] 12/25/2018 I48.91 Unspecified atrial fibrillation Bel Canseco MD 12/25/2018 I10 Essential (primary) hypertension Fitz Sevilla M.D.,[facility] 12/25/2018 Z79.01 ferry terminal agent (current) use of Bel Canseco MD anticoagulants 12/25/2018 E03.9 Hypothyroidism, unspecified Fitz Sevilla M.D.,[facility] 12/24/2018 I63.40 Cerebral infarction due to embolism Bel Canseco MD of unspecified cerebral artery 12/24/2018 I63.9 Cerebral infarction, unspecified Sol Carrero M.D. 12/24/2018 I16.0 Hypertensive urgency Bel Canseco MD 12/24/2018 I10 Essential (primary) hypertension Sol Carrero M.D. 12/24/2018 I48.91 Unspecified atrial fibrillation Bel Canseco MD 12/24/2018 I48.91 Unspecified atrial fibrillation Sol Carrero M.D. 12/24/2018 Z79.01 ferry terminal agent (current) use of Bel Canseco MD anticoagulants Plan of Treatment Future Appointment(s):02/12/2020 1:20 pm - Angeline Delraosa M.D. at [facility] 1:00 pm - Angeline Delarosa M.D. at [facility] - Luis Lowe, MDM20.22 Hallux rigidus, left footM21.611 Bunion of right footFollow up:Follow Up: As needed Functional Status Description No Information Available Mental Status Description No Information Available Referrals Refer to Reason for Referral Status Appt Date [facility] Closed [address] [place] [address] [place] [address] [phone] [facility] Neuro-Ophthalmology opthalmologic migraines Closed [address] [place], [place] [id number] [phone] Luis Lowe MD Scheduled 02/25/2019 [address] [place] [address] [phone]
--- NOTE | 2019-07-05 19:10 | ED ---
Upper Extremity Pain - HPI Summary HPI Summary: 74-year-old female [id number] with a significant past medical history of atrial fibrillation which is treated with aliquots presents to emergency department today complaining of right wrist pain after a mechanical fall with outstretched hand. Patient endorses 6 out of 10 pain at the right wrist with decreased range of motion. There is appreciable swelling and bruising noted to the dorsal aspect of the right wrist. Patient is neurovascularly intact. Patient denies numbness or tingling. Patient also endorses mild pain with palpation in her right elbow. Family history and social history noncontributory. - History of Current Complaint Chief Complaint: EDExtremityUpper Stated Complaint: RT WRIST INJURY PER PT Time Seen by Provider: 07/05/19 18:52 Hx Obtained From: Patient Mechanism Of Injury: Fall From A Standing Position Onset/Duration: Started Hours Ago Timing: Constant Severity Initially: Moderate Severity Currently: Moderate Pain Location: Elbow, Wrist Character: Aching Aggravating Factor(s): Movement, Lifting, Flexion, Extension, Internal/External Rotation, Abduction, Adduction, Twisting, Pulling Alleviating Factor(s): Rest, Ice, Elevation Associated Signs & Symptoms: Positive: Swelling, Redness, Bruising. Negative: Fever, Weakness, Numbness/Tingling, Chest Pain, Nausea, Vomiting - Allergies/Home Medications Allergies/Adverse Reactions: Allergies Allergy/AdvReac Type Severity Reaction Status Date / Time Sulfa (Sulfonamide Allergy Intermediate Difficulty Verified 07/05/19 18:26 Antibiotics) Breathing lidocaine Allergy Mild See Comment Verified 07/05/19 18:26 aspirin Allergy Unknown Verified 07/05/19 18:26 Reaction Details cephalexin [From Keflex] Allergy Rash Verified 07/05/19 18:26 Penicillins Allergy Rash Verified 07/05/19 18:26 tetracycline Allergy Rash Verified 07/05/19 18:26 ibuprofen AdvReac upset Verified 07/05/19 18:26 stomach,nausea PMH/Surg Hx/FS Hx/Imm Hx Endocrine/Hematology History: Reports: Hx Anticoagulant Therapy - COUMADIN for a. 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 attempted biopsy 02/23/19, Hx Thyroid Disease - on medication for-- hypothyroidism Denies: Hx Diabetes, Hx Sickle Cell Disease, Hx Anemia Cardiovascular History: Reports: Hx Hypertension - on medication for, Other Cardiovascular Problems/Disorders - takes medication for afib Denies: Hx Angina, Hx Cardiomegaly, Hx Congestive Heart Failure, Hx Coronary Artery Disease, Hx Hypercholesterolemia, Hx Pacemaker/ICD, Hx Peripheral Vascular Disease, Hx Rheumatic Fever, Hx Valvular Heart Disease Respiratory History: Denies: Hx Asthma, Hx Pulmonary Edema, Hx Pulmonary Embolism, Hx Sleep Apnea , Other Respiratory Problems/Disorders GI History: Denies: Hx Cirrhosis, Hx Crohn's Disease, Hx Gastroesophageal Reflux Disease , Hx Hiatal Hernia, Hx Irritable Bowel, Hx Jaundice, Hx Ulcer, Other GI Disorders History: Denies: Hx Dialysis, Hx Kidney Infection, Hx Kidney Stones, Hx Renal Disease , Other Problems/Disorders Musculoskeletal History: Reports: Hx 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 in toes, Other Musculoskeletal History - back pain, osteoporsis, bunions that cause pain Denies: Hx Rheumatoid Arthritis, Hx Bursitis, Hx Osteoporosis Sensory History: Reports: Hx Contacts or Glasses Denies: Hx Cataracts, Hx Glaucoma, Hx Hearing Aid Opthamlomology History: Reports: Hx Contacts or Glasses Denies: Hx Cataracts, Hx Glaucoma Neurological History: Reports: Hx Migraine - occular migraines--takes tylenol for Denies: Hx Headaches, Hx Nerve Disease, Hx Seizures, Other Neuro Impairments/ Disorders Psychiatric History: Reports: Hx Anxiety - in her 20's she had anxiety problems Denies: Hx Depression, Hx Panic Disorder - Cancer History Cancer Type, Location and Year: [facility] Hx Chemotherapy: No Hx Radiation Therapy: Yes - BREAST - Surgical History Surgery Procedure, Year, and Place: LEFT LUMPECTOMY 2007 with radiation. 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 Denies: History Other Infectious Disease, Traveled Outside the [place] in Last 30 Days - Family History Known Family History: Positive: Non-Contributory Negative: Cardiac Disease, Hypertension, Diabetes, Renal Disease - Social History Alcohol Use: None Hx Substance Use: No Substance Use Type: Reports: None Hx Tobacco Use: No Smoking Status (MU): Never Smoked Tobacco Have You Smoked in the Last Year: No Review of Systems Constitutional: Negative Eyes: Negative ENT: Negative Cardiovascular: Negative Respiratory: Negative Gastrointestinal: Negative Genitourinary: Negative Positive: Arthralgia, Myalgia, Decreased ROM, Edema Positive: Bruising. Negative: Rash Neurological: Negative Psychological: Normal All Other Systems Reviewed And Are Negative: Yes Physical Exam - Summary Physical Exam Summary: Inspection of the right wrist reveals moderate ecchymosis and edema noted to the dorsal aspect of the right wrist. Patient is neurovascularly intact. Brisk capillary refill and 2+ radial pulse on the right. Patient has reduced range of motion of the right wrist due to pain. Patient endorses mild pain with palpation of the lateral epicondyle of the right elbow. Triage Information Reviewed: Yes Vital Signs On Initial Exam: Initial Vitals Temp Pulse Resp BP Pulse Ox 97.9 F 67 18 148/119 97 07/05/19 18:20 07/05/19 18:20 07/05/19 18:20 07/05/19 18:20 07/05/19 18:20 Vital Signs Reviewed: Yes Appearance: Positive: Well-Appearing, No Pain Distress, Well-Nourished Skin: Positive: Warm, Skin Color Reflects Adequate Perfusion Eyes: Positive: EOMI, ROSEMARY ENT: Positive: Hearing grossly normal Respiratory/Lung Sounds: Positive: Clear to Auscultation, Breath Sounds Present Cardiovascular: Positive: IRR, S1, S2 Bowel Sounds: Positive: Present Musculoskeletal: Positive: Strength/ROM Intact Neurological: Positive: Sensory/Motor Intact, Alert, Oriented to Person Place, Time, Normal Gait, Speech Normal Psychiatric: Positive: Normal AVPU Assessment: Alert Procedures - Sedation Patient Received Moderate/Deep Sedation with Procedure: No - Splinting Right Upper Extremity Location: right wrist and forearm Hand-Made Type: orthoglass - 30 inches of Ortho-Glass used Splint: sugar-tong Pre-Proc Neuro Vasc Exam: normal Post-Proc Neuro Vasc Exam: normal, unchanged from pre-exam Splint Applied by Provider: [facility] - Vital Signs Vital Signs Temp Pulse Resp BP Pulse Ox 07/05/19 18:20 97.9 F 67 18 148/119 97 - Laboratory Lab Statement: Any lab studies that have been ordered have been reviewed, and results considered in the medical decision making process. Course/Dx - Course Course Of Treatment: Patient was evaluated in the emergency department for right wrist pain after fall. Patient seen and examined her vitals are stable. Neurovascular exam was normal. Pressures were obtained which showed no fracture of the elbow and a radial head fracture and ulnar styloid fracture of the right wrist. Patient was placed in a sugar tong splint using 30 inches Ortho-Glass. Neurovascular exam after splint was normal. Patient was given discharge instructions in regards to pain medicine and R.I.C.E therapy. Patient was told to follow up with orthopedics within 1 week. - Diagnoses Differential Diagnosis/HQI/PQRI: Positive: Arthritis, Contusion, Fracture ( Closed), Hematoma, Strain, Sprain Provider Diagnoses: Right wrist fracture Discharge ED - Sign-Out/Discharge Documenting (check all that apply): Patient Departure - Discharge Plan Condition: Stable Disposition: HOME Prescriptions: HYDROcodone/ACETAMIN 5-325 MG* [[place] 5-325 TAB*] 1 tab PO Q6H PRN #12 tab MDD 4 PRN Reason: Pain - Moderate Patient Education Materials: Wrist Fracture in Adults (ED), R.I.C.E. Treatment (ED) Referrals: Angeline Delarosa MD [Primary Care Provider] - Arti Cuellar MD [Medical Doctor] - 5 Days Additional Instructions: * Splint applied for immobilization during this time to prevent re-injury. * Tylenol 650mg three times daily with meals for pain. + hydrocodone for break through pain * Follow up with orthopedic physician in 5-7 days. * If numbness, tingling or decreased sensation develop, you notice color changes in your fingers or pain is worsening, come back to ED immediately for re -evaluation. * Protect the area. For your comfort level, do not bear weight, pull or push until you can injury is somewhat healed. This may involve the need for immobilization or crutches for a period of time. * Rest the involved area, but not too long. You may need to be off your injury for some time to allow for healing, however excessive immobilization of joints can lead to stiffness and delay healing time. Early mobilization is encouraged if it is pain-free. * Ice. Not directly on the skin. Cover with a towel. Apply ice no more than 30 minutes at a time * Compression: You may use and keep an michael wrap bandage over the injury to decrease swelling. Again, this should be limited and be taken off periodically to encourage early range of motion and mobilization. * Elevate: Try to elevate the injured area above the heart whenever possible. - Billing Disposition and Condition Condition: STABLE Disposition: Home
[2019-07-05] MEDS ORDERED: oxyCODONE/Acetamin 5/325 MG* TAB PO ONE (19:39)
[2019-07-05 21:10] VITALS: BP 0/0
== END 2019-07-05 20:44 | disposition home or self-care (01) ==
LOC: ED 18:16
DX: S52.571A Other intraarticular fracture of lower end of right radius, initial encounter for closed fracture (principal); S52.611A Displaced fracture of right ulna styloid process, initial encounter for closed fracture; W19.XXXA Unspecified fall, initial encounter; Y92.9 Unspecified place or not applicable; I48.91 Unspecified atrial fibrillation; E03.9 Hypothyroidism, unspecified; I10 Essential (primary) hypertension; F41.9 Anxiety disorder, unspecified; Z79.01 Long term (current) use of anticoagulants; Z79.899 Other long term (current) drug therapy; Z88.1 Allergy status to other antibiotic agents; Z88.0 Allergy status to penicillin; Z88.2 Allergy status to sulfonamides; Z88.8 Allergy status to other drugs, medicaments and biological substances
CPT/HCPCS: 99282; A9270-GY

== ENCOUNTER 2023-11-28 12:04 | Observation (INO) ==
[2023-11-28 14:37] LABS: Hematocrit 41.5 % (35-45); Hemoglobin 14.3 g/dL (11.5-14.3); Mean Corpuscular Hemoglobin 38.6 pg (27-33); Mean Corpuscular Hgb Conc 34.3 g/dL (31-36); Mean Corpuscular Volume 112.4 fL (80-97); Mean Platelet Volume 8.4 fL (7.5-11.2); Platelet Count 218 10^3/uL (150-450); Red Blood Count 3.69 10^6/uL (3.63-4.92); White Blood Count 6.9 10^3/uL (3.8-11.8)
[2023-11-28 14:38] LABS: ABS Basophils 0.1 10^3/uL (0.0-0.1); ABS Eosinophils 0.1 10^3/uL (0.0-0.5); ABS Lymphocytes 1.3 10^3/uL (1.0-4.8); ABS Monocytes 0.4 10^3/uL (0.0-0.9); Lymphocyte % 19.3 %
[2023-11-28 14:41] LABS: INR 1.7 (0.83-1.13)
[2023-11-28 15:10] LABS: Albumin 4.6 g/dL (3.2-5.2); Albumin/Globulin Ratio 1.7 (1-3); Calcium 9.2 mg/dL (8.6-10.3); Creatinine, Serum 0.85 mg/dL (0.51-0.95); Globulin 2.7 g/dL (2-4); Potassium 4.3 mmol/L (3.5-5.0); Total Bilirubin 0.9 mg/dL (0.2-1.0); Total Protein 7.3 g/dL (6.4-8.9); eGFR CKD-EPI 69.6 (>60)
[2023-11-28 15:40] LABS: Urine Appearance Clear; Urine Bilirubin Negative (Negative); Urine Blood Negative (Negative); Urine Color Light-Yellow; Urine Glucose 3+ (>=300 mg/dL) (Negative); Urine Ketones Negative (Negative); Urine Nitrite Negative (Negative); Urine Protein Negative (Negative); Urine Specific Gravity 1.009 (1.002-1.030); Urine Urobilinogen Negative (Negative); Urine pH 6.5 (5.0-8.0)
[2023-11-28 15:49] LABS: Magnesium 2.5 mg/dL (1.9-2.7)
[2023-11-28 15:50] LABS: Urine Bacteria 1+ /HPF (Absent); Urine Red Blood Cell 1+(3-5/hpf) /HPF (0-Trace); Urine Squamous Epithelial Cell Present /HPF (Absent); Urine White Blood Cell Trace(0-5/hpf) /HPF (0-Trace)
[2023-11-28 16:14] LABS: High Sensitivity Troponin 1 Hr 4 pg/mL (<15)
[2023-11-28] MEDS: Pentoxifylline CR 400 mg TAB 400 MG PO SCH (20:40)
[2023-11-29 06:53] LABS: Hematocrit 38.4 % (35-45); Hemoglobin 13.2 g/dL (11.5-14.3); Mean Corpuscular Hemoglobin 38.3 pg (27-33); Mean Corpuscular Hgb Conc 34.3 g/dL (31-36); Mean Corpuscular Volume 111.6 fL (80-97); Mean Platelet Volume 8.4 fL (7.5-11.2); Platelet Count 194 10^3/uL (150-450); Red Blood Count 3.44 10^6/uL (3.63-4.92); Red Cell Distribution Width 13.9 % (12-17); White Blood Count 4.8 10^3/uL (3.8-11.8)
[2023-11-29 07:07] LABS: Calcium 8.5 mg/dL (8.6-10.3); Creatinine, Serum 0.8 mg/dL (0.51-0.95); Magnesium 2.4 mg/dL (1.9-2.7); Potassium 3.6 mmol/L (3.5-5.0); eGFR CKD-EPI 74.9 (>60)
[2023-11-29] MEDS: CMCS: DAPAGLIFLOZIN 10 MG TAB (NF) PO SCH (09:29)
[2023-11-29] MEDS ORDERED: Sulfur Hexaflouride MICROSPHR 25 MG VIAL ONE (12:47)
[2023-11-29 14:37] VITALS: BP 128/76
== END 2023-11-29 15:00 | disposition home or self-care (01) ==
LOC: ED 12:04 → EDHOLD 12:04 → SUATTDRO 17:53 → EDHOLD 20:48 → MEDTELE 21:00
PROVIDERS: ADMIT Internal Medicine; ATTEND Student in an Organized Health Care Education/Training Program